=== PATIENT | male | born 1930 | race Caucasian/White ===

== ENCOUNTER 2016-11-17 10:03 | Inpatient (IN) ==
[2016-11-17] MEDS ORDERED: 0.9 % Sodium Chloride 1,000 ML IVC ONE (10:44)
[2016-11-17] MEDS ORDERED: *HR* Morphine 2 MG/ML SYRINGE IVP ONE (10:44)
[2016-11-17] MEDS ORDERED: Ondansetron 4 MG/2 ML VIAL IVP ONE (10:44)
[2016-11-17 11:13] LABS: Basophils % 0.1 %; Eosinophils % 0.2 %; Hematocrit 29.8 % (37.5-50.1); Hemoglobin 9.7 g/dL (12.9-16.9); Immature Granulocytes % 0.4 % (0-4); Lymphocytes # 0.2 K/mcL (0.6-4.6); Lymphocytes % 1.3 %; Mean Corpuscular HGB Conc 32.6 g/dL (31.6-35.5); Mean Corpuscular Hemoglobin 27.5 pg (28.0-33.3); Mean Corpuscular Volume 84.4 fL (83.0-100.0); Mean Platelet Volume 9.5 fL (9.4-12.4); Monocytes # 0.7 K/mcL (0.0-1.3); Monocytes % 5.4 %; Neutrophils # 11.2 K/mcL (1.6-8.9); Platelet Count 231 K/mcL (140-400); Red Blood Count 3.53 M/mcL (4.19-5.50); Red Cell Distribution Width 18.8 % (11.5-14.5); Segmented Neutrophils % 92.6 %
[2016-11-17 11:19] LABS: INR 1.3
[2016-11-17 11:22] LABS: Activated Partial Thrombo Time 30.5 Seconds (26.0-36.0)
--- NOTE | 2016-11-17 11:23 | Emergency Department Note ---
Disposition Clinical Impression: Anemia, Frail elderly, Inguinal hernia, Free intraperitoneal air, Abdominal pain, Pleural effusion, Abnormal EKG, Elevated C-reactive protein (CRP), Colonic mass, Lower extremity edema, Cholelithiasis, Hyperbilirubinemia Disposition: Admitted As Inpatient Referrals: Antonella Cardoza CNP [Primary Care Provider] - Forms: Work/School Release, ED Satisfaction Letter General Adult HPI - General Chief complaint: ED Abdominal Pain Stated complaint: abd pain Time Seen by Provider: 11/17/16 10:16 Source: patient Limitations: no limitations - History of Present Illness HPI Narrative: 86-year-old male presents emergency Department with abdominal pain which began yesterday. 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 He is scheduled for colonoscopy December 01. The patient has a known history of inguinal hernia in the left he states. He reports there is chronic swelling in the left scrotal area. He does not describe pain in the inguinal region sharon testicular pain. The patient has had no vomiting or diarrhea. He denies chest pain or shortness of breath. He describes lower extremity swelling. There is no history of coughing of blood or previous history of DVT or PE. The patient is not anticoagulated. There is no history of trauma or back pain. No confusion or difficulty moving the arms or legs independently. The patient reports a nonbloody non-diarrheal stool yesterday. There is no history of flank pain or difficulty voiding. Pain Scale: 6 - Related Data Home Medications Medication Instructions Recorded Confirmed Cyanocobalamin (Vitamin B-12) 1,000 mcg PO DAILY 01/20/16 04/21/16 [Vitamin B12] Cyclosporine [Restasis] 1 drop OP BID 01/20/16 04/21/16 Levothyroxine [Synthroid] 50 mcg PO QAM 01/20/16 04/21/16 Multivitamin [Multi-Day Vitamins] 1 tab PO DAILY 01/20/16 04/21/16 Nabumetone 750 mg PO BID 01/20/16 04/21/16 Omeprazole [PriLOSEC] 20 mg PO DAILY 01/20/16 04/21/16 Polyvinyl Alcohol [Artificial 1 drop OP BID PRN 01/20/16 04/21/16 Tears] Fluticasone Propionate Nasal 50 mcg NS DAILY 04/21/16 04/21/16 [Flonase] Ipratropium [place] 1 spray NS BID 04/21/16 04/21/16 Previous Rx's Medication Instructions Recorded Aspirin 81 mg PO DAILY 30 Days 04/23/16 Atorvastatin [Lipitor] 40 mg PO HS 30 Days 04/23/16 Clopidogrel [Plavix] 75 mg PO DAILY 30 Days 04/23/16 Lisinopril [Zestril] 2.5 mg PO DAILY 30 Days 04/23/16 Metoprolol [Lopressor] 12.5 mg PO Q12HR 30 Days 04/23/16 Allergies Allergy/AdvReac Type Severity Reaction Status Date / Time prednisone Allergy Rash Verified 11/17/16 10:13 Sulfa (Sulfonamide Allergy Rash Verified 11/17/16 10:13 Antibiotics) celecoxib [From Celebrex] AdvReac See Verified 11/17/16 10:13 Comments All systems ED: reviewed and negative except as stated. Past Medical History - Past Medical History Medical history: Reports: arthritis, GERD, hyperlipidemia, hypertension, thyroid disease, valvular heart disease Psychiatric history: Reports: no psych history - Social History Smoking Status: Never smoker Smokeless Tobacco Status: No Alcohol use: Reports: none Drug use: Reports: none Physical Exam - General Limitations: no limitations General appearance: alert, in no apparent distress - Head Head exam: atraumatic, normocephalic, normal inspection - Eye Eye exam: Present: normal appearance, PERRL, EOMI. Absent: scleral icterus, conjunctival injection, miosis, mydriasis - ENT ENT exam: normal exam, normal oropharynx, mucous membranes moist, TM's normal bilaterally, normal external ear exam - Neck Neck exam: Present: normal inspection, full ROM, trachea midline. Absent: tenderness - Chest Chest inspection: Present: symmetric chest wall rise. Absent: tenderness - Respiratory Respiratory exam: Present: normal lung sounds bilaterally. Absent: respiratory distress, wheezes, stridor, accessory muscle use, prolonged expiratory phase - Cardiovascular Cardiovascular exam: Present: regular rate, normal rhythm, systolic murmur - Abdominal Exam Abdominal exam: Present: soft, tenderness, distention. Absent: guarding, rebound, rigidity, pulsatile mass Abdominal tenderness: Present: diffuse, moderate - Male exam: Present: inguinal hernia - Extremities Exam Extremities exam: Present: full ROM, normal capillary refill, pedal edema, other (Lower extremity edema, marketed versus the left, all 4 extremities are supple without evidence of acute trauma and are warm and well perfused without cyanosis or evidence of acute neurovascular or neuromuscular compromise.). Absent: normal inspection, tenderness, joint swelling, calf tenderness - Expanded Lower Extremity Exam Neurovascular/Tendon exam: Present: normal capillary refill. Absent: motor deficit, sensory deficit, tendon deficit, extremity cold to touch, pallor - Back Exam Back exam: Present: normal inspection, full ROM. Absent: tenderness, CVA tenderness (R), CVA tenderness (L) - Neurological Exam Neurological exam: Present: alert, oriented X3, CN II-XII intact - Psychiatric Psychiatric exam: Present: normal affect, normal mood - Skin Skin exam: Present: warm, dry, intact, normal color. Absent: rash, cyanosis, diaphoresis, erythema, pallor, mottled Course - Reevaluation(s) Reevaluation #1: DVT study negative per radiology orderly. CTA chest shows no pulmonary embolus. The radiologist called directly about the patient's abdominal scan which reveals what appears to be free air, he suspects that the patient's colonic mass is perforated. No sharon extravasation of contrast. Reevaluation #2: I consulted with Dr. Remy the surgeon pathology transcriptionist regarding the patient's free air in the abdomen, he reports he will have his nurse practitioner come to the emergency department to evaluate the patient. 2:39 pm. Vital Signs Temperature 97.8 F 11/17/16 10:07 Pulse Rate 75 11/17/16 10:07 Respiratory Rate 16 11/17/16 10:07 Blood Pressure 117/67 11/17/16 10:07 O2 Sat by Pulse Oximetry 99 11/17/16 10:07 Temperature 97.8 F 11/17/16 10:07 Pulse Rate 80 11/17/16 12:21 Respiratory Rate 17 11/17/16 12:21 Blood Pressure 133/70 11/17/16 12:21 O2 Sat by Pulse Oximetry 96 11/17/16 12:21 Oxygen Delivery Oxygen Delivery Room Air Medical Decision Making - MDM Narrative Medical decision making narrative: Dr. Remy was consulted, he sent his staff to the ED to evaluate the patient , they are taking the patient to the operating room. Invanz was given IV. The patient is currently stable pending admission to the surgical service for operative management. - Lab Data Lab results reviewed: Yes I reviewed the patient's lab results. Result diagrams: 11/17/16 11:03 11/17/16 11:03 Lab Results 11/17/16 11/17/16 11/17/16 Range/Units 11:03 11:03 11:03 WBC 12.1 H D (4.3-11.1) K/mcL RBC 3.53 L (4.19-5.50) M/mcL Hgb 9.7 L (12.9-16.9) g/dL Hct 29.8 L (37.5-50.1) % MCV 84.4 (83.0-100.0) fL MCH 27.5 L (28.0-33.3) pg MCHC 32.6 (31.6-35.5) g/dL RDW 18.8 H (11.5-14.5) % Plt Count 231 (140-400) K/mcL MPV 9.5 (9.4-12.4) fL Immature Gran % 0.4 (0-4) % Seg Neutrophils % 92.6 % Lymphocytes % 1.3 % Monocytes % 5.4 % Eosinophils % 0.2 % Basophils % 0.1 % Neutrophils # 11.2 H (1.6-8.9) K/mcL Lymphocytes # 0.2 L (0.6-4.6) K/mcL Monocytes # 0.7 (0.0-1.3) K/mcL Eosinophils # 0.0 (0.0-0.6) K/mcL Basophils # 0.0 (0.0-0.2) K/mcL PT 14.0 H (9.4-12.1) Seconds INR 1.3 APTT 30.5 (26.0-36.0) Seconds Sodium 132 L (136-145) mEq/L Potassium 4.1 (3.5-4.5) mEq/L Chloride 103 (98-109) mEq/L Carbon Dioxide 22 (19-29) mEq/L BUN 35 H (8-26) mg/dL Creatinine 0.97 (0.72-1.25) mg/dL Est GFR ( Amer) > 60 (> 60) Est GFR (Non-Af Amer) > 60 (> 60) BUN/Creatinine Ratio 36 H (6-26) Glucose 90 (70-99) mg/dL Calculated Osmolality 282 (280-300) Lactic Acid (0.5-2.2) mmol/L Calcium 9.0 (8.6-10.8) mg/dL Total Bilirubin 1.3 H (0.2-1.2) mg/dL Direct Bilirubin 0.7 H (0.0-0.5) mg/dL Indirect Bilirubin 0.6 (0.0-1.2) mg/dL AST 22 (5-34) Units/L ALT 11 (0-55) Units/L Alkaline Phosphatase 103 (38-126) Units/L Troponin I (0-0.03) ng/mL C-Reactive Protein 249 H (Less than 5) mg/L B-Natriuretic Peptide (0-100) pg/mL Serum Total Protein 5.2 L (6.0-8.3) g/dL Albumin 2.2 L (3.5-5.0) g/dL Globulin 3.0 (2.4-3.5) g/dL Albumin/Globulin Ratio 0.7 L (1.1-2.2) Lipase < 10 (8-78) Units/L 11/17/16 11/17/16 11/17/16 Range/Units 11:03 11:03 11:03 WBC (4.3-11.1) K/mcL RBC (4.19-5.50) M/mcL Hgb (12.9-16.9) g/dL Hct (37.5-50.1) % MCV (83.0-100.0) fL MCH (28.0-33.3) pg MCHC (31.6-35.5) g/dL RDW (11.5-14.5) % Plt Count (140-400) K/mcL MPV (9.4-12.4) fL Immature Gran % (0-4) % Seg Neutrophils % % Lymphocytes % % Monocytes % % Eosinophils % % Basophils % % Neutrophils # (1.6-8.9) K/mcL Lymphocytes # (0.6-4.6) K/mcL Monocytes # (0.0-1.3) K/mcL Eosinophils # (0.0-0.6) K/mcL Basophils # (0.0-0.2) K/mcL PT (9.4-12.1) Seconds INR APTT (26.0-36.0) Seconds Sodium (136-145) mEq/L Potassium (3.5-4.5) mEq/L Chloride (98-109) mEq/L Carbon Dioxide (19-29) mEq/L BUN (8-26) mg/dL Creatinine (0.72-1.25) mg/dL Est GFR ( Amer) (> 60) Est GFR (Non-Af Amer) (> 60) BUN/Creatinine Ratio (6-26) Glucose (70-99) mg/dL Calculated Osmolality (280-300) Lactic Acid 1.9 (0.5-2.2) mmol/L Calcium (8.6-10.8) mg/dL Total Bilirubin (0.2-1.2) mg/dL Direct Bilirubin (0.0-0.5) mg/dL Indirect Bilirubin (0.0-1.2) mg/dL AST (5-34) Units/L ALT (0-55) Units/L Alkaline Phosphatase (38-126) Units/L Troponin I 0.00 (0-0.03) ng/mL C-Reactive Protein (Less than 5) mg/L B-Natriuretic Peptide 186 H (0-100) pg/mL Serum Total Protein (6.0-8.3) g/dL Albumin (3.5-5.0) g/dL Globulin (2.4-3.5) g/dL Albumin/Globulin Ratio (1.1-2.2) Lipase (8-78) Units/L - Radiology Data Radiology results reviewed: Yes I reviewed the patient's radiology results.
[2016-11-17 11:28] LABS: Alanine Aminotransferase 11 Units/L (0-55); Albumin 2.2 g/dL (3.5-5.0); Albumin/Globulin Ratio 0.7 (1.1-2.2); Alkaline Phosphatase 103 Units/L (38-126); Aspartate Amino Transferase 22 Units/L (5-34); BUN/Creatinine Ratio 36 (6-26); Bilirubin,Direct 0.7 mg/dL (0.0-0.5); Bilirubin,Indirect 0.6 mg/dL (0.0-1.2); Bilirubin,Total 1.3 mg/dL (0.2-1.2); Blood Urea Nitrogen 35 mg/dL (8-26); Carbon Dioxide 22 mEq/L (19-29); Chloride 103 mEq/L (98-109); Glucose 90 mg/dL (70-99); Osmolality,Calculated 282 (280-300); Potassium 4.1 mEq/L (3.5-4.5); Sodium 132 mEq/L (136-145); Total Protein 5.2 g/dL (6.0-8.3); eGFR For African Americans > 60 (> 60); eGFR For Non-African Americans > 60 (> 60)
[2016-11-17 11:29] LABS: Lipase < 10 Units/L (8-78)
--- NOTE | 2016-11-17 11:39 | Emergency Department Note ---
START Narrative - START START: Patient presents with his for evaluation of abdominal pain. It is localized superior to the umbilicus extending to the epigastrium. Nothing makes it better. It is worse with palpation. He describes a recent bout of constipation, which was alleviated after using an enema at home. He had a normal bowel movement yesterday. He denies melena or hematochezia. He has had no nausea, vomiting, fever or chills. He has noticed an increase in his right inguinal hernia since yesterday. He denies dysuria, hematuria, flank pain. He also denies chest pain, shortness of breath or trouble breathing. On exam, he has mild abdominal distention, moderate tenderness in epigastrium and superior to the umbilicus. A large right inguinal hernia extending into the scrotum, which is mildly tender. He also has what sounds like atrial fibrillation and mild rales in the bases bilaterally. It does not appear that he is anticoagulated. Screening labs and an EKG have been ordered. Previous imaging studies done two weeks ago will be reviewed and new imaging studies will be ordered. Case has been discussed with Dr. Baker. He will be taking over care of this patient.
[2016-11-17 12:03] LABS: C-Reactive Protein 249 mg/L (Less than 5)
[2016-11-17] MEDS ORDERED: *HR* Propofol 200 MG/20 ML VIAL IVP ONE (16:05)
[2016-11-17] MEDS ORDERED: Lidocaine -MPF 4% 5 ML AMPUL ONE (16:10)
--- NOTE | 2016-11-17 16:11 | General Surg History&Physical ---
<Omaira Mccarthy - Last Filed: 11/17/16 16:02> Date of Encounter: 11/17/16 Time of Encounter: 15:45 Assessment and Plan (1) Free intraperitoneal air Current Visit: Yes Status: Acute The assessment and plan as outlined above was discussed with the patient and/or family members who expressed understanding and agreement. All questions were answered. Admit to 2N Nothing by mouth IV fluids IV antibiotics Supportive care and pain control Plan for urgent surgical intervention: Discussed the risks, benefits, alternatives, expected outcomes with the patient and his and he is in agreement to proceed to the operating room with Dr. Remy for an exploratory laparotomy with sigmoid colon resection, diverting colostomy, primary repair of left inguinal hernia. (2) Colonic mass Current Visit: Yes Status: Acute The assessment and plan as outlined above was discussed with the patient and/or family members who expressed understanding and agreement. All questions were answered. Admit to 2N Nothing by mouth IV fluids IV antibiotics Check CEA level Supportive care and pain control Plan for urgent surgical intervention: Discussed the risks, benefits, alternatives, expected outcomes with the patient and his and he is in agreement to proceed to the operating room with Dr. Remy for an exploratory laparotomy with sigmoid colon resection, diverting colostomy, primary repair of left inguinal hernia. (3) Left inguinal hernia Current Visit: Yes Status: Acute The assessment and plan as outlined above was discussed with the patient and/or family members who expressed understanding and agreement. All questions were answered. Plan for primary repair of left inguinal hernia History of Present Illness Chief complaint: Abdominal pain HPI: Mr. Craig is a 86 year old male who presented to the emergency department today with complaints of abdominal discomfort. He states that he has not been feeling well for approximately 1 month. He has had decreased appetite. He also had blood noted in his stool and did undergo a CAT scan 3 weeks ago. He was found to have a colonic mass as well as adenopathy at that time. He was seen and evaluated by Dr. Charlton and was scheduled to undergo a colonoscopy on . He states that 4 days ago he was struggling with constipation and he took an enema at that time. He states that he was able to have a normal bowel movement after the enema. He states that he had 10 bowel movements on Monday. He states that he has struggled with lifelong constipation however he is able to have a bowel movement 1-2 times a day with his current bowel regimen. He reports that he has been anemic and was started on iron supplementation. He states that since that time his stool has been black. He currently denies seen any blood in the stool. He has had a 35 pound weight loss over the last 2 years. He reports a significant decrease in appetite over the last 1 month. He admits to increasing fatigue and weakness. He is currently having abdominal pain and he states that this started approximate 4 days ago after taking an enema. He states that he pain initially started on his right side and has now migrated to his left side. He describes it as a constant soreness to the left side of his abdomen. He admits to chills but denies any fevers. He denies any nausea or vomiting. He admits to shortness of breath but denies any chest pains. He is urinating without difficulty however he states that his left inguinal hernia makes it difficult to urinate because his penis is retracted. He has had a CAT scan completed which shows concerns for perforated viscus and pneumoperitoneum. It does further demonstrate the sigmoid colonic mass with adenopathy. He also has a large left inguinal hernia with sigmoid colon into his left scrotum. The patient states that his father at the age of 50 from colon cancer. The patient has never had a colonoscopy evaluation. Past Med Surg Social Fam HX - Past Medical History Source: patient, old records reviewed Medical history: arthritis (rheumatoid), GERD, hyperlipidemia, hypertension, thyroid disease, valvular heart disease, other (anemia) Psychiatric history: no psych history - Past Surgical History Surgical History: other (Bilateral cataract removal, tonsils and adenoids removed) - Social History Smoking Status: Never smoker Smokeless Tobacco Status: No Alcohol use: none Drug use: none Current living situation: Home - Independent Activity Level: Independent ambulation - Family History Father Living Status: Age at : 50 Hx Family Cancer: Yes (colon cancer) Mother Living Status: Age at : 90 Cause of : CAD Hx Family Cardiac Disorders: Yes Hx Family Endocrine Disorder: Yes (Diabetes Mellitus) Brother Living Status: Still Living Hx Family Cardiac Disorders: Yes Hx Family Endocrine Disorder: Yes (diabetes mellitus) Medications and Allergies Cyanocobalamin (Vitamin B-12) [Vitamin B12] 1,000 mcg PO DAILY 01/20/16 [History ] Cyclosporine [Restasis] 1 drop OP BID 01/20/16 [History] Levothyroxine [Synthroid] 50 mcg PO QAM 01/20/16 [History] Multivitamin [Multi-Day Vitamins] 1 tab PO DAILY 01/20/16 [History] Nabumetone 750 mg PO BID 01/20/16 [History] Omeprazole [PriLOSEC] 20 mg PO DAILY 01/20/16 [History] Polyvinyl Alcohol [Artificial Tears] 1 drop OP BID PRN 01/20/16 [History] Fluticasone Propionate Nasal [Flonase] 50 mcg NS DAILY 04/21/16 [History] Ipratropium [place] 1 spray NS BID 04/21/16 [History] Aspirin 81 mg PO DAILY 30 Days 04/23/16 [Rx] Ascorbate Calcium [Vitamin C] 500 mg PO DAILY 11/17/16 [History] Diltiazem [Cardizem] 30 mg PO TID 11/17/16 [History] Ferrous Sulfate [Iron] 325 mg PO DAILY 11/17/16 [History] Sennosides [Senna] 17.2 mg PO HS PRN 11/17/16 [History] Allergies celecoxib [From Celebrex] Adverse Reaction (Verified 11/17/16 15:29) See Comments patient unsure of reaction prednisone Adverse Reaction (Verified 11/17/16 15:29) Rash patient wasnt sure of reaction to this Sulfa (Sulfonamide Antibiotics) Adverse Reaction (Verified 11/17/16 15:29) Rash patient wasnt sure of reaction Review of Systems All systems PM: reviewed and no additional remarkable complaints except as stated (in the HPI) All systems PM: A 10-system review of systems was performed and is negative for pertinent findings except as documented above in the HPI. General Surgery Exam Initial Vital Signs Temp Pulse Resp BP Pulse Ox 97.8 F 75 16 117/67 99 11/17/16 10:07 11/17/16 10:07 11/17/16 10:07 11/17/16 10:07 11/17/16 10:07 - General physical appearance well developed, moderate pain, chronically ill - Eyes normal ocular movement - ENT normal mucosa, atraumatic, normocephalic - Neck trachea midline - Respiratory normal respiratory effort, clear to auscultation - Cardiovascular Cardiovascular exam: Present: RRR, murmurs - Abdomen Abdomen general surgery: Present: bowel sounds present, soft, distended, tender Abdominal Tenderness: Present: LUQ, LLQ - Integumentary Integumentary general surgery: Present: warm and dry - Neurologic Present: CN 2-12 grossly intact - Musculoskeletal Present: other (generalized weakness) - Psychiatric Psychiatric general surgery: Present: appropriate, oriented to person, oriented to place, oriented to time, speech is normal, memory intact Results - Labs 11/17/16 11:03 11/17/16 11:03 Abnormal lab results WBC 12.1 K/mcL (4.3-11.1) H D 11/17/16 11:03 RBC 3.53 M/mcL (4.19-5.50) L 11/17/16 11:03 Hgb 9.7 g/dL (12.9-16.9) L 11/17/16 11:03 Hct 29.8 % (37.5-50.1) L 11/17/16 11:03 MCH 27.5 pg (28.0-33.3) L 11/17/16 11:03 RDW 18.8 % (11.5-14.5) H 11/17/16 11:03 Neutrophils # 11.2 K/mcL (1.6-8.9) H 11/17/16 11:03 Lymphocytes # 0.2 K/mcL (0.6-4.6) L 11/17/16 11:03 PT 14.0 Seconds (9.4-12.1) H 11/17/16 11:03 Sodium 132 mEq/L (136-145) L 11/17/16 11:03 BUN 35 mg/dL (8-26) H 11/17/16 11:03 BUN/Creatinine Ratio 36 (6-26) H 11/17/16 11:03 Total Bilirubin 1.3 mg/dL (0.2-1.2) H 11/17/16 11:03 Direct Bilirubin 0.7 mg/dL (0.0-0.5) H 11/17/16 11:03 C-Reactive Protein 249 mg/L (Less than 5) H 11/17/16 11:03 B-Natriuretic Peptide 186 pg/mL (0-100) H 11/17/16 11:03 Serum Total Protein 5.2 g/dL (6.0-8.3) L 11/17/16 11:03 Albumin 2.2 g/dL (3.5-5.0) L 11/17/16 11:03 Albumin/Globulin Ratio 0.7 (1.1-2.2) L 11/17/16 11:03 All other labs normal. - Imaging Additional studies: Chest CTA 11/17/16 11:36 IMPRESSION: 1. No pulmonary embolism. 2. Trace left pleural effusion of uncertain significance. 3. Mild dependent atelectasis in the lower chest. D/ / Santos Trotter MD / Santos Trotter MD Interpreting Provider: Santos Trotter MD Abdomen/Pelvis CT 11/17/16 13:00 IMPRESSION: 1. Pneumoperitoneum compatible with perforated viscus. Perforated colon mass or diverticulum is favored. There is a small amount of free intraperitoneal fluid 2. Large colon mass with probable transmural extension and pelvic and abdominal adenopathy re- demonstrated and not significantly changed. 3. Cholelithiasis 4. Nonobstructing left nephrolithiasis 5. Stable nonspecific liver lesions and periportal edema 6. Left inguinal hernia containing sigmoid proximal to the mass D/ / Monty Mishra MD / Monty Mishra MD Interpreting Provider: Monty Mishra MD - Attending Attestation I examined this patient and my medical decision-making was reviewed with the CREDIT REPORT CHECKER/PA/Advanced Practice Nurse/Resident Physician. I agree with the documented findings, disposition and treatment plan as described except to the extent set forth below. <Gopal Remy M - Last Filed: 11/17/16 17:52> Date of Encounter: 11/17/16 History of Present Illness HPI: Mr. Craig is a 86 year old male Review of Systems All systems PM: A 10-system review of systems was performed and is negative for pertinent findings except as documented above in the HPI. General Surgery Exam Initial Vital Signs Temp Pulse Resp BP Pulse Ox 97.8 F 75 16 117/67 99 11/17/16 10:07 11/17/16 10:07 11/17/16 10:07 11/17/16 10:07 11/17/16 10:07 Results - Labs 11/17/16 11:03 11/17/16 11:03 Abnormal lab results WBC 12.1 K/mcL (4.3-11.1) H D 11/17/16 11:03 RBC 3.53 M/mcL (4.19-5.50) L 11/17/16 11:03 Hgb 9.7 g/dL (12.9-16.9) L 11/17/16 11:03 Hct 29.8 % (37.5-50.1) L 11/17/16 11:03 MCH 27.5 pg (28.0-33.3) L 11/17/16 11:03 RDW 18.8 % (11.5-14.5) H 11/17/16 11:03 Neutrophils # 11.2 K/mcL (1.6-8.9) H 11/17/16 11:03 Lymphocytes # 0.2 K/mcL (0.6-4.6) L 11/17/16 11:03 PT 14.0 Seconds (9.4-12.1) H 11/17/16 11:03 Sodium 132 mEq/L (136-145) L 11/17/16 11:03 BUN 35 mg/dL (8-26) H 11/17/16 11:03 BUN/Creatinine Ratio 36 (6-26) H 11/17/16 11:03 Total Bilirubin 1.3 mg/dL (0.2-1.2) H 11/17/16 11:03 Direct Bilirubin 0.7 mg/dL (0.0-0.5) H 11/17/16 11:03 C-Reactive Protein 249 mg/L (Less than 5) H 11/17/16 11:03 B-Natriuretic Peptide 186 pg/mL (0-100) H 11/17/16 11:03 Serum Total Protein 5.2 g/dL (6.0-8.3) L 11/17/16 11:03 Albumin 2.2 g/dL (3.5-5.0) L 11/17/16 11:03 Albumin/Globulin Ratio 0.7 (1.1-2.2) L 11/17/16 11:03 Urine Clarity Cloudy (Clear) A 11/17/16 16:26 Ur Specific Sultan > 1.030 (1.010-1.025) H 11/17/16 16:26 Urine Ketones 15 mg/dL (Negative) H 11/17/16 16:26 Urine Bilirubin Small (Negative) H 11/17/16 16:26 Urine Microscopic RBC 3-5 per hpf (0-3) H 11/17/16 16:26 Urine Microscopic WBC 5-15 per hpf (0-3) H 11/17/16 16:26 Ur Squamous Epith Cells Many per lpf (None-Few) H 11/17/16 16:26 Ur Culture Indicated? YES (NO) A 11/17/16 16:26 All other labs normal. - Attending Attestation I reviewed the evaluation and assessment and agree with the above. The patient had the onset of increased lower abdominal pain starting Monday. No nausea or vomiting. No current diarrhea or constipation. He has had black colored stool secondary to supplemental iron. He has never had a colonoscopy and admits to a family history of colon cancer. Noted pain to palpation in the lower abdomen. Noted large inguinal/scrotal hernia. He had symptoms of constipation which prompted his PMD to order a CT of the abdomen and pelvis on , demonstrating a large sigmoid mass. He new lower abdominal pain promted his current visit to the ER today and a repeat CT scan. I personally reviewed the CT scan images and results with the patient which is consistent with a large colonic mass (enlarged lymph nodes are identified as well) and free air. This is most likely a perforated sigmoid colon mass and will require resection with colostomy. I will also repair the inguinal hernia without mesh. Discussed with the patient and they agree with the above plan.
[2016-11-17] MEDS ORDERED: *HR* Rocuronium Bromide 50 MG/5 ML VIAL ONE (16:12)
[2016-11-17] MEDS ORDERED: Naloxone 0.4 MG/ML INJ IVP PRN ×2 (16:25→22:53)
[2016-11-17] MEDS ORDERED: Ondansetron 4 MG/2 ML VIAL IVP PRN ×2 (16:25→22:53)
[2016-11-17] MEDS ORDERED: *HR* HYDROmorphone (PF) 1 MG/ML SYRINGE IVP PRN (16:28)
[2016-11-17] MEDS ORDERED: 0.9 % Sodium Chloride 1,000 ML IVC SCH (16:30)
[2016-11-17 16:40] LABS: Bilirubin,Urine Small (Negative); Blood,Urine Negative (Negative); Clarity,Urine Cloudy (Clear); Color,Urine Dark Yellow (Yellow); Glucose,Urine (UA) Normal (Normal); Ketones,Urine 15 mg/dL (Negative); Leukocyte Esterase,Urine Negative (Negative); Nitrite,Urine Negative (Negative); Protein,Urine Trace mg/dL (Neg-Trace); Specific Gravity,Urine > 1.030 (1.010-1.025); Urobilinogen,Urine Normal (Normal)
[2016-11-17 16:42] LABS: Bacteria,Urine None Seen per hpf (None-Few); Hyaline Casts,Urine Few per lpf (None-Few); Squamous Epithelial Cell,Urine Many per lpf (None-Few)
--- NOTE | 2016-11-17 16:44 | Anesthesia Evaluation PreOp ---
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 HX Other Medical History: Thyroid, GERD, Other (rheumatoid arthritis) Anesthesia History: No Prior Anesthetic Complications, Past Anesthesia ( tonsillectomy at age 8) Alcohol Use: none Drug use: none Medications and Allergies Cyanocobalamin (Vitamin B-12) [Vitamin B12] 1,000 mcg PO DAILY 01/20/16 [History ] Cyclosporine [Restasis] 1 drop OP BID 01/20/16 [History] Levothyroxine [Synthroid] 50 mcg PO QAM 01/20/16 [History] Multivitamin [Multi-Day Vitamins] 1 tab PO DAILY 01/20/16 [History] Nabumetone 750 mg PO BID 01/20/16 [History] Omeprazole [PriLOSEC] 20 mg PO DAILY 01/20/16 [History] Polyvinyl Alcohol [Artificial Tears] 1 drop OP BID PRN 01/20/16 [History] Fluticasone Propionate Nasal [Flonase] 50 mcg NS DAILY 04/21/16 [History] Ipratropium [place] 1 spray NS BID 04/21/16 [History] Aspirin 81 mg PO DAILY 30 Days 04/23/16 [Rx] Ascorbate Calcium [Vitamin C] 500 mg PO DAILY 11/17/16 [History] Diltiazem [Cardizem] 30 mg PO TID 11/17/16 [History] Ferrous Sulfate [Iron] 325 mg PO DAILY 11/17/16 [History] Sennosides [Senna] 17.2 mg PO HS PRN 11/17/16 [History] Allergies celecoxib [From Celebrex] Adverse Reaction (Verified 11/17/16 15:29) See Comments patient unsure of reaction prednisone Adverse Reaction (Verified 11/17/16 15:29) Rash patient wasnt sure of reaction to this Sulfa (Sulfonamide Antibiotics) Adverse Reaction (Verified 11/17/16 15:29) Rash patient wasnt sure of reaction - Meds/Allergy Pre-op Review Medications Reviewed: Yes Allergies Reviewed: Yes Beta Blockers on Current Med List: No Anesthesia Results - Labs 11/17/16 11:03 11/17/16 11:03 - Imaging EKG: report reviewed, image reviewed (SR with occ PVC's) Additional studies: TTE: LVEF 60-65% mod LV diastolic dysfunction normal RV structure and function mod dilated LA mildly dilated RA mild AR mild MR no pulm htn Anesthesia Exam Last Vital Signs Temp 97.8 F 11/17/16 10:07 Pulse 76 11/17/16 15:43 Resp 18 11/17/16 15:43 BP 120/64 11/17/16 15:43 Pulse Ox 97 11/17/16 15:43 Weight: 77 kg - HEENT Pupil (Motor): Pupils equal, EOMI Mallampati: I Teeth: Edentulous Oral Opening: Greater than 3 - 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
[2016-11-17] MEDS ORDERED: Piperacillin/Tazobactam 3.375 GM in D5% in Water (Mini-Bag+) 100 ML IVPB SCH (17:00)
[2016-11-17] MEDS ORDERED: Ertapenem 1,000 MG in 0.9 % Sodium Chloride Mini Bag 100 ML IVPB ONE (17:00)
[2016-11-17] MEDS ORDERED: CefOXitin 1,000 MG VIAL ONE (17:36)
[2016-11-17] MEDS ORDERED: *HR* FentaNYL (PF) 100 MCG/2 ML VIAL ONE (18:02)
[2016-11-17] MEDS ORDERED: Ondansetron 4 MG/2 ML VIAL ONE (18:29)
[2016-11-17] MEDS ORDERED: Dexamethasone 4 MG/ML VIAL ONE (18:29)
[2016-11-17] MEDS ORDERED: *HR* HYDROmorphone 2 MG/ML SYRINGE ONE (18:39)
[2016-11-17] MEDS ORDERED: *HR* Magnesium Sulfate 1 GM/2 ML VIAL ONE ×2 (19:29→20:54)
[2016-11-17 20:28] LABS: Eosinophils % 0.1 %; Immature Granulocytes % 0.6 % (0-4); Lymphocytes # 0.4 K/mcL (0.6-4.6); Lymphocytes % 4.1 %; Mean Corpuscular HGB Conc 31.8 g/dL (31.6-35.5); Mean Corpuscular Hemoglobin 27.6 pg (28.0-33.3); Mean Corpuscular Volume 86.6 fL (83.0-100.0); Mean Platelet Volume 9.3 fL (9.4-12.4); Monocytes # 0.4 K/mcL (0.0-1.3); Monocytes % 4.9 %; Neutrophils # 7.8 K/mcL (1.6-8.9); Platelet Count 169 K/mcL (140-400); Red Blood Count 2.54 M/mcL (4.19-5.50); Red Cell Distribution Width 18.9 % (11.5-14.5); Segmented Neutrophils % 90.3 %
--- NOTE | 2016-11-17 21:30 | Operative Note ---
Date of procedure: 11/17/16 Pre-op diagnosis: Free air; sigmoid colon mass; left inguinal hernia Post-op diagnosis: other (Perforated sigmoid colon mass; left inguinal hernia) Procedure: 1. Exploratory celiotomy. 2. Sigmoid colectomy with colostomy. 3. Primary repair of left inguinal hernia. 4. Repair of left external/internal iliac vein injury. Implants: 19FR Franco x 1 Anesthesia: GETA Surgeon: Gopal Remy Sample Weaver: Magali Morgan Estimated blood loss (cc): 1,100 Specimen: sigmoid colon Disposition: PACU Procedure in Detail: Date of surgery: 11/17/16 After properly identifying the patient, the patient was brought to the operating room and placed in the supine position. After proper IV sedation was achieved followed by general endotracheal intubation the patient's abdomen was prepped and draped in normal sterile fashion. A timeout was performed noting the patient's name and type of procedure to be performed. A 10 blade scalpel was used to make an incision approximately 5-6 cm above the umbilicus extending down to the pubic symphysis. Bovie cauterization was used to dissect through the subcutaneous tissue and rectus fascia until the abdomen was entered. Visualization of the intra-abdominal component stated demonstrated exudate fluid within the pelvis which was immediately cultured and suctioned. A Bookwalter was brought onto the operative field to retract the fascia laterally. The examination of the intra-abdominal contents demonstrated that the sigmoid mass was at the level of the pelvic brim and approximately 8-10 cm in size. There were dense adhesions of the mass to the sidewall which were dissected free with Bovie cauterization and blunt dissection. Once this was performed this allowed for visualization of the segment of the sigmoid colon that was within the left inguinal hernia sac. At first gentle retraction and then more forceful retraction was required to reduce the hernia contents from within the hernia site. Of note; there was exudate present within the hernia sac and scrotum which was immediately suctioned. The hernia sac was then dissected free and the lateral sidewall attachments to the descending colon and sigmoid colon were dissected free with Bovie cauterization. The mass demonstrated enlarged bulky lymph nodes extending to the mesentery. Brief examination of the small bowel did show evidence of one small nodule consistent/ concerning for carcinomatosis. The small bowel was then run and evidence of multiple large size small bowel diverticula were identified with no further evidence of nodules along the serosal surface of the small bowel. First, the descending colon was examined and a portion of the mesentery was dissected free from the surface of the colon to allow for transection of the descending colon with a TRE stapler. This allowed for medial retraction of the sigmoid colon and further dissection of the mesentery inclusive of these "bulky " lymph nodes with the sigmoid. During the retraction the left ureter was visualized and noted to be densely adherent to this region. Careful dissection with a tonsil dissector and Metzenbaum scissors allow for sparing of the left ureter. The sacral prominence was examined and palpated and the peritoneal surface was scored to the left and right side of the sigmoid colon. Again, there were bulky lymph nodes noted more towards the left side of the mesentery/ central compartment.the pelvic vessels were enlarged and were hemostatic controlled with the handheld LigaSure. The mayelin-hemorrhoidal vessels were identified and transected with the handheld LigaSure and this pedicle did contain very enlarged lymph nodes as well which were dissected and carried with the sigmoid segment. The bulky mass was retracted superiorly allowing for dissection of the bulky mesentery so adjacent to the rectum to be transected with a handheld LigaSure. The amount of lymph node involvement was too extensive to completely clear the area during this dissection and transection for perforated colon mass. A contour stapler was brought onto the operative field which was used to transect across the rectum and the intervening segment of the sigmoid colon which was approximately 2 feet in length; this was removed from the operative field. During the retraction of the sigmoid mass there was evidence of a pelvic bleed and visualization of an injury to the confluence of the external and internal left iliac vein. This was repaired with a running 4- 0 Prolene suture. Surgicel was placed along the incision line to ensure hemostasis and the pelvis was copiously irrigated with normal saline solution containing Mefoxin. Sponges were placed in the pelvis to also help maintain hemostasis. My colleague Dr. Reaves (vascular coverage) was contacted and presented himself to the operating room to ensure proper repair of the iliac vein injury. This was verified and no further intervention was necessary regarding the iliac vein repair. The inguinal hernia defect was identified and the pubic tubercle could be palpated easily. The space was very enlarged and due to the exudate that was present within the abdomen and the need for a colonic resection the decision was made to primarily repair this by reapproximating the edge of what was felt to be the inguinal ligament to the near periosteum of the pubic tubercle or Onel's ligament. This was closed in a running fashion with 2-0 Prolene sutures. The omentum was then placed in the pelvis to cover this repair. The abdomen was once again copiously irrigated with normal saline solution and the decision was made to create a left sided ostomy by grasping the epidermis with an Allis clamp and transection of the epidermis with a 10 blade scalpel. Dissection through the subcutaneous tissue and fascia was performed with Bovie cauterization. The rectus abdominous muscle was split with a Nubia clamp and the posterior sheath was incised Bovie cauterization. The descending colonic stump was extruded through this opening without difficulty. Seprafilm was placed within the abdomen and the midline incision was closed with a running 0 PDS suture. Subcutaneous tissue was reapproximated with 2-0 Vicryl sutures.and the incision was briefly covered while the descending colonic stump was transected with Bovie cauterization and the ostomy was treated with interrupted 3-0 Vicryl sutures. The midline incision was packed with 1/4 inch plain Nu Gauze. [place], sponge, and instrument counts were correct 2 and the incision was covered with 4 x 4's and the ostomy appliance was placed over the ostomy. Due to the inability to pass a Bolden catheter urology was called for placement of a Bolden catheter prior to extubation. Following this the patient was transported to the recovery room in stable condition.
[2016-11-17] MEDS ORDERED: Neostigmine Methylsulfate 3 MG/3 ML SYRINGE ONE (21:35)
--- NOTE | 2016-11-17 21:40 | Urology - Consult Note ---
Date of Encounter: 11/17/16 Time of Encounter: 21:38 - Assessment and Plan (1) Urinary retention Current Visit: Yes Status: Acute Assessment and plan: Patient was prepped and draped in normal sterile fashion. I then attempted to place 18-[place] coude catheter which did not successfully into the bladder. I then was able to with some difficulty negotiate a Glidewire into the patient's bladder. I then placed an 18-[place] tip catheter with 10 mL of sterile water placed in the balloon. Approximately 1 L of urine was returned. The patient's catheter should remain in place for at least 2-3 days after surgery. He can then undergo voiding trial as normal. Urology CN:HPI Consult date: 11/17/16 Reason for consult Urology: Difficult Bolden Requesting physician: Gopal Remy History of present illness: Ciro is an 86-year-old male who was undergoing operative intervention for obstructing sigmoid mass. Multiple attempts of urinary catheter placement were attempted which were unsuccessful. Patient is known to urology for been evaluated approximately one year ago for some mild urinary hesitancy. Patient failed to follow-up for his cystoscopy. Past Med Surg Social Fam HX - Past Medical History Medical history: arthritis (rheumatoid), GERD, hyperlipidemia, hypertension, thyroid disease, valvular heart disease, other (anemia) Psychiatric history: no psych history - Past Surgical History Surgical History: other (Bilateral cataract removal, tonsils and adenoids removed) - Social History Smoking Status: Never smoker Smokeless Tobacco Status: No Alcohol use: none Drug use: none - Family History Father Living Status: Age at : 50 Hx Family Cancer: Yes (colon cancer) Mother Living Status: Age at : 90 Cause of : CAD Hx Family Cardiac Disorders: Yes Hx Family Endocrine Disorder: Yes (Diabetes Mellitus) Brother Living Status: Still Living Hx Family Cardiac Disorders: Yes Hx Family Endocrine Disorder: Yes (diabetes mellitus) Medications and Allergies Cyanocobalamin (Vitamin B-12) [Vitamin B12] 1,000 mcg PO DAILY 01/20/16 [History ] Cyclosporine [Restasis] 1 drop OP BID 01/20/16 [History] Levothyroxine [Synthroid] 50 mcg PO QAM 01/20/16 [History] Multivitamin [Multi-Day Vitamins] 1 tab PO DAILY 01/20/16 [History] Nabumetone 750 mg PO BID 01/20/16 [History] Omeprazole [PriLOSEC] 20 mg PO DAILY 01/20/16 [History] Polyvinyl Alcohol [Artificial Tears] 1 drop OP BID PRN 01/20/16 [History] Fluticasone Propionate Nasal [Flonase] 50 mcg NS DAILY 04/21/16 [History] Ipratropium [place] 1 spray NS BID 04/21/16 [History] Aspirin 81 mg PO DAILY 30 Days 04/23/16 [Rx] Ascorbate Calcium [Vitamin C] 500 mg PO DAILY 11/17/16 [History] Diltiazem [Cardizem] 30 mg PO TID 11/17/16 [History] Ferrous Sulfate [Iron] 325 mg PO DAILY 11/17/16 [History] Sennosides [Senna] 17.2 mg PO HS PRN 11/17/16 [History] Allergies celecoxib [From Celebrex] Adverse Reaction (Verified 11/17/16 15:29) See Comments patient unsure of reaction prednisone Adverse Reaction (Verified 11/17/16 15:29) Rash patient wasnt sure of reaction to this Sulfa (Sulfonamide Antibiotics) Adverse Reaction (Verified 11/17/16 15:29) Rash patient wasnt sure of reaction Review of Systems ROS unobtainable: due to endotracheal tube Exam Initial Vital Signs Temp Pulse Resp BP Pulse Ox 97.8 F 75 16 117/67 99 11/17/16 10:07 11/17/16 10:07 11/17/16 10:07 11/17/16 10:07 11/17/16 10:07 - General physical appearance Present: well developed - Cardiovascular Cardiovascular exam IM: RRR - Genitourinary other (Uncircumcised phallus) Urology Results - Labs 11/17/16 20:23 11/17/16 11:03 Abnormal lab results RBC 2.54 M/mcL (4.19-5.50) L 11/17/16 20:23 Hgb 7.0 g/dL (12.9-16.9) L D 11/17/16 20:23 Hct 22.0 % (37.5-50.1) L 11/17/16 20:23 MCH 27.6 pg (28.0-33.3) L 11/17/16 20:23 RDW 18.9 % (11.5-14.5) H 11/17/16 20:23 MPV 9.3 fL (9.4-12.4) L 11/17/16 20:23 Lymphocytes # 0.4 K/mcL (0.6-4.6) L 11/17/16 20:23 PT 14.0 Seconds (9.4-12.1) H 11/17/16 11:03 Sodium 132 mEq/L (136-145) L 11/17/16 11:03 BUN 35 mg/dL (8-26) H 11/17/16 11:03 BUN/Creatinine Ratio 36 (6-26) H 11/17/16 11:03 Total Bilirubin 1.3 mg/dL (0.2-1.2) H 11/17/16 11:03 Direct Bilirubin 0.7 mg/dL (0.0-0.5) H 11/17/16 11:03 C-Reactive Protein 249 mg/L (Less than 5) H 11/17/16 11:03 B-Natriuretic Peptide 186 pg/mL (0-100) H 11/17/16 11:03 Serum Total Protein 5.2 g/dL (6.0-8.3) L 11/17/16 11:03 Albumin 2.2 g/dL (3.5-5.0) L 11/17/16 11:03 Albumin/Globulin Ratio 0.7 (1.1-2.2) L 11/17/16 11:03 Carcinoembryonic Ag 5.8 ng/mL (0-5.0) H 11/17/16 11:03 Urine Clarity Cloudy (Clear) A 11/17/16 16:26 Ur Specific [place] > 1.030 (1.010-1.025) H 11/17/16 16:26 Urine Ketones 15 mg/dL (Negative) H 11/17/16 16:26 Urine Bilirubin Small (Negative) H 11/17/16 16:26 Urine Microscopic RBC 3-5 per hpf (0-3) H 11/17/16 16:26 Urine Microscopic WBC 5-15 per hpf (0-3) H 11/17/16 16:26 Ur Squamous Epith Cells Many per lpf (None-Few) H 11/17/16 16:26 Ur Culture Indicated? YES (NO) A 11/17/16 16:26 All other labs normal. Consult Discharge Plan - Plan Referrals: Antonella Cardoza CNP [Primary Care Provider] -
[2016-11-17] MEDS ORDERED: Acetaminophen IV 1,000 MG/100 ML INFUS..BTL IVPB ONE (22:18)
--- NOTE | 2016-11-17 22:23 | Anesthesia Evaluation Post Op ---
Date of Encounter: 11/17/16 Time of Encounter: 22:20 - Vital Signs Vital Signs: Vital Signs/O2 Sat/Glucose, Most Current Temp Pulse Resp BP Pulse Ox 11/17/16 22:08 91 16 101/58 100 11/17/16 21:58 85 16 85/46 100 11/17/16 21:48 100 F H 90 14 86/48 96 - Lungs Lungs: Clear Ascult./Percussion - Airway Airway: Non-obstructed - Cardiovascular Regular Rate - Mental Status Mental Status: Asleep with brisk response to light stimulation - Pain Pain Scale: 1 Pain Scale used: Strickland-Dia (Faces) - Nausea Vomiting Nausea Vomiting: Not Present - Hydration Hydration: NPO, Bolden catheter - Discharge PostOp Status: Transfer Patient to floor Anes Supervising Prov Stmt: Pt VSS and pt has met criteria for discharge to floor. - MD Alexsander
[2016-11-18] MEDS: Piperacillin/Tazobactam 3.375 GM in D5% in Water (Mini-Bag+) 100 ML IVPB SCH ×3 (00:52→17:48)
[2016-11-18 00:53] LABS: Basophils % 0.1 %; Hematocrit 29.2 % (37.5-50.1); Immature Granulocytes % 1.1 % (0-4); Lymphocytes # 0.2 K/mcL (0.6-4.6); Lymphocytes % 1.4 %; Mean Corpuscular HGB Conc 31.2 g/dL (31.6-35.5); Mean Corpuscular Hemoglobin 27.3 pg (28.0-33.3); Mean Corpuscular Volume 87.7 fL (83.0-100.0); Mean Platelet Volume 9.4 fL (9.4-12.4); Monocytes # 0.7 K/mcL (0.0-1.3); Monocytes % 4.2 %; Neutrophils # 14.8 K/mcL (1.6-8.9); Platelet Count 166 K/mcL (140-400); Red Blood Count 3.33 M/mcL (4.19-5.50); Segmented Neutrophils % 93.2 %
[2016-11-18 00:58] LABS: Hemoglobin 9.1 g/dL (12.9-16.9)
[2016-11-18 01:19] LABS: Platelet Estimate Normal (Normal)
[2016-11-18 01:20] LABS: Anisocytosis 1+ (Not Present)
[2016-11-18] MEDS: *HR* HYDROmorphone (PF) 1 MG/ML SYRINGE IVP PRN ×3 (02:11→22:56)
[2016-11-18] MEDS: 0.9 % Sodium Chloride 1,000 ML IVC SCH ×3 (04:03→17:49)
[2016-11-18] MEDS: Pantoprazole 40 MG VIAL IVP SCH (06:30)
--- NOTE | 2016-11-18 07:39 | General Surgery Progress Note ---
Date of Encounter: 11/21/16 Time of Encounter: 07:37 - Assessment and Plan (1) Anemia Current Visit: Yes Status: Acute Patient's preoperative hemoglobin mistreated anemia at a level of 9.7. Intraoperative blood loss was approximately 1100 mL. Patient did have a transfusion of 2 packed red blood cells with a postoperative hemoglobin level of 9.1. Continue to follow closely. Qualifiers: Anemia type: other cause Other causes of anemia: acute posthemorrhagic Qualified Code(s): D62 - Acute posthemorrhagic anemia (2) Free intraperitoneal air Current Visit: Yes Status: Acute Patient has suspected free peritoneal air from a perforated colonic mass. Patient is status post sigmoid resection with colostomy. Continue to monitor drainage output. Continue IV antibiotics at this time. (3) Colonic mass Current Visit: Yes Status: Acute Patient is status post colonic resection with colostomy. Intra-abdominal fluid appeared to be exudate in nature. Cultures have been obtained. There was still presence of bulky enlarged lymph nodes within the pelvic along the internal iliac chain and extending along the mesentery up towards the aorta. Is also evidence of studding along the serosal surface. No evidence of palpable mass along the dome of the liver. Await final path results and lymph node analysis. Await for bowel function return and will keep NG tube at this time. Of note due to difficulty and inability to pass the Bolden catheter neurology was consulted and placed a Bolden. We will keep Bolden for at least a minimum of 48 hours. We will follow I's and O's closely. Subjective Patient reports: other (The patient is resting comfortably. Denies any abdominal pain. No nausea.) Objective Vital Signs - Last 8 Hours Temp Pulse Resp BP Pulse Ox 11/18/16 07:29 97.6 F 93 16 98/47 100 11/18/16 05:07 99.4 F 81 12 81/46 97 11/18/16 03:00 98.0 F 101 14 88/53 100 11/18/16 02:00 98.0 F 104 12 105/63 100 11/18/16 01:00 98.2 F 110 16 89/58 100 11/18/16 00:30 97.8 F 107 16 98/58 100 11/18/16 00:00 97.4 F L 95 16 91/52 100 11/17/16 23:45 97.5 F L 102 14 95/51 97 11/17/16 23:40 102 Intake and Output 11/17/16 11/17/16 11/18/16 15:59 23:59 07:59 Intake Total 200 / 200 Output Total 1265 / 1265 140 / 140 Balance -1265 / -1265 60 / 60 Intake: IV Fluids 200 / 200 Ofirmev 1,000 mg/100 ml 1 100 / 100 ,000 mg In 100 ml @ 400 mls/hr IVPB ONCE ONE Rx#: [id number] Zosyn 3.375 GM In 100 / 100 Dextrose 5% (Minibag+) 100 ML 100 ML @ 25 mls/hr IVPB Q8H SELENA Rx#: [id number] Output: Gastric Tube Lavage Amount Right Nare Estimated Blood Loss 1100 / 1100 Urine Amount (Catheter) 50 / 50 Catheter 20 / 20 Wound Drainage 100 / 100 120 / 120 Abdomen 40 / 40 120 / 120 Other: Weight 78.8 kg 79.4 kg Blood Glucose* 101 Patient Weight 11/18/16 23:59 Weight 79.4 kg - General physical appearance no distress - Respiratory normal expansion, normal respiratory effort - Abdomen Abdomen: Present: soft, non tender (Absent bowel sounds. Dressing in place. Pelvic REG with serosangious fluid.) - Labs 11/21/16 04:54 11/21/16 04:54 - VTE Documentation of Mechanical Device: Intermittent pneumatic compression device Consult Discharge Plan - Plan Referrals: Gopal Remy MD [Partnered Physician] - 12/22/16 2:05 pm Cardoza,Antonella Rainey CNP [Primary Care Provider] - 12/02/16 9:00 am (SENT REQUEST ON @ 1016)
[2016-11-18 08:50] LABS: Calcium 7.7 mg/dL (8.6-10.8)
[2016-11-18 08:52] LABS: Potassium 5.1 mEq/L (3.5-4.5)
[2016-11-18] MEDS ORDERED: Pantoprazole 40 MG VIAL IVP SCH (09:00)
--- NOTE | 2016-11-18 12:58 | Electrocardiograph Report ---
[address] [address] Test Date: 2016-11-17 Pat Name: Ciro Craig Department: 103 Room: 02 Gender: M [employer]: : 1930 Requested By: Taisha Miner Order Number: [id number] Reading MD: Mitch Tello MD Measurements Intervals [place] Rate: 80 P: 48 RI: 150 QRS: 7 QRSD: 95 T: 50 QT: 354 QTc: 390 Interpretive Statements SINUS RHYTHM WITH OCCASIONAL VENTRICULAR PREMATURE COMPLEXES WITH OCCASIONAL SUPRAVENTRICULAR PREMATURE COMPLEXES BASELINE ARTIFACT Electronically Signed On 11-18-2016 12:56:45 EDT by Mitch Tello MD
[2016-11-18] MEDS ORDERED: Ertapenem 1,000 MG in 0.9 % Sodium Chloride Mini Bag 100 ML IVPB ONE (14:19)
[2016-11-18] MEDS ORDERED: 0.9 % Sodium Chloride 500 ML IVC ONE (15:55)
[2016-11-18] MEDS ORDERED: Chloraseptic Spray 177 ML BOTTLE MM PRN (17:03)
--- NOTE | 2016-11-18 17:08 | Venous Imaging Report ---
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 Recommendations: Test completed on 11/17/2016 at 1:15:00 pm. Findings Venous Duplex Results: Right: Venous imaging of the lower extremity reveals full patency and normal vessel compressibility of the right distal iliac, right common femoral, right superficial femoral, right popliteal, right posterior tibial, right peroneal, right great saphenous and right lesser saphenous. Doppler signals in the evaluated veins were normal. Left: Venous imaging of the lower extremity reveals full patency and normal vessel compressibility of the left common femoral. Doppler signals in the evaluated veins were normal. Prior Study: No prior study available for comparison. Lower Extremity Venous Duplex Side Vein Compress Spontaneous Flow Augment Diameter (cm) Depth (cm) Right Distal Iliac Normal Yes Phasic Yes Right Common Femoral Normal Yes Phasic Yes Right Superficial Femoral Normal Yes Phasic Yes Right Popliteal Normal Yes Phasic Yes Right Posterior Tibial Normal Yes Phasic Yes Right Peroneal Normal Yes Phasic Yes Right Great Saphenous Normal Yes Phasic Yes Right Lesser Saphenous Normal Yes Phasic Yes Left Common Femoral Normal Yes Phasic Yes Updated by Tu Reaves MD on 11/18/2016 5:01:41 PM electronically signed on 11/18/2016 5:01:53 PM with status of Final
[2016-11-18] MEDS: *HR* Heparin 5,000 UNIT/ML VIAL SQ SCH (22:56)
[2016-11-19] MEDS: 0.9 % Sodium Chloride 1,000 ML IVC SCH ×3 (02:41→18:37)
[2016-11-19] MEDS: Piperacillin/Tazobactam 3.375 GM in D5% in Water (Mini-Bag+) 100 ML IVPB SCH ×3 (02:42→20:51)
[2016-11-19 05:30] LABS: Calcium 7.6 mg/dL (8.6-10.8)
[2016-11-19] MEDS: Pantoprazole 40 MG VIAL IVP SCH (05:33)
[2016-11-19 05:34] LABS: Potassium 5.6 mEq/L (3.5-4.5)
[2016-11-19 05:37] LABS: Basophils % 0.1 %; Hematocrit 23.7 % (37.5-50.1); Lymphocytes # 0.5 K/mcL (0.6-4.6); Mean Corpuscular HGB Conc 31.6 g/dL (31.6-35.5); Mean Corpuscular Hemoglobin 27.6 pg (28.0-33.3); Mean Corpuscular Volume 87.1 fL (83.0-100.0); Mean Platelet Volume 10.1 fL (9.4-12.4); Monocytes % 5.8 %; Neutrophils # 15.8 K/mcL (1.6-8.9); Platelet Count 149 K/mcL (140-400); Red Blood Count 2.72 M/mcL (4.19-5.50); Red Cell Distribution Width 18.1 % (11.5-14.5); Segmented Neutrophils % 90.1 %
[2016-11-19 05:57] LABS: Hemoglobin 7.5 g/dL (12.9-16.9)
[2016-11-19] MEDS: *HR* Heparin 5,000 UNIT/ML VIAL SQ SCH ×2 (08:51→18:55)
--- NOTE | 2016-11-19 11:45 | General Surgery Progress Note ---
Date of Encounter: 11/19/16 Time of Encounter: 11:30 - Assessment and Plan (1) Acute renal failure Current Visit: Yes Status: Acute Over the past 48 hours the patient's BUN and has risen to 56 and creatinine has risen from normal to 2.73. The patient's urinary output is fallen off to 0. I discussed the case with nephrology who will see the patient in consultation and further management of apparent acute renal failure. Qualifiers: Acute renal failure type: unspecified Qualified Code(s): N17.9 - Acute kidney failure, unspecified (2) Colonic mass Current Visit: Yes Status: Acute Ostomy is pink. There are no bowel sounds yet. Continue supportive care. (3) Anemia Current Visit: Yes Status: Acute Acute blood loss anemia hematocrit is 23.5% today. He may require blood transfusion. Qualifiers: Other causes of anemia: acute posthemorrhagic Qualified Code(s): D62 - Acute posthemorrhagic anemia Subjective Narrative: The patient is postoperative day 2 from exploratory laparotomy, reduction of incarcerated inguinal hernia, resection of perforated colon cancer, resection of bulky adenopathy, and repair of iliac vein injury. The patient had high- volume blood loss requiring transfusion. Over the last 48 hours his creatinine has elevated from normal levels up to 2.73. His BUA and has elevated to 56. His urinary output has dropped off to 0. I will consult nephrology for further management of for appears to be acute renal failure. His ostomy is pink. He has no bowel sounds. His nasogastric tube is functioning normally. Hematocrit is 23.5% today. Popliteal count is elevated at 17,000 and rising. Objective Vital Signs - Last 8 Hours Temp Pulse Resp BP Pulse Ox 11/19/16 11:27 98.5 F 75 17 105/50 99 11/19/16 10:10 18 99 11/19/16 09:03 80 18 95 11/19/16 06:54 98.5 F 20 107/47 96 11/19/16 05:00 98.4 F 86 14 118/52 100 Intake and Output 11/18/16 11/19/16 11/19/16 23:59 07:59 15:59 Intake Total 1600 / 1600 1100 / 1100 1000 / 1000 Output Total 635 / 635 225 / 225 200 / 200 Balance 965 / 965 875 / 875 800 / 800 Intake: IV Fluids 1600 / 1600 1100 / 1100 1000 / 1000 0.9 % Sodium Chloride 1, 1000 / 1000 1000 / 1000 1000 / 1000 000 ML @ 125 mls/hr IVC . Q8H [facility] Rx#:[id number] 0.9 % Sodium Chloride 500 500 / 500 ML @ 1875 mls/hr IVC . Q16M [facility] Rx#:[id number] Zosyn 3.375 GM In 100 / 100 100 / 100 Dextrose 5% (Minibag+) 100 ML 100 ML @ 25 mls/hr IVPB Q8H [facility] Rx#: [id number] Oral 0 / 0 Output: Urine 0 / 0 25 / 25 2-way Urethral 0 / 0 25 / 25 Stool 0 / 0 Catheter 10 / 10 0 / 0 Gastric Drainage 330 / 330 100 / 100 150 / 150 Wound Drainage 295 / 295 100 / 100 50 / 50 Abdomen 295 / 295 100 / 100 50 / 50 Other: Meal NPO dinner Percent of Meal Consumed 0% Blood Glucose* 106 115 - General physical appearance well developed, well nourished, chronically ill - Respiratory normal expansion, normal respiratory effort, clear to percussion, clear to auscultation - Cardiovascular Cardiovascular exam: Present: RRR, no murmurs/rubs/gallops - Abdomen Abdomen: Present: non tender (No bowel sounds, ostomy is pink) - Incision Incision: Present: clean and dry - Neurologic normal coordination, normal sensation - Psychiatric oriented to time, oriented to person, oriented to place, speech is normal, memory intact - Labs 11/19/16 04:57 11/19/16 04:57 Diabetes panel 11/19/16 Range/Units 04:57 Sodium 135 L (136-145) mEq/L Potassium 5.6 H (3.5-4.5) mEq/L Chloride 109 (98-109) mEq/L Carbon Dioxide 17 L (19-29) mEq/L BUN 56 H D (8-26) mg/dL Creatinine 2.73 H D (0.72-1.25) mg/dL Glucose 107 H (70-99) mg/dL Calcium 7.6 L (8.6-10.8) mg/dL Calcium panel 11/19/16 Range/Units 04:57 Calcium 7.6 L (8.6-10.8) mg/dL Pituitary panel 11/19/16 Range/Units 04:57 Sodium 135 L (136-145) mEq/L Potassium 5.6 H (3.5-4.5) mEq/L Chloride 109 (98-109) mEq/L Carbon Dioxide 17 L (19-29) mEq/L BUN 56 H D (8-26) mg/dL Creatinine 2.73 H D (0.72-1.25) mg/dL Glucose 107 H (70-99) mg/dL Calcium 7.6 L (8.6-10.8) mg/dL Adrenal panel 11/19/16 Range/Units 04:57 Sodium 135 L (136-145) mEq/L Potassium 5.6 H (3.5-4.5) mEq/L Chloride 109 (98-109) mEq/L Carbon Dioxide 17 L (19-29) mEq/L BUN 56 H D (8-26) mg/dL Creatinine 2.73 H D (0.72-1.25) mg/dL Glucose 107 H (70-99) mg/dL Calcium 7.6 L (8.6-10.8) mg/dL - VTE Documentation of Mechanical Device: Intermittent pneumatic compression device Consult Discharge Plan - Plan Referrals: Gopal Remy MD [Partnered Physician] - 12/22/16 2:05 pm Sony,Antonella Rainey CNP [Primary Care Provider] - 12/02/16 9:00 am (SENT REQUEST ON @ 1016)
--- NOTE | 2016-11-19 12:06 | Event Note ---
Date of Encounter: 11/19/16 Time of Encounter: 12:04 Nephrology Chart Review I was consulted for ALFIE, oligoanuria. Upon reviewing the chart from home, I see that the pt has undergone a colectomy with colostomy and developed a large intraoperative bleed. On the same day, he also underwent both a CTA and CT abd with contrast. So two CTs with contrast. Meanwhile, he has been relatively borderline low BPs and the pt developed a post-renal obstruction. Urology was consulted d/t a very difficult to place jeff. Initial Impressions: Oligoanuria ALFIE with multifactorial etiology as described above. Hyperkalemia: d/t recent GI surgery will hold off on using Kayexalate, but give Calcium, insulin, dextrose and continue volume expansion Post-renal: keep jeff in place for sure, and he needs a retroperitoneal U/S as I suspect there may be hydronephrosis. Will arrange for follow up labs, and if the pt's renal function were to deteriorate further with dialysis indications, then I'll return to the hospital to discuss dialytic options with the pt and family and place a temporary HD catheter. Thank you for consulting the [facility].
[2016-11-19] MEDS ORDERED: Calcium Chloride 1,000 MG in 0.9 % Sodium Chloride 100 ML IVPB ONE (12:20)
[2016-11-19] MEDS ORDERED: Insulin Regular, Human 100 UNIT/ML IV ONE (12:21)
[2016-11-19] MEDS ORDERED: *HR* Dextrose 50 % in Water (Vial) 50 ML VIAL IVP ONE (12:21)
[2016-11-19] MEDS ORDERED: Insulin Human Regular 4 UNIT in 0.9 % Sodium Chloride 10 ML IV ONE (12:30)
[2016-11-19] MEDS ORDERED: *HR* Dextrose 50 % in Water (Syg) 50 ML SYRINGE ONE (12:44)
[2016-11-19 13:05] LABS: Magnesium 2.2 mg/dL (1.6-2.6); Phosphorous 7.2 mg/dL (2.3-4.7); Uric Acid 6.8 mg/dL (3.5-7.2)
[2016-11-19 16:32] LABS: Calcium 7.8 mg/dL (8.6-10.8); Potassium 4.8 mEq/L (3.5-4.5)
[2016-11-19] MEDS: Sodium Bicarbonate 75 MEQ in 0.45 % Sodium Chloride 1,000 ML IVC SCH (23:35)
[2016-11-20 03:16] LABS: Basophils % 0.1 %; Eosinophils % 0.1 %; Hematocrit 20.4 % (37.5-50.1); Hemoglobin 6.6 g/dL (12.9-16.9); Immature Granulocytes % 1.2 % (0-4); Lymphocytes # 0.3 K/mcL (0.6-4.6); Lymphocytes % 1.9 %; Mean Corpuscular HGB Conc 32.4 g/dL (31.6-35.5); Mean Corpuscular Hemoglobin 27.4 pg (28.0-33.3); Mean Corpuscular Volume 84.6 fL (83.0-100.0); Mean Platelet Volume 9.4 fL (9.4-12.4); Monocytes # 0.8 K/mcL (0.0-1.3); Monocytes % 4.6 %; Neutrophils # 15.2 K/mcL (1.6-8.9); Platelet Count 131 K/mcL (140-400); Red Blood Count 2.41 M/mcL (4.19-5.50); Red Cell Distribution Width 17.9 % (11.5-14.5); Segmented Neutrophils % 92.1 %
[2016-11-20 03:21] LABS: Ionized Calcium 1.15 mmol/L (1.15-1.35)
[2016-11-20 03:31] LABS: Calcium 7.4 mg/dL (8.6-10.8); Phosphorous 5.8 mg/dL (2.3-4.7); Potassium 4.6 mEq/L (3.5-4.5)
[2016-11-20 04:04] LABS: Bilirubin,Urine Negative (Negative); Blood,Urine Small (Negative); Clarity,Urine Turbid (Clear); Color,Urine Yellow (Yellow); Glucose,Urine (UA) Normal (Normal); Ketones,Urine Negative (Negative); Leukocyte Esterase,Urine Negative (Negative); Nitrite,Urine Negative (Negative); Protein,Urine 30 mg/dL (Neg-Trace); Specific Gravity,Urine 1.027 (1.010-1.025); Urobilinogen,Urine Normal (Normal)
[2016-11-20 04:07] LABS: Hyaline Casts,Urine None Seen per lpf (None-Few); Squamous Epithelial Cell,Urine Many per lpf (None-Few)
[2016-11-20 04:25] LABS: Bacteria,Urine Few per hpf (None-Few)
[2016-11-20 04:26] LABS: Amorphous Sediment,Urine Few (Few)
[2016-11-20] MEDS: *HR* Heparin 5,000 UNIT/ML VIAL SQ SCH ×2 (06:17→21:01)
[2016-11-20] MEDS: Pantoprazole 40 MG VIAL IVP SCH (06:17)
--- NOTE | 2016-11-20 08:49 | Nephrology Consult Note ---
Date of Encounter: 11/20/16 Time of Encounter: 08:30 Assessment and Plan (1) ALFIE (acute kidney injury) Current Visit: Yes Status: Acute Anuria is improving to Oliguria. ALFIE slightly more stable today with IVF. No urgent indications for starting Renal Replacement Therapy ([employer]). Continue the below supportive measures: Suspect ALFIE etiology multifactorial: prerenal/hemodynamics (severe anemia), contrast exposure (he received both a CTA and CT abd with contrast on 11/17), relative hypotension and potentially post-renal (Urology was consulted d/t a very difficult to place jeff). The renal U/S did not reveal hydronephrosis, fortunately. Hyperkalemia is improved as well. S/p Calcium, Insulin/Dextrose but did not give Kayexalate d/t recent major bowel surgery. Non-anion gap metabolic acidosis: yesterday evening I noticed this was developing on the afternoon chemistry and so I've changed him to 0.45% saline with 75mEq bicarb to offset this acidosis (see Event Note). The hyperchloremia has stopped worsen as well. Anemia: multifactorial/post-op. I recommend PRBC transfusion if okay with Surgery. Leukocytosis: continue broad-spectrum Abx. Agree with Zosyn which will be ideal for gram negative organisms as the Micro revealed. Since the UTI was sensitive to Cipro, I've also added this as well by IV since he remains intubated. Given that from a renal persective other antibiotics are not ideal (i.e., he should avoid Bactrim), Cipro is now not necessarily the first line Abx but d/t his renal condition it's the next most desirable option. Continue the telemetry and monitor. Hyperphosphatemia: also improving which helps support that his ALFIE and SCr are likely to continue to improve. Volume status/BPs: Since he's getting 2 units of PRBCs (which I agree), and the IVF for the ALFIE, I cautiously ordered a CXR to ensure that he was not developing or at risk for developing pulmonary edema. Continue to follow a renal protective strategy by avoiding nephrotoxin exposures such as NSAIDs, Bactrim, Contrast. Thank you for consulting the [facility] group. Will follow with you. (2) Hyperkalemia Current Visit: Yes Status: Acute (3) Oliguria Current Visit: Yes Status: Acute (4) Anemia Current Visit: Yes Status: Acute Qualifiers: Qualified Code(s): D62 - Acute posthemorrhagic anemia (5) Hyperphosphatemia Current Visit: Yes Status: Acute (6) Metabolic acidosis Current Visit: Yes Status: Acute History of Present Illness - Reason for Consult Consult date: 11/19/16 Acute Kidney Injury, metabolic acidosis Requesting physician: Tu Reaves - Chief Complaint ALFIE, Hyperkalemia, Acidosis, Anemia - History of Present Illness Ciro Craig is a very pleasant 86 y/o WM gentleman who presented last week for colon surgery. His was present and provided most of the history. She said that he has never needed to see another procedure manager in the past. He does take NSAIDs somewhat routinely and alternating with APAP at home. He developed a relatively large blood loss intraoperatively and on the same day he underwent two CTs with IV contrast. His BPs have been adequate but borderline low. He has an NGT and has not yet eaten. The 2N RN Aaron was present during the exam and reported that there is improving UOP. Yesterday after being consulted I discussed with Aaron and thoroughly reviewed the chart; and, made IVF changes. He has a hx of RLE/foot edema, that predates this hospitalization per the pt's . He was unable to tell me much, so some the ROS and HPI is limited. Past Med Surg Social Fam HX - Past Medical History Medical history: arthritis, GERD, hyperlipidemia, hypertension, thyroid disease , valvular heart disease, other Psychiatric history: no psych history - Past Surgical History Surgical History: other - Social History Smoking Status: Never smoker Smokeless Tobacco Status: No Alcohol use: none Drug use: none - Family History Father Living Status: Age at : 50 Hx Family Cancer: Yes (colon cancer) Mother Living Status: Age at : 90 Cause of : CAD Hx Family Cardiac Disorders: Yes Hx Family Endocrine Disorder: Yes (Diabetes Mellitus) Brother Living Status: Still Living Hx Family Cardiac Disorders: Yes Hx Family Endocrine Disorder: Yes (diabetes mellitus) Medications and Allergies Cyanocobalamin (Vitamin B-12) [Vitamin B12] 1,000 mcg PO DAILY 01/20/16 [History ] Cyclosporine [Restasis] 1 drop OP BID 01/20/16 [History] Levothyroxine [Synthroid] 50 mcg PO QAM 01/20/16 [History] Multivitamin [Multi-Day Vitamins] 1 tab PO DAILY 01/20/16 [History] Nabumetone 750 mg PO BID 01/20/16 [History] Omeprazole [PriLOSEC] 20 mg PO DAILY 01/20/16 [History] Polyvinyl Alcohol [Artificial Tears] 1 drop OP BID PRN 01/20/16 [History] Fluticasone Propionate Nasal [Flonase] 50 mcg NS DAILY 04/21/16 [History] Ipratropium [place] 1 spray NS BID 04/21/16 [History] Aspirin 81 mg PO DAILY 30 Days 04/23/16 [Rx] Ascorbate Calcium [Vitamin C] 500 mg PO DAILY 11/17/16 [History] Diltiazem [Cardizem] 30 mg PO TID 11/17/16 [History] Ferrous Sulfate [Iron] 325 mg PO DAILY 11/17/16 [History] Sennosides [Senna] 17.2 mg PO HS PRN 11/17/16 [History] Allergies celecoxib [From Celebrex] Adverse Reaction (Verified 11/17/16 15:29) See Comments patient unsure of reaction prednisone Adverse Reaction (Verified 11/17/16 15:29) Rash patient wasnt sure of reaction to this Sulfa (Sulfonamide Antibiotics) Adverse Reaction (Verified 11/17/16 15:29) Rash patient wasnt sure of reaction Review of Systems All Systems: reviewed and no additional remarkable complaints except as stated ( though somewhat limited d/t the pt's mental status) Exam - Vital Signs Vital signs: Initial Vital Signs Temp Pulse Resp BP Pulse Ox 97.8 F 75 16 117/67 99 11/17/16 10:07 11/17/16 10:07 11/17/16 10:07 11/17/16 10:07 11/17/16 10:07 Vital Signs - Last 8 Hours Temp Pulse Resp BP Pulse Ox 11/20/16 07:17 98.4 F 76 18 103/81 100 11/20/16 06:00 68 100/56 11/20/16 03:44 61 108/48 11/20/16 02:00 71 104/56 Intake and Output 11/19/16 11/20/16 11/20/16 23:59 07:59 15:59 Intake Total 1999 / 1999 100 / 100 Output Total 400 / 400 700 / 700 Balance 1600 / 1600 -600 / -600 Intake: IV Fluids 1999 100 / 100 0.9 % Sodium Chloride 1, 1999 / 1999 000 ML @ 125 mls/hr IVC . Q8H [facility] Rx#:[id number] Zosyn 3.375 GM In 100 / 100 Dextrose 5% (Minibag+) 100 ML 100 ML @ 25 mls/hr IVPB Q12H [facility] Rx#: [id number] Oral 0 / 0 Output: Catheter 150 / 150 500 / 500 Gastric Drainage 200 / 200 Wound Drainage 50 / 50 200 / 200 Abdomen 50 / 50 200 / 200 Other: Stool Color Brown Green Weight 80 kg Blood Glucose* 100 96 Patient Weight 11/20/16 23:59 Weight 80 kg - General Appearance General appearance: appears started age, chronically ill, fatigue, frail EENT: ATNC, mucous membranes dry Additional Comments: NGT in place Neck: supple Respiratory: clear Cardiology: edema (RLE edema of about 2+ but the LLE was only trace. There was trace left hand edema as well. ), regular rate, regular rhythm, normal S1, normal S2 Gastrointestinal: normoactive bowel sounds, no tenderness Integumentary: warm and dry Neurologic: no asterixis, disoriented Musculoskeletal: no cyanosis, no clubbing Psychiatric: cooperative Results - Lab Results 11/20/16 02:45 11/20/16 02:45 Most recent lab results Calcium 7.4 mg/dL (8.6-10.8) L 11/20/16 02:45 Phosphorus 5.8 mg/dL (2.3-4.7) H 11/20/16 02:45 Magnesium 2.2 mg/dL (1.6-2.6) 11/19/16 12:44 I reviewed the above auto-generated data [place] and also reviewed progress notes , labs, meds, vitals, imaging. Consult Discharge Plan - Plan Referrals: Gopal Remy MD [Partnered Physician] - 12/22/16 2:05 pm Cardoza,Antonella Rainey CNP [Primary Care Provider] - 12/02/16 9:00 am (SENT REQUEST ON @ 1016)
[2016-11-20] MEDS: Piperacillin/Tazobactam 3.375 GM in D5% in Water (Mini-Bag+) 100 ML IVPB SCH ×2 (09:58→21:02)
--- NOTE | 2016-11-20 10:42 | General Surgery Progress Note ---
Date of Encounter: 11/20/16 Time of Encounter: 10:20 - Assessment and Plan (1) Acute renal failure Current Visit: Yes Status: Acute Over the past 48 hours the patient's BUN and has risen to 56 and creatinine has risen from normal to 2.73. The patient's urinary output is fallen off to 0. I discussed the case with nephrology who will see the patient in consultation and further management of apparent acute renal failure. 11/20/2016. The patient has made sequential improvement in his urinary output and his creatinine seems to have plateaued at 2.93. Qualifiers: Acute renal failure type: unspecified Qualified Code(s): N17.9 - Acute kidney failure, unspecified (2) Colonic mass Current Visit: Yes Status: Acute Ostomy is pink. There are no bowel sounds yet. Continue supportive care. 11/20/2016. The patient is made sequential improvement in his renal failure. There is no flatus or bowel movement in the colostomy pouch at this point. We will continue supportive care and nasogastric tube drainage. (3) Anemia Current Visit: Yes Status: Acute Acute blood loss anemia hematocrit is 23.5% today. He may require blood transfusion. Qualifiers: Other causes of anemia: acute posthemorrhagic Qualified Code(s): D62 - Acute posthemorrhagic anemia Subjective Narrative: The patient has made sequential improvement since yesterday. He is awake and alert. His hematocrit is 20% and I have ordered 2 units packed red blood cell transfusion. His creatinine has leveled off at 2.93 and BUNs at 67. He is now making a good deal of urine and he should continue to improve his renal function. White blood cell count is down at 16,600. His ostomy is pink. The patient is not complaining of pain Objective Vital Signs - Last 8 Hours Temp Pulse Resp BP Pulse Ox 11/20/16 07:17 98.4 F 76 18 103/81 100 11/20/16 06:00 68 100/56 11/20/16 03:44 61 108/48 Intake and Output 11/19/16 11/20/16 11/20/16 23:59 07:59 15:59 Intake Total 1999 / 1999 100 / 100 Output Total 400 / 400 700 / 700 100 / 100 Balance 1600 / 1600 -600 / -600 -100 / -100 Intake: IV Fluids 1999 100 / 100 0.9 % Sodium Chloride 1999 000 ML @ 125 mls/hr IVC . Q8H [facility] Rx#:[id number] Zosyn 3.375 GM In 100 / 100 Dextrose 5% (Minibag+) 100 ML 100 ML @ 25 mls/hr IVPB Q12H [facility] Rx#: [id number] Oral 0 / 0 Output: Catheter 150 / 150 500 / 500 Gastric Drainage 200 / 200 Wound Drainage 50 / 50 200 / 200 100 / 100 Abdomen 50 / 50 200 / 200 100 / 100 Other: Stool Color Brown Green Weight 80 kg Blood Glucose* 100 96 Patient Weight 11/20/16 23:59 Weight 80 kg - General physical appearance cachectic, chronically ill - Respiratory wheezing: bilateral (Decreased breath sounds bilaterally) - Cardiovascular Cardiovascular exam: Present: RRR, no murmurs/rubs/gallops - Abdomen Abdomen: Present: bowel sounds present (Few bowel sounds), tender (Incisional pain. Ostomy is pink.) - Incision Incision: Present: clean and dry - Psychiatric other (The patient is awake and alert but does not respond to my questions I am unable to assess his orientation) - Labs 11/20/16 02:45 11/20/16 02:45 Diabetes panel 11/19/16 11/20/16 Range/Units 16:11 02:45 Sodium 136 137 (136-145) mEq/L Potassium 4.8 H 4.6 H (3.5-4.5) mEq/L Chloride 110 H 112 H (98-109) mEq/L Carbon Dioxide 16 L 16 L (19-29) mEq/L BUN 63 H 67 H (8-26) mg/dL Creatinine 3.06 H 2.93 H (0.72-1.25) mg/dL Glucose 97 88 (70-99) mg/dL Calcium 7.8 L 7.4 L (8.6-10.8) mg/dL Calcium panel 11/19/16 11/19/16 11/20/16 Range/Units 12:44 16:11 02:45 Calcium 7.8 L 7.4 L (8.6-10.8) mg/dL Phosphorus 7.2 H 5.8 H (2.3-4.7) mg/dL Pituitary panel 11/19/16 11/20/16 Range/Units 16:11 02:45 Sodium 136 137 (136-145) mEq/L Potassium 4.8 H 4.6 H (3.5-4.5) mEq/L Chloride 110 H 112 H (98-109) mEq/L Carbon Dioxide 16 L 16 L (19-29) mEq/L BUN 63 H 67 H (8-26) mg/dL Creatinine 3.06 H 2.93 H (0.72-1.25) mg/dL Glucose 97 88 (70-99) mg/dL Calcium 7.8 L 7.4 L (8.6-10.8) mg/dL Adrenal panel 11/19/16 11/20/16 Range/Units 16:11 02:45 Sodium 136 137 (136-145) mEq/L Potassium 4.8 H 4.6 H (3.5-4.5) mEq/L Chloride 110 H 112 H (98-109) mEq/L Carbon Dioxide 16 L 16 L (19-29) mEq/L BUN 63 H 67 H (8-26) mg/dL Creatinine 3.06 H 2.93 H (0.72-1.25) mg/dL Glucose 97 88 (70-99) mg/dL Calcium 7.8 L 7.4 L (8.6-10.8) mg/dL - VTE Documentation of Mechanical Device: Intermittent pneumatic compression device Consult Discharge Plan - Plan Referrals: Gopal Remy MD [Partnered Physician] - 12/22/16 2:05 pm Cardoza,Antonella Rainey CNP [Primary Care Provider] - 12/02/16 9:00 am (SENT REQUEST ON @ 1016)
[2016-11-20] MEDS: Sodium Bicarbonate 75 MEQ in 0.45 % Sodium Chloride 1,000 ML IVC SCH (12:03)
[2016-11-20] MEDS ORDERED: 0.9 % Sodium Chloride Mini Bag 100 ML ONE (14:02)
[2016-11-20] MEDS: *HR* HYDROmorphone (PF) 1 MG/ML SYRINGE IVP PRN (21:01)
[2016-11-21] MEDS: *HR* HYDROmorphone (PF) 1 MG/ML SYRINGE IVP PRN (03:01)
[2016-11-21] MEDS: Sodium Bicarbonate 75 MEQ in 0.45 % Sodium Chloride 1,000 ML IVC SCH (03:38)
[2016-11-21 05:13] LABS: Basophils % 0.1 %; Eosinophils # 0.2 K/mcL (0.0-0.6); Eosinophils % 1.8 %; Hematocrit 25.8 % (37.5-50.1); Immature Granulocytes % 1.1 % (0-4); Lymphocytes # 0.4 K/mcL (0.6-4.6); Lymphocytes % 2.6 %; Mean Corpuscular HGB Conc 34.1 g/dL (31.6-35.5); Mean Corpuscular Hemoglobin 28.9 pg (28.0-33.3); Mean Corpuscular Volume 84.6 fL (83.0-100.0); Mean Platelet Volume 10.2 fL (9.4-12.4); Monocytes # 0.5 K/mcL (0.0-1.3); Monocytes % 3.9 %; Neutrophils # 12.4 K/mcL (1.6-8.9); Platelet Count 119 K/mcL (140-400); Red Blood Count 3.05 M/mcL (4.19-5.50); Red Cell Distribution Width 17.2 % (11.5-14.5); Segmented Neutrophils % 90.5 %
[2016-11-21 05:14] LABS: Hemoglobin 8.8 g/dL (12.9-16.9)
[2016-11-21 05:15] LABS: Calcium 7.4 mg/dL (8.6-10.8); Phosphorous 3.6 mg/dL (2.3-4.7); Potassium 3.9 mEq/L (3.5-4.5)
[2016-11-21] MEDS: *HR* Heparin 5,000 UNIT/ML VIAL SQ SCH ×2 (06:32→18:01)
[2016-11-21] MEDS: Pantoprazole 40 MG VIAL IVP SCH (06:32)
[2016-11-21] MEDS: Piperacillin/Tazobactam 3.375 GM in D5% in Water (Mini-Bag+) 100 ML IVPB SCH ×2 (08:27→21:17)
--- NOTE | 2016-11-21 09:42 | Nephrology Progress Note ---
Date of Encounter: 11/21/16 Time of Encounter: 09:26 - Assessment and Plan (1) ALFIE (acute kidney injury) Current Visit: Yes Status: Acute Improving: SCr 2.93>>1.85 2nd to acute intraoperative blood loss, along with contrast exposure, hypotension, and inconjunciton with UTI: urine culture growing e.coli and acinetobacter (wbc trending down) BP stable 110/52, K+ WNL s/p transfusion 4 units. CXR negative for pulmonary edema. Plan: continue IVF 1/2 normal saline. 100cc/hr continue ciprofloxacin (wound and urine culture sensitivities assessed) day 2, continue zosyn day 4 avoid nephrotoxins: NSADIS, contrast, bactrim (2) Anemia Current Visit: Yes Status: Acute acute intraoperative blood loss anemia hgb stable 8.8 BP stable continue to monitor Qualifiers: Anemia type: other cause Other causes of anemia: other cause, not classified Qualified Code(s): D64.89 - Other specified anemias (3) Hyperkalemia Current Visit: Yes Status: Resolved resolved. K+ 3.9 today (4) Metabolic acidosis Current Visit: Yes Status: Acute Non-anion gap hypercholremic metabolic acidosis Anion Gap: 7 2nd to NS administration improving bicarb improved to 21 Plan: continue 1/2 normal saline (5) Oliguria Current Visit: Yes Status: Resolved Resolved I/O: producing clear light yellow urine continue IVF continue jeff catheter strict I/O (6) Hyperphosphatemia Current Visit: Yes Status: Acute resolved. now 3.6 reflects improving renal function GFR 35 (7) Leukocytosis Current Visit: Yes Status: Acute multifactorial downward trend. afebrile, HR<100 s/p exploratory laparotomy, UTI, wound cultures abdominal source shows e.coli and klebsiella pneumonia infection Continue cipro and zosyn as noted above. Qualifiers: Leukocytosis type: other Qualified Code(s): D72.828 - Other elevated white blood cell count Subjective Principal diagnosis: ALFIE Interval history: No acute events overnight. Denies N/V. Abdominal pain controlled. Objective - Vital Signs Vital signs: Vital Signs Temp Pulse Resp BP Pulse Ox 11/21/16 07:04 97.8 F 64 16 110/62 98 11/21/16 04:00 98.3 F 64 18 107/55 98 11/20/16 19:55 98.3 F 72 20 108/56 100 11/20/16 17:35 97.7 F 75 16 108/48 98 11/20/16 17:20 97.9 F 77 16 109/59 99 11/20/16 16:36 98.8 F 68 16 99/47 96 11/20/16 16:31 98.2 F 71 16 104/50 98 11/20/16 16:05 67 11/20/16 14:35 98.3 F 79 16 99/47 99 11/20/16 14:20 98.3 F 74 16 96/49 97 11/20/16 12:33 80 11/20/16 11:03 97.7 F 77 100 103/46 Intake and Output 11/20/16 11/21/16 11/21/16 23:59 07:59 15:59 Intake Total 675 / 675 900 / 900 Output Total 750 / 750 780 / 780 Balance -75 / -75 120 / 120 Intake: IV Fluids 900 / 900 Sodium Bicarbonate 75 MEQ 800 / 800 In 0.45% Sodium Chloride 1000 Ml 1000 Ml 1,000 ML @ 100 mls/hr IVC . [id number] [facility] Rx#: [id number] Zosyn 3.375 GM In 100 / 100 Dextrose 5% (Minibag+) 100 ML 100 ML @ 25 mls/hr IVPB Q12H [facility] Rx#: [id number] Blood Product 675 / 675 Rbcs Leuko Poor As-1 325 / 325 Unit [id number] Rbcs Leuko Poor As-1 350 / 350 Unit [id number] Output: Catheter 600 / 600 390 / 390 Gastric Drainage 300 / 300 Wound Drainage 150 / 150 90 / 90 Abdomen 150 / 150 90 / 90 Other: Weight 81.1 kg Blood Glucose* 80 86 Patient Weight 11/21/16 23:59 Weight 81.1 kg - General Appearance General appearance: Present: fatigue, frail Neck: Present: supple Respiratory: Present: clear Cardiology: Present: edema (RLE 1+, LLE mild pitting edema, b/l upper extremity edematous as well. ), regular rate, regular rhythm, normal S1, normal S2 Gastrointestinal: Present: hypoactive bowel sounds, tenderness (at incision. ostomy pink ) Integumentary: Present: warm and dry Psychiatric: Present: mood/affect appropriate, cooperative - Lab 11/21/16 04:54 11/21/16 04:54 Most recent lab results Calcium 7.4 mg/dL (8.6-10.8) L 11/21/16 04:54 Phosphorus 3.6 mg/dL (2.3-4.7) 11/21/16 04:54 Magnesium 2.2 mg/dL (1.6-2.6) 11/19/16 12:44 - VTE Documentation of Mechanical Device: Intermittent pneumatic compression device Consult Discharge Plan - Plan Referrals: Gopal Remy MD [Partnered Physician] - 12/22/16 2:05 pm Cardoza,Antonella Rainey CNP [Primary Care Provider] - 12/02/16 9:00 am (SENT REQUEST ON @ 0089)
[2016-11-21] MEDS ORDERED: Sodium Bicarbonate 75 MEQ in 0.45 % Sodium Chloride 1,000 ML IVC SCH (11:16)
[2016-11-21] MEDS ORDERED: D10% in Water 500 ML IVC PRN (12:04)
[2016-11-21] MEDS ORDERED: Lidocaine -MPF 1% 5 ML AMPUL INFILT ONE ×2 (12:19→18:30)
[2016-11-21] MEDS ORDERED: Clinimix E 5%-15% SOLUTION 2,000 ML with MVI, adult with vitamin K 10 ML IVC SCH (17:00)
--- NOTE | 2016-11-21 17:07 | General Surgery Progress Note ---
<Mitali Mart - Last Filed: 11/21/16 17:22> Date of Encounter: 11/21/16 Time of Encounter: 12:30 - Assessment and Plan (1) Perforated sigmoid colon Current Visit: Yes Status: Acute POD #4 Exploratory celiotomy; Sigmoid colectomy with colostomy; Primary repair of left inguinal hernia; Repair of left external/internal iliac vein injury Continue NG tube to LIWS Continue NPO and IVF Await return of bowel function Colostomy stoma pink and without output REG aburto with serosanguinous drainage Supportive care and pain control PICC line placed; Will start TPN today Total IV fluids 100 ML/hr PT/OT eval and treat Sit up at EOB as tolerated (2) Left inguinal hernia Current Visit: Yes Status: Acute POD #4 Exploratory celiotomy; Sigmoid colectomy with colostomy; Primary repair of left inguinal hernia; Repair of left external/internal iliac vein injury Continue NG tube to LIWS Continue NPO and IVF Await return of bowel function Colostomy stoma pink and without output REG aburto with serosanguinous drainage Supportive care and pain control PICC line placed; Will start TPN today Total IV fluids 100 ML/hr (3) Leukocytosis Current Visit: Yes Status: Acute POD #4 Exploratory celiotomy; Sigmoid colectomy with colostomy; Primary repair of left inguinal hernia; Repair of left external/internal iliac vein injury IV antibiotics noted Qualifiers: Leukocytosis type: other Qualified Code(s): D72.828 - Other elevated white blood cell count (4) DVT prophylaxis Current Visit: No Status: Acute 5000 mg SQ heparin BID SCDs when in bed BL venous doppler to r/o DVT PT/OT eval and treat Subjective Patient reports: still having pain (having lower extremity discomfort), voiding w/o difficulty (Bolden catheter noted), no flatus, no bowel movement, afebrile Objective Vital Signs - Last 8 Hours Temp Pulse Resp BP Pulse Ox 11/21/16 15:54 98.2 F 63 18 114/57 99 11/21/16 12:37 98.9 F 127/55 11/21/16 11:38 69 17 99 Intake and Output 11/21/16 11/21/16 11/21/16 07:59 15:59 23:59 Intake Total 900 / 900 0 / 0 Output Total 780 / 780 50 / 50 Balance 120 / 120 -50 / -50 Intake: IV Fluids 900 / 900 Sodium Bicarbonate 75 MEQ 800 / 800 In 0.45% Sodium Chloride 1000 Ml 1000 Ml 1,000 ML @ 100 mls/hr IVC . [id number] [facility] Rx#: [id number] Zosyn 3.375 GM In 100 / 100 Dextrose 5% (Minibag+) 100 ML 100 ML @ 25 mls/hr IVPB Q12H [facility] Rx#: [id number] Oral 0 / 0 Output: Catheter 390 / 390 Gastric Drainage 300 / 300 Wound Drainage 90 / 90 50 / 50 Abdomen 90 / 90 50 / 50 Other: Weight 81.1 kg Blood Glucose* 86 89 Patient Weight 11/21/16 23:59 Weight 81.1 kg - General physical appearance no distress, cachectic, chronically ill - Eyes normal ocular movement - ENT dry mucosa - Neck Neck exam: trachea midline - Respiratory other (Diminished bibasilar) - Cardiovascular Cardiovascular exam: Present: RRR - Abdomen Abdomen: Present: soft, tender. Absent: rebound, rigid - Incision Incision: Present: clean and dry, intact, approximated - Integumentary no rash - Neurologic CN 2-12 grossly intact - Psychiatric oriented to time, oriented to person, oriented to place, speech is normal - Labs 11/21/16 04:54 11/21/16 04:54 Diabetes panel 11/21/16 11/21/16 Range/Units 04:54 12:42 Sodium 140 (136-145) mEq/L Potassium 3.9 (3.5-4.5) mEq/L Chloride 112 H (98-109) mEq/L Carbon Dioxide 21 (19-29) mEq/L BUN 59 H (8-26) mg/dL Creatinine 1.85 H (0.72-1.25) mg/dL Glucose 82 (70-99) mg/dL Calcium 7.4 L (8.6-10.8) mg/dL Triglycerides 128 (< 150) mg/dL Calcium panel 11/21/16 Range/Units 04:54 Calcium 7.4 L (8.6-10.8) mg/dL Phosphorus 3.6 (2.3-4.7) mg/dL Pituitary panel 11/21/16 Range/Units 04:54 Sodium 140 (136-145) mEq/L Potassium 3.9 (3.5-4.5) mEq/L Chloride 112 H (98-109) mEq/L Carbon Dioxide 21 (19-29) mEq/L BUN 59 H (8-26) mg/dL Creatinine 1.85 H (0.72-1.25) mg/dL Glucose 82 (70-99) mg/dL Calcium 7.4 L (8.6-10.8) mg/dL Adrenal panel 11/21/16 Range/Units 04:54 Sodium 140 (136-145) mEq/L Potassium 3.9 (3.5-4.5) mEq/L Chloride 112 H (98-109) mEq/L Carbon Dioxide 21 (19-29) mEq/L BUN 59 H (8-26) mg/dL Creatinine 1.85 H (0.72-1.25) mg/dL Glucose 82 (70-99) mg/dL Calcium 7.4 L (8.6-10.8) mg/dL - VTE Documentation of Mechanical Device: Intermittent pneumatic compression device Consult Discharge Plan - Plan Referrals: Gopal Remy MD [Partnered Physician] - 12/22/16 2:05 pm Cardoza,Antonella Rainey CNP [Primary Care Provider] - 12/02/16 9:00 am (SENT REQUEST ON @ 1016) <Gopal Remy - Last Filed: 11/21/16 18:43> Date of Encounter: 11/21/16 - Assessment and Plan (1) Anemia Current Visit: Yes Status: Acute Qualifiers: Anemia type: other cause Other causes of anemia: acute posthemorrhagic Qualified Code(s): D62 - Acute posthemorrhagic anemia (2) Free intraperitoneal air Current Visit: Yes Status: Acute (3) Colonic mass Current Visit: Yes Status: Acute Objective Vital Signs - Last 8 Hours Temp Pulse Resp BP Pulse Ox 11/21/16 15:54 98.2 F 63 18 114/57 99 11/21/16 12:37 98.9 F 127/55 11/21/16 11:38 69 17 99 Intake and Output 11/21/16 11/21/16 11/21/16 07:59 15:59 23:59 Intake Total 900 / 900 0 / 0 500 / 500 Output Total 780 / 780 50 / 50 800 / 800 Balance 120 / 120 -50 / -50 -300 / -300 Intake: IV Fluids 900 / 900 500 / 500 Sodium Bicarbonate 75 MEQ 800 / 800 500 / 500 In 0.45% Sodium Chloride 1000 Ml 1000 Ml 1,000 ML @ 100 mls/hr IVC . [id number] [facility] Rx#: [id number] Zosyn 3.375 GM In 100 / 100 Dextrose 5% (Minibag+) 100 ML 100 ML @ 25 mls/hr IVPB Q12H [facility] Rx#: [id number] Oral 0 / 0 Output: Catheter 390 / 390 750 / 750 Gastric Drainage 300 / 300 Wound Drainage 90 / 90 50 / 50 50 / 50 Abdomen 90 / 90 50 / 50 50 / 50 Other: Weight 81.1 kg Blood Glucose* 86 89 95 Patient Weight 11/21/16 23:59 Weight 81.1 kg - Labs 11/21/16 04:54 11/21/16 04:54 Diabetes panel 11/21/16 11/21/16 Range/Units 04:54 12:42 Sodium 140 (136-145) mEq/L Potassium 3.9 (3.5-4.5) mEq/L Chloride 112 H (98-109) mEq/L Carbon Dioxide 21 (19-29) mEq/L BUN 59 H (8-26) mg/dL Creatinine 1.85 H (0.72-1.25) mg/dL Glucose 82 (70-99) mg/dL Calcium 7.4 L (8.6-10.8) mg/dL Triglycerides 128 (< 150) mg/dL Calcium panel 11/21/16 Range/Units 04:54 Calcium 7.4 L (8.6-10.8) mg/dL Phosphorus 3.6 (2.3-4.7) mg/dL Pituitary panel 11/21/16 Range/Units 04:54 Sodium 140 (136-145) mEq/L Potassium 3.9 (3.5-4.5) mEq/L Chloride 112 H (98-109) mEq/L Carbon Dioxide 21 (19-29) mEq/L BUN 59 H (8-26) mg/dL Creatinine 1.85 H (0.72-1.25) mg/dL Glucose 82 (70-99) mg/dL Calcium 7.4 L (8.6-10.8) mg/dL Adrenal panel 11/21/16 Range/Units 04:54 Sodium 140 (136-145) mEq/L Potassium 3.9 (3.5-4.5) mEq/L Chloride 112 H (98-109) mEq/L Carbon Dioxide 21 (19-29) mEq/L BUN 59 H (8-26) mg/dL Creatinine 1.85 H (0.72-1.25) mg/dL Glucose 82 (70-99) mg/dL Calcium 7.4 L (8.6-10.8) mg/dL - Attending Attestation I examined this patient and my medical decision-making was reviewed with the RAISE DRILLER/PA/Advanced Practice Nurse/Resident Physician. I agree with the documented findings, disposition and treatment plan as described except to the extent set forth below. I reviewed the above assessment and evaluation and agree with the above plan.
[2016-11-21] MEDS ORDERED: *HR* Heparin 5,000 UNIT/ML VIAL ONE (17:18)
--- NOTE | 2016-11-21 18:12 | Venous Imaging Report ---
LE Venous Duplex Patient Name:Ciro Craig Order Number:[id number] Procedure Date:11/21/2016 Date:1930ge:86 yrs Gender:Male Location:[facility] Room #: 2NO2 Executive Staff Assistant:Keshia Langley Referring MD:Mitali Mart chief fundraising officer:Antonella Cardoza, [employer]ITION SERVICES ASSOCIATE Reading MD:Joao Jara MD Primary Indications:R/O DVT Secondary Indications: Impressions: Normal bilateral lower extremity deep and superficial venous exam. Recommendations: After imaging the patient returned to their room. Findings Venous Duplex Results: Right: Venous imaging of the lower extremity reveals full patency and normal vessel compressibility of the right distal iliac, right common femoral, right superficial femoral, right popliteal, right posterior tibial, right peroneal, right great saphenous and right lesser saphenous. Doppler signals in the evaluated veins were normal. Left: Venous imaging of the lower extremity reveals full patency and normal vessel compressibility of the left distal iliac, left common femoral, left superficial femoral, left popliteal, left posterior tibial, left peroneal, left great saphenous and left lesser saphenous. Doppler signals in the evaluated veins were normal. Lower Extremity Venous Duplex Side Vein Compress Spontaneous Flow Augment Diameter (cm) Depth (cm) Right Distal Iliac Normal Yes Phasic Yes Right Common Femoral Normal Yes Phasic Yes Right Superficial Femoral Normal Yes Phasic Yes Right Popliteal Normal Yes Phasic Yes Right Posterior Tibial Normal Yes Phasic Yes Right Peroneal Normal Yes Phasic Yes Right Great Saphenous Normal Yes Phasic Yes Right Lesser Saphenous Normal Yes Phasic Yes Left Distal Iliac Normal Yes Phasic Yes Left Common Femoral Normal Yes Phasic Yes Left Superficial Femoral Normal Yes Phasic Yes Left Popliteal Normal Yes Phasic Yes Left Posterior Tibial Normal Yes Phasic Yes Left Peroneal Normal Yes Phasic Yes Left Great Saphenous Normal Yes Phasic Yes Left Lesser Saphenous Normal Yes Phasic Yes Updated by Joao Jara MD on 11/21/2016 6:06:01 PM electronically signed on 11/21/2016 6:06:19 PM with status of Final
[2016-11-21] MEDS ORDERED: *HR* LORazepam 2 MG/ML VIAL IVP ONE (20:35)
[2016-11-22] MEDS ORDERED: 0.9 % Sodium Chloride 1,000 ML ONE (02:16)
[2016-11-22 02:49] LABS: Hemoglobin 8.9 g/dL (12.9-16.9); Mean Corpuscular Hemoglobin 27.6 pg (28.0-33.3); Mean Corpuscular Volume 83.6 fL (83.0-100.0); Mean Platelet Volume 9.8 fL (9.4-12.4); Platelet Count 120 K/mcL (140-400); Red Blood Count 3.23 M/mcL (4.19-5.50); Red Cell Distribution Width 16.9 % (11.5-14.5)
[2016-11-22 03:02] LABS: BUN/Creatinine Ratio 43 (6-26); Calcium 7.4 mg/dL (8.6-10.8); Carbon Dioxide 22 mEq/L (19-29); Chloride 110 mEq/L (98-109); Glucose 104 mg/dL (70-99); Magnesium 1.9 mg/dL (1.6-2.6); Osmolality,Calculated 300 (280-300); Potassium 3.1 mEq/L (3.5-4.5); Sodium 139 mEq/L (136-145); eGFR For African Americans > 60 (> 60); eGFR For Non-African Americans > 60 (> 60)
[2016-11-22 03:08] LABS: Blood Urea Nitrogen 45 mg/dL (8-26)
[2016-11-22] MEDS: 0.9 % Sodium Chloride 1,000 ML IVC SCH (03:34)
[2016-11-22] MEDS: *HR* Heparin 5,000 UNIT/ML VIAL SQ SCH ×2 (05:38→17:20)
[2016-11-22] MEDS: Pantoprazole 40 MG VIAL IVP SCH (05:39)
[2016-11-22] MEDS ORDERED: *HR* LORazepam 2 MG/ML VIAL IVP PRN (07:17)
[2016-11-22] MEDS: Piperacillin/Tazobactam 3.375 GM in D5% in Water (Mini-Bag+) 100 ML IVPB SCH ×2 (08:14→21:32)
--- NOTE | 2016-11-22 08:44 | General Surgery Progress Note ---
Date of Encounter: 11/24/16 Time of Encounter: 08:38 - Assessment and Plan (1) Anemia Current Visit: Yes Status: Acute Noted stable Hgb at 8.9. No evidence of active blood loss. Continue to monitor. Qualifiers: Anemia type: other cause Other causes of anemia: acute posthemorrhagic Qualified Code(s): D62 - Acute posthemorrhagic anemia (2) Free intraperitoneal air Current Visit: Yes Status: Acute s/p Sigmoid colon resection/colostomy. On IV abx. Continue dressing changes. (3) Colonic mass Current Visit: Yes Status: Acute Patient is status post colonic resection with colostomy. NGT in place with approximately 500ml yesterday. Continue to monitor. NGT to LIWS. On IVF (TPN was to start yesterday however patient pulled PICC last night. PICC to be replaced tomorrow). Subjective Patient reports: other (Patient noted to be confused. Pulled PICC line last evening. NGT in place.) Objective Vital Signs - Last 8 Hours Temp Pulse Resp BP Pulse Ox 11/22/16 07:47 98.9 F 69 18 122/71 100 11/22/16 04:12 98.4 F 76 19 110/56 100 Intake and Output 11/21/16 11/22/16 11/22/16 23:59 07:59 15:59 Intake Total 500 / 500 100 / 100 635 / 635 Output Total 1230 / 1230 775 / 775 Balance -730 / -730 -675 / -675 635 / 635 Intake: IV Fluids 500 / 500 100 / 100 635 / 635 Clinimix E 5%-15% 510 / 510 SOLUTION 2,000 ML @ 40 mls/hr IVC .Q24H [facility] with M.v.i. Adult 10 ml Rx#: [id number] Sodium Bicarbonate 75 MEQ 500 / 500 75 / 75 In 0.45% Sodium Chloride 1000 Ml 1000 Ml 1,000 ML @ 100 mls/hr IVC . [id number] [facility] Rx#: [id number] Intralipid 20% 250 ML @ 50 / 50 21 mls/hr IVPB DAILY@1700 [facility] Rx#:[id number] Zosyn 3.375 GM In 100 / 100 Dextrose 5% (Minibag+) 100 ML 100 ML @ 25 mls/hr IVPB Q12H [facility] Rx#: [id number] Oral 0 / 0 Output: Gastric Tube Lavage 500 / 500 Amount Right Nare 500 / 500 Catheter 1050 / 1050 200 / 200 Wound Drainage 180 / 180 75 / 75 Abdomen 180 / 180 75 / 75 Other: Stool Size Small Stool Color Green # Bowel Movements 1 Weight 81.6 kg Blood Glucose* 126 97 Patient Weight 11/22/16 23:59 Weight 81.6 kg - General physical appearance no distress, cachectic - Respiratory normal expansion, normal respiratory effort - Abdomen Abdomen: Present: soft, non tender (No bowel sounds present. Midline incision CDI. No erythema or drainage noted. No ostomy output. ) - Labs 11/24/16 04:55 11/24/16 04:55 Diabetes panel 11/21/16 11/22/16 Range/Units 12:42 02:40 Sodium 139 (136-145) mEq/L Potassium 3.1 L (3.5-4.5) mEq/L Chloride 110 H (98-109) mEq/L Carbon Dioxide 22 (19-29) mEq/L BUN 45 H D (8-26) mg/dL Creatinine 1.04 (0.72-1.25) mg/dL Glucose 104 H (70-99) mg/dL Calcium 7.4 L (8.6-10.8) mg/dL Triglycerides 128 (< 150) mg/dL Calcium panel 11/22/16 Range/Units 02:40 Calcium 7.4 L (8.6-10.8) mg/dL Phosphorus 2.0 L (2.3-4.7) mg/dL Pituitary panel 11/22/16 Range/Units 02:40 Sodium 139 (136-145) mEq/L Potassium 3.1 L (3.5-4.5) mEq/L Chloride 110 H (98-109) mEq/L Carbon Dioxide 22 (19-29) mEq/L BUN 45 H D (8-26) mg/dL Creatinine 1.04 (0.72-1.25) mg/dL Glucose 104 H (70-99) mg/dL Calcium 7.4 L (8.6-10.8) mg/dL Adrenal panel 11/22/16 Range/Units 02:40 Sodium 139 (136-145) mEq/L Potassium 3.1 L (3.5-4.5) mEq/L Chloride 110 H (98-109) mEq/L Carbon Dioxide 22 (19-29) mEq/L BUN 45 H D (8-26) mg/dL Creatinine 1.04 (0.72-1.25) mg/dL Glucose 104 H (70-99) mg/dL Calcium 7.4 L (8.6-10.8) mg/dL - VTE Documentation of Mechanical Device: Intermittent pneumatic compression device Consult Discharge Plan - Plan Referrals: Gopal Remy MD [Partnered Physician] - 12/22/16 2:05 pm Cardoza,Antonella Rainey CNP [Primary Care Provider] - 12/02/16 9:00 am (SENT REQUEST ON @ 1016)
--- NOTE | 2016-11-22 10:34 | Nephrology Progress Note ---
Date of Encounter: 11/22/16 Time of Encounter: 10:31 - Assessment and Plan (1) ALFIE (acute kidney injury) Current Visit: Yes Status: Acute Improving: SCr 2.93>>1.85>>1.04 2nd to acute intraoperative blood loss, along with contrast exposure, hypotension, and inconjunciton with UTI: urine culture growing e.coli and acinetobacter (wbc trending down) BP stable 120/70 K+ WNL s/p transfusion 4 units. CXR negative for pulmonary edema. Plan: Kidney function improving back to baseline: no longer needs maintenance fluid however since patient is NPO continue surgery fluids and TPN. continue ciprofloxacin (wound and urine culture sensitivities assessed) day 3, continue zosyn day 5 avoid nephrotoxins: NSADIS, contrast, bactrim Thank you for consulting [facility]. Will sign off. (2) Hypokalemia Current Visit: Yes Status: Acute Developed hypokalemia since yesterday K 3.1 likely 2nd to 1/2 normal saline with bicarb replacement given by surgery patient also has potassium in TPN (3) Anemia Current Visit: Yes Status: Acute acute intraoperative blood loss anemia hgb stable BP stable continue to monitor Qualifiers: Anemia type: other cause Other causes of anemia: other cause, not classified Qualified Code(s): D64.89 - Other specified anemias (4) Hyperkalemia Current Visit: Yes Status: Resolved resolved. K+ 3.9 today (5) Metabolic acidosis Current Visit: Yes Status: Acute Non-anion gap hypercholremic metabolic acidosis Anion Gap: 7 2nd to NS administration improving bicarb improved to 21 Plan: since resolved. d/c 1/2 normal saline w/ bicarb. (6) Oliguria Current Visit: Yes Status: Resolved Resolved I/O: 1499/2059 producing clear light yellow urine d/c IVF continue jeff catheter strict I/O (7) Hyperphosphatemia Current Visit: Yes Status: Resolved resolved. now 3.6 reflects improving renal function (8) Leukocytosis Current Visit: Yes Status: Acute multifactorial downward trend. afebrile, HR<100 s/p exploratory laparotomy, UTI, wound cultures abdominal source shows e.coli and klebsiella pneumonia infection Continue cipro and zosyn as noted above. Qualifiers: Leukocytosis type: other Qualified Code(s): D72.828 - Other elevated white blood cell count Subjective Principal diagnosis: ALFIE Interval history: Patient given ativan overnight for agitation however agitaiton worsened after administration. Pulled out midline. Currently in post op delirium. awake but not alert to self or surroundings. Objective - Vital Signs Vital signs: Vital Signs Temp Pulse Resp BP Pulse Ox 11/22/16 08:30 69 11/22/16 07:47 98.9 F 69 18 122/71 100 11/22/16 04:12 98.4 F 76 19 110/56 100 11/21/16 23:31 99.0 F 83 18 124/55 100 11/21/16 19:28 65 11/21/16 19:15 98.8 F 67 17 111/56 100 11/21/16 15:54 98.2 F 63 18 114/57 99 11/21/16 12:37 98.9 F 127/55 11/21/16 11:38 69 17 99 Intake and Output 11/21/16 11/22/16 11/22/16 23:59 07:59 15:59 Intake Total 500 / 500 100 / 100 735 / 735 Output Total 1230 / 1230 775 / 775 Balance -730 / -730 -675 / -675 735 / 735 Intake: IV Fluids 500 / 500 100 / 100 735 / 735 Clinimix E 5%-15% 510 / 510 SOLUTION 2,000 ML @ 40 mls/hr IVC .Q24H [facility] with M.v.i. Adult 10 ml Rx#: [id number] Sodium Bicarbonate 75 MEQ 500 / 500 75 / 75 In 0.45% Sodium Chloride 1000 Ml 1000 Ml 1,000 ML @ 100 mls/hr IVC . [id number] [facility] Rx#: [id number] Intralipid 20% 250 ML @ 50 / 50 21 mls/hr IVPB DAILY@1700 [facility] Rx#:[id number] Zosyn 3.375 GM In 100 / 100 Dextrose 5% (Minibag+) 100 ML 100 ML @ 25 mls/hr IVPB Q12H [facility] Rx#: [id number] Potassium Chloride 10 mEq 100 / 100 /100mL 10 meq In 100 ml @ 100 mls/hr IVPB Q1H [facility] Rx#:[id number] Oral 0 / 0 Output: Gastric Tube Lavage 500 / 500 Amount Right Nare 500 / 500 Catheter 1050 / 1050 200 / 200 Wound Drainage 180 / 180 75 / 75 Abdomen 180 / 180 75 / 75 Other: Stool Size Small Stool Color Green # Bowel Movements 1 Weight 81.6 kg Blood Glucose* 126 97 Patient Weight 11/22/16 23:59 Weight 81.6 kg - General Appearance General appearance: Present: cachectic, anxious Exam: confusion, acute delirium. EENT: Present: mucous membranes dry Neck: Present: no JVD Respiratory: Present: clear Cardiology: Present: edema (right lower extremity, no edema in upper extremities , minimal in left lower extremity), regular rate, normal S1, normal S2 Gastrointestinal: Present: normoactive bowel sounds, no tenderness Integumentary: Present: warm and dry Additional Comments: left heel ulcer, bandanged Neurologic: Present: confused, disoriented - Lab 11/22/16 02:40 11/22/16 02:40 Most recent lab results Calcium 7.4 mg/dL (8.6-10.8) L 11/22/16 02:40 Phosphorus 2.0 mg/dL (2.3-4.7) L 11/22/16 02:40 Magnesium 1.9 mg/dL (1.6-2.6) 11/22/16 02:40 - VTE Documentation of Mechanical Device: Intermittent pneumatic compression device Consult Discharge Plan - Plan Referrals: Gopal Remy MD [Partnered Physician] - 12/22/16 2:05 pm Cardoza,Antonella Rainey CNP [Primary Care Provider] - 12/02/16 9:00 am (SENT REQUEST ON @ 1016)
[2016-11-22] MEDS: Haloperidol Lactate 5 MG/ML VIAL IVP PRN ×2 (15:11→21:33)
[2016-11-22] MEDS ORDERED: Clinimix E 5%-15% SOLUTION 2,000 ML with MVI, adult with vitamin K 10 ML IVC SCH (17:00)
[2016-11-23] MEDS: 0.9 % Sodium Chloride 1,000 ML IVC SCH ×2 (04:05→10:47)
[2016-11-23] MEDS: Haloperidol Lactate 5 MG/ML VIAL IVP PRN (04:06)
[2016-11-23] MEDS: Pantoprazole 40 MG VIAL IVP SCH (06:28)
[2016-11-23] MEDS: *HR* Heparin 5,000 UNIT/ML VIAL SQ SCH ×2 (06:28→17:59)
[2016-11-23 07:32] LABS: BUN/Creatinine Ratio 46 (6-26); Blood Urea Nitrogen 31 mg/dL (8-26); Calcium 7.2 mg/dL (8.6-10.8); Carbon Dioxide 25 mEq/L (19-29); Chloride 114 mEq/L (98-109); Glucose 128 mg/dL (70-99); Magnesium 1.7 mg/dL (1.6-2.6); Osmolality,Calculated 300 (280-300); Phosphorous 1.2 mg/dL (2.3-4.7); Potassium 3.1 mEq/L (3.5-4.5); Sodium 141 mEq/L (136-145); eGFR For African Americans > 60 (> 60); eGFR For Non-African Americans > 60 (> 60)
[2016-11-23 08:06] LABS: Hemoglobin 7.6 g/dL (12.9-16.9); Mean Corpuscular Hemoglobin 28.3 pg (28.0-33.3); Mean Corpuscular Volume 85.5 fL (83.0-100.0); Mean Platelet Volume 10.5 fL (9.4-12.4); Platelet Count 118 K/mcL (140-400); Red Blood Count 2.69 M/mcL (4.19-5.50); Red Cell Distribution Width 17.2 % (11.5-14.5)
[2016-11-23] MEDS: Piperacillin/Tazobactam 3.375 GM in D5% in Water (Mini-Bag+) 100 ML IVPB SCH ×2 (09:23→21:54)
--- NOTE | 2016-11-23 10:27 | General Surgery Progress Note ---
<Mitali Mart - Last Filed: 11/23/16 11:12> Date of Encounter: 11/23/16 Time of Encounter: 09:45 - Assessment and Plan (1) Perforated sigmoid colon Current Visit: Yes Status: Acute POD #6 Exploratory celiotomy; Sigmoid colectomy with colostomy; Primary repair of left inguinal hernia; Repair of left external/internal iliac vein injury Continue NG tube to LIWS Continue NPO, TPN, and IVF (0.9% noted per nephrology) PICC line replaced 11/22/2016 d/t acute episode of confusion in which the patient pulled out the PICC line. Total IV fluids 100 ML/hrAwait return of bowel function Colostomy stoma pink and without output Midline surgical incision noted open, without drainage, and dry packing noted REG aburto with serosanguinous drainage Supportive care and pain control PT/OT eval and treat Sit up at EOB as tolerated (2) Left inguinal hernia Current Visit: Yes Status: Acute POD #6 Exploratory celiotomy; Sigmoid colectomy with colostomy; Primary repair of left inguinal hernia; Repair of left external/internal iliac vein injury Continue NG tube to LIWS Continue NPO, TPN, and IVF (0.9% noted per nephrology) PICC line replaced 11/22/2016 d/t acute episode of confusion in which the patient pulled out the PICC line. Total IV fluids 100 ML/hrAwait return of bowel function Colostomy stoma pink and without output Midline surgical incision noted open, without drainage, and dry packing noted REG aburto with serosanguinous drainage Supportive care and pain control PT/OT eval and treat Sit up at EOB as tolerated (3) Leukocytosis Current Visit: Yes Status: Acute POD #6 Exploratory celiotomy; Sigmoid colectomy with colostomy; Primary repair of left inguinal hernia; Repair of left external/internal iliac vein injury IV antibiotics noted; WBC stable, continue to monitor Qualifiers: Leukocytosis type: other Qualified Code(s): D72.828 - Other elevated white blood cell count (4) DVT prophylaxis Current Visit: No Status: Acute 5000 mg SQ heparin BID SCDs when in bed BL venous doppler negative for DVT 11/21/2016 PT/OT eval and treat (5) Electrolyte abnormality Current Visit: Yes Status: Acute Electrolyte protocol; continue TPN replace electrolytes. Repeat a.m. labs (6) ASHD (arteriosclerotic heart disease) Current Visit: Yes Status: Acute Patient with known cardiovascular history of NSTEMI and aortic valve regurgitation without evidence of aortic stenosis. Left lower extremity with temperature difference and decreased pedal pulses. Will obtain NEVILLE. There are no previous studies for comparison. (7) Anemia Current Visit: Yes Status: Acute Noted Hgb 7.6. VSS, no indication for transfusion at this time. will continue to monitor. Qualifiers: Anemia type: other cause Other causes of anemia: other cause, not classified Qualified Code(s): D64.89 - Other specified anemias (8) Delirium Current Visit: Yes Status: Acute D/c lorazepam; Haldol added for agitation/confusion Therapeutic Sitter at bedside Reorient and provide reassurance PRN Subjective Patient reports: still having pain, voiding w/o difficulty (Per ejff catheter) , no flatus, no bowel movement, afebrile Narrative: Requests that NG tube be removed. at bedside states he has attempted to get out of bed unassisted. Objective Vital Signs - Last 8 Hours Temp Pulse Resp BP Pulse Ox 11/23/16 07:33 98.1 F 79 18 114/83 100 11/23/16 05:43 96.7 F L 85 20 116/66 100 Intake and Output 11/22/16 11/23/16 11/23/16 23:59 07:59 15:59 Intake Total 1360 / 1360 350 / 350 Output Total 550 / 550 650 / 650 Balance 810 / 810 -300 / -300 Intake: IV Fluids 1360 / 1360 350 / 350 0.9 % Sodium Chloride 1, 1000 / 1000 000 ML @ 75 mls/hr IVC . [id number] [facility] Rx#: [id number] Clinimix E 5%-15% 160 / 160 SOLUTION 2,000 ML @ 40 mls/hr IVC .Q24H [facility] with M.v.i. Adult 10 ml Rx#: [id number] Intralipid 20% 250 ML @ 200 / 200 250 / 250 21 mls/hr IVPB DAILY@1700 [facility] Rx#:[id number] Zosyn 3.375 GM In 100 / 100 Dextrose 5% (Minibag+) 100 ML 100 ML @ 25 mls/hr IVPB Q12H [facility] Rx#: [id number] Output: Catheter 500 / 500 600 / 600 Wound Drainage 50 / 50 50 / 50 Abdomen 50 / 50 50 / 50 Other: Weight 86.7 kg Blood Glucose* 135 144 Patient Weight 11/23/16 23:59 Weight 86.7 kg - General physical appearance no distress (Sitting upright in bed. RA, VSS, at bedside, denies discomfort , Reinforced that pt should only get up to edge of bed with assistance, pending PT/OT eval and treat.), moderate pain, cachectic - Eyes normal ocular movement - ENT dry mucosa, atraumatic - Neck Neck exam: trachea midline - Respiratory other (Decreased bibasilar. No crackles noted) - Cardiovascular Cardiovascular exam: Present: regular rhythm (occaisional extrasystole noted), murmurs (systolic murmur noted) Addtional Comments: Third spacing to BL upper and lower extremities noted LLE cool and unable to palpate pedal pulses RLE warm, 2 + pedal pulses - Abdomen Abdomen: Present: soft, tender. Absent: bowel sounds present, distended Abdominal Tenderness: diffusely Hernia: none - Incision Incision: Present: open (Noted open, packing in place, no drainage, noted granulation tissue in wound bed). Absent: erythema - Integumentary no rash, other (Anasarca noted. Errythema to LUE noted. Midline surgical incision as above) - Neurologic CN 2-12 grossly intact - Psychiatric oriented to time (Noted episode of confusion yesterday. Currently alert and oriented. at bedside), oriented to person, oriented to place - Additional Exam Noted BL venous doppler negative for DVT CEA value 5.8 (11/17/2016) - Labs 11/23/16 06:20 11/23/16 06:20 Diabetes panel 11/23/16 Range/Units 06:20 Sodium 141 (136-145) mEq/L Potassium 3.1 L (3.5-4.5) mEq/L Chloride 114 H (98-109) mEq/L Carbon Dioxide 25 (19-29) mEq/L BUN 31 H D (8-26) mg/dL Creatinine 0.67 L (0.72-1.25) mg/dL Glucose 128 H (70-99) mg/dL Calcium 7.2 L (8.6-10.8) mg/dL Calcium panel 11/23/16 Range/Units 06:20 Calcium 7.2 L (8.6-10.8) mg/dL Phosphorus 1.2 L (2.3-4.7) mg/dL Pituitary panel 11/23/16 Range/Units 06:20 Sodium 141 (136-145) mEq/L Potassium 3.1 L (3.5-4.5) mEq/L Chloride 114 H (98-109) mEq/L Carbon Dioxide 25 (19-29) mEq/L BUN 31 H D (8-26) mg/dL Creatinine 0.67 L (0.72-1.25) mg/dL Glucose 128 H (70-99) mg/dL Calcium 7.2 L (8.6-10.8) mg/dL Adrenal panel 11/23/16 Range/Units 06:20 Sodium 141 (136-145) mEq/L Potassium 3.1 L (3.5-4.5) mEq/L Chloride 114 H (98-109) mEq/L Carbon Dioxide 25 (19-29) mEq/L BUN 31 H D (8-26) mg/dL Creatinine 0.67 L (0.72-1.25) mg/dL Glucose 128 H (70-99) mg/dL Calcium 7.2 L (8.6-10.8) mg/dL Hypokalemia and hypophosphatemia noted. No EKG changes associated noted. - VTE Documentation of Mechanical Device: Intermittent pneumatic compression device Consult Discharge Plan - Plan Referrals: Gopal Remy MD [Partnered Physician] - 12/22/16 2:05 pm Cardoza,Antonella Rainey CNP [Primary Care Provider] - 12/02/16 9:00 am (SENT REQUEST ON @ 1016) <Gopal Remy - Last Filed: 11/24/16 09:33> Date of Encounter: 11/24/16 - Assessment and Plan (1) Anemia Current Visit: Yes Status: Acute Qualifiers: Anemia type: other cause Other causes of anemia: acute posthemorrhagic Qualified Code(s): D62 - Acute posthemorrhagic anemia (2) Colonic mass Current Visit: Yes Status: Acute (3) Leukocytosis Current Visit: Yes Status: Acute Qualifiers: Leukocytosis type: other Qualified Code(s): D72.828 - Other elevated white blood cell count (4) DVT prophylaxis Current Visit: No Status: Acute (5) PAD (peripheral artery disease) Current Visit: Yes Status: Acute (6) Delirium Current Visit: Yes Status: Acute (7) Hypokalemia Current Visit: Yes Status: Acute Objective Vital Signs - Last 8 Hours Temp Pulse Resp BP Pulse Ox 11/24/16 06:53 97.5 F L 82 18 120/65 98 11/24/16 04:40 86 11/24/16 03:51 98.5 F 86 17 121/63 100 Intake and Output 11/23/16 11/24/16 11/24/16 23:59 07:59 15:59 Intake Total 1468 / 1468 0 / 0 100 / 100 Output Total 600 / 600 175 / 175 Balance 868 / 868 -175 / -175 100 / 100 Intake: IV Fluids 1468 / 1468 100 / 100 0.9 % Sodium Chloride 1, 1000 / 1000 000 ML @ 75 mls/hr IVC . [id number] [facility] Rx#: [id number] Magnesium Sulfate 2 GM In 208 / 208 Dextrose 5% 100 ML @ 50 mls/hr IVPB Q6H PRN Rx#: [id number] Zosyn 3.375 GM In 100 / 100 Dextrose 5% (Minibag+) 100 ML 100 ML @ 25 mls/hr IVPB Q12H [facility] Rx#: [id number] Potassium Phosphate 44 260 / 260 MEQ In 0.9 % Sodium Chloride 250 ML @ 40 mls/ hr IVPB Q10H PRN Rx#: [id number] Oral 0 / 0 0 / 0 Output: Gastric Tube Lavage 50 / 50 150 / 150 Amount Right Nare 50 / 50 150 / 150 Catheter 450 / 450 0 / 0 Wound Drainage 100 / 100 25 / 25 Abdomen 100 / 100 25 / 25 Other: Stool Size Small Stool Consistency soft Stool Color Brown # Bowel Movements 1 Weight 82.7 kg Blood Glucose* 138 138 Patient Weight 11/24/16 23:59 Weight 82.7 kg - Labs 11/24/16 04:55 11/24/16 04:55 Diabetes panel 11/23/16 11/24/16 Range/Units 11:26 04:55 Sodium 141 143 (136-145) mEq/L Potassium 3.0 L 2.8 L (3.5-4.5) mEq/L Chloride 113 H 117 H (98-109) mEq/L Carbon Dioxide 26 20 (19-29) mEq/L BUN 29 H 22 (8-26) mg/dL Creatinine 0.64 L 0.54 L (0.72-1.25) mg/dL Glucose 123 H 119 H (70-99) mg/dL Calcium 7.1 L 6.2 L (8.6-10.8) mg/dL Calcium panel 11/23/16 11/24/16 11/24/16 Range/Units 11:26 04:55 04:55 Calcium 7.1 L 6.2 L (8.6-10.8) mg/dL Phosphorus 1.4 L 1.7 L (2.3-4.7) mg/dL Pituitary panel 11/23/16 11/24/16 Range/Units 11:26 04:55 Sodium 141 143 (136-145) mEq/L Potassium 3.0 L 2.8 L (3.5-4.5) mEq/L Chloride 113 H 117 H (98-109) mEq/L Carbon Dioxide 26 20 (19-29) mEq/L BUN 29 H 22 (8-26) mg/dL Creatinine 0.64 L 0.54 L (0.72-1.25) mg/dL Glucose 123 H 119 H (70-99) mg/dL Calcium 7.1 L 6.2 L (8.6-10.8) mg/dL Adrenal panel 11/23/16 11/24/16 Range/Units 11:26 04:55 Sodium 141 143 (136-145) mEq/L Potassium 3.0 L 2.8 L (3.5-4.5) mEq/L Chloride 113 H 117 H (98-109) mEq/L Carbon Dioxide 26 20 (19-29) mEq/L BUN 29 H 22 (8-26) mg/dL Creatinine 0.64 L 0.54 L (0.72-1.25) mg/dL Glucose 123 H 119 H (70-99) mg/dL Calcium 7.1 L 6.2 L (8.6-10.8) mg/dL - Attending Attestation I examined this patient and my medical decision-making was reviewed with the INTERNET ARCHITECT/PA/Advanced Practice Nurse/Resident Physician. I agree with the documented findings, disposition and treatment plan as described except to the extent set forth below. I reviewed the above assessment and evaluation with the nurse practitioner. NG tube in place. No evidence of significant ostomy output. Await return of bowel function. Hypokalemia noted with potassium replacement pending. Continue with TPN and IV fluid hydration. Continue with Jeff catheter for accurate I's and O's. Continue with midline dressing change daily.
[2016-11-23 11:36] LABS: Basophils % 0.1 %; Eosinophils # 0.2 K/mcL (0.0-0.6); Eosinophils % 1.1 %; Hematocrit 23.4 % (37.5-50.1); Hemoglobin 7.7 g/dL (12.9-16.9); Immature Granulocytes % 0.8 % (0-4); Lymphocytes # 0.2 K/mcL (0.6-4.6); Lymphocytes % 1.5 %; Mean Corpuscular HGB Conc 32.9 g/dL (31.6-35.5); Mean Corpuscular Hemoglobin 28.2 pg (28.0-33.3); Mean Corpuscular Volume 85.7 fL (83.0-100.0); Monocytes # 0.6 K/mcL (0.0-1.3); Monocytes % 4.3 %; Neutrophils # 12.1 K/mcL (1.6-8.9); Platelet Count 120 K/mcL (140-400); Red Blood Count 2.73 M/mcL (4.19-5.50); Red Cell Distribution Width 17.1 % (11.5-14.5); Segmented Neutrophils % 92.2 %
[2016-11-23 11:50] LABS: BUN/Creatinine Ratio 45 (6-26); Blood Urea Nitrogen 29 mg/dL (8-26); Calcium 7.1 mg/dL (8.6-10.8); Carbon Dioxide 26 mEq/L (19-29); Chloride 113 mEq/L (98-109); Glucose 123 mg/dL (70-99); Magnesium 1.6 mg/dL (1.6-2.6); Osmolality,Calculated 299 (280-300); Phosphorous 1.4 mg/dL (2.3-4.7); Sodium 141 mEq/L (136-145); eGFR For African Americans > 60 (> 60); eGFR For Non-African Americans > 60 (> 60)
[2016-11-23] MEDS: Magnesium Sulfate 2 GM in D5% in Water 100 ML IVPB PRN ×2 (13:11→21:53)
[2016-11-23] MEDS: Potassium Phosphate 44 MEQ in 0.9 % Sodium Chloride 250 ML IVPB PRN (15:28)
[2016-11-23] MEDS ORDERED: Clinimix E 5%-15% SOLUTION 2,000 ML with MVI, adult with vitamin K 10 ML IVC SCH (17:00)
[2016-11-24] MEDS: Pantoprazole 40 MG VIAL IVP SCH (04:50)
[2016-11-24] MEDS: *HR* HYDROmorphone (PF) 1 MG/ML SYRINGE IVP PRN ×3 (04:51→21:24)
[2016-11-24] MEDS: *HR* Heparin 5,000 UNIT/ML VIAL SQ SCH ×2 (04:51→17:39)
[2016-11-24 05:51] LABS: Hematocrit 22.1 % (37.5-50.1); Hemoglobin 7.1 g/dL (12.9-16.9); Mean Corpuscular HGB Conc 32.1 g/dL (31.6-35.5); Mean Corpuscular Hemoglobin 27.7 pg (28.0-33.3); Mean Corpuscular Volume 86.3 fL (83.0-100.0); Mean Platelet Volume 10.5 fL (9.4-12.4); Platelet Count 125 K/mcL (140-400); Red Blood Count 2.56 M/mcL (4.19-5.50); Red Cell Distribution Width 17.3 % (11.5-14.5)
[2016-11-24 06:01] LABS: BUN/Creatinine Ratio 41 (6-26); Blood Urea Nitrogen 22 mg/dL (8-26); Calcium 6.2 mg/dL (8.6-10.8); Carbon Dioxide 20 mEq/L (19-29); Chloride 117 mEq/L (98-109); Glucose 119 mg/dL (70-99); Osmolality,Calculated 300 (280-300); Potassium 2.8 mEq/L (3.5-4.5); Sodium 143 mEq/L (136-145); eGFR For African Americans > 60 (> 60); eGFR For Non-African Americans > 60 (> 60)
[2016-11-24 06:04] LABS: Magnesium 1.7 mg/dL (1.6-2.6); Phosphorous 1.7 mg/dL (2.3-4.7)
[2016-11-24] MEDS: Piperacillin/Tazobactam 3.375 GM in D5% in Water (Mini-Bag+) 100 ML IVPB SCH ×2 (09:01→21:25)
[2016-11-24] MEDS: 0.9 % Sodium Chloride 1,000 ML IVC SCH ×2 (09:04→10:31)
[2016-11-24] MEDS: Potassium Chloride 40 MEQ/200 ML BAG IVPB PRN ×2 (09:06→15:23)
--- NOTE | 2016-11-24 09:23 | General Surgery Progress Note ---
Date of Encounter: 11/24/16 Time of Encounter: 09:19 - Assessment and Plan (1) Anemia Current Visit: Yes Status: Acute Noted Hgb at 7.1. I think this is due to the overall shifting of fluid resulting from the patient being 1.3L positive on 11/22/16. I do not think he is actively bleeding. Will draw iron profile to see if he would benefit from iron infusion. Continue to follow CBC. Qualifiers: Anemia type: other cause Other causes of anemia: acute posthemorrhagic Qualified Code(s): D62 - Acute posthemorrhagic anemia (2) Colonic mass Current Visit: Yes Status: Acute Patient is status post colonic resection with colostomy POD#7. NGT output recorded at 150ml yesterday. Mild air noted an ostomy appliance. Will order to place NG tube to gravity/Bolden bag drainage. 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 REG drains with stressing was fluid. Continue dressing change. Patient on goal TPN. Await return of bowel function. Intake with PTOT. (3) Leukocytosis Current Visit: Yes Status: Acute Noted slow increase in the patient's white blood count. Will order a portable chest x-ray and obtain blood cultures for fungal analysis. Will also start Diflucan 200 mg today and change to 100 mg daily starting tomorrow. Continue to follow WBC. Qualifiers: Leukocytosis type: other Qualified Code(s): D72.828 - Other elevated white blood cell count (4) DVT prophylaxis Current Visit: No Status: Acute On heparin subcutaneous twice a day. Continue with BP CDs. No evidence of DVT by ultrasound on 11/21/2016. (5) PAD (peripheral artery disease) Current Visit: Yes Status: Acute Noted left lower extremity being cool to touch with nonpalpable distal pulses but dopplerable signals. NEVILLE studies are ordered for today. (6) Delirium Current Visit: Yes Status: Acute Haldol IV noted as needed. (7) Hypokalemia Current Visit: Yes Status: Acute Potassium noted to be 2.8 today. Patient on a protocol with potassium replacement. We will continue to follow. Subjective Patient reports: other (patient resting comfortable. Episodes of mild confusion noted. No nauea or vomiting. NGT in place.) Objective Vital Signs - Last 8 Hours Temp Pulse Resp BP Pulse Ox 11/24/16 06:53 97.5 F L 82 18 120/65 98 11/24/16 04:40 86 11/24/16 03:51 98.5 F 86 17 121/63 100 Intake and Output 11/23/16 11/24/16 11/24/16 23:59 07:59 15:59 Intake Total 468 / 468 0 / 0 100 / 100 Output Total 600 / 600 175 / 175 Balance -132 / -132 -175 / -175 100 / 100 Intake: IV Fluids 468 / 468 100 / 100 Magnesium Sulfate 2 GM In 208 / 208 Dextrose 5% 100 ML @ 50 mls/hr IVPB Q6H PRN Rx#: [id number] Zosyn 3.375 GM In 100 / 100 Dextrose 5% (Minibag+) 100 ML 100 ML @ 25 mls/hr IVPB Q12H [facility] Rx#: [id number] Potassium Phosphate 44 260 / 260 MEQ In 0.9 % Sodium Chloride 250 ML @ 40 mls/ hr IVPB Q10H PRN Rx#: [id number] Oral 0 / 0 0 / 0 Output: Gastric Tube Lavage 50 / 50 150 / 150 Amount Right Nare 50 / 50 150 / 150 Catheter 450 / 450 0 / 0 Wound Drainage 100 / 100 25 / 25 Abdomen 100 / 100 25 / 25 Other: Stool Size Small Stool Consistency soft Stool Color Brown # Bowel Movements 1 Weight 82.7 kg Blood Glucose* 138 138 Patient Weight 11/24/16 23:59 Weight 82.7 kg - General physical appearance no distress, cachectic - Respiratory normal expansion, normal respiratory effort - Abdomen Abdomen: Present: bowel sounds present, soft, non tender (Midline incision CDI. Packing in place. No erythema. Mild air in ostomy appliance.) - Musculoskeletal other (Noted pitting edema in RLQ. Right extremity warmer than left.) - Labs 11/24/16 04:55 11/24/16 04:55 Diabetes panel 11/23/16 11/24/16 Range/Units 11:26 04:55 Sodium 141 143 (136-145) mEq/L Potassium 3.0 L 2.8 L (3.5-4.5) mEq/L Chloride 113 H 117 H (98-109) mEq/L Carbon Dioxide 26 20 (19-29) mEq/L BUN 29 H 22 (8-26) mg/dL Creatinine 0.64 L 0.54 L (0.72-1.25) mg/dL Glucose 123 H 119 H (70-99) mg/dL Calcium 7.1 L 6.2 L (8.6-10.8) mg/dL Calcium panel 11/23/16 11/24/16 11/24/16 Range/Units 11:26 04:55 04:55 Calcium 7.1 L 6.2 L (8.6-10.8) mg/dL Phosphorus 1.4 L 1.7 L (2.3-4.7) mg/dL Pituitary panel 11/23/16 11/24/16 Range/Units 11:26 04:55 Sodium 141 143 (136-145) mEq/L Potassium 3.0 L 2.8 L (3.5-4.5) mEq/L Chloride 113 H 117 H (98-109) mEq/L Carbon Dioxide 26 20 (19-29) mEq/L BUN 29 H 22 (8-26) mg/dL Creatinine 0.64 L 0.54 L (0.72-1.25) mg/dL Glucose 123 H 119 H (70-99) mg/dL Calcium 7.1 L 6.2 L (8.6-10.8) mg/dL Adrenal panel 11/23/16 11/24/16 Range/Units 11:26 04:55 Sodium 141 143 (136-145) mEq/L Potassium 3.0 L 2.8 L (3.5-4.5) mEq/L Chloride 113 H 117 H (98-109) mEq/L Carbon Dioxide 26 20 (19-29) mEq/L BUN 29 H 22 (8-26) mg/dL Creatinine 0.64 L 0.54 L (0.72-1.25) mg/dL Glucose 123 H 119 H (70-99) mg/dL Calcium 7.1 L 6.2 L (8.6-10.8) mg/dL - VTE Documentation of Mechanical Device: Intermittent pneumatic compression device Consult Discharge Plan - Plan Referrals: Gopal Remy MD [Partnered Physician] - 12/22/16 2:05 pm Cardoza,Antonella Rainey CNP [Primary Care Provider] - 12/02/16 9:00 am (SENT REQUEST ON @ 8354)
[2016-11-24] MEDS ORDERED: Fluconazole 200 MG/100 ML 200 MG/100 ML BAG IVPB SCH (09:30)
[2016-11-24] MEDS: Potassium Phosphate 44 MEQ in 0.9 % Sodium Chloride 250 ML IVPB PRN ×2 (10:13→22:29)
[2016-11-24 10:48] LABS: % Iron Saturation 8 % (20-55); Iron 11 mcg/dL (65-175); Transferrin 101 mg/dL (174-364)
[2016-11-24] MEDS: Magnesium Sulfate 2 GM in D5% in Water 100 ML IVPB PRN (11:19)
[2016-11-24 15:17] LABS: Magnesium 2.1 mg/dL (1.6-2.6); Potassium 3.7 mEq/L (3.5-4.5)
[2016-11-24] MEDS ORDERED: Clinimix E 5%-15% SOLUTION 2,000 ML with MVI, adult with vitamin K 10 ML IVC SCH (17:00)
[2016-11-24 21:46] LABS: Potassium 4.2 mEq/L (3.5-4.5)
[2016-11-25] MEDS: *HR* HYDROmorphone (PF) 1 MG/ML SYRINGE IVP PRN ×5 (03:23→21:26)
[2016-11-25 05:40] LABS: Magnesium 1.6 mg/dL (1.6-2.6)
[2016-11-25 05:41] LABS: BUN/Creatinine Ratio 40 (6-26); Blood Urea Nitrogen 25 mg/dL (8-26); Chloride 113 mEq/L (98-109); Glucose 120 mg/dL (70-99); Osmolality,Calculated 294 (280-300); Potassium 4.5 mEq/L (3.5-4.5); Sodium 139 mEq/L (136-145); eGFR For African Americans > 60 (> 60); eGFR For Non-African Americans > 60 (> 60)
[2016-11-25 06:00] LABS: Calcium 7.2 mg/dL (8.6-10.8)
[2016-11-25] MEDS: Pantoprazole 40 MG VIAL IVP SCH (06:14)
[2016-11-25] MEDS: *HR* Heparin 5,000 UNIT/ML VIAL SQ SCH ×2 (06:15→17:44)
[2016-11-25 06:19] LABS: Carbon Dioxide 23 mEq/L (19-29)
[2016-11-25] MEDS: Magnesium Sulfate 2 GM in D5% in Water 100 ML IVPB PRN (06:20)
--- NOTE | 2016-11-25 07:31 | Arterial Study Report ---
LE Arterial Physiologic Study Patient Name:Ciro Craig Order Number:[id number] Procedure Date:11/24/2016 Date:1930ge:86 yrs Gender:Male Lt BP:101 / mmHg Location:[facility] Room #: 2N02 Underground Conduit Installer:Gato Pena Referring MD:Mitali Mart CNP technician terminal and repeater:Antonella Cardoza CNP Reading MD:Joao Jara MD Primary Indications:Decreased pluses left lower extremity Impressions: The right NEVILLE and waveforms are normal. Right NEVILLE 1.57. The left NEVILLE and waveforms are consistent with severe disease. Left NEVILLE 0.32. Recommendations: Further evaluation recommended. Findings LE Arterial Physiologic Exam: PVR: Right: The PVR waveforms are normal in the right ankle. Left: The PVR waveforms are severely diminished in the left ankle. Prior Study: No prior study available for comparison. Segmental Pressures Side Location Pressure Index Result Right Dorsalis Pedis 105 1.04 Normal Right Posterior Tibial 159 1.57 Normal Left Dorsalis Pedis 32 0.32 Severely Diminished Left Posterior Tibial 26 0.26 Severely Diminished Ankle Brachial Index Right Systolic Diastolic NEVILLE Brachial 1.57 Dorsalis Pedis 105 1.04 Posterior Tibial 159 1.57 Left Systolic Diastolic NEVILLE Brachial 101 0.32 Dorsalis Pedis 32 0.32 Posterior Tibial 0.26 Updated by Joao Jara MD on 11/25/2016 7:23:30 AM with Status of Final electronically signed on 11/25/2016 7:23:53 AM with status of Final
[2016-11-25] MEDS: Piperacillin/Tazobactam 3.375 GM in D5% in Water (Mini-Bag+) 100 ML IVPB SCH ×2 (08:23→20:31)
[2016-11-25] MEDS: 0.9 % Sodium Chloride 1,000 ML IVC SCH ×3 (08:30→22:00)
[2016-11-25] MEDS: Fluconazole 100 MG/50 ML 100 MG/50 ML BAG IVPB SCH (10:05)
[2016-11-25 10:43] LABS: BUN/Creatinine Ratio 41 (6-26); Blood Urea Nitrogen 24 mg/dL (8-26); Carbon Dioxide 23 mEq/L (19-29); Chloride 113 mEq/L (98-109); Glucose 144 mg/dL (70-99); Magnesium 2.1 mg/dL (1.6-2.6); Osmolality,Calculated 295 (280-300); Potassium 4.4 mEq/L (3.5-4.5); Sodium 139 mEq/L (136-145); eGFR For African Americans > 60 (> 60); eGFR For Non-African Americans > 60 (> 60)
--- NOTE | 2016-11-25 14:03 | General Surgery Progress Note ---
<Mitali Mart - Last Filed: 11/25/16 16:40> Date of Encounter: 11/25/16 Time of Encounter: 13:15 - Assessment and Plan (1) Perforated sigmoid colon Current Visit: Yes Status: Acute POD #8 Exploratory celiotomy; Sigmoid colectomy with colostomy; Primary repair of left inguinal hernia; Repair of left external/internal iliac vein injury Continue NG tube to LIWS Continue NPO except ice chips, TPN, and IVF (0.9% noted per nephrology) PICC line replaced 11/22/2016 d/t acute episode of confusion in which the patient pulled out the PICC line. Total IV fluids 100 ML/hr Await return of bowel function, faint bowel sounds noted Colostomy stoma pink and without output Midline surgical incision noted open, without drainage, and dry packing noted REG aburto with serosanguinous drainage Supportive care and pain control PT/OT, mobilize as tolerated (2) Left inguinal hernia Current Visit: Yes Status: Acute POD #8 Exploratory celiotomy; Sigmoid colectomy with colostomy; Primary repair of left inguinal hernia; Repair of left external/internal iliac vein injury Supportive care and pain control PT/OT, mobilize as tolerated (3) Leukocytosis Current Visit: Yes Status: Acute POD #8 Exploratory celiotomy; Sigmoid colectomy with colostomy; Primary repair of left inguinal hernia; Repair of left external/internal iliac vein injury IV antibiotics noted; Diflucan added 11/24/2016 ID consulted for ABX recommendations given ancinobacter in urine Continue to monitor Qualifiers: Leukocytosis type: other Qualified Code(s): D72.828 - Other elevated white blood cell count (4) DVT prophylaxis Current Visit: No Status: Acute 5000 mg SQ heparin BID SCDs when in bed BL venous doppler negative for DVT 11/21/2016 (5) Electrolyte abnormality Current Visit: Yes Status: Acute Electrolyte protocol; continue TPN replace electrolytes. Repeat a.m. labs (6) ASHD (arteriosclerotic heart disease) Current Visit: Yes Status: Acute Patient with known cardiovascular history of NSTEMI and aortic valve regurgitation without evidence of aortic stenosis. Left lower extremity with temperature difference and decreased pedal pulses. ABIs abnormal as previously noted. Consulted vascular/Dr. Jara. Will continue to monitor. (7) Anemia Current Visit: Yes Status: Acute Noted Hgb 7.1 and Hct 22.1 VSS, but given ASHD history and PAD, will transfuse 2 units PRBCs. Repeat am labs. will continue to monitor. Qualifiers: Anemia type: other cause Other causes of anemia: other cause, not classified Qualified Code(s): D64.89 - Other specified anemias (8) Delirium Current Visit: Yes Status: Acute D/c lorazepam; Haldol added for agitation/confusion Therapeutic Sitter at bedside Reorient and provide reassurance PRN Subjective Patient reports: no new complaints Narrative: Dtr at bedside. Pt denies discomfort, nausea, or vomiting. Denies discomfort. Objective Vital Signs - Last 8 Hours Temp Pulse Resp BP Pulse Ox 11/25/16 11:00 98.7 F 89 14 106/48 98 11/25/16 07:57 98.2 F 83 18 106/48 98 Intake and Output 11/24/16 11/25/16 11/25/16 23:59 07:59 15:59 Intake Total 460 / 460 350 / 350 Output Total 542 / 542 Balance -82 / -82 340 / 340 Intake: IV Fluids 460 / 460 350 / 350 Cipro Premix 400 MG/200 200 / 200 ML 400 mg In 200 ml @ 200 mls/hr IVPB Q12H [facility] Rx# :[id number] Intralipid 20% 250 ML @ 250 / 250 21 mls/hr IVPB DAILY@1700 [facility] Rx#:[id number] Zosyn 3.375 GM In 100 / 100 Dextrose 5% (Minibag+) 100 ML 100 ML @ 25 mls/hr IVPB Q12H [facility] Rx#: [id number] Potassium Phosphate 44 260 / 260 MEQ In 0.9 % Sodium Chloride 250 ML @ 40 mls/ hr IVPB Q10H PRN Rx#: [id number] Oral 0 / 0 0 / 0 Output: Catheter 525 / 525 Wound Drainage Abdomen Other: Weight 94.4 kg 85.09 kg Blood Glucose* 108 116 148 Patient Weight 11/25/16 23:59 Weight 85.09 kg - General physical appearance no distress, cachectic - Eyes normal ocular movement - ENT dry mucosa - Neck Neck exam: trachea midline - Respiratory other (Decreased bibasilar) - Cardiovascular Cardiovascular exam: Present: RRR, murmurs - Abdomen Abdomen: Present: bowel sounds present (faint), soft, non tender - Incision Incision: Present: open - Neurologic CN 2-12 grossly intact - Musculoskeletal normal posture - Psychiatric oriented to time, oriented to person, oriented to place - Additional Exam NEVILLE study for decreased pedal pulses. The right NEVILLE and relief forms are normal. The right NEVLILE measures 1.57. The left NEVILLE and waveforms are consistent with severe disease with the left NEVILLE 0.32. - Labs 11/24/16 04:55 11/25/16 10:12 Diabetes panel 11/24/16 11/24/16 11/25/16 Range/Units 15:01 21:15 05:15 Sodium 139 (136-145) mEq/L Potassium 3.7 4.2 4.5 (3.5-4.5) mEq/L Chloride 113 H (98-109) mEq/L Carbon Dioxide 23 (19-29) mEq/L BUN 25 (8-26) mg/dL Creatinine 0.62 L (0.72-1.25) mg/dL Glucose 120 H (70-99) mg/dL Calcium 7.2 L D (8.6-10.8) mg/dL 11/25/16 Range/Units 10:12 Sodium 139 (136-145) mEq/L Potassium 4.4 (3.5-4.5) mEq/L Chloride 113 H (98-109) mEq/L Carbon Dioxide 23 (19-29) mEq/L BUN 24 (8-26) mg/dL Creatinine 0.59 L (0.72-1.25) mg/dL Glucose 144 H (70-99) mg/dL Calcium 7.0 L (8.6-10.8) mg/dL Calcium panel 11/24/16 11/25/16 11/25/16 Range/Units 21:15 05:15 05:15 Calcium 7.2 L D (8.6-10.8) mg/dL Phosphorus 2.0 L 3.0 (2.3-4.7) mg/dL 11/25/16 Range/Units 10:12 Calcium 7.0 L (8.6-10.8) mg/dL Phosphorus (2.3-4.7) mg/dL Pituitary panel 11/24/16 11/24/16 11/25/16 Range/Units 15:01 21:15 05:15 Sodium 139 (136-145) mEq/L Potassium 3.7 4.2 4.5 (3.5-4.5) mEq/L Chloride 113 H (98-109) mEq/L Carbon Dioxide 23 (19-29) mEq/L BUN 25 (8-26) mg/dL Creatinine 0.62 L (0.72-1.25) mg/dL Glucose 120 H (70-99) mg/dL Calcium 7.2 L D (8.6-10.8) mg/dL 11/25/16 Range/Units 10:12 Sodium 139 (136-145) mEq/L Potassium 4.4 (3.5-4.5) mEq/L Chloride 113 H (98-109) mEq/L Carbon Dioxide 23 (19-29) mEq/L BUN 24 (8-26) mg/dL Creatinine 0.59 L (0.72-1.25) mg/dL Glucose 144 H (70-99) mg/dL Calcium 7.0 L (8.6-10.8) mg/dL Adrenal panel 11/24/16 11/24/16 11/25/16 Range/Units 15:01 21:15 05:15 Sodium 139 (136-145) mEq/L Potassium 3.7 4.2 4.5 (3.5-4.5) mEq/L Chloride 113 H (98-109) mEq/L Carbon Dioxide 23 (19-29) mEq/L BUN 25 (8-26) mg/dL Creatinine 0.62 L (0.72-1.25) mg/dL Glucose 120 H (70-99) mg/dL Calcium 7.2 L D (8.6-10.8) mg/dL 11/25/16 Range/Units 10:12 Sodium 139 (136-145) mEq/L Potassium 4.4 (3.5-4.5) mEq/L Chloride 113 H (98-109) mEq/L Carbon Dioxide 23 (19-29) mEq/L BUN 24 (8-26) mg/dL Creatinine 0.59 L (0.72-1.25) mg/dL Glucose 144 H (70-99) mg/dL Calcium 7.0 L (8.6-10.8) mg/dL - VTE Documentation of Mechanical Device: Intermittent pneumatic compression device Consult Discharge Plan - Plan Referrals: Gopal Remy MD [Partnered Physician] - 12/22/16 2:05 pm Cardoza,Antonella Rainey CNP [Primary Care Provider] - 12/02/16 9:00 am (SENT REQUEST ON @ 1016) <Kaia Quiles - Last Filed: 11/26/16 13:38> Date of Encounter: 11/25/16 - Assessment and Plan (1) Abdominal pain Current Visit: Yes Status: Acute post surgical pain, prn pain control via IV medication Qualifiers: Abdominal location: generalized Qualified Code(s): R10.84 - Generalized abdominal pain (2) Adenocarcinoma of sigmoid colon Current Visit: Yes Status: Acute patient s/p colectomy and colostomy no appreciable flatus or stool no bowel sounds, some distention continue npo ok ice chips ngt decompressed to jeff serial abdominal exams continue Abx (3) Ileus Current Visit: Yes Status: Acute (4) Left inguinal hernia Current Visit: Yes Status: Acute (5) Leukocytosis Current Visit: Yes Status: Acute Qualifiers: Leukocytosis type: other Qualified Code(s): D72.828 - Other elevated white blood cell count (6) Lower extremity edema Current Visit: Yes Status: Acute (7) PVD (peripheral vascular disease) Current Visit: Yes Status: Chronic NEVILLE left leg 0.3, vascular consulted appreciate input, will start aspirin when patient is tolerating po Subjective Narrative: still nauseated, some abdominal pain, unsure if passing flatus or stool via colostomy daughter in law states swelling of scrotum is better Objective Vital Signs - Last 8 Hours Temp Pulse Resp BP Pulse Ox 11/26/16 12:00 98.0 F 72 14 120/68 100 11/26/16 08:11 98.0 F 74 16 120/68 100 11/26/16 07:49 78 Intake and Output 11/25/16 11/26/16 11/26/16 23:59 07:59 15:59 Intake Total 500 / 500 690 / 690 614 / 614 Output Total 1220 / 1220 500 / 500 Balance 500 / 500 -530 / -530 114 / 114 Intake: IV Fluids 200 / 200 350 / 350 614 / 614 Cipro Premix 400 MG/200 200 / 200 200 / 200 ML 400 mg In 200 ml @ 200 mls/hr IVPB Q12H [facility] Rx# :[id number] Intralipid 20% 250 ML @ 250 / 250 21 mls/hr IVPB DAILY@1700 [facility] Rx#:[id number] Diflucan 100 MG/50 ML 100 50 / 50 mg In 50 ml @ 50 mls/hr IVPB DAILY [facility] Rx#: [id number] Magnesium Sulfate 2 GM In 104 / 104 Dextrose 5% 100 ML @ 50 mls/hr IVPB Q6H [facility] Rx#: [id number] Zosyn 3.375 GM In 100 / 100 Dextrose 5% (Minibag+) 100 ML 100 ML @ 25 mls/hr IVPB Q12H [facility] Rx#: [id number] Potassium Phosphate 44 260 / 260 MEQ In 0.9 % Sodium Chloride 250 ML @ 40 mls/ hr IVPB Q10H [facility] Rx#: [id number] Blood Product 300 / 300 340 / 340 Rbcs Leuko Poor As-1 320 / 320 Unit [id number] Rbcs Leuko Poor As-1 300 / 300 20 / 20 Unit [id number] Output: Catheter 1100 / 1100 500 / 500 Wound Drainage 120 / 120 Abdomen 120 / 120 Other: Weight 86.4 kg Blood Glucose* 115 118 110 Patient Weight 11/26/16 23:59 Weight 86.4 kg - General physical appearance no distress, cachectic, chronically ill - Eyes PERRL, normal ocular movement - ENT dry mucosa, normocephalic - Neck Neck exam: trachea midline - Respiratory normal expansion, clear to auscultation - Cardiovascular Cardiovascular exam: Present: RRR - Abdomen Abdomen: Present: bowel sounds present, soft, tender (mildly diffusely, no rebound or guarding, is distended) - Incision Incision: Present: clean and dry, serous, open - Integumentary no rash, no growths - Neurologic CN 2-12 grossly intact - Musculoskeletal normal posture - Psychiatric oriented to time, oriented to person - Labs 11/26/16 05:25 11/26/16 05:25 Diabetes panel 11/26/16 Range/Units 05:25 Sodium 136 (136-145) mEq/L Potassium 4.2 (3.5-4.5) mEq/L Chloride 110 H (98-109) mEq/L Carbon Dioxide 23 (19-29) mEq/L BUN 31 H (8-26) mg/dL Creatinine 0.63 L (0.72-1.25) mg/dL Glucose 114 H (70-99) mg/dL Calcium 7.1 L (8.6-10.8) mg/dL Triglycerides 75 (< 150) mg/dL Calcium panel 11/26/16 Range/Units 05:25 Calcium 7.1 L (8.6-10.8) mg/dL Phosphorus 2.1 L (2.3-4.7) mg/dL Pituitary panel 11/26/16 Range/Units 05:25 Sodium 136 (136-145) mEq/L Potassium 4.2 (3.5-4.5) mEq/L Chloride 110 H (98-109) mEq/L Carbon Dioxide 23 (19-29) mEq/L BUN 31 H (8-26) mg/dL Creatinine 0.63 L (0.72-1.25) mg/dL Glucose 114 H (70-99) mg/dL Calcium 7.1 L (8.6-10.8) mg/dL Adrenal panel 11/26/16 Range/Units 05:25 Sodium 136 (136-145) mEq/L Potassium 4.2 (3.5-4.5) mEq/L Chloride 110 H (98-109) mEq/L Carbon Dioxide 23 (19-29) mEq/L BUN 31 H (8-26) mg/dL Creatinine 0.63 L (0.72-1.25) mg/dL Glucose 114 H (70-99) mg/dL Calcium 7.1 L (8.6-10.8) mg/dL - Attending Attestation I examined this patient and my medical decision-making was reviewed with the RAP ARTIST/PA/Advanced Practice Nurse/Resident Physician. I agree with the documented findings, disposition and treatment plan as described except to the extent set forth below.
--- NOTE | 2016-11-25 15:57 | Vascular/Endovasc Consult Note ---
Date of Encounter: 11/25/16 Time of Encounter: 15:40 Assessment and Plan (1) PAD (peripheral artery disease) Current Visit: Yes Status: Chronic The patient has chronic left lower extremity peripheral vascular disease. He has limited mobility with a walker and denies claudication. He denies rest pain , ulceration or gangrene. His feet are warm. His left NEVILEL is consistent with severe disease. He has no signs or symptoms of acute left lower extremity ischemia. His left lower extremity has intact sensory and motor function. He has no rest pain, ulcerations or gangrene. No urgent indication for intervention. Will consider further imaging and possible intervention after patient recovers from his acute illness. Begin ASA daily when okay from a general surgery perspective. Will follow he patient. (2) Adenocarcinoma of sigmoid colon Current Visit: Yes Status: Acute (3) Anemia Current Visit: Yes Status: Acute Qualifiers: Anemia type: other cause Other causes of anemia: other cause, not classified Qualified Code(s): D64.89 - Other specified anemias (4) HTN (hypertension) Current Visit: No Status: Chronic Qualifiers: Hypertension type: essential hypertension Qualified Code(s): I10 - Essential (primary) hypertension - History of Present Illness Consult date: 11/25/16 Requesting physician: Gopal Remy Consult reason: Peripheral vascular disease Chief complaint: Peripheral vascular disease History of present illness: Mr. Craig is a 86 year old male admitted with an acute abdomen. He required exploratory laparotomy and remains on NPO. He is currently on TPN. He was noted to have a temperature discrepancy between the right and left foot today. Vascular labs were ordered and were noted to be abnormal. Vascular surgery was then consulted for further evaluation. The patient does not ambulate much. He denies claudication. He also denies rest pain, ulceration or gangrene. He reports intact motor and sensory function in his feet. He denies chest pain or shortness of breath. Past Med Surg Social Fam HX - Past Medical History Medical history: arthritis, GERD, hyperlipidemia, hypertension, thyroid disease , valvular heart disease, other Psychiatric history: no psych history - Past Surgical History Surgical History: other - Social History Smoking Status: Never smoker Smokeless Tobacco Status: No Alcohol use: none Drug use: none - Family History Father Living Status: Age at : 50 Hx Family Cancer: Yes (colon cancer) Mother Living Status: Age at : 90 Cause of : CAD Hx Family Cardiac Disorders: Yes Hx Family Endocrine Disorder: Yes (Diabetes Mellitus) Brother Living Status: Still Living Hx Family Cardiac Disorders: Yes Hx Family Endocrine Disorder: Yes (diabetes mellitus) Medications and Allergies Cyanocobalamin (Vitamin B-12) [Vitamin B12] 1,000 mcg PO DAILY 01/20/16 [History ] Cyclosporine [Restasis] 1 drop OP BID 01/20/16 [History] Levothyroxine [Synthroid] 50 mcg PO QAM 01/20/16 [History] Multivitamin [Multi-Day Vitamins] 1 tab PO DAILY 01/20/16 [History] Nabumetone 750 mg PO BID 01/20/16 [History] Omeprazole [PriLOSEC] 20 mg PO DAILY 01/20/16 [History] Polyvinyl Alcohol [Artificial Tears] 1 drop OP BID PRN 01/20/16 [History] Fluticasone Propionate Nasal [Flonase] 50 mcg NS DAILY 04/21/16 [History] Ipratropium Sullivan 1 spray NS BID 04/21/16 [History] Aspirin 81 mg PO DAILY 30 Days 04/23/16 [Rx] Ascorbate Calcium [Vitamin C] 500 mg PO DAILY 11/17/16 [History] Diltiazem [Cardizem] 30 mg PO TID 11/17/16 [History] Ferrous Sulfate [Iron] 325 mg PO DAILY 11/17/16 [History] Sennosides [Senna] 17.2 mg PO HS PRN 11/17/16 [History] Allergies celecoxib [From Celebrex] Adverse Reaction (Verified 11/17/16 15:29) See Comments patient unsure of reaction prednisone Adverse Reaction (Verified 11/17/16 15:29) Rash patient wasnt sure of reaction to this Sulfa (Sulfonamide Antibiotics) Adverse Reaction (Verified 11/17/16 15:29) Rash patient wasnt sure of reaction All Systems Review: A 10-system review of systems was performed and is negative for pertinent findings except as documented above in the HPI. - Cardiovascular Cardiovascular: no chest pain at rest, no chest pain with exertion, no dyspnea at rest, no dyspnea on exertion - Vascular Vascular: no claudication, no lower extremity ulcers Exam General: Present: Conversant HEENT: Present: Atraumatic, Pupils equal Neck: Absent: JVD, Lymphadenopathy, Left Carotid bruit, Right Carotid bruit Cardiac: Present: Reg Rate and Rhythm Lungs: Present: Normal Breath Sounds, No Wheeze, Rales, Rhonchi Neuro: Present: Alert and responsive, Motor nerves grossly intact, Sensory nerves grossly intact Abdomen: Present: Soft Vascular: Present: Normal capillary refill, Pulse, diminished (left pedal pulses not palpabe, doppler signals present at dorsalis pedis and posterior tibial arteries), Pulse, normal (Right lower extremity), Color/Temperature ( feet warm, right warmer than left). Absent: Cyanosis, Edema Skin: Present: No rashes noted on visualized skin Consult Discharge Plan - Plan Referrals: Gopal Remy MD [Partnered Physician] - 12/22/16 2:05 pm Cardoza,Antonella Rainey CNP [Primary Care Provider] - 12/02/16 9:00 am (SENT REQUEST ON @ 1016)
[2016-11-25] MEDS ORDERED: Clinimix E 5%-15% SOLUTION 2,000 ML with MVI, adult with vitamin K 10 ML IVC SCH (17:00)
--- NOTE | 2016-11-25 17:54 | Infectious Disease Consult ---
Date of Encounter: 11/25/16 Time of Encounter: 17:52 Assessment and Plan (1) Adenocarcinoma of sigmoid colon Status: Acute Assessment and plan: Initially noted on CT scan of the abdomen at the outside facility Was planned to have a colonoscopy by Dr. Mccarthy on 12/01/16 Was admitted with perforated bowel Status post colectomy with colostomy placement on 11/17/16 Pathology report confirms adenocarcinoma (2) Perforated bowel Status: Acute Assessment and plan: Status post surgical intervention on 11/17/16 REG drain still present: Today nurse tell me that there is fecal material and it Patient has been on Zosyn and ciprofloxacin and yesterday on 11/24/16 Diflucan was added loaded with 400 mg 1 followed by 200 mg daily Agree with the Zosyn and Diflucan, I believe the ciprofloxacin is redundant so I would like to stop it. We'll discuss with the surgery team to see if there are concern for an abscess formation. Might want to consider repeating CT abdomen but we will discuss with surgery first. Discussed with family at length, prognosis is guarded at best. We'll dose adjust medications based on the creatinine clearance of the patient. We'll ask pharmacy to help. (3) Urinary tract infection Status: Acute Assessment and plan: Patient currently asymptomatic and the urine in the Bolden catheter does not appear cloudy or turbid. Probably a contaminant or a colonizer but patient is already on appropriate antibiotics. The Acinetobacter baumanni is not and resistant so patient does not to be in isolation: The bacteria is susceptible to fluoroquinolones and patient has been on Cipro all this time. I believe it's probably a colonizer and we don't need to pursue any further. As for the Escherichia coli, patient is already on Zosyn and Cipro and the Escherichia coli is pansensitive.. Qualifiers: Urinary tract infection type: site unspecified Hematuria presence: without hematuria Qualified Code(s): N39.0 - Urinary tract infection, site not specified (4) Severe sepsis with acute organ dysfunction Status: Acute Assessment and plan: Patient had 3 SIRS criteria plus and organ damage admission. Secondary to perforated viscus which was secondary to adenocarcinoma of the sigmoid colon (5) Failure to thrive Status: Acute Assessment and plan: Patient is on TPN. Qualifiers: Failure to thrive age range: in adult Qualified Code(s): R62.7 - Adult failure to thrive (6) Ileus Status: Acute Assessment and plan: NG tube in place Per surgery recommendation. (7) ALFIE (acute kidney injury) Status: Acute Assessment and plan: Being followed by nephrology. Creatinine down to 1.85 from 3.05. Continue to monitor and will need to dose adjust antibiotics based on the creatinine clearance (around 34 today). Agree with current fluconazole dose. (8) Perforated sigmoid colon Status: Acute (9) PAD (peripheral artery disease) Status: Chronic (10) Decubitus ulcer of back, unstageable Status: Acute Assessment and plan: Ask wound care to evaluate once patient is stable Nursing to turn the patient every 2 hours She was ulcer presented with the patient from home aspirin or and daughter- in-law who are at bedside Infectious Disease HPI - Data of Consult Patient: new to practice Consult date: 11/25/16 Requesting Physician: Gopal Remy MD Primary Care Provider: Antonella Cardoza CNP - Consult Narrative Reason for consult: perforated bowel, severe sepsis and UTI History of present illness: Mr. Craig is a 86 year old male Patient is an 86-year-old gentleman who was admitted to [facility] on 11/17/2016 for abdominal pain, we are consulted on 11/25/2016 for wound infection, UTI, and perforated bowels. Patient is an 86-year-old gentleman who apparently had about 30-40 pound weight loss in the last 3 months and also noted blood in the stool and decreased appetite had a CAT scan 3 weeks prior to admission and was found to have a colonic mass as well as adenopathy as per surgery note. The CT was not done here so there is no record of it at [facility]. Patient was seen by Dr. Mccarthy and evaluated and he was scheduled for colonoscopy on December 01, 2016 but patients clinical picture continued to deteriorate and about 4 days prior to admission he was having significant constipation and unable to move his bowels. Patient was also having abdominal pain. Patient came in to the emergency department for evaluation. Since admission, patient initially was febrile with MAXIMUM TEMPERATURE of 100, with slight tachycardia heart rate in the 90s to 100s, presenting WBC of 8.6 which jumped to 15.9 thousand on 11/18/16 with 93% neutrophils. Patient also went into acute kidney injury with creatinine jumping from 0.97-3.06 within [address] chest was done on 11/17/16 which revealed no acute process. CT abdomen and pelvis was also done which revealed a pneumoperitoneum compatible with perforated viscus. Perforated colon mass or diverticulum is favored. Large colon mass with probable transmural extension and pelvic and abdominal adenopathy. Patient was also found to have cholelithiasis and nonobstructing left nephrolithiasis. Patient also had liver lesions that were stable and nonspecific. On 11/17/16 patient was taken to surgery where he underwent exploratory celiotomy, sigmoid colectomy with colostomy, prior repair of the left inguinal hernia and repair of the left external and internal iliac vein injury. Pathology or poor confirmed colonic adenocarcinoma. Postop patient had ileus and an NG tube was placed it. Patient also went into acute kidney injury and was being followed by nephrology. Patients wound has not been healing properly and REG drain continued serosanguineous drainage. Neck On further questioning family tells me also that the patient had a decubitus ulcer on his lower back from home and also had the lesion on the inner thighs/ scrotum from all the swelling but it seems to have improved. Patients daughter- in-law is a nurse at the cancer center up [facility]. Patient was started on Cipro, Zosyn and fluconazole was started on 11/24/16. Cultures from the wound have grown pansensitive Escherichia coli and Klebsiella pneumoniae, urine culture also grew Escherichia coli and pansensitive Acinetobacter baumanni. We were asked to evaluate the patient and make recommendations for antibiotics. CC: Gopal Remy MD Past Med Surg Social Fam HX - Past Medical History Medical history: arthritis, GERD, hyperlipidemia, hypertension, thyroid disease , valvular heart disease, other Psychiatric history: no psych history - Past Surgical History Surgical History: other - Social History Smoking Status: Never smoker Smokeless Tobacco Status: No Alcohol use: none Drug use: none - Family History Father Living Status: Age at : 50 Hx Family Cancer: Yes (colon cancer) Mother Living Status: Age at : 90 Cause of : CAD Hx Family Cardiac Disorders: Yes Hx Family Endocrine Disorder: Yes (Diabetes Mellitus) Brother Living Status: Still Living Hx Family Cardiac Disorders: Yes Hx Family Endocrine Disorder: Yes (diabetes mellitus) Infectious Disease-CN:Meds Cyanocobalamin (Vitamin B-12) [Vitamin B12] 1,000 mcg PO DAILY 01/20/16 [History ] Cyclosporine [Restasis] 1 drop OP BID 01/20/16 [History] Levothyroxine [Synthroid] 50 mcg PO QAM 01/20/16 [History] Multivitamin [Multi-Day Vitamins] 1 tab PO DAILY 01/20/16 [History] Nabumetone 750 mg PO BID 01/20/16 [History] Omeprazole [PriLOSEC] 20 mg PO DAILY 01/20/16 [History] Polyvinyl Alcohol [Artificial Tears] 1 drop OP BID PRN 01/20/16 [History] Fluticasone Propionate Nasal [Flonase] 50 mcg NS DAILY 04/21/16 [History] Ipratropium Cincinnatus 1 spray NS BID 04/21/16 [History] Aspirin 81 mg PO DAILY 30 Days 04/23/16 [Rx] Ascorbate Calcium [Vitamin C] 500 mg PO DAILY 11/17/16 [History] Diltiazem [Cardizem] 30 mg PO TID 11/17/16 [History] Ferrous Sulfate [Iron] 325 mg PO DAILY 11/17/16 [History] Sennosides [Senna] 17.2 mg PO HS PRN 11/17/16 [History] Allergies celecoxib [From Celebrex] Adverse Reaction (Verified 11/17/16 15:29) See Comments patient unsure of reaction prednisone Adverse Reaction (Verified 11/17/16 15:29) Rash patient wasnt sure of reaction to this Sulfa (Sulfonamide Antibiotics) Adverse Reaction (Verified 11/17/16 15:29) Rash patient wasnt sure of reaction Review of systems: 10 point review of systems done, limited review of systems because the patient and believe understands all the questions. He also is complaining of lower extremity pain that is chronic. Exam - Constitutional Vitals: Temp Pulse Resp BP Pulse Ox 98.7 F 89 14 106/48 98 11/25/16 11:00 11/25/16 11:00 11/25/16 11:00 11/25/16 11:00 11/25/16 11:00 General appearance: disheveled Exam: Deconditioned with failure to thrive - Head Head exam: Present: atraumatic, normocephalic - Eye Eye exam: Present: EOMI, PERRL, sclera anicteric - ENT Additional comments: NG tube intact Mucous membranes dry - Neck Neck exam: Present: full ROM Additional comments: Trachea midline, no stridor. - Respiratory Additional comments: Coarse breath sounds bilaterally, worse on the right. Poor inspiratory effort, chest expanding symmetrically. - Cardiovascular Cardiovascular exam: Present: RRR, +S1, +S2 - GI/Abdominal GI/Abdominal exam: Present: soft, tenderness Additional comments: Drain noted, no peritoneal sign - Extremities Exam Additional comments: Decubitus ulcer on the lower back, not staged Lower extremity with adequate perfusion - Neurological Exam Neurological exam: Present: alert Additional comments: Oriented to person. Follows simple command. - Skin Skin exam: Present: pallor. Absent: rash Infectious Disease CN: Results - Labs CBC & Chem 7: 11/24/16 04:55 11/25/16 10:12 Serology: Serology 11/20/16 Range/Units 03:52 Urine Color Yellow (Yellow) Urine Clarity Turbid A (Clear) Urine pH 5.0 (5.0-8.0) pH Units Ur Specific Blairs 1.027 H (1.010-1.025) Urine Protein 30 H (Neg-Trace) mg/dL Urine Glucose (UA) Normal (Normal) mg/dL Urine Ketones Negative (Negative) mg/dL Urine Blood Small H (Negative) Urine Nitrite Negative (Negative) Urine Bilirubin Negative (Negative) Urine Urobilinogen Normal (Normal) mg/dL Ur Leukocyte Esterase Negative (Negative) Urine Microscopic RBC 5-15 H (0-3) per hpf Urine Microscopic WBC 5-15 H (0-3) per hpf Ur Squamous Epith Cells Many H (None-Few) per lpf Amorphous Sediment Few (Few) Urine Bacteria Few (None-Few) per hpf Hyaline Casts None Seen (None-Few) per lpf Urine Yeast Test Not Performed - VTE Documentation of Mechanical Device: Intermittent pneumatic compression device Consult Discharge Plan - Plan Referrals: Gopal Remy MD [Partnered Physician] - 12/22/16 2:05 pm Sony,Antonella Rainey CNP [Primary Care Provider] - 12/02/16 9:00 am (SENT REQUEST ON @ 1016)
[2016-11-25] MEDS ORDERED: 0.9 % Sodium Chloride 250 ML ONE (20:27)
[2016-11-26] MEDS ORDERED: 0.9 % Sodium Chloride 250 ML ONE (00:54)
[2016-11-26] MEDS: *HR* HYDROmorphone (PF) 1 MG/ML SYRINGE IVP PRN ×6 (02:04→22:54)
[2016-11-26 05:49] LABS: BUN/Creatinine Ratio 49 (6-26); Blood Urea Nitrogen 31 mg/dL (8-26); Calcium 7.1 mg/dL (8.6-10.8); Carbon Dioxide 23 mEq/L (19-29); Chloride 110 mEq/L (98-109); Glucose 114 mg/dL (70-99); Magnesium 1.7 mg/dL (1.6-2.6); Osmolality,Calculated 289 (280-300); Phosphorous 2.1 mg/dL (2.3-4.7); Potassium 4.2 mEq/L (3.5-4.5); Sodium 136 mEq/L (136-145); Triglycerides 75 mg/dL (< 150); eGFR For African Americans > 60 (> 60); eGFR For Non-African Americans > 60 (> 60)
[2016-11-26] MEDS: *HR* Heparin 5,000 UNIT/ML VIAL SQ SCH ×2 (05:57→16:05)
[2016-11-26] MEDS: Pantoprazole 40 MG VIAL IVP SCH (05:57)
[2016-11-26] MEDS: Magnesium Sulfate 2 GM in D5% in Water 100 ML IVPB PRN (06:45)
[2016-11-26] MEDS: Potassium Phosphate 44 MEQ in 0.9 % Sodium Chloride 250 ML IVPB PRN (06:46)
--- NOTE | 2016-11-26 08:06 | General Surgery Progress Note ---
<Bong Hirsch - Last Filed: 11/26/16 12:41> Date of Encounter: 11/26/16 Time of Encounter: 08:04 - Assessment and Plan (1) Perforated sigmoid colon Current Visit: Yes Status: Acute POD # 9 Exploratory celiotomy with sigmoid colectomy and colostomy. Primary repair of left inguinal hernia and repair of left external/internal iliac vein. TPN IVF NPO, ice chips and popsicle ok NGT output minimal overnight Continue Diflucan and Zosyn, pharmacy following BS present without production in colostomy VSS at this time Midline incision noted to be open, packed without significant drainage. REG drain intact with serosanguinous fluid and colostomy stoma in LLQ intact with no output Supportive care OOB as tolerated (2) Left inguinal hernia Current Visit: Yes Status: Acute POD # 9 Exploratory celiotomy with sigmoid colectomy and colostomy. Primary repair of left inguinal hernia and repair of left external/internal iliac vein. Pain is well controlled at this time. Continue OT and PT Colostomy care. No output. c/d/i without erythema or drainage. (3) Leukocytosis Current Visit: Yes Status: Acute WBC 14.0 on 11/24/16. Rechecking today. Currently on Diflucan and Zosyn per pharmacy recommendation. Qualifiers: Leukocytosis type: other Qualified Code(s): D72.828 - Other elevated white blood cell count (4) PAD (peripheral artery disease) Current Visit: Yes Status: Chronic Vascular surgery following. No intervention recommended at this time. Started on ASA. (5) ALFIE (acute kidney injury) Current Visit: Yes Status: Acute Mild bump in BUN this morning to 31 with Cr of 0.63. Possible side effects from abx or pre-renal azotemia. Will continue IVF and monitor. (6) Edema of upper extremity Current Visit: Yes Status: Acute RUE Venous Ultrasound ordered. Subjective Narrative: Patient is resting comfortably this morning. No concerns overnight per nursing. He reports no new complaints and says his pain is now 3/10. No BM or flatus noted with good urine output. Objective Vital Signs - Last 8 Hours Temp Pulse Resp BP Pulse Ox 11/26/16 07:49 78 11/26/16 05:10 98.6 F 74 20 111/67 98 11/26/16 04:19 99.6 F 87 20 126/76 100 11/26/16 02:14 98.6 F 84 20 107/57 98 11/26/16 01:59 98.4 F 20 115/64 11/26/16 00:46 98.8 F 84 19 104/49 99 Intake and Output 11/25/16 11/26/16 11/26/16 23:59 07:59 15:59 Intake Total 500 / 500 440 / 440 Output Total 1220 / 1220 Balance 500 / 500 -780 / -780 Intake: IV Fluids 200 / 200 100 / 100 Cipro Premix 400 MG/200 200 / 200 ML 400 mg In 200 ml @ 200 mls/hr IVPB Q12H [facility] Rx# :[id number] Zosyn 3.375 GM In 100 / 100 Dextrose 5% (Minibag+) 100 ML 100 ML @ 25 mls/hr IVPB Q12H [facility] Rx#: [id number] Blood Product 300 / 300 340 / 340 Rbcs Leuko Poor As-1 320 / 320 Unit [id number] Rbcs Leuko Poor As-1 300 / 300 20 / 20 Unit [id number] Output: Catheter 1100 / 1100 Wound Drainage 120 / 120 Abdomen 120 / 120 Other: Weight 86.4 kg Blood Glucose* 115 118 Patient Weight 11/26/16 23:59 Weight 86.4 kg - General physical appearance well developed, well nourished, no distress - Eyes normal ocular movement - Neck Neck exam: trachea midline - Respiratory normal respiratory effort, clear to auscultation - Cardiovascular Cardiovascular exam: Present: irregular rhythm - Abdomen Abdomen: Present: bowel sounds present, soft, tender (incisional pain), wound ( midline incision noted to be open, packed without significant drainage. REG drain intact with serosanguinous fluid and colostomy stoma in LLQ intact with no output). Absent: distended - Incision Incision: Present: clean and dry, intact (see above) - Neurologic confused (mild, out of context and talking about children ) - Psychiatric oriented to time, oriented to person, oriented to place - Additional Exam Extremity: RUE>LUE edema - Labs 11/26/16 05:25 11/26/16 05:25 Diabetes panel 11/25/16 11/26/16 Range/Units 10:12 05:25 Sodium 139 136 (136-145) mEq/L Potassium 4.4 4.2 (3.5-4.5) mEq/L Chloride 113 H 110 H (98-109) mEq/L Carbon Dioxide 23 23 (19-29) mEq/L BUN 24 31 H (8-26) mg/dL Creatinine 0.59 L 0.63 L (0.72-1.25) mg/dL Glucose 144 H 114 H (70-99) mg/dL Calcium 7.0 L 7.1 L (8.6-10.8) mg/dL Triglycerides 75 (< 150) mg/dL Calcium panel 11/25/16 11/26/16 Range/Units 10:12 05:25 Calcium 7.0 L 7.1 L (8.6-10.8) mg/dL Phosphorus 2.1 L (2.3-4.7) mg/dL Pituitary panel 11/25/16 11/26/16 Range/Units 10:12 05:25 Sodium 139 136 (136-145) mEq/L Potassium 4.4 4.2 (3.5-4.5) mEq/L Chloride 113 H 110 H (98-109) mEq/L Carbon Dioxide 23 23 (19-29) mEq/L BUN 24 31 H (8-26) mg/dL Creatinine 0.59 L 0.63 L (0.72-1.25) mg/dL Glucose 144 H 114 H (70-99) mg/dL Calcium 7.0 L 7.1 L (8.6-10.8) mg/dL Adrenal panel 11/25/16 11/26/16 Range/Units 10:12 05:25 Sodium 139 136 (136-145) mEq/L Potassium 4.4 4.2 (3.5-4.5) mEq/L Chloride 113 H 110 H (98-109) mEq/L Carbon Dioxide 23 23 (19-29) mEq/L BUN 24 31 H (8-26) mg/dL Creatinine 0.59 L 0.63 L (0.72-1.25) mg/dL Glucose 144 H 114 H (70-99) mg/dL Calcium 7.0 L 7.1 L (8.6-10.8) mg/dL - VTE Documentation of Mechanical Device: Intermittent pneumatic compression device Consult Discharge Plan - Plan Referrals: Gopal Remy MD [Partnered Physician] - 12/22/16 2:05 pm Cardoza,Antonella Rainey CNP [Primary Care Provider] - 12/02/16 9:00 am (SENT REQUEST ON @ 1016) <Kaia Quiles - Last Filed: 11/26/16 13:42> Date of Encounter: 11/26/16 - Assessment and Plan (1) Abdominal pain Current Visit: Yes Status: Acute prn pain control Qualifiers: Abdominal location: generalized Qualified Code(s): R10.84 - Generalized abdominal pain (2) Adenocarcinoma of sigmoid colon Current Visit: Yes Status: Acute (3) Ileus Current Visit: Yes Status: Acute awaiting return of bowel function, ileus is not an unexpected outcome given patients perforated sigmoid due to colon cancer, intra-abdominal infection, colectomy and colostomy (4) Left inguinal hernia Current Visit: Yes Status: Acute (5) Leukocytosis Current Visit: Yes Status: Acute Qualifiers: Leukocytosis type: other Qualified Code(s): D72.828 - Other elevated white blood cell count (6) Lower extremity edema Current Visit: Yes Status: Acute josephine hose to RLE only (7) PVD (peripheral vascular disease) Current Visit: Yes Status: Chronic will start aspirin when tolerating po (8) Edema of upper extremity Current Visit: Yes Status: Acute (9) Urinary tract infection Current Visit: Yes Status: Acute continue zosyn and cipro Qualifiers: Urinary tract infection type: site unspecified Hematuria presence: without hematuria Qualified Code(s): N39.0 - Urinary tract infection, site not specified Subjective Patient reports: still having pain, no flatus, no bowel movement Objective Vital Signs - Last 8 Hours Temp Pulse Resp BP Pulse Ox 11/26/16 12:00 98.0 F 72 14 120/68 100 11/26/16 08:11 98.0 F 74 16 120/68 100 11/26/16 07:49 78 Intake and Output 11/25/16 11/26/16 11/26/16 23:59 07:59 15:59 Intake Total 500 / 500 690 / 690 614 / 614 Output Total 1220 / 1220 500 / 500 Balance 500 / 500 -530 / -530 114 / 114 Intake: IV Fluids 200 / 200 350 / 350 614 / 614 Cipro Premix 400 MG/200 200 / 200 200 / 200 ML 400 mg In 200 ml @ 200 mls/hr IVPB Q12H [facility] Rx# :[id number] Intralipid 20% 250 ML @ 250 / 250 21 mls/hr IVPB DAILY@1700 [facility] Rx#:[id number] Diflucan 100 MG/50 ML 100 50 / 50 mg In 50 ml @ 50 mls/hr IVPB DAILY [facility] Rx#: [id number] Magnesium Sulfate 2 GM In 104 / 104 Dextrose 5% 100 ML @ 50 mls/hr IVPB Q6H PRN Rx#: [id number] Zosyn 3.375 GM In 100 / 100 Dextrose 5% (Minibag+) 100 ML 100 ML @ 25 mls/hr IVPB Q12H [facility] Rx#: [id number] Potassium Phosphate 44 260 / 260 MEQ In 0.9 % Sodium Chloride 250 ML @ 40 mls/ hr IVPB Q10H PRN Rx#: [id number] Blood Product 300 / 300 340 / 340 Rbcs Leuko Poor As-1 320 / 320 Unit [id number] Rbcs Leuko Poor As-1 300 / 300 20 / 20 Unit [id number] Output: Catheter 1100 / 1100 500 / 500 Wound Drainage 120 / 120 Abdomen 120 / 120 Other: Weight 86.4 kg Blood Glucose* 115 118 110 Patient Weight 11/26/16 23:59 Weight 86.4 kg - General physical appearance no distress, cachectic, chronically ill - Eyes PERRL, normal ocular movement - ENT dry mucosa, normocephalic - Neck Neck exam: trachea midline - Respiratory normal expansion, clear to auscultation - Cardiovascular Cardiovascular exam: Present: RRR - Abdomen Abdomen: Present: soft, tender, wound - Incision Incision: Present: clean and dry, serous, open (packed) - Integumentary no rash, no growths - Neurologic CN 2-12 grossly intact - Musculoskeletal normal posture - Psychiatric oriented to time, oriented to person, oriented to place - Labs 11/26/16 05:25 11/26/16 05:25 Vital Signs Temp Pulse Resp BP Pulse Ox 11/26/16 12:00 98.0 F 72 14 120/68 100 11/26/16 08:11 98.0 F 74 16 120/68 100 11/26/16 07:49 78 11/26/16 05:10 98.6 F 74 20 111/67 98 11/26/16 04:19 99.6 F 87 20 126/76 100 11/26/16 02:14 98.6 F 84 20 107/57 98 11/26/16 01:59 98.4 F 20 115/64 11/26/16 00:46 98.8 F 84 19 104/49 99 11/25/16 21:13 98.4 F 72 123/61 11/25/16 20:58 99.3 F 84 16 128/71 11/25/16 19:46 80 11/25/16 19:13 100.8 F H 84 18 111/57 99 11/25/16 15:15 98.3 F 82 16 117/57 99 Intake and Output 11/25/16 11/26/16 11/26/16 23:59 07:59 15:59 Intake Total 500 / 500 690 / 690 614 / 614 Output Total 1220 / 1220 500 / 500 Balance 500 / 500 -530 / -530 114 / 114 Intake: IV Fluids 200 / 200 350 / 350 614 / 614 Cipro Premix 400 MG/200 200 / 200 200 / 200 ML 400 mg In 200 ml @ 200 mls/hr IVPB Q12H [facility] Rx# :[id number] Intralipid 20% 250 ML @ 250 / 250 21 mls/hr IVPB DAILY@1700 [facility] Rx#:[id number] Diflucan 100 MG/50 ML 100 50 / 50 mg In 50 ml @ 50 mls/hr IVPB DAILY [facility] Rx#: [id number] Magnesium Sulfate 2 GM In 104 / 104 Dextrose 5% 100 ML @ 50 mls/hr IVPB Q6H PRN Rx#: [id number] Zosyn 3.375 GM In 100 / 100 Dextrose 5% (Minibag+) 100 ML 100 ML @ 25 mls/hr IVPB Q12H [facility] Rx#: [id number] Potassium Phosphate 44 260 / 260 MEQ In 0.9 % Sodium Chloride 250 ML @ 40 mls/ hr IVPB Q10H PRN Rx#: [id number] Blood Product 300 / 300 340 / 340 Rbcs Leuko Poor As-1 320 / 320 Unit [id number] Rbcs Leuko Poor As-1 300 / 300 20 / 20 Unit [id number] Output: Catheter 1100 / 1100 500 / 500 Wound Drainage 120 / 120 Abdomen 120 / 120 Other: Weight 86.4 kg Blood Glucose* 115 118 110 Patient Weight 11/26/16 23:59 Weight 86.4 kg Short CBC 11/26/16 Range/Units 05:25 WBC 15.9 H (4.3-11.1) K/mcL Hgb 9.0 L D (12.9-16.9) g/dL Hct 28.6 L (37.5-50.1) % Plt Count 181 (140-400) K/mcL Neutrophils # 14.0 H (1.6-8.9) K/mcL BMP 11/26/16 Range/Units 05:25 Sodium 136 (136-145) mEq/L Potassium 4.2 (3.5-4.5) mEq/L Chloride 110 H (98-109) mEq/L Carbon Dioxide 23 (19-29) mEq/L BUN 31 H (8-26) mg/dL Creatinine 0.63 L (0.72-1.25) mg/dL Glucose 114 H (70-99) mg/dL Calcium 7.1 L (8.6-10.8) mg/dL - Attending Attestation I examined this patient and my medical decision-making was reviewed with the RF ENGINEER/PA/Advanced Practice Nurse/Resident Physician. I agree with the documented findings, disposition and treatment plan as described except to the extent set forth below.
[2016-11-26] MEDS: Fluconazole 100 MG/50 ML 100 MG/50 ML BAG IVPB SCH (09:03)
[2016-11-26 10:03] LABS: Basophils % 0.1 %; Eosinophils # 0.4 K/mcL (0.0-0.6); Eosinophils % 2.6 %; Hematocrit 28.6 % (37.5-50.1); Immature Granulocytes % 1.3 % (0-4); Immature Platelets 4.7 % (1.1-6.1); Lymphocytes # 0.4 K/mcL (0.6-4.6); Lymphocytes % 2.5 %; Mean Corpuscular HGB Conc 31.5 g/dL (31.6-35.5); Mean Corpuscular Hemoglobin 27.8 pg (28.0-33.3); Mean Corpuscular Volume 88.3 fL (83.0-100.0); Mean Platelet Volume 11.1 fL (9.4-12.4); Monocytes # 0.9 K/mcL (0.0-1.3); Monocytes % 5.5 %; Platelet Count 181 K/mcL (140-400); Red Blood Count 3.24 M/mcL (4.19-5.50); Red Cell Distribution Width 17.7 % (11.5-14.5)
[2016-11-26] MEDS: 0.9 % Sodium Chloride 1,000 ML IVC SCH (13:28)
[2016-11-26] MEDS: Piperacillin/Tazobactam 3.375 GM in D5% in Water (Mini-Bag+) 100 ML IVPB SCH ×2 (13:32→20:43)
--- NOTE | 2016-11-26 16:12 | Vascular/[facility] Progress Note ---
Date of Encounter: 11/26/16 Time of Encounter: 12:30 - Assessment and plan (1) PAD (peripheral artery disease) Current Visit: Yes Status: Chronic The patient has chronic left lower extremity peripheral vascular disease. He has limited mobility with a walker and denies claudication. He denies rest pain , ulceration or gangrene. His feet are warm. His left NEVILLE is consistent with severe disease. He has been started on Aspirin. He has no signs of limb threatening ischemia. (2) Anemia Current Visit: Yes Status: Acute Qualifiers: Anemia type: other cause Other causes of anemia: other cause, not classified Qualified Code(s): D64.89 - Other specified anemias (3) HTN (hypertension) Current Visit: No Status: Chronic Qualifiers: Hypertension type: essential hypertension Qualified Code(s): I10 - Essential (primary) hypertension (4) ASHD (arteriosclerotic heart disease) Current Visit: Yes Status: Acute - Subjective Interval history: The patient appears comfortable. He denies any foot pain. He denies chest pain or shortness of breath. Vital Signs, Last 4 Hours Temp Pulse Resp BP Pulse Ox 11/26/16 15:01 82 11/26/16 15:00 97.9 F 82 14 123/62 98 - Physical Examination General: Present: Conversant, No Apparent Distress HEENT: Present: Pupils equal Neck: Absent: JVD Cardiac: Present: Reg Rate and Rhythm, Normal S1 and S2 Lungs: Present: Normal Breath Sounds, No Wheeze, Rales, Rhonchi Neuro: Present: Alert and responsive, No focal deficits noted, Motor nerves grossly intact, Sensory nerves grossly intact Vascular: Present: Normal capillary refill, Color/Temperature (feet warm), Other (bilateral pedal signals are present). Absent: Cyanosis Abdomen: Present: Soft, Other (incisional tenderness, wound packed) Skin: Present: No rashes noted on visualized skin - VTE Documentation of Mechanical Device: Intermittent pneumatic compression device Results 11/26/16 05:25 11/26/16 05:25 Lab Results, Last 24 hours 11/26/16 11/26/16 05:25 05:25 WBC 15.9 H Hgb 9.0 L D Hct 28.6 L Plt Count 181 Sodium 136 Potassium 4.2 Chloride 110 H Carbon Dioxide 23 BUN 31 H Creatinine 0.63 L Glucose 114 H Calcium 7.1 L Magnesium 1.7 Consult Discharge Plan - Plan Referrals: Gopal Remy MD [Partnered Physician] - 12/22/16 2:05 pm Cardoza,Antonella aRiney CNP [Primary Care Provider] - 12/02/16 9:00 am (SENT REQUEST ON @ [id number])
[2016-11-26] MEDS ORDERED: Clinimix E 5%-15% SOLUTION 2,000 ML with MVI, adult with vitamin K 10 ML IVC SCH (17:00)
[2016-11-26] MEDS ORDERED: Clinimix E 5%-20% SOLUTION 2,000 ML with MVI, adult with vitamin K 10 ML IVC SCH (17:00)
[2016-11-27] MEDS: 0.9 % Sodium Chloride 1,000 ML IVC SCH ×3 (03:32→23:30)
[2016-11-27] MEDS: *HR* HYDROmorphone (PF) 1 MG/ML SYRINGE IVP PRN ×4 (03:32→19:56)
[2016-11-27 04:11] LABS: BUN/Creatinine Ratio 47 (6-26); Blood Urea Nitrogen 28 mg/dL (8-26); Calcium 6.6 mg/dL (8.6-10.8); Carbon Dioxide 22 mEq/L (19-29); Chloride 113 mEq/L (98-109); Glucose 98 mg/dL (70-99); Magnesium 1.5 mg/dL (1.6-2.6); Osmolality,Calculated 289 (280-300); Sodium 137 mEq/L (136-145); eGFR For African Americans > 60 (> 60); eGFR For Non-African Americans > 60 (> 60)
[2016-11-27 04:19] LABS: Phosphorous 2.2 mg/dL (2.3-4.7)
[2016-11-27] MEDS: Pantoprazole 40 MG VIAL IVP SCH (06:27)
[2016-11-27] MEDS: Magnesium Sulfate 2 GM in D5% in Water 100 ML IVPB PRN (06:27)
[2016-11-27] MEDS: Potassium Phosphate 44 MEQ in 0.9 % Sodium Chloride 250 ML IVPB PRN (06:27)
[2016-11-27] MEDS: *HR* Heparin 5,000 UNIT/ML VIAL SQ SCH ×2 (06:28→17:29)
--- NOTE | 2016-11-27 07:26 | General Surgery Progress Note ---
<Bong Hirsch - Last Filed: 11/27/16 07:24> Date of Encounter: 11/27/16 Time of Encounter: 07:24 - Assessment and Plan (1) Perforated sigmoid colon Current Visit: Yes Status: Acute POD # 10 Exploratory celiotomy with sigmoid colectomy and colostomy. Primary repair of left inguinal hernia and repair of left external/internal iliac vein. VSS Supportive care management TPN IVF NPO, ice chips and popsicle ok NGT 300 overnight Continue Diflucan and Zosyn, pharmacy following BS still present without production in colostomy. Continue colostomy care. c/d/ i without erythema or drainage. Midline incision noted to be open, packed without significant drainage. REG drain intact with brown colored fluid and colostomy stoma in LLQ intact with no output (2) Left inguinal hernia Current Visit: Yes Status: Acute POD # 9 Exploratory celiotomy with sigmoid colectomy and colostomy. Primary repair of left inguinal hernia and repair of left external/internal iliac vein. Pain is well controlled at this time. Continue OT and PT. PT unable to work with patient d/t deconditioning. (3) Leukocytosis Current Visit: Yes Status: Acute WBC 15.9 yesterday. Rechecking today. Currently on Diflucan and Zosyn per pharmacy recommendation. Qualifiers: Leukocytosis type: other Qualified Code(s): D72.828 - Other elevated white blood cell count (4) Edema of upper extremity Current Visit: Yes Status: Acute RUE Venous Ultrasound ordered for this morning. (5) PAD (peripheral artery disease) Current Visit: Yes Status: Chronic Vascular surgery following. No intervention recommended at this time. Started on ASA. Josephine Hose for RLE (6) ALFIE (acute kidney injury) Current Visit: Yes Status: Acute BUN 28 and Cr 06 this morning. Appears to be normalizing. Will continue IVF and monitor. Subjective Narrative: Patient is lying comfortably in bed this morning with at bedside. Nursing reports no concerns overnight. NGT 300 output and REG drain 20cc. No stool or air in colostomy bag. US on RUE will be done this morning. Objective Vital Signs - Last 8 Hours Temp Pulse Resp BP Pulse Ox 11/27/16 06:54 98.6 F 89 20 121/74 98 11/27/16 03:32 99.1 F 83 20 111/94 96 11/26/16 23:47 98.8 F 79 16 118/77 97 Intake and Output 11/26/16 11/26/16 11/27/16 15:59 23:59 07:59 Intake Total 1614 / 1614 2110 / 2110 300 / 300 Output Total 500 / 500 570 / 570 200 / 200 Balance 1114 / 1114 1540 / 1540 100 / 100 Intake: IV Fluids 1614 / 1614 2110 / 2110 300 / 300 0.9 % Sodium Chloride 1, 1000 / 1000 000 ML @ 75 mls/hr IVC . [id number] [facility] Rx#: [id number] Clinimix E 5%-15% 2009 SOLUTION 2,000 ML @ 83.3 mls/hr IVC .Q24H [facility] with M.v.i. Adult 10 ml Rx#: [id number] Cipro Premix 400 MG/200 200 / 200 200 / 200 ML 400 mg In 200 ml @ 200 mls/hr IVPB Q12H [facility] Rx# :[id number] Diflucan 100 MG/50 ML 100 50 / 50 mg In 50 ml @ 50 mls/hr IVPB DAILY [facility] Rx#: [id number] Magnesium Sulfate 2 GM In 104 / 104 Dextrose 5% 100 ML @ 50 mls/hr IVPB Q6H PRN Rx#: [id number] Zosyn 3.375 GM In 100 / 100 100 / 100 Dextrose 5% (Minibag+) 100 ML 100 ML @ 25 mls/hr IVPB Q12H [facility] Rx#: [id number] Potassium Phosphate 44 260 / 260 MEQ In 0.9 % Sodium Chloride 250 ML @ 40 mls/ hr IVPB Q10H PRN Rx#: [id number] Output: Catheter 500 / 500 550 / 550 200 / 200 Wound Drainage 20 / 20 Abdomen 20 / 20 Other: Weight 86.1 kg Blood Glucose* 110 132 124 Patient Weight 11/27/16 23:59 Weight 86.1 kg - General physical appearance well nourished, no distress - Eyes normal ocular movement - Neck Neck exam: trachea midline - Respiratory normal respiratory effort, clear to auscultation - Cardiovascular Cardiovascular exam: Present: RRR - Abdomen Abdomen: Present: bowel sounds present, soft, tender (incisional pain), wound ( midline incision noted to be open, packed without significant drainage. REG drain intact with brown colored output. Colostomy intact in LLQ with no air or stool present. ) - Neurologic confused - Psychiatric oriented to time, oriented to person, oriented to place - Labs 11/26/16 05:25 11/27/16 03:40 Short CBC 11/26/16 Range/Units 05:25 WBC 15.9 H (4.3-11.1) K/mcL Hgb 9.0 L D (12.9-16.9) g/dL Hct 28.6 L (37.5-50.1) % Plt Count 181 (140-400) K/mcL Neutrophils # 14.0 H (1.6-8.9) K/mcL BMP 11/27/16 Range/Units 03:40 Sodium 137 (136-145) mEq/L Potassium 4.0 (3.5-4.5) mEq/L Chloride 113 H (98-109) mEq/L Carbon Dioxide 22 (19-29) mEq/L BUN 28 H (8-26) mg/dL Creatinine 0.60 L (0.72-1.25) mg/dL Glucose 98 (70-99) mg/dL Calcium 6.6 L (8.6-10.8) mg/dL Vital Signs Temp Pulse Resp BP Pulse Ox 11/27/16 06:54 98.6 F 89 20 121/74 98 11/27/16 03:32 99.1 F 83 20 111/94 96 11/26/16 23:47 98.8 F 79 16 118/77 97 11/26/16 19:19 97.9 F 87 16 111/58 99 11/26/16 15:01 82 11/26/16 15:00 97.9 F 82 14 123/62 98 11/26/16 12:00 98.0 F 72 14 120/68 100 11/26/16 08:11 98.0 F 74 16 120/68 100 11/26/16 07:49 78 Intake and Output 11/26/16 11/26/16 11/27/16 15:59 23:59 07:59 Intake Total 1614 / 1614 2109 / 2109 300 / 300 Output Total 500 / 500 570 / 570 200 / 200 Balance 1114 / 1114 1540 / 1540 100 / 100 Intake: IV Fluids 1614 / 1614 2109 / 2109 300 / 300 0.9 % Sodium Chloride 1, 1000 / 1000 000 ML @ 75 mls/hr IVC . [id number] [facility] Rx#: [id number] Clinimix E 5%-15% 2009 SOLUTION 2,000 ML @ 83.3 mls/hr IVC .Q24H [facility] with M.v.i. Adult 10 ml Rx#: [id number] Cipro Premix 400 MG/200 200 / 200 200 / 200 ML 400 mg In 200 ml @ 200 mls/hr IVPB Q12H [facility] Rx# :[id number] Diflucan 100 MG/50 ML 100 50 / 50 mg In 50 ml @ 50 mls/hr IVPB DAILY [facility] Rx#: [id number] Magnesium Sulfate 2 GM In 104 / 104 Dextrose 5% 100 ML @ 50 mls/hr IVPB Q6H PRN Rx#: [id number] Zosyn 3.375 GM In 100 / 100 100 / 100 Dextrose 5% (Minibag+) 100 ML 100 ML @ 25 mls/hr IVPB Q12H [facility] Rx#: [id number] Potassium Phosphate 44 260 / 260 MEQ In 0.9 % Sodium Chloride 250 ML @ 40 mls/ hr IVPB Q10H PRN Rx#: [id number] Output: Catheter 500 / 500 550 / 550 200 / 200 Wound Drainage 20 / 20 Abdomen 20 / 20 Other: Weight 86.1 kg Blood Glucose* 110 132 124 Patient Weight 11/27/16 23:59 Weight 86.1 kg - VTE Documentation of Mechanical Device: Graduated compression elastic hosiery Consult Discharge Plan - Plan Referrals: Gopal Remy MD [Partnered Physician] - 12/22/16 2:05 pm Cardoza,Antonella Rainey CNP [Primary Care Provider] - 12/02/16 9:00 am (SENT REQUEST ON @ 1016) <Kaia uQiles - Last Filed: 11/27/16 12:19> Date of Encounter: 11/27/16 Time of Encounter: 12:08 - Assessment and Plan (1) Abdominal pain Current Visit: Yes Status: Acute prn pain medication, pain medication dose increased yesterday due to patients complaints of extremity pain more than abdominal Qualifiers: Abdominal location: generalized Qualified Code(s): R10.84 - Generalized abdominal pain (2) Adenocarcinoma of sigmoid colon Current Visit: Yes Status: Acute (3) Ileus Current Visit: Yes Status: Acute (4) Left inguinal hernia Current Visit: Yes Status: Acute (5) Leukocytosis Current Visit: Yes Status: Acute wbc count 13.2 today, trending down overall, continue abx currently REG drain with purulence Qualifiers: Leukocytosis type: other Qualified Code(s): D72.828 - Other elevated white blood cell count (6) Lower extremity edema Current Visit: Yes Status: Acute josephine hose to LLE only (7) PVD (peripheral vascular disease) Current Visit: Yes Status: Chronic will start aspirin when able to take po (8) Edema of upper extremity Current Visit: Yes Status: Acute (9) Urinary tract infection Current Visit: Yes Status: Acute continue abx, ID following continue jeff catheter at this time for accurate I/O's Qualifiers: Urinary tract infection type: site unspecified Hematuria presence: without hematuria Qualified Code(s): N39.0 - Urinary tract infection, site not specified (10) DVT of lower extremity (deep venous thrombosis) Current Visit: Yes Status: Acute patient with extensive LLE dvt, no dvt RLE per US tech discussed with vascular will start heparin gtt for treatment, if patient has any bleeding complications would require IVC filter Qualifiers: Affected thrombotic vein of extremity: femoral (11) DVT of upper extremity (deep vein thrombosis) Current Visit: Yes Status: Acute awaiting official US result but tech states deep DVT of RUE and has yet to US left discussed with vascular, will start heparin gtt for therapy Qualifiers: Affected thrombotic vein of extremity: axillary Chronicity: acute Laterality: right Qualified Code(s): I82.A11 - Acute embolism and thrombosis of right axillary vein (12) Physical deconditioning Current Visit: Yes Status: Chronic turn and reposition q 2 hr PT and OT ordered but patient participation is limited (13) Severe protein-calorie malnutrition Current Visit: Yes Status: Chronic continue tpn patient without return of bowel function, unable to take po currently (14) Hypothyroid Current Visit: No Status: Chronic start IV synthroid Qualifiers: Hypothyroidism type: unspecified Qualified Code(s): E03.9 - Hypothyroidism , unspecified Subjective Narrative: per nursing patient is complaining of pain in LUE and RLE. US is at bedside currently USing all 4 extremities. Thus far she stated he has DVT in LLE to iliac and DVT in RUE, LUE yet to be US'd. Per nursing patient has a small stage 2 pressure ulcer on his coccyx they are treating with allevyn. Patient denies nausea. No flatus or bm yet Nurse states lots of serous drainage from midline wound Objective Vital Signs - Last 8 Hours Temp Pulse Resp BP Pulse Ox 11/27/16 06:54 98.6 F 89 20 121/74 98 Intake and Output 11/26/16 11/27/16 11/27/16 23:59 07:59 15:59 Intake Total 2109 / 2109 300 / 300 0 / 0 Output Total 570 / 570 200 / 200 Balance 1540 / 1540 100 / 100 0 / 0 Intake: IV Fluids 2109 300 / 300 Clinimix E 5%-15% 2009 SOLUTION 2,000 ML @ 83.3 mls/hr IVC .Q24H [facility] with M.v.i. Adult 10 ml Rx#: [id number] Cipro Premix 400 MG/200 200 / 200 ML 400 mg In 200 ml @ 200 mls/hr IVPB Q12H [facility] Rx# :[id number] Zosyn 3.375 GM In 100 / 100 100 / 100 Dextrose 5% (Minibag+) 100 ML 100 ML @ 25 mls/hr IVPB Q12H [facility] Rx#: [id number] Oral 0 / 0 Output: Catheter 550 / 550 200 / 200 Wound Drainage 20 / 20 Abdomen 20 / 20 Other: Meal Breakfast Percent of Meal Consumed 0% Weight 86.1 kg Blood Glucose* 132 124 Patient Weight 11/27/16 23:59 Weight 86.1 kg - General physical appearance no pain, cachectic, chronically ill - Eyes normal ocular movement - ENT dry mucosa, normocephalic - Neck Neck exam: trachea midline - Respiratory normal expansion, clear to auscultation - Cardiovascular Cardiovascular exam: Present: RRR - Abdomen Abdomen: Present: bowel sounds present, soft, tender - Incision Incision: Present: serous, open - Genitourinary other (jeff present, edema of scrotum and penis) - Integumentary no rash - Neurologic CN 2-12 grossly intact - Psychiatric oriented to time, oriented to person, oriented to place - Labs 11/27/16 07:10 11/27/16 03:40 Short CBC 11/27/16 Range/Units 07:10 WBC 13.2 H (4.3-11.1) K/mcL Hgb 8.7 L (12.9-16.9) g/dL Hct 27.7 L (37.5-50.1) % Plt Count 206 (140-400) K/mcL BMP 11/27/16 Range/Units 03:40 Sodium 137 (136-145) mEq/L Potassium 4.0 (3.5-4.5) mEq/L Chloride 113 H (98-109) mEq/L Carbon Dioxide 22 (19-29) mEq/L BUN 28 H (8-26) mg/dL Creatinine 0.60 L (0.72-1.25) mg/dL Glucose 98 (70-99) mg/dL Calcium 6.6 L (8.6-10.8) mg/dL Vital Signs Temp Pulse Resp BP Pulse Ox 11/27/16 06:54 98.6 F 89 20 121/74 98 11/27/16 03:32 99.1 F 83 20 111/94 96 11/26/16 23:47 98.8 F 79 16 118/77 97 11/26/16 19:19 97.9 F 87 16 111/58 99 11/26/16 15:01 82 11/26/16 15:00 97.9 F 82 14 123/62 98 Intake and Output 11/26/16 11/27/16 11/27/16 23:59 07:59 15:59 Intake Total 2109 / 2109 300 / 300 0 / 0 Output Total 570 / 570 200 / 200 Balance 1540 / 1540 100 / 100 0 / 0 Intake: IV Fluids 2109 300 / 300 Clinimix E 5%-15% 2009 SOLUTION 2,000 ML @ 83.3 mls/hr IVC .Q24H [facility] with M.v.i. Adult 10 ml Rx#: [id number] Cipro Premix 400 MG/200 200 / 200 ML 400 mg In 200 ml @ 200 mls/hr IVPB Q12H [facility] Rx# :[id number] Zosyn 3.375 GM In 100 / 100 100 / 100 Dextrose 5% (Minibag+) 100 ML 100 ML @ 25 mls/hr IVPB Q12H [facility] Rx#: [id number] Oral 0 / 0 Output: Catheter 550 / 550 200 / 200 Wound Drainage 20 / 20 Abdomen / Other: Meal Breakfast Percent of Meal Consumed 0% Weight 86.1 kg Blood Glucose* 132 124 Patient Weight 11/27/16 23:59 Weight 86.1 kg
[2016-11-27 08:02] LABS: Hematocrit 27.7 % (37.5-50.1); Hemoglobin 8.7 g/dL (12.9-16.9); Mean Corpuscular HGB Conc 31.4 g/dL (31.6-35.5); Mean Corpuscular Hemoglobin 27.7 pg (28.0-33.3); Mean Corpuscular Volume 88.2 fL (83.0-100.0); Mean Platelet Volume 10.3 fL (9.4-12.4); Platelet Count 206 K/mcL (140-400); Red Blood Count 3.14 M/mcL (4.19-5.50); Red Cell Distribution Width 17.7 % (11.5-14.5)
[2016-11-27] MEDS: Fluconazole 100 MG/50 ML 100 MG/50 ML BAG IVPB SCH (08:28)
[2016-11-27] MEDS: Piperacillin/Tazobactam 3.375 GM in D5% in Water (Mini-Bag+) 100 ML IVPB SCH ×2 (08:28→19:55)
[2016-11-27] MEDS ORDERED: *HR* Heparin 5,000 UNIT/ML VIAL IVP ONE (12:01)
[2016-11-27] MEDS ORDERED: *HR* Heparin 5,000 UNIT/ML VIAL IVP PRN ×2 (12:01)
[2016-11-27] MEDS: Heparin 25,000 UNIT/500 ML D5W 25,000 UNIT/500 ML MLS IVC SCH (12:55)
--- NOTE | 2016-11-27 15:21 | Venous Imaging Report ---
UE Venous Duplex Patient Name:Ciro Craig Order Number:[id number] Procedure Date:11/27/2016 Date:1930ge:86 yrs Gender:Male Location:[facility] Room #: 2N2 Soliciting Freight Agent:Heidi Hatch Referring MD:Kaia Quiles MD vat cleaner:Antonella Cardoza, [employer] Reading MD:Joao Jara MD Primary Indications:New onset complaint of bilateral arm pain Secondary Indications: Impressions: Acute partially occlusive deep venous thrombosis is present in the right subclavian vein. Acute superficial venous thrombosis is present in the right basilic vein. Normal left upper extremity deep venous exam. 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 Recommendations: Test completed on 11/27/2016 at 12:36:00 pm. Critical findings reported to Dr. Quiles in person at 12:36:00 pm on 11/27/2016 by Heidi Hatch. Findings Venous Duplex Results: Right: There is a partially occlusive thrombus seen in the right subclavian. There is an occlusive thrombus seen in the right basilic. The right brachial vein was not well visualized. Left: There is an occlusive thrombus seen in the left cephalic forearm. Prior Study: No prior study available for comparison. Upper Extremity Venous Duplex Side Vein Compress Spontaneous Flow Augment Right Jugular Normal Yes Phasic Yes Right Subclavian Partial Yes Phasic Yes Right Axillary Normal Yes Phasic Yes Right Brachial Normal Yes Phasic Yes Right Cephalic Normal Yes Phasic Yes Right Cephalic Upper Arm Normal Yes Phasic Yes Right Cephalic Forearm Normal Yes Phasic Yes Right Basilic None no Absent no Right Radial Normal Yes Phasic Yes Right Ulnar Normal Yes Phasic Yes Left Jugular Normal Yes Phasic Yes Left Subclavian Normal Yes Phasic Yes Left Axillary Normal Yes Phasic Yes Left Brachial Normal Yes Phasic Yes Left Cephalic Forearm None no Absent no Left Basilic Normal Yes Phasic Yes Left Radial Normal Yes Phasic Yes Left Ulnar Normal Yes Phasic Yes Updated by Joao aJra MD on 11/27/2016 3:14:45 PM electronically signed on 11/27/2016 3:15:14 PM with status of Final
--- NOTE | 2016-11-27 15:25 | Vascular/[facility] Progress Note ---
Date of Encounter: 11/27/16 Time of Encounter: 14:25 - Assessment and plan (1) PAD (peripheral artery disease) Current Visit: Yes Status: Chronic The patient has chronic left lower extremity peripheral vascular disease without signs of acute ischemia or limb threatening ischemia. Continue with daily ASA. (2) Anemia Current Visit: Yes Status: Acute Qualifiers: Anemia type: other cause Other causes of anemia: other cause, not classified Qualified Code(s): D64.89 - Other specified anemias (3) HTN (hypertension) Current Visit: No Status: Chronic Qualifiers: Hypertension type: essential hypertension Qualified Code(s): I10 - Essential (primary) hypertension (4) ASHD (arteriosclerotic heart disease) Current Visit: Yes Status: Chronic (5) DVT of lower extremity (deep venous thrombosis) Current Visit: Yes Status: Acute The patient has a left iliac through popliteal DVT. He has been started on heparin. If heparin becomes contraindicted, he will require an IVC filter. (6) DVT of upper extremity (deep vein thrombosis) Current Visit: Yes Status: Acute The patient has a partially occlusive thrombus surrounding his PICC line. He has been started on Heparin. - Subjective Interval history: The patient is alert and comfortable. He denies extremity pain. He denies chest pain or shortness of breath. Vital Signs, Last 4 Hours Temp Pulse Resp BP Pulse Ox 11/27/16 14:58 98.3 F 81 20 120/68 99 - Physical Examination General: Present: Conversant Neck: Absent: JVD Cardiac: Present: Reg Rate and Rhythm Lungs: Present: Normal Breath Sounds Neuro: Present: Alert and responsive, No focal deficits noted Vascular: Present: Normal capillary refill, Edema (1+ bilateral lower extemity edema). Absent: Cyanosis Abdomen: Present: Soft - VTE Documentation of Mechanical Device: Graduated compression elastic hosiery Results 11/27/16 07:10 11/27/16 03:40 Lab Results, Last 24 hours 11/27/16 11/27/16 11/27/16 03:40 07:10 13:10 WBC 13.2 H Hgb 8.7 L Hct 27.7 L Plt Count 206 APTT 33.5 Sodium 137 Potassium 4.0 Chloride 113 H Carbon Dioxide 22 BUN 28 H Creatinine 0.60 L Glucose 98 Calcium 6.6 L Magnesium 1.5 L 11/27/16 13:10 WBC Hgb Hct Plt Count APTT Sodium Potassium Chloride Carbon Dioxide BUN Creatinine Glucose Calcium Magnesium 1.9 Consult Discharge Plan - Plan Referrals: Gopal Remy MD [Partnered Physician] - 12/22/16 2:05 pm Cardoza,Antonella Rainey CNP [Primary Care Provider] - 12/02/16 9:00 am (SENT REQUEST ON @ 1016)
[2016-11-27] MEDS ORDERED: Clinimix E 5%-20% SOLUTION 2,000 ML with MVI, adult with vitamin K 10 ML IVC SCH (17:00)
[2016-11-27] MEDS ORDERED: Clinimix E 5%-15% SOLUTION 2,000 ML with MVI, adult with vitamin K 10 ML IVC SCH (17:00)
[2016-11-27 18:47] LABS: Activated Partial Thrombo Time 128.5 Seconds (26.0-36.0)
[2016-11-27 18:55] LABS: Heparin anti-factor XA UFH 0.33 IU/mL (0.30-0.70)
[2016-11-28] MEDS: *HR* HYDROmorphone (PF) 1 MG/ML SYRINGE IVP PRN ×4 (02:23→21:09)
[2016-11-28 02:42] LABS: Basophils % 0.2 %; Eosinophils # 0.2 K/mcL (0.0-0.6); Eosinophils % 1.6 %; Hematocrit 25.6 % (37.5-50.1); Hemoglobin 8.1 g/dL (12.9-16.9); Immature Granulocytes % 1.1 % (0-4); Immature Platelets 2.6 % (1.1-6.1); Lymphocytes # 0.3 K/mcL (0.6-4.6); Mean Corpuscular HGB Conc 31.6 g/dL (31.6-35.5); Mean Corpuscular Hemoglobin 27.7 pg (28.0-33.3); Mean Corpuscular Volume 87.7 fL (83.0-100.0); Mean Platelet Volume 10.1 fL (9.4-12.4); Monocytes # 0.9 K/mcL (0.0-1.3); Monocytes % 6.4 %; Neutrophils # 11.7 K/mcL (1.6-8.9); Platelet Count 234 K/mcL (140-400); Red Blood Count 2.92 M/mcL (4.19-5.50); Red Cell Distribution Width 17.5 % (11.5-14.5); Segmented Neutrophils % 88.7 %
[2016-11-28 02:55] LABS: BUN/Creatinine Ratio 43 (6-26); Blood Urea Nitrogen 29 mg/dL (8-26); Calcium 6.7 mg/dL (8.6-10.8); Carbon Dioxide 20 mEq/L (19-29); Chloride 107 mEq/L (98-109); Glucose 224 mg/dL (70-99); Magnesium 1.7 mg/dL (1.6-2.6); Osmolality,Calculated 289 (280-300); Phosphorous 2.8 mg/dL (2.3-4.7); Potassium 4.2 mEq/L (3.5-4.5); Sodium 133 mEq/L (136-145); eGFR For African Americans > 60 (> 60); eGFR For Non-African Americans > 60 (> 60)
[2016-11-28] MEDS: Pantoprazole 40 MG VIAL IVP SCH (06:19)
[2016-11-28] MEDS: Magnesium Sulfate 2 GM in D5% in Water 100 ML IVPB PRN (06:20)
[2016-11-28] MEDS: Potassium Phosphate 44 MEQ in 0.9 % Sodium Chloride 250 ML IVPB PRN (06:26)
[2016-11-28] MEDS: 0.9 % Sodium Chloride 1,000 ML IVC SCH (07:11)
--- NOTE | 2016-11-28 07:21 | General Surgery Progress Note ---
<Bong Hirsch - Last Filed: 11/28/16 09:15> Date of Encounter: 11/28/16 Time of Encounter: 07:19 - Assessment and Plan (1) Perforated sigmoid colon Current Visit: Yes Status: Acute POD # 11 Exploratory celiotomy with sigmoid colectomy and colostomy. Primary repair of left inguinal hernia and repair of left external/internal iliac vein. VSS Supportive care management TPN IVF NPO, ice chips and popsicle ok NGT 50 overnight REG 20 overnight Continue Diflucan and Zosyn, pharmacy following BS still present without production in colostomy. Continue colostomy care. Wound vac care M, W, F. Do not change today. Start on Monday. (2) Left inguinal hernia Current Visit: Yes Status: Acute POD # 9 Exploratory celiotomy with sigmoid colectomy and colostomy. Primary repair of left inguinal hernia and repair of left external/internal iliac vein. Pain is well controlled at this time. Continue OT and PT. PT unable to work with patient d/t deconditioning. (3) DVT (deep venous thrombosis) Current Visit: Yes Status: Acute RUE Venous Ultrasound on 11/27/16 demonstrates occlusive thrombus in right subclavian and basilic vein. LLE Venous US on 11/27/16 showed occuslive thrmobus in left distal iliac, common femoral and popliteal veins. Vascular consulted and started on Heparin drip yesterday. Qualifiers: Affected thrombotic vein of extremity: unspecified vein of extremity Qualified Code(s): I82.621 - Acute embolism and thrombosis of deep veins of right upper extremity (4) Leukocytosis Current Visit: Yes Status: Acute WBC down to 13.2 today and will follow. VSS. Currently on Diflucan and Zosyn per pharmacy recommendation. Qualifiers: Leukocytosis type: other Qualified Code(s): D72.828 - Other elevated white blood cell count (5) PAD (peripheral artery disease) Current Visit: Yes Status: Chronic Vascular surgery following. No intervention recommended at this time. Started on ASA. Josephine Hose for RLE (6) ALFIE (acute kidney injury) Current Visit: Yes Status: Acute BUN 29 and Cr 0.68 this morning. Appears to be stable. Will continue IVF and monitor. Subjective Patient reports: other Narrative: Patient is lying in bed this morning with at bedside. She is concerned about his excessive talking. Good urine output but still no stool production or flatus in colostomy. REG 20 overnight and NGT with minimal output. Pain appears to be well controlled. Objective Vital Signs - Last 8 Hours Temp Pulse Resp BP Pulse Ox 11/28/16 07:11 98.7 F 88 16 113/71 100 11/28/16 05:19 99.5 F 83 16 111/58 98 11/27/16 23:27 99.8 F H 97 15 134/65 99 Intake and Output 11/27/16 11/27/16 11/28/16 15:59 23:59 07:59 Intake Total 560 / 560 1204 / 1204 0 / 0 Output Total 660 / 660 260 / 260 Balance 560 / 560 544 / 544 -260 / -260 Intake: IV Fluids 560 / 560 1204 / 1204 0 / 0 0.9 % Sodium Chloride 1, 1000 / 1000 000 ML @ 75 mls/hr IVC . [id number] [facility] Rx#: [id number] Heparin 25,000 UNIT/500 100 / 100 0 / 0 ML D5W 25,000 unit In 500 ml @ 14 UNIT/KG/HR 24. 108 mls/hr IVC .[id number] [facility] Rx#:[id number] Cipro Premix 400 MG/200 200 / 200 ML 400 mg In 200 ml @ 200 mls/hr IVPB Q12H [facility] Rx# :[id number] Magnesium Sulfate 2 GM In 104 / 104 Dextrose 5% 100 ML @ 50 mls/hr IVPB Q6H PRN Rx#: [id number] Zosyn 3.375 GM In 100 / 100 Dextrose 5% (Minibag+) 100 ML 100 ML @ 25 mls/hr IVPB Q12H [facility] Rx#: [id number] Potassium Phosphate 44 260 / 260 MEQ In 0.9 % Sodium Chloride 250 ML @ 40 mls/ hr IVPB Q10H PRN Rx#: [id number] Oral 0 / 0 0 / 0 Output: Catheter 650 / 650 250 / 250 Wound Drainage Abdomen Other: Meal Breakfast Dinner Percent of Meal Consumed 0% 0% Weight 86.5 kg Blood Glucose* 130 120 Patient Weight 11/28/16 23:59 Weight 86.5 kg - General physical appearance well developed, no distress - Eyes normal ocular movement - Neck Neck exam: trachea midline - Respiratory normal respiratory effort, clear to auscultation - Cardiovascular Cardiovascular exam: Present: RRR - Abdomen Abdomen: Present: bowel sounds present, soft, non tender, wound (Colostomy in LLQ intact with no stool or gas. REG drain intact with serosangious fluid. Wound vac with good seal on midline incision. 25cc overnight.) - Neurologic confused - Psychiatric other (excessively talking) - Labs 11/28/16 02:30 11/28/16 02:30 Short CBC 11/28/16 11/27/16 Range/Units 02:30 07:10 WBC 13.2 H 13.2 H (4.3-11.1) K/mcL Hgb 8.1 L 8.7 L (12.9-16.9) g/dL Hct 25.6 L 27.7 L (37.5-50.1) % Plt Count 234 206 (140-400) K/mcL Neutrophils # 11.7 H (1.6-8.9) K/mcL BMP 11/28/16 Range/Units 02:30 Sodium 133 L (136-145) mEq/L Potassium 4.2 (3.5-4.5) mEq/L Chloride 107 (98-109) mEq/L Carbon Dioxide 20 (19-29) mEq/L BUN 29 H (8-26) mg/dL Creatinine 0.68 L (0.72-1.25) mg/dL Glucose 224 H (70-99) mg/dL Calcium 6.7 L (8.6-10.8) mg/dL Vital Signs Temp Pulse Resp BP Pulse Ox 11/28/16 07:11 98.7 F 88 16 113/71 100 11/28/16 05:19 99.5 F 83 16 111/58 98 11/27/16 23:27 99.8 F H 97 15 134/65 99 11/27/16 20:00 99.1 F 86 14 107/75 98 11/27/16 14:58 98.3 F 81 20 120/68 99 Intake and Output 11/27/16 11/27/16 11/28/16 15:59 23:59 07:59 Intake Total 560 / 560 1204 / 1204 0 / 0 Output Total 660 / 660 260 / 260 Balance 560 / 560 544 / 544 -260 / -260 Intake: IV Fluids 560 / 560 1204 / 1204 0 / 0 0.9 % Sodium Chloride 1, 1000 / 1000 000 ML @ 75 mls/hr IVC . [id number] [facility] Rx#: [id number] Heparin 25,000 UNIT/500 100 / 100 0 / 0 ML D5W 25,000 unit In 500 ml @ 14 UNIT/KG/HR 24. 108 mls/hr IVC .[id number] [facility] Rx#:[id number] Cipro Premix 400 MG/200 200 / 200 ML 400 mg In 200 ml @ 200 mls/hr IVPB Q12H [facility] Rx# :[id number] Magnesium Sulfate 2 GM In 104 / 104 Dextrose 5% 100 ML @ 50 mls/hr IVPB Q6H PRN Rx#: [id number] Zosyn 3.375 GM In 100 / 100 Dextrose 5% (Minibag+) 100 ML 100 ML @ 25 mls/hr IVPB Q12H [facility] Rx#: [id number] Potassium Phosphate 44 260 / 260 MEQ In 0.9 % Sodium Chloride 250 ML @ 40 mls/ hr IVPB Q10H PRN Rx#: [id number] Oral 0 / 0 0 / 0 Output: Catheter 650 / 650 250 / 250 Wound Drainage Abdomen Other: Meal Breakfast Dinner Percent of Meal Consumed 0% 0% Weight 86.5 kg Blood Glucose* 130 120 Patient Weight 11/28/16 23:59 Weight 86.5 kg - VTE Documentation of Mechanical Device: Graduated compression elastic hosiery Consult Discharge Plan - Plan Referrals: Gopal Remy MD [Partnered Physician] - 12/22/16 2:05 pm Sony,Antonella Rainey CNP [Primary Care Provider] - 12/02/16 9:00 am (SENT REQUEST ON @ 1016) <Kaia Quiles - Last Filed: 11/28/16 17:50> Date of Encounter: 11/28/16 - Assessment and Plan (1) Abdominal pain Current Visit: Yes Status: Acute Qualifiers: Abdominal location: generalized Qualified Code(s): R10.84 - Generalized abdominal pain (2) Adenocarcinoma of sigmoid colon Current Visit: Yes Status: Acute (3) Ileus Current Visit: Yes Status: Acute patient with continued post op ileus, await return of bowel function, is slow to open up and isnt unexpected given patients surgery, condition, abdominal infection (4) Left inguinal hernia Current Visit: Yes Status: Acute (5) Leukocytosis Current Visit: Yes Status: Acute Qualifiers: Leukocytosis type: other Qualified Code(s): D72.828 - Other elevated white blood cell count (6) Lower extremity edema Current Visit: Yes Status: Acute dvt LLE on heparin gtt RLE no dvt, josephine hose on in am off at HS (7) PVD (peripheral vascular disease) Current Visit: Yes Status: Chronic (8) Edema of upper extremity Current Visit: Yes Status: Acute RUE dvt - on heparin gtt (9) Urinary tract infection Current Visit: Yes Status: Acute continue abx Qualifiers: Urinary tract infection type: site unspecified Hematuria presence: without hematuria Qualified Code(s): N39.0 - Urinary tract infection, site not specified (10) DVT of lower extremity (deep venous thrombosis) Current Visit: Yes Status: Acute heparin gtt, monitor Hb Qualifiers: Affected thrombotic vein of extremity: iliac Chronicity: acute Laterality : left Qualified Code(s): I82.422 - Acute embolism and thrombosis of left iliac vein (11) DVT of upper extremity (deep vein thrombosis) Current Visit: Yes Status: Acute on heparin gtt monitor Hb Qualifiers: Affected thrombotic vein of extremity: axillary Chronicity: acute Laterality: right Qualified Code(s): I82.A11 - Acute embolism and thrombosis of right axillary vein (12) Physical deconditioning Current Visit: Yes Status: Chronic (13) Severe protein-calorie malnutrition Current Visit: Yes Status: Chronic continue tpn, unable to take po currently (14) Hypothyroid Current Visit: No Status: Chronic continue IV synthroid Qualifiers: Hypothyroidism type: unspecified Qualified Code(s): E03.9 - Hypothyroidism , unspecified (15) S/P colectomy Current Visit: Yes Status: Acute await return of bowel function wound vac in place - change M, W, F Subjective Patient reports: no new complaints, still having pain, no flatus, no bowel movement, nausea, afebrile Objective Vital Signs - Last 8 Hours Temp Pulse Resp BP Pulse Ox 11/28/16 17:09 98.6 F 84 18 109/53 96 11/28/16 11:33 97.7 F 82 20 102/88 100 Intake and Output 11/28/16 11/28/16 11/28/16 07:59 15:59 23:59 Intake Total 200 / 200 400 / 400 Output Total 260 / 260 1550 / 1550 Balance -60 / -60 -1150 / -1150 Intake: IV Fluids 200 / 200 400 / 400 Heparin 25,000 UNIT/500 0 / 0 400 / 400 ML D5W 25,000 unit In 500 ml @ 14 UNIT/KG/HR 24. 108 mls/hr IVC .[id number] [facility] Rx#:[id number] Cipro Premix 400 MG/200 200 / 200 ML 400 mg In 200 ml @ 200 mls/hr IVPB Q12H [facility] Rx# :[id number] Output: Gastric Tube Lavage 800 / 800 Amount Right Nare 800 / 800 Catheter 250 / 250 750 / 750 Wound Drainage 0 / 0 Abdomen 0 / 0 Other: Weight 86.5 kg 86.5 kg Blood Glucose* 120 141 113 Patient Weight 11/28/16 23:59 Weight 86.5 kg - General physical appearance cachectic, chronically ill - Eyes normal ocular movement - ENT dry mucosa, atraumatic - Neck Neck exam: trachea midline - Respiratory clear to auscultation - Cardiovascular Cardiovascular exam: Present: RRR - Abdomen Abdomen: Present: bowel sounds present, soft, tender (appropriate post op tenderness) - Incision Incision: Present: open (wound vac in place) - Genitourinary other (scrotal edema, jeff in place) - Integumentary no growths - Psychiatric oriented to person - Labs 11/28/16 02:30 11/28/16 02:30 Short CBC 11/28/16 Range/Units 02:30 WBC 13.2 H (4.3-11.1) K/mcL Hgb 8.1 L (12.9-16.9) g/dL Hct 25.6 L (37.5-50.1) % Plt Count 234 (140-400) K/mcL Neutrophils # 11.7 H (1.6-8.9) K/mcL BMP 11/28/16 Range/Units 02:30 Sodium 133 L (136-145) mEq/L Potassium 4.2 (3.5-4.5) mEq/L Chloride 107 (98-109) mEq/L Carbon Dioxide 20 (19-29) mEq/L BUN 29 H (8-26) mg/dL Creatinine 0.68 L (0.72-1.25) mg/dL Glucose 224 H (70-99) mg/dL Calcium 6.7 L (8.6-10.8) mg/dL Vital Signs Temp Pulse Resp BP Pulse Ox 11/28/16 17:09 98.6 F 84 18 109/53 96 11/28/16 11:33 97.7 F 82 20 102/88 100 11/28/16 07:11 98.7 F 88 16 113/71 100 11/28/16 05:19 99.5 F 83 16 111/58 98 11/27/16 23:27 99.8 F H 97 15 134/65 99 11/27/16 20:00 99.1 F 86 14 107/75 98 Intake and Output 11/28/16 11/28/16 11/28/16 07:59 15:59 23:59 Intake Total 200 / 200 400 / 400 Output Total 260 / 260 1550 / 1550 Balance -60 / -60 -1150 / -1150 Intake: IV Fluids 200 / 200 400 / 400 Heparin 25,000 UNIT/500 0 / 0 400 / 400 ML D5W 25,000 unit In 500 ml @ 14 UNIT/KG/HR 24. 108 mls/hr IVC .[id number] [facility] Rx#:[id number] Cipro Premix 400 MG/200 200 / 200 ML 400 mg In 200 ml @ 200 mls/hr IVPB Q12H [facility] Rx# :[id number] Output: Gastric Tube Lavage 800 / 800 Amount Right Nare 800 / 800 Catheter 250 / 250 750 / 750 Wound Drainage 0 / 0 Abdomen 0 / 0 Other: Weight 86.5 kg 86.5 kg Blood Glucose* 120 141 113 Patient Weight 11/28/16 23:59 Weight 86.5 kg - Attending Attestation I examined this patient and my medical decision-making was reviewed with the [employer]/PA/Advanced Practice Nurse/Resident Physician. I agree with the documented findings, disposition and treatment plan as described except to the extent set forth below.
[2016-11-28] MEDS: Piperacillin/Tazobactam 3.375 GM in D5% in Water (Mini-Bag+) 100 ML IVPB SCH ×2 (09:12→22:00)
[2016-11-28] MEDS: Fluconazole 100 MG/50 ML 100 MG/50 ML BAG IVPB SCH (09:13)
[2016-11-28] MEDS: Levothyroxine Sodium 100 MCG VIAL IVP SCH (09:13)
[2016-11-28] MEDS: Heparin 25,000 UNIT/500 ML D5W 25,000 UNIT/500 ML MLS IVC SCH (11:16)
[2016-11-28] MEDS ORDERED: Furosemide 20 MG/2 ML VIAL IVP ONE (13:47)
--- NOTE | 2016-11-28 14:14 | Event Note ---
Date of Encounter: 11/28/16 Time of Encounter: 13:45 Pt reported nausea. NG tube placed to suction and immediate return of 700 ml gastric contents. Pt states nausea resolved after this intervention. Informed bedside RN of NG LIWS. Will continue to monitor and consider NG to gravity pending clinical course. Small amount of purulent drainage noted to REG drain. Will continue to monitor.
[2016-11-28] MEDS: Miconazole w/zinc oxide&karaya 92 APPL/92 GM TUBE TP SCH (15:30)
[2016-11-28] MEDS ORDERED: Clinimix E 5%-15% SOLUTION 2,000 ML with MVI, adult with vitamin K 10 ML IVC SCH (17:00)
--- NOTE | 2016-11-28 17:04 | Internal Med Progress Note ---
Date of Encounter: 11/29/16 Time of Encounter: 11:30 - Assessment and plan (1) Perforated bowel Current Visit: Yes Status: Acute Assessment and plan: Patient is POD # 11 for Ex lap, sigmoid colectomy and colostomy. Patient developed severe sepsis with organ damage. Renal function has since returned to normal. Patient now with purulent drainage to REG. 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 Concern for intraabdominal abscess. We will roccmend a CT of the abdomen and pelvis with contrast. Continue Zosyn and diflucan. Can DC Cipro. (2) Adenocarcinoma of sigmoid colon Current Visit: Yes Status: Acute Assessment and plan: management per Oncology and primary team. HE ana maria has a poor progosis given that he has metastatic disease/nakul involement, advanced age, medical comorbidities, and malnutrition. (3) Delirium Current Visit: Yes Status: Acute Assessment and plan: patient having confusion this AM. Possibly from infectious etiology ( Intraabdominal abscess.) . However would recommend evaluating for other causes as well. (4) Urinary tract infection Current Visit: Yes Status: Acute Assessment and plan: likely contaminated specimen. ALso current antibiotics adequate for bacteria that grew from urine culture. Qualifiers: Urinary tract infection type: site unspecified Hematuria presence: without hematuria Qualified Code(s): N39.0 - Urinary tract infection, site not specified (5) Severe sepsis with acute organ dysfunction Current Visit: Yes Status: Acute Assessment and plan: Patient still meets SIRS criteria with Tachycardia and leukocytosis. Afebrile overnight with 24 Tmax of 99.8. WBC count stable. ALFIE has resolved. However there is concern for possible intraabdominal abscess given the purulent drainage from the REG drain. Continue Zosyn and diflucan. Ok to DC cipro. Recommend CT of the abdomen and pelvis to evaluate for intraabdominal abscess. If present will need drainage for cource control. (6) Failure to thrive Current Visit: Yes Status: Acute Assessment and plan: patient has physical signs of malnutrition. currently on TPN. Qualifiers: Failure to thrive age range: in adult Qualified Code(s): R62.7 - Adult failure to thrive (7) Ileus Current Visit: Yes Status: Acute Assessment and plan: No bowel movements. No fecal content in ostomy bag this AM. Managemetn per primary team / surgery. (8) PVD (peripheral vascular disease) Current Visit: Yes Status: Chronic Assessment and plan: severe No signs of acute occlusion at this time. Management per vascular Surgery. (9) DVT of upper extremity (deep vein thrombosis) Current Visit: Yes Status: Acute Assessment and plan: on heparin gtt. per primary team. Qualifiers: Affected thrombotic vein of extremity: axillary Chronicity: acute Laterality: right Qualified Code(s): I82.A11 - Acute embolism and thrombosis of right axillary vein (10) Leukocytosis Current Visit: Yes Status: Acute Assessment and plan: stable - Subjective Interval history: No major events overnight. Patient had very little sleep overnight. Has been confused. This morning he is a poor historian. He does deny any difficulty breathing denies any abdominal pain and has no further complaints at this time. - Constitutional Vitals: Gen.: This is a frail, cachectic appearing 86-year-old male who is currently alert but disorientated. Lying in bed appears to be comfortable and in no acute distress at this time. HEENT: The head is normocephalic and atraumatic. There is a normal external appearance of ears nose and eyes. He does have a NG tube in place with the bilious drainage in the container. Dry mucous membranes. Neck is supple without mass or thyromegaly. There is no cervical submandibular or supraclavicular lymphadenopathy palpable. Heart: The heart has regular rate and rhythm without murmurs rubs or gallops. Lungs: Normal effort of breathing. Clear to auscultation bilaterally. Abdomen: The abdomen is obese, nondistended. There is a colostomy bag in place there is no stool contents in the bag. The stoma is pink. There is a REG drain that appears to have sharon pus draining into it. There is also a wound VAC with the black sponge in place just below the REG drain. Bowel sounds are sluggish. Abdomen is soft and tender near surgical site. Musculoskeletal: He has diffuse muscle atrophy but no gross deformities noted. Has some mild bitemporal wasting as well. Extremities: There is no clubbing or cyanosis. He does have some edema of extremities most notably in the left upper extremity. I does have 1+ pedal pitting edema up to the level of the knee bilaterally. Integument: No rashes or lesions of the exposed skin. Temp Pulse Resp BP Pulse Ox 97.7 F 82 20 102/88 100 07/10/17 11:33 11/28/16 11:33 11/28/16 11:33 11/28/16 11:33 11/28/16 11:33 Internal Medicine: Result - Labs CBC & Chem 7: 11/29/16 09:30 11/29/16 05:30 Labs: Short CBC 11/28/16 Range/Units 02:30 WBC 13.2 H (4.3-11.1) K/mcL Hgb 8.1 L (12.9-16.9) g/dL Hct 25.6 L (37.5-50.1) % Plt Count 234 (140-400) K/mcL Neutrophils # 11.7 H (1.6-8.9) K/mcL BMP 11/28/16 02:30 Sodium 133 L Potassium 4.2 Chloride 107 Carbon Dioxide 20 BUN 29 H Creatinine 0.68 L Glucose 224 H Calcium 6.7 L - ABG Interpretation ABG results: PT/INR, D-dimer PT 14.0 Seconds (9.4-12.1) H 11/17/16 11:03 - VTE Documentation of Mechanical Device: Graduated compression elastic hosiery Consult Discharge Plan - Plan Referrals: Gopal Remy MD [Partnered Physician] - 12/22/16 2:05 pm Cardoza,Antonella Rainey CNP [Primary Care Provider] - 12/02/16 9:00 am (SENT REQUEST ON @ 2337)
[2016-11-29] MEDS: *HR* HYDROmorphone (PF) 1 MG/ML SYRINGE IVP PRN ×5 (01:33→21:05)
[2016-11-29] MEDS: Miconazole w/zinc oxide&karaya 92 APPL/92 GM TUBE TP SCH ×4 (05:12→21:02)
[2016-11-29 05:57] LABS: BUN/Creatinine Ratio 47 (6-26); Blood Urea Nitrogen 30 mg/dL (8-26); Calcium 6.8 mg/dL (8.6-10.8); Carbon Dioxide 23 mEq/L (19-29); Chloride 107 mEq/L (98-109); Glucose 94 mg/dL (70-99); Magnesium 1.6 mg/dL (1.6-2.6); Osmolality,Calculated 280 (280-300); Phosphorous 2.7 mg/dL (2.3-4.7); Potassium 4.2 mEq/L (3.5-4.5); Sodium 132 mEq/L (136-145); eGFR For African Americans > 60 (> 60); eGFR For Non-African Americans > 60 (> 60)
[2016-11-29] MEDS: Pantoprazole 40 MG VIAL IVP SCH (06:29)
[2016-11-29] MEDS: Magnesium Sulfate 2 GM in D5% in Water 100 ML IVPB PRN (08:03)
[2016-11-29] MEDS: Potassium Phosphate 44 MEQ in 0.9 % Sodium Chloride 250 ML IVPB PRN (08:04)
[2016-11-29] MEDS: Piperacillin/Tazobactam 3.375 GM in D5% in Water (Mini-Bag+) 100 ML IVPB SCH ×2 (09:02→17:49)
[2016-11-29] MEDS: Fluconazole 100 MG/50 ML 100 MG/50 ML BAG IVPB SCH (09:03)
[2016-11-29] MEDS: Levothyroxine Sodium 100 MCG VIAL IVP SCH (09:08)
[2016-11-29 09:44] LABS: Basophils % 0.3 %; Eosinophils # 0.3 K/mcL (0.0-0.6); Eosinophils % 2.3 %; Hematocrit 23.6 % (37.5-50.1); Hemoglobin 7.5 g/dL (12.9-16.9); Immature Platelets 2.6 % (1.1-6.1); Lymphocytes # 0.3 K/mcL (0.6-4.6); Lymphocytes % 2.3 %; Mean Corpuscular HGB Conc 31.8 g/dL (31.6-35.5); Mean Corpuscular Hemoglobin 27.6 pg (28.0-33.3); Mean Platelet Volume 9.9 fL (9.4-12.4); Monocytes # 0.6 K/mcL (0.0-1.3); Monocytes % 4.9 %; Neutrophils # 10.7 K/mcL (1.6-8.9); Platelet Count 175 K/mcL (140-400); Red Blood Count 2.72 M/mcL (4.19-5.50); Red Cell Distribution Width 17.1 % (11.5-14.5); Segmented Neutrophils % 89.2 %
[2016-11-29 09:45] LABS: Mean Corpuscular Volume 86.8 fL (83.0-100.0)
[2016-11-29] MEDS ORDERED: Calcium Gluconate 2,000 MG in D5% in Water 100 ML IVPB ONE (10:05)
--- NOTE | 2016-11-29 10:26 | Infectious Disease Progress No ---
Date of Encounter: 11/28/16 Time of Encounter: 11:30 - Assessment and Plan (1) Perforated bowel Current Visit: Yes Status: Acute Patient is POD # 11 for Ex lap, sigmoid colectomy and colostomy. Patient developed severe sepsis with organ damage. Renal function has since returned to normal. Patient now with purulent drainage to REG. medical staffing coordinator reports foul odor as well. Concern for intraabdominal abscess. We will roccmend a CT of the abdomen and pelvis with contrast. Continue Zosyn and diflucan. Can DC Cipro. (2) Adenocarcinoma of sigmoid colon Current Visit: Yes Status: Acute management per Oncology and primary team. HE likely has a poor prognosis given that he has metastatic disease/nakul involement, advanced age, medical comorbidities, and malnutrition. (3) Delirium Current Visit: Yes Status: Acute patient having confusion this AM. Possibly from infectious etiology ( Intraabdominal abscess.) . However would recommend evaluating for other causes as well. (4) Urinary tract infection Current Visit: Yes Status: Acute likely contaminated specimen. ALso current antibiotics adequate for bacteria that grew from urine culture. Qualifiers: Urinary tract infection type: site unspecified Hematuria presence: without hematuria Qualified Code(s): N39.0 - Urinary tract infection, site not specified (5) Severe sepsis with acute organ dysfunction Current Visit: Yes Status: Acute Patient still meets SIRS criteria with Tachycardia and leukocytosis. Afebrile overnight with 24 Tmax of 99.8. WBC count stable. ALFIE has resolved. However there is concern for possible intraabdominal abscess given the purulent drainage from the REG drain. Continue Zosyn and diflucan. Ok to DC cipro. Recommend CT of the abdomen and pelvis to evaluate for intraabdominal abscess. If present will need drainage for source control. (6) Failure to thrive Current Visit: Yes Status: Acute patient has physical signs of malnutrition. currently on TPN. Qualifiers: Failure to thrive age range: in adult Qualified Code(s): R62.7 - Adult failure to thrive (7) Ileus Current Visit: Yes Status: Acute No bowel movements. No fecal content in ostomy bag this AM. Management per primary team / surgery. (8) PVD (peripheral vascular disease) Current Visit: Yes Status: Chronic severe No signs of acute occlusion at this time. Management per vascular Surgery (9) DVT of upper extremity (deep vein thrombosis) Current Visit: Yes Status: Acute on heparin gtt. per primary team. Qualifiers: Affected thrombotic vein of extremity: axillary Chronicity: acute Laterality: right Qualified Code(s): I82.A11 - Acute embolism and thrombosis of right axillary vein (10) Leukocytosis Current Visit: Yes Status: Acute stable Qualifiers: Leukocytosis type: unspecified Qualified Code(s): D72.829 - Elevated white blood cell count, unspecified - Subjective Interval history: This is an infectious disease progress note from 11/28/16. It was entered under an internal medicine template. This note is the progress note from 11/28/16 entered under correct template. No major events overnight. Patient had very little sleep overnight. Has been confused. This morning he is a poor historian. He does deny any difficulty breathing denies any abdominal pain and has no further complaints at this time. Infect Dis PN-Objective Data - Labs CBC & Chem 7: 11/30/16 Unknown 11/30/16 Unknown Labs: Laboratory Results - last 24 hr 11/28/16 11/28/16 11/28/16 10:40 11:34 12:20 WBC RBC Hgb Hct MCV MCH MCHC RDW Plt Count MPV Immature Gran % Seg Neutrophils % Lymphocytes % Monocytes % Eosinophils % Basophils % Neutrophils # Lymphocytes # Monocytes # Eosinophils # Basophils # Immature Plt Fraction APTT 58.3 H Sodium Potassium Chloride Carbon Dioxide BUN Creatinine Est GFR ( Amer) Est GFR (Non-Af Amer) BUN/Creatinine Ratio Glucose POC Glucose 141 H Calculated Osmolality Calcium Ionized Calcium Phosphorus Magnesium 2.0 11/28/16 11/28/16 11/29/16 17:12 17:30 00:47 WBC RBC Hgb Hct MCV MCH MCHC RDW Plt Count MPV Immature Gran % Seg Neutrophils % Lymphocytes % Monocytes % Eosinophils % Basophils % Neutrophils # Lymphocytes # Monocytes # Eosinophils # Basophils # Immature Plt Fraction APTT 59.8 H Sodium Potassium Chloride Carbon Dioxide BUN Creatinine Est GFR ( Amer) Est GFR (Non-Af Amer) BUN/Creatinine Ratio Glucose POC Glucose 113 H 106 H Calculated Osmolality Calcium Ionized Calcium Phosphorus Magnesium 11/29/16 11/29/16 11/29/16 05:30 05:30 09:30 WBC 11.9 H RBC 2.72 L Hgb 7.5 L Hct 23.6 L MCV 86.8 MCH 27.6 L MCHC 31.8 RDW 17.1 H Plt Count 175 MPV 9.9 Immature Gran % 1.0 Seg Neutrophils % 89.2 Lymphocytes % 2.3 Monocytes % 4.9 Eosinophils % 2.3 Basophils % 0.3 Neutrophils # 10.7 H Lymphocytes # 0.3 L Monocytes # 0.6 Eosinophils # 0.3 Basophils # 0.0 Immature Plt Fraction 2.6 APTT 55.4 H Sodium 132 L Potassium 4.2 Chloride 107 Carbon Dioxide 23 BUN 30 H Creatinine 0.64 L Est GFR ( Amer) > 60 Est GFR (Non-Af Amer) > 60 BUN/Creatinine Ratio 47 H Glucose 94 POC Glucose Calculated Osmolality 280 Calcium 6.8 L Ionized Calcium Phosphorus 2.7 Magnesium 1.6 11/29/16 09:54 WBC RBC Hgb Hct MCV MCH MCHC RDW Plt Count MPV Immature Gran % Seg Neutrophils % Lymphocytes % Monocytes % Eosinophils % Basophils % Neutrophils # Lymphocytes # Monocytes # Eosinophils # Basophils # Immature Plt Fraction APTT Sodium Potassium Chloride Carbon Dioxide BUN Creatinine Est GFR ( Amer) Est GFR (Non-Af Amer) BUN/Creatinine Ratio Glucose POC Glucose Calculated Osmolality Calcium Ionized Calcium 0.99 L Phosphorus Magnesium Cultures: Serology 11/20/16 Range/Units 03:52 Urine Color Yellow (Yellow) Urine Clarity Turbid A (Clear) Urine pH 5.0 (5.0-8.0) pH Units Ur Specific [place] 1.027 H (1.010-1.025) Urine Protein 30 H (Neg-Trace) mg/dL Urine Glucose (UA) Normal (Normal) mg/dL Urine Ketones Negative (Negative) mg/dL Urine Blood Small H (Negative) Urine Nitrite Negative (Negative) Urine Bilirubin Negative (Negative) Urine Urobilinogen Normal (Normal) mg/dL Ur Leukocyte Esterase Negative (Negative) Urine Microscopic RBC 5-15 H (0-3) per hpf Urine Microscopic WBC 5-15 H (0-3) per hpf Ur Squamous Epith Cells Many H (None-Few) per lpf Amorphous Sediment Few (Few) Urine Bacteria Few (None-Few) per hpf Hyaline Casts None Seen (None-Few) per lpf Urine Yeast Test Not Performed - Impressions Impressions Abdomen/Pelvis CT 11/28/16 17:10 IMPRESSION: 1. Postsurgical changes from recent sigmoid mass resection with end colostomy in place. 2. The study is limited without the use of IV contrast. There are two formed fluid collections identified within the lower abdomen/pelvis, one measuring 3.5 x 3.5 cm within the lower abdominal mesentery (image 96), and a second more posterior collection measuring 3.2 x 2.1 cm with a few foci of gas, immediately anterior to the S1 vertebral body (image 99). These are nonspecific, but could represent abscess in the appropriate clinical setting, especially the collection with a foci of gas. There is a right anterior abdominal approach surgical drain in place, with tip terminating near but not definitely within the more posterior collection. 3. There is a 2.2 cm lymph node in the right lower quadrant mesentery, suspicious for a metastatic lesion. Additional small subcentimeter lymph nodes are scattered throughout the mesentery and retroperitoneum, which are nonspecific. 4. Stable small hypodense liver lesions measuring up to 1.5 cm. Additional stable 4.2 cm hypodense lesion in area of the abbey hepatis, possibly within the left hepatic lobe. 5. Hydropic gallbladder with gallstones. 6. Diffuse anasarca. 7. Large left inguinal hernia containing free fluid. 8. Small right inguinal hernia, now containing a loop of small bowel without evidence of small bowel obstruction. 9. Fusiform ectasia of the distal abdominal aorta to 2.9 cm. Additional ectasia of bilateral common iliac arteries to 2.2 cm on the right. See below for follow-up. RECOMMENDATIONS: Managing Abdominal Aortic Aneurysms 2.6-2.9 cm: 5 year follow up. 3.0-3.4 cm: 3 year follow up 3.5-3.9 cm: 1 year follow up. 4.0-4.4 cm: 1 year follow up. Recommend vascular consultation. 4.5-5.4 cm: 6 month follow up. Recommend vascular consultation. Greater than or equal to 5.5 cm: Referral to vascular surgeon. Reference: Ke et al. The care of patients with an abdominal aortic aneurysm: The Society of Vascular Surgery practice guidelines. Journal of Vascular Surgery. Vol 50, Number 85. Jamal et al. Managing Incidental Findings on Abdominal and Pelvic CT and MRI, Part 2: White Paper of the ACR Incidental Findings Committee II on Vascular Findings. J Am Sharon Radiol 2013;10:789-794 D/ / 11/28/2016 22:56:24 Kayden Taylor MD / [email or web address] Interpreting Provider: Kayden Taylor MD KUB X-Ray 11/28/16 17:51 IMPRESSION: Nasogastric tube in appropriate position. D/ / 11/28/2016 19:07:23 Jelani Smith MD / bcarter Interpreting Provider: Jelani Smith MD Exam - Constitutional Vitals: Temp Pulse Resp BP Pulse Ox 98.1 F 79 19 100/52 96 11/29/16 07:41 11/29/16 07:41 11/29/16 07:41 11/29/16 07:41 11/29/16 07:41 Exam: Gen.: This is a frail, cachectic appearing 86-year-old male who is currently alert but disorientated. Lying in bed appears to be comfortable and in no acute distress at this time. HEENT: The head is normocephalic and atraumatic. There is a normal external appearance of ears nose and eyes. He does have a NG tube in place with the bilious drainage in the container. Dry mucous membranes. Neck is supple without mass or thyromegaly. There is no cervical submandibular or supraclavicular lymphadenopathy palpable. Heart: The heart has regular rate and rhythm without murmurs rubs or gallops. Lungs: Normal effort of breathing. Clear to auscultation bilaterally. Abdomen: The abdomen is obese, nondistended. There is a colostomy bag in place there is no stool contents in the bag. The stoma is pink. There is a REG drain that appears to have sharon pus draining into it. There is also a wound VAC with the black sponge in place just below the REG drain. Bowel sounds are sluggish. Abdomen is soft and tender near surgical site. Musculoskeletal: He has diffuse muscle atrophy but no gross deformities noted. Has some mild bitemporal wasting as well. Extremities: There is no clubbing or cyanosis. He does have some edema of extremities most notably in the left upper extremity. I does have 1+ pedal pitting edema up to the level of the knee bilaterally. Integument: No rashes or lesions of the exposed skin. - VTE Documentation of Mechanical Device: Graduated compression elastic hosiery Consult Discharge Plan - Plan Referrals: Gopal Remy MD [Partnered Physician] - 12/22/16 2:05 pm Cardoza,Antonella Rainey CNP [Primary Care Provider] - 12/02/16 9:00 am (SENT REQUEST ON @ [id number]) - Attending Attestation I examined this patient and my medical decision-making was reviewed with the [employer]/PA/Advanced Practice Nurse/Resident Physician. I agree with the documented findings, disposition and treatment plan as described except to the extent set forth below.
[2016-11-29] MEDS: Heparin 25,000 UNIT/500 ML D5W 25,000 UNIT/500 ML MLS IVC SCH ×2 (10:29→15:07)
--- NOTE | 2016-11-29 10:43 | General Surgery Progress Note ---
<Mitali Mart - Last Filed: 11/29/16 16:57> Date of Encounter: 11/29/16 Time of Encounter: 11:15 - Assessment and Plan (1) Perforated sigmoid colon Current Visit: Yes Status: Acute POD #12 Exploratory celiotomy; Sigmoid colectomy with colostomy; Primary repair of left inguinal hernia; Repair of left external/internal iliac vein injury Continue NG tube to LIWS Continue NPO except ice chips and TPN/lipids Total IV fluids 100 ML/hr Await return of bowel function, faint bowel sounds noted, bowel sweat noted per ostomy Colostomy stoma pink and without output Midline surgical incision noted with wound vac REG aburto small amount of purulent drainage noted Supportive care and pain control PT/OT, mobilize as tolerated (2) Left inguinal hernia Current Visit: Yes Status: Acute POD #12 Exploratory celiotomy; Sigmoid colectomy with colostomy; Primary repair of left inguinal hernia; Repair of left external/internal iliac vein injury Significant increase in scrotal edema noted since yesterday's exam. Continue barrier cream and scrotal sleeping/elevation CT 11/28/2016 demonstrates large left inguinal hernia containing free fluid and small right and went on hernia now containing a loop of small bowel without evidence of small bowel obstruction. Will review with Dr. Quiles (3) Leukocytosis Current Visit: Yes Status: Acute POD #12 Exploratory celiotomy; Sigmoid colectomy with colostomy; Primary repair of left inguinal hernia; Repair of left external/internal iliac vein injury Man[employer] per ID -Noted two formed fluid collections identified within the lower abdomen/pelvis 1 measuring 3.5 x 3.5 cm within the lower abdominal mesentery (image 96) and a 2nd more posterior collection measuring 3.2 x 2.1 cm with a few foci of gas, immediately anterior to the S1 vertebral body (image 99). These are noted by radiology to be nonspecific that could represent abscess in the appropriate clinical setting, especially in the collection of foci gas. There is a right anterior abdominal approach surgical drain in place with the tip terminating near but not definitely within the more posterior collection. -Current abx per MAR Zosyn 3.375 g b.i.d. Fluconazole 100 mg daily Ciprofloxacin 400 mg b.i.d. -Will review with Dr. Quiles and Continue to monitor Qualifiers: Leukocytosis type: other Qualified Code(s): D72.828 - Other elevated white blood cell count (4) DVT prophylaxis Current Visit: No Status: Acute Yadi Doppler 11/27/2016 demonstrates occlusive thrombus in the right subclavian and basilic vein. Left lower extremity on 11/27/2016 showed occlusive thrombus in the left distal iliac, common for moral, and popliteal veins. Vascular was previously consult Pauline and noted to have started the patient on heparin drip and he is currently therapeutic. Venous dopplers 11/28/2016 DVT RUE, LUE, and LLE noted No PAULINE hose LLE (5) Electrolyte abnormality Current Visit: Yes Status: Acute Electrolyte protocol is in place. Noted mild and asymptomatic Hyponatremia at 132 Consideration for hypertonic replacement given pending urine osmoality results Hypocalcemia with ionized calcium at 0.9. Short run of non-sustained VT prior to calcium administration Continue electrolyte protocol Will check urine osmoality to r/o hypovolemia in the setting of third spacing continue TPN replace electrolytes Repeat a.m. labs (6) ASHD (arteriosclerotic heart disease) Current Visit: Yes Status: Chronic Incomplete pln Chronic PAD, non-emergent management per vascular/Dr. Jara. Will continue to monitor. (7) Anemia Current Visit: Yes Status: Acute Noted Hgb 7.5 and Hct 23.6 vital signs are stable repeat a.m. labs will continue to monitor Qualifiers: Anemia type: other cause Other causes of anemia: other cause, not classified Qualified Code(s): D64.89 - Other specified anemias Subjective Patient reports: still having pain, voiding w/o difficulty, no flatus, no bowel movement Narrative: Mr. Craig states he feels somewhat weaker today and has increased abdominal pain. He describes this pain as sharp and aggravated by touching his abdomen. He reports that his left leg feels heavy and is difficult to move as well as causing increased discomfort. He reports increased discomfort in his scrotal area as well. He denies nausea or vomiting. He denies chest pain or shortness of breath. Per the bedside RN he is noted to have had a brief run of non- sustained VT this a.m. prior to receiving electrolyte replacement. He was asymptomatic during this episode. His is at bedside and states she feels he appears worse, but has no questions because she "is not sure what to ask." Objective Vital Signs - Last 8 Hours Temp Pulse Resp BP Pulse Ox 11/29/16 07:41 98.1 F 79 19 100/52 96 11/29/16 04:20 79 11/29/16 04:12 98.8 F 82 18 100/52 99 Intake and Output 11/28/16 11/29/16 11/29/16 23:59 07:59 15:59 Intake Total 300 / 300 368 / 368 Output Total 1250 / 1250 725 / 725 Balance -950 / -950 -357 / -357 Intake: IV Fluids 300 / 300 368 / 368 Heparin 25,000 UNIT/500 268 / 268 ML D5W 25,000 unit In 500 ml @ 14 UNIT/KG/HR 24. 108 mls/hr IVC .[id number] [facility] Rx#:[id number] Cipro Premix 400 MG/200 200 / 200 ML 400 mg In 200 ml @ 200 mls/hr IVPB Q12H [facility] Rx# :[id number] Zosyn 3.375 GM In 100 / 100 100 / 100 Dextrose 5% (Minibag+) 100 ML 100 ML @ 25 mls/hr IVPB Q12H [facility] Rx#: [id number] Oral 0 / 0 0 / 0 Output: Gastric Tube Lavage 200 / 200 Amount Right Nare 200 / 200 Catheter 1050 / 1050 700 / 700 Wound Drainage 25 / 25 Abdomen 25 / 25 Other: Blood Glucose* 113 106 - General physical appearance moderate pain, cachectic, chronically ill, other (Widespread edema noted) - Eyes normal ocular movement - ENT dentures (Edentulous), dry mucosa, CN 2-12 grossly intact - Neck Neck exam: no masses, no bruits, trachea midline, no venous distension - Respiratory other (Decreased by basilar interior. Clear to auscultation) - Cardiovascular Cardiovascular exam: Present: RRR, murmurs (3/6 systolic murmur at the base) - Abdomen Abdomen: Present: bowel sounds present (Faint), soft, tender, guarding Hernia: none - Incision Incision: Present: draining (Wound back noted) - Genitourinary other (Significant increase in scrotal edema noted. Approximately 3 times size from exam yesterday.) - Integumentary no rash - Neurologic CN 2-12 grossly intact - Psychiatric oriented to time, oriented to person, oriented to place, memory intact - Labs 11/29/16 09:30 11/29/16 05:30 Diabetes panel 11/29/16 Range/Units 05:30 Sodium 132 L (136-145) mEq/L Potassium 4.2 (3.5-4.5) mEq/L Chloride 107 (98-109) mEq/L Carbon Dioxide 23 (19-29) mEq/L BUN 30 H (8-26) mg/dL Creatinine 0.64 L (0.72-1.25) mg/dL Glucose 94 (70-99) mg/dL Calcium 6.8 L (8.6-10.8) mg/dL Calcium panel 11/29/16 Range/Units 05:30 Calcium 6.8 L (8.6-10.8) mg/dL Phosphorus 2.7 (2.3-4.7) mg/dL Pituitary panel 11/29/16 Range/Units 05:30 Sodium 132 L (136-145) mEq/L Potassium 4.2 (3.5-4.5) mEq/L Chloride 107 (98-109) mEq/L Carbon Dioxide 23 (19-29) mEq/L BUN 30 H (8-26) mg/dL Creatinine 0.64 L (0.72-1.25) mg/dL Glucose 94 (70-99) mg/dL Calcium 6.8 L (8.6-10.8) mg/dL Adrenal panel 11/29/16 Range/Units 05:30 Sodium 132 L (136-145) mEq/L Potassium 4.2 (3.5-4.5) mEq/L Chloride 107 (98-109) mEq/L Carbon Dioxide 23 (19-29) mEq/L BUN 30 H (8-26) mg/dL Creatinine 0.64 L (0.72-1.25) mg/dL Glucose 94 (70-99) mg/dL Calcium 6.8 L (8.6-10.8) mg/dL - Imaging Additional Studies: Abdomen/Pelvis CT 11/28/16 17:10 IMPRESSION: 1. Postsurgical changes from recent sigmoid mass resection with end colostomy in place. 2. The study is limited without the use of IV contrast. There are two formed fluid collections identified within the lower abdomen/pelvis, one measuring 3.5 x 3.5 cm within the lower abdominal mesentery (image 96), and a second more posterior collection measuring 3.2 x 2.1 cm with a few foci of gas, immediately anterior to the S1 vertebral body (image 99). These are nonspecific, but could represent abscess in the appropriate clinical setting, especially the collection with a foci of gas. There is a right anterior abdominal approach surgical drain in place, with tip terminating near but not definitely within the more posterior collection. 3. There is a 2.2 cm lymph node in the right lower quadrant mesentery, suspicious for a metastatic lesion. Additional small subcentimeter lymph nodes are scattered throughout the mesentery and retroperitoneum, which are nonspecific. 4. Stable small hypodense liver lesions measuring up to 1.5 cm. Additional stable 4.2 cm hypodense lesion in area of the abbey hepatis, possibly within the left hepatic lobe. 5. Hydropic gallbladder with gallstones. 6. Diffuse anasarca. 7. Large left inguinal hernia containing free fluid. 8. Small right inguinal hernia, now containing a loop of small bowel without evidence of small bowel obstruction. 9. Fusiform ectasia of the distal abdominal aorta to 2.9 cm. Additional ectasia of bilateral common iliac arteries to 2.2 cm on the right. See below for follow-up. RECOMMENDATIONS: Managing Abdominal Aortic Aneurysms 2.6-2.9 cm: 5 year follow up. 3.0-3.4 cm: 3 year follow up 3.5-3.9 cm: 1 year follow up. 4.0-4.4 cm: 1 year follow up. Recommend vascular consultation. 4.5-5.4 cm: 6 month follow up. Recommend vascular consultation. Greater than or equal to 5.5 cm: Referral to vascular surgeon. Reference: Ke et al. The care of patients with an abdominal aortic aneurysm: The Society of Vascular Surgery practice guidelines. Journal of Vascular Surgery. Vol 50, Number 85. Jamal et al. Managing Incidental Findings on Abdominal and Pelvic CT and MRI, Part 2: White Paper of the ACR Incidental Findings Committee II on Vascular Findings. J Am Sharon Radiol 2013;10:789-794 D/ / 11/28/2016 22:56:24 Kayden Taylor MD / landry Interpreting Provider: Kayden Taylor MD KUB X-Ray 11/28/16 17:51 IMPRESSION: Nasogastric tube in appropriate position. D/ / 11/28/2016 19:07:23 Jelani Smith MD / [email or web address] Interpreting Provider: Jelani Smith MD Chest CTA 11/17/16 11:36 IMPRESSION: 1. No pulmonary embolism. 2. Trace left pleural effusion of uncertain significance. 3. Mild dependent atelectasis in the lower chest. D/ / Santos Trotter MD / Santos Trotter MD Interpreting Provider: Santos Trotter MD Retroperitoneum Ultrasound 11/19/16 12:11 IMPRESSION: Left nephrolithiasis. No hydronephrosis. Increased echogenicity of the renal parenchyma bilaterally, nonspecific finding suggesting medical renal disease. D/ / Karina Weller Cha, MD / Karina Weller Cha, MD Interpreting Provider: Karina Weller Cha, MD Chest X-Ray 11/24/16 09:18 IMPRESSION: 1. Small layering pleural effusions bilaterally and bibasilar atelectasis. D/ / Luis Summers MD / Luis Summers MD Interpreting Provider: Luis Summers MD - VTE Documentation of Mechanical Device: Graduated compression elastic hosiery Consult Discharge Plan - Plan Referrals: Gopal Remy MD [Partnered Physician] - 12/22/16 2:05 pm Sony,Antonella Rainey CNP [Primary Care Provider] - 12/02/16 9:00 am (SENT REQUEST ON @ 1016) <Kaia Quiles - Last Filed: 11/29/16 23:26> Date of Encounter: 11/29/16 - Assessment and Plan (1) Abdominal pain Current Visit: Yes Status: Acute prn pain medication Qualifiers: Abdominal location: generalized Qualified Code(s): R10.84 - Generalized abdominal pain (2) Adenocarcinoma of sigmoid colon Current Visit: Yes Status: Acute discussed pathology results with and son CT scan shows possible metastatic dz in liver/abbey hepatis will consult oncology and palliative care for realistic goals of care (3) Ileus Current Visit: Yes Status: Acute patient without return of bowel function yet, not unexpected given clinical course (4) Left inguinal hernia Current Visit: Yes Status: Acute CT shows a left inguinal hernia repair with free fluid across repair into scrotal defect, no hernia recurrence CT shows right inguinal hernia which was likely present previously and just not demonstrated on previous imaging (5) Leukocytosis Current Visit: Yes Status: Acute CT shows two relatively small intra-abdominal abscesses that are 3.5 cm or less in size, not in areas that would be easy for IR to biopsy and likely to resolve on own with abx therapy, discussed with and son continue Abx per ID Qualifiers: Leukocytosis type: other Qualified Code(s): D72.828 - Other elevated white blood cell count (6) Lower extremity edema Current Visit: Yes Status: Acute (7) PVD (peripheral vascular disease) Current Visit: Yes Status: Chronic on heparin gtt for dvt's (8) Edema of upper extremity Current Visit: Yes Status: Acute (9) Urinary tract infection Current Visit: Yes Status: Acute Abx per ID continue jeff for accurate I/O's Qualifiers: Urinary tract infection type: site unspecified Hematuria presence: without hematuria Qualified Code(s): N39.0 - Urinary tract infection, site not specified (10) DVT of lower extremity (deep venous thrombosis) Current Visit: Yes Status: Acute continue heparin gtt Qualifiers: Affected thrombotic vein of extremity: iliac Chronicity: acute Laterality : left Qualified Code(s): I82.422 - Acute embolism and thrombosis of left iliac vein (11) DVT of upper extremity (deep vein thrombosis) Current Visit: Yes Status: Acute continue heparin gtt Qualifiers: Affected thrombotic vein of extremity: axillary Chronicity: acute Laterality: right Qualified Code(s): I82.A11 - Acute embolism and thrombosis of right axillary vein (12) Physical deconditioning Current Visit: Yes Status: Chronic (13) Severe protein-calorie malnutrition Current Visit: Yes Status: Chronic continue TPN as patient is unable to take in any po intake currently (14) Hypothyroid Current Visit: No Status: Chronic continue IV synthroid Qualifiers: Hypothyroidism type: unspecified Qualified Code(s): E03.9 - Hypothyroidism , unspecified (15) S/P colectomy Current Visit: Yes Status: Acute Subjective Narrative: patient still very conversive complains of pain in leg and arm, denies abdominal pain denies nausea Objective Vital Signs - Last 8 Hours Temp Pulse Resp BP Pulse Ox 11/29/16 20:00 83 11/29/16 19:12 98.2 F 88 16 130/66 96 11/29/16 15:48 100.1 F H 79 19 100/52 97 11/29/16 15:30 79 Intake and Output 11/29/16 11/29/16 11/29/16 07:59 15:59 23:59 Intake Total 618 / 618 482 / 482 Output Total 725 / 725 0 / 0 0 / 0 Balance -107 / -107 482 / 482 0 / 0 Intake: IV Fluids 618 / 618 482 / 482 Heparin 25,000 UNIT/500 268 / 268 232 / 232 ML D5W 25,000 unit In 500 ml @ 14 UNIT/KG/HR 24. 108 mls/hr IVC .[id number] [facility] Rx#:[id number] Cipro Premix 400 MG/200 200 / 200 ML 400 mg In 200 ml @ 200 mls/hr IVPB Q12H [facility] Rx# :[id number] Intralipid 20% 250 ML @ 250 / 250 21 mls/hr IVPB DAILY@1700 [facility] Rx#:[id number] Diflucan 100 MG/50 ML 100 50 / 50 mg In 50 ml @ 50 mls/hr IVPB DAILY [facility] Rx#: [id number] Zosyn 3.375 GM In 100 / 100 Dextrose 5% (Minibag+) 100 ML 100 ML @ 25 mls/hr IVPB Q12H [facility] Rx#: [id number] Oral 0 / 0 Output: Gastric Tube Lavage 0 / 0 Amount Right Nare 0 / 0 Catheter 700 / 700 Wound Drainage 25 / 25 0 / 0 Abdomen 25 / 25 0 / 0 Other: Blood Glucose* 106 111 - General physical appearance cachectic, chronically ill - Eyes normal ocular movement - ENT dry mucosa, normocephalic - Neck Neck exam: trachea midline - Respiratory normal expansion, normal respiratory effort - Cardiovascular Cardiovascular exam: Present: RRR, murmurs - Abdomen Abdomen: Present: bowel sounds present, soft, tender (minimal and appropriate post op tenderness). Absent: guarding, rebound - Incision Incision: Present: open (with wound vac in place) - Genitourinary other (continued scrotal edema, is elevated on towels) - Integumentary no growths - Neurologic CN 2-12 grossly intact - Psychiatric oriented to time - Labs 11/29/16 09:30 11/29/16 05:30 Diabetes panel 11/29/16 Range/Units 05:30 Sodium 132 L (136-145) mEq/L Potassium 4.2 (3.5-4.5) mEq/L Chloride 107 (98-109) mEq/L Carbon Dioxide 23 (19-29) mEq/L BUN 30 H (8-26) mg/dL Creatinine 0.64 L (0.72-1.25) mg/dL Glucose 94 (70-99) mg/dL Calcium 6.8 L (8.6-10.8) mg/dL Calcium panel 11/29/16 Range/Units 05:30 Calcium 6.8 L (8.6-10.8) mg/dL Phosphorus 2.7 (2.3-4.7) mg/dL Pituitary panel 11/29/16 Range/Units 05:30 Sodium 132 L (136-145) mEq/L Potassium 4.2 (3.5-4.5) mEq/L Chloride 107 (98-109) mEq/L Carbon Dioxide 23 (19-29) mEq/L BUN 30 H (8-26) mg/dL Creatinine 0.64 L (0.72-1.25) mg/dL Glucose 94 (70-99) mg/dL Calcium 6.8 L (8.6-10.8) mg/dL Adrenal panel 11/29/16 Range/Units 05:30 Sodium 132 L (136-145) mEq/L Potassium 4.2 (3.5-4.5) mEq/L Chloride 107 (98-109) mEq/L Carbon Dioxide 23 (19-29) mEq/L BUN 30 H (8-26) mg/dL Creatinine 0.64 L (0.72-1.25) mg/dL Glucose 94 (70-99) mg/dL Calcium 6.8 L (8.6-10.8) mg/dL - Attending Attestation I examined this patient and my medical decision-making was reviewed with the CHANNEL MANAGER/PA/Advanced Practice Nurse/Resident Physician. I agree with the documented findings, disposition and treatment plan as described except to the extent set forth below.
--- NOTE | 2016-11-29 11:15 | Infectious Disease Progress No ---
Date of Encounter: 11/29/16 Time of Encounter: 10:10 - Assessment and Plan (1) Perforated bowel Current Visit: Yes Status: Acute Patient is s/p Ex lap, sigmoid colectomy and colostomy 11/17/16. Patient developed severe sepsis with organ damage. Renal function has since returned to normal. TMax over last 24 hours has been 99.8. Leukocytosis trending down. CT of the abdomen with IV contrast reveals new fluid 3.1 X 2.1collection in the pelvis anterior to the S1 vertebral body and a second 3.5 X 3.5 fluid collection in the mid abdominal mesentery. These fluid collection may possibly be abscesses. However complicated as he is in the post operative period , lack of PO contrast. Additionally REG in place is draining purulent material and may be adequate for drainage. If clinically worsening may consider further interventions. I will review surgeries notes from today and plan to discuss with them tomorrow as well. Recommendations: continuing Zosyn and diflucan. discontinuing Cipro. CRCL 93 so no need to adjust the dosage at this time. Thank you for involving the infectious disease team in this patient's care. (2) Adenocarcinoma of sigmoid colon Current Visit: Yes Status: Acute Tumor had invaded through the muscularis propria and into the pericolic area. Additionally there was nakul involvement. management per Oncology and primary team. HE likely has a poor prognosis given that he has metastatic disease/nakul involement, advanced age, medical comorbidities, and malnutrition. (3) Delirium Current Visit: Yes Status: Acute Patient is still having confusion. However appears to be somewhat less today. continue treating underlying medical causes of his delerium. (4) Urinary tract infection Current Visit: Yes Status: Acute likely contaminated specimen. ALso current antibiotics adequate for bacteria that grew from urine culture. Qualifiers: Urinary tract infection type: site unspecified Hematuria presence: without hematuria Qualified Code(s): N39.0 - Urinary tract infection, site not specified (5) Severe sepsis with acute organ dysfunction Current Visit: Yes Status: Acute Patient No longer meets SIRS criteria. Leukocytosis trending down. Afebrile overnight WBC count trending down. ALFIE has resolved. (6) Failure to thrive Current Visit: Yes Status: Acute patient has physical signs of malnutrition. currently on TPN. Qualifiers: Failure to thrive age range: in adult Qualified Code(s): R62.7 - Adult failure to thrive (7) Ileus Current Visit: Yes Status: Acute No bowel movements. No fecal content in ostomy bag this AM. However he did have some sluggish bowel sounds this AM during my exam. Patient had hypocalcemia and this was replaced this AM. Management per primary team / surgery. (8) PVD (peripheral vascular disease) Current Visit: Yes Status: Chronic severe No signs of acute occlusion at this time. Management per vascular Surgery (9) DVT of upper extremity (deep vein thrombosis) Current Visit: Yes Status: Acute on heparin gtt. Currently therapeutic. per primary team. Qualifiers: Affected thrombotic vein of extremity: axillary Chronicity: acute Laterality: right Qualified Code(s): I82.A11 - Acute embolism and thrombosis of right axillary vein (10) Leukocytosis Current Visit: Yes Status: Acute trending down. Qualifiers: Leukocytosis type: unspecified Qualified Code(s): D72.829 - Elevated white blood cell count, unspecified - Subjective Interval history: No major events overnight. Patient still quite confused at this time. Denies pain or discomfort. Denies dyspnea. He has no complaints at this time. dose state that patient appears to be complaining of more lower abdominal pain overnight and this AM. No bowel movements reported by chief of staff doctor or patients . Infect Dis PN-Objective Data - Labs CBC & Chem 7: 11/30/16 Unknown 11/30/16 Unknown Labs: Laboratory Results - last 24 hr 11/28/16 11/28/16 11/28/16 11:34 12:20 17:12 WBC RBC Hgb Hct MCV MCH MCHC RDW Plt Count MPV Immature Gran % Seg Neutrophils % Lymphocytes % Monocytes % Eosinophils % Basophils % Neutrophils # Lymphocytes # Monocytes # Eosinophils # Basophils # Immature Plt Fraction APTT Sodium Potassium Chloride Carbon Dioxide BUN Creatinine Est GFR ( Amer) Est GFR (Non-Af Amer) BUN/Creatinine Ratio Glucose POC Glucose 141 H 113 H Calculated Osmolality Calcium Ionized Calcium Phosphorus Magnesium 2.0 11/28/16 11/29/16 11/29/16 17:30 00:47 05:30 WBC RBC Hgb Hct MCV MCH MCHC RDW Plt Count MPV Immature Gran % Seg Neutrophils % Lymphocytes % Monocytes % Eosinophils % Basophils % Neutrophils # Lymphocytes # Monocytes # Eosinophils # Basophils # Immature Plt Fraction APTT 59.8 H Sodium 132 L Potassium 4.2 Chloride 107 Carbon Dioxide 23 BUN 30 H Creatinine 0.64 L Est GFR ( Amer) > 60 Est GFR (Non-Af Amer) > 60 BUN/Creatinine Ratio 47 H Glucose 94 POC Glucose 106 H Calculated Osmolality 280 Calcium 6.8 L Ionized Calcium Phosphorus 2.7 Magnesium 1.6 11/29/16 11/29/16 11/29/16 05:30 09:30 09:54 WBC 11.9 H RBC 2.72 L Hgb 7.5 L Hct 23.6 L MCV 86.8 MCH 27.6 L MCHC 31.8 RDW 17.1 H Plt Count 175 MPV 9.9 Immature Gran % 1.0 Seg Neutrophils % 89.2 Lymphocytes % 2.3 Monocytes % 4.9 Eosinophils % 2.3 Basophils % 0.3 Neutrophils # 10.7 H Lymphocytes # 0.3 L Monocytes # 0.6 Eosinophils # 0.3 Basophils # 0.0 Immature Plt Fraction 2.6 APTT 55.4 H Sodium Potassium Chloride Carbon Dioxide BUN Creatinine Est GFR ( Amer) Est GFR (Non-Af Amer) BUN/Creatinine Ratio Glucose POC Glucose Calculated Osmolality Calcium Ionized Calcium 0.99 L Phosphorus Magnesium Cultures: Serology 11/20/16 Range/Units 03:52 Urine Color Yellow (Yellow) Urine Clarity Turbid A (Clear) Urine pH 5.0 (5.0-8.0) pH Units Ur Specific [place] 1.027 H (1.010-1.025) Urine Protein 30 H (Neg-Trace) mg/dL Urine Glucose (UA) Normal (Normal) mg/dL Urine Ketones Negative (Negative) mg/dL Urine Blood Small H (Negative) Urine Nitrite Negative (Negative) Urine Bilirubin Negative (Negative) Urine Urobilinogen Normal (Normal) mg/dL Ur Leukocyte Esterase Negative (Negative) Urine Microscopic RBC 5-15 H (0-3) per hpf Urine Microscopic WBC 5-15 H (0-3) per hpf Ur Squamous Epith Cells Many H (None-Few) per lpf Amorphous Sediment Few (Few) Urine Bacteria Few (None-Few) per hpf Hyaline Casts None Seen (None-Few) per lpf Urine Yeast Test Not Performed - Impressions Impressions Abdomen/Pelvis CT 11/28/16 17:10 IMPRESSION: 1. Postsurgical changes from recent sigmoid mass resection with end colostomy in place. 2. The study is limited without the use of IV contrast. There are two formed fluid collections identified within the lower abdomen/pelvis, one measuring 3.5 x 3.5 cm within the lower abdominal mesentery (image 96), and a second more posterior collection measuring 3.2 x 2.1 cm with a few foci of gas, immediately anterior to the S1 vertebral body (image 99). These are nonspecific, but could represent abscess in the appropriate clinical setting, especially the collection with a foci of gas. There is a right anterior abdominal approach surgical drain in place, with tip terminating near but not definitely within the more posterior collection. 3. There is a 2.2 cm lymph node in the right lower quadrant mesentery, suspicious for a metastatic lesion. Additional small subcentimeter lymph nodes are scattered throughout the mesentery and retroperitoneum, which are nonspecific. 4. Stable small hypodense liver lesions measuring up to 1.5 cm. Additional stable 4.2 cm hypodense lesion in area of the abbey hepatis, possibly within the left hepatic lobe. 5. Hydropic gallbladder with gallstones. 6. Diffuse anasarca. 7. Large left inguinal hernia containing free fluid. 8. Small right inguinal hernia, now containing a loop of small bowel without evidence of small bowel obstruction. 9. Fusiform ectasia of the distal abdominal aorta to 2.9 cm. Additional ectasia of bilateral common iliac arteries to 2.2 cm on the right. See below for follow-up. RECOMMENDATIONS: Managing Abdominal Aortic Aneurysms 2.6-2.9 cm: 5 year follow up. 3.0-3.4 cm: 3 year follow up 3.5-3.9 cm: 1 year follow up. 4.0-4.4 cm: 1 year follow up. Recommend vascular consultation. 4.5-5.4 cm: 6 month follow up. Recommend vascular consultation. Greater than or equal to 5.5 cm: Referral to vascular surgeon. Reference: Ke et al. The care of patients with an abdominal aortic aneurysm: The Society of Vascular Surgery practice guidelines. Journal of Vascular Surgery. Vol 50, Number 85. Jamal et al. Managing Incidental Findings on Abdominal and Pelvic CT and MRI, Part 2: White Paper of the ACR Incidental Findings Committee II on Vascular Findings. J Am Sharon Radiol 2013;10:789-794 D/ / 11/28/2016 22:56:24 Kayden Taylor MD / lgray Interpreting Provider: Kayden Taylor MD KUB X-Ray 11/28/16 17:51 IMPRESSION: Nasogastric tube in appropriate position. D/ / 11/28/2016 19:07:23 Jelani Smith MD / bcarter Interpreting Provider: Jelani Smith MD Exam - Constitutional Vitals: Temp Pulse Resp BP Pulse Ox 98.1 F 79 19 100/52 96 11/29/16 07:41 11/29/16 07:41 11/29/16 07:41 11/29/16 07:41 11/29/16 07:41 Exam: General: This is a frail appearing and cachetic 85 y.o. male who is currently alert but not orientated. He is lying in bed appears comfortable and no acute distress at this time. HEENT: NC/At anicteric sclera, Dry mucous membranes, neck is supple without mass or thyromegally. Trachea midline. Heart: RRR without murmur rubs or gallops. Lungs: Normal effort. CTAB. Abdomen: obese, non distended. Ostomy in place pink stoma, no stool in collection bag, he also has a REG with SS fluid today. HE has a wound vac with black sponge in place. Mild tenderness near operative site. BS are present today but are sluggish. MSK: Gross atrophy present. No gross deformity. Extremity: 1+ pitting edema to the level of the knee. Integument: No lesions or rashes on exposed skin - VTE Documentation of Mechanical Device: Graduated compression elastic hosiery Consult Discharge Plan - Plan Referrals: Gopal Remy MD [Partnered Physician] - 12/22/16 2:05 pm Cardoza,Antonella Rainey CNP [Primary Care Provider] - 12/02/16 9:00 am (SENT REQUEST ON @ 1016) - Attending Attestation I examined this patient and my medical decision-making was reviewed with the CONTROL OFFICER MANAGER/PA/Advanced Practice Nurse/Resident Physician. I agree with the documented findings, disposition and treatment plan as described except to the extent set forth below.
[2016-11-29] MEDS ORDERED: Clinimix E 5%-15% SOLUTION 2,000 ML with MVI, adult with vitamin K 10 ML IVC SCH (17:00)
[2016-11-30] MEDS: Piperacillin/Tazobactam 3.375 GM in D5% in Water (Mini-Bag+) 100 ML IVPB SCH ×3 (01:17→16:38)
[2016-11-30] MEDS: *HR* HYDROmorphone (PF) 1 MG/ML SYRINGE IVP PRN ×7 (01:18→23:04)
[2016-11-30 04:15] LABS: Basophils % 0.3 %; Eosinophils # 0.4 K/mcL (0.0-0.6); Eosinophils % 3.1 %; Hematocrit 24.5 % (37.5-50.1); Immature Granulocytes % 1.3 % (0-4); Lymphocytes # 0.4 K/mcL (0.6-4.6); Lymphocytes % 3.4 %; Mean Corpuscular HGB Conc 32.7 g/dL (31.6-35.5); Mean Corpuscular Hemoglobin 28.1 pg (28.0-33.3); Mean Platelet Volume 10.2 fL (9.4-12.4); Monocytes # 0.6 K/mcL (0.0-1.3); Monocytes % 5.5 %; Platelet Count 174 K/mcL (140-400); Red Blood Count 2.85 M/mcL (4.19-5.50); Red Cell Distribution Width 17.2 % (11.5-14.5); Segmented Neutrophils % 86.4 %
[2016-11-30 04:28] LABS: Magnesium 1.4 mg/dL (1.6-2.6); Phosphorous 3.2 mg/dL (2.3-4.7)
[2016-11-30 04:29] LABS: BUN/Creatinine Ratio 43 (6-26); Blood Urea Nitrogen 29 mg/dL (8-26); Calcium 7.2 mg/dL (8.6-10.8); Carbon Dioxide 23 mEq/L (19-29); Chloride 105 mEq/L (98-109); Glucose 115 mg/dL (70-99); Osmolality,Calculated 281 (280-300); Potassium 4.5 mEq/L (3.5-4.5); Sodium 132 mEq/L (136-145); eGFR For African Americans > 60 (> 60); eGFR For Non-African Americans > 60 (> 60)
[2016-11-30] MEDS: Pantoprazole 40 MG VIAL IVP SCH (05:27)
[2016-11-30] MEDS ORDERED: Calcium Gluconate 2,000 MG in D5% in Water 100 ML IVPB ONE ×2 (05:47→13:03)
[2016-11-30] MEDS: Magnesium Sulfate 2 GM in D5% in Water 100 ML IVPB PRN ×3 (06:14→20:38)
[2016-11-30] MEDS: Levothyroxine Sodium 100 MCG VIAL IVP SCH (08:55)
[2016-11-30] MEDS: Fluconazole 100 MG/50 ML 100 MG/50 ML BAG IVPB SCH (08:55)
[2016-11-30] MEDS: Heparin 25,000 UNIT/500 ML D5W 25,000 UNIT/500 ML MLS IVC SCH (09:08)
[2016-11-30] MEDS: Miconazole w/zinc oxide&karaya 92 APPL/92 GM TUBE TP SCH ×3 (09:49→19:36)
--- NOTE | 2016-11-30 10:19 | Palliative - Consult Note ---
Date of Encounter: 11/30/16 Time of Encounter: 10:15 - Assessment and Plan (1) Counseling regarding advanced care planning and goals of care Current Visit: Yes Status: Acute Assessment and plan: Patient has difficulty staying awake for goals of care discussion this am. Discussed extensively with , Janiya. They have on son who is currently working at [employer]. Patient has his advanced directives in place. tearful when discussing his hospitalization, complications, and cancer diagnosis. She is awaiting to speak with oncologist re: diagnosis, prognosis, and treatment options. She stated that if "treatment would not buy him quality time, and make him ill, she doesn't think he will want to do that". She describes pt as a very active man, did not retire until age 81, and kept busy with many hobbies. Discussed code status - she continues to desire aggressive level of care in hopes of his recovery from surgery, but does not desire CPR/defib/ACLS for cardiac arrest. Code status transitioned to DNRCC-Arrest. I discussed that we will follow up after oncology consultation and recommendations, and if we need to schedule meeting involving other family members to support /pt through decision making process, we would help facilitate that discussion. very pleasant and understanding. We will be following clinical course closely. Thank you for the consult. (2) Generalized pain Current Visit: Yes Status: Acute Assessment and plan: Patient appears to be over acute postop pain, and states his pain is "all over" and has had pain in his legs. He states his pain medication is effective, but puts him to sleep, and struggled staying awake. Discussed with pt/. Will decrease Hydromorphone to 1mg and leave every 2 hours PRN.. 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 Palliative-CN HPI - Data of Consult Consult date: 11/30/16 Requesting Physician: Gopal Remy MD Primary Care Provider: Antonella Cardoza CNP - Consult Narrative History of present illness: Mr. Craig is a 86 year old male who presented to the hospital with increasing abd pain. Patient had history of 35 lb weight loss and increasing abd pain, and was on schedule for colonoscopy. He developed acute abd pain and shortly after presented to the hospital. He was found to have perforation and was taken to surgery by Dr. Remy for exploratory celiotomy, sigmoid colectomy with colostomy, primary repair of left inguinal hernia, and repain of left iliac vein injury. His post-op course has been complicated with DVT rt leg/arm , no output from colostomy. He required re-insertion of NG, and is being supported nutritionally with TPN. He remains on IV antibiotics. is at bedside providing most of information. Patient awakens easily, and is alert to name and place, but drifts off to sleep during conversation. He appears very weak and needs help moving his extremities. states he has not been able to process "everything going on", and has been confused at times. He appears comfortable during my visit, states pain medication effective but he is having trouble staying awake and having vivid dreams. Surgical team has been by recently to see pt. Vitals stable. Generalized edema to all extemities and scotum. CC: Gopal Remy MD Past Med Surg Social Fam HX - Past Medical History Medical history: arthritis, GERD, hyperlipidemia, hypertension, thyroid disease , valvular heart disease, other Psychiatric history: no psych history - Past Surgical History Surgical History: other - Social History Smoking Status: Never smoker Smokeless Tobacco Status: No Alcohol use: none Drug use: none - Family History Father Living Status: Age at : 50 Hx Family Cancer: Yes (colon cancer) Mother Living Status: Age at : 90 Cause of : CAD Hx Family Cardiac Disorders: Yes Hx Family Endocrine Disorder: Yes (Diabetes Mellitus) Brother Living Status: Still Living Hx Family Cardiac Disorders: Yes Hx Family Endocrine Disorder: Yes (diabetes mellitus) Medications and Allergies Cyanocobalamin (Vitamin B-12) [Vitamin B12] 1,000 mcg PO DAILY 01/20/16 [History ] Cyclosporine [Restasis] 1 drop OP BID 01/20/16 [History] Levothyroxine [Synthroid] 50 mcg PO QAM 01/20/16 [History] Multivitamin [Multi-Day Vitamins] 1 tab PO DAILY 01/20/16 [History] Nabumetone 750 mg PO BID 01/20/16 [History] Omeprazole [PriLOSEC] 20 mg PO DAILY 01/20/16 [History] Polyvinyl Alcohol [Artificial Tears] 1 drop OP BID PRN 01/20/16 [History] Fluticasone Propionate Nasal [Flonase] 50 mcg NS DAILY 04/21/16 [History] Ipratropium [place] 1 spray NS BID 04/21/16 [History] Aspirin 81 mg PO DAILY 30 Days 04/23/16 [Rx] Ascorbate Calcium [Vitamin C] 500 mg PO DAILY 11/17/16 [History] Diltiazem [Cardizem] 30 mg PO TID 11/17/16 [History] Ferrous Sulfate [Iron] 325 mg PO DAILY 11/17/16 [History] Sennosides [Senna] 17.2 mg PO HS PRN 11/17/16 [History] Allergies celecoxib [From Celebrex] Adverse Reaction (Verified 11/17/16 15:29) See Comments patient unsure of reaction prednisone Adverse Reaction (Verified 11/17/16 15:29) Rash patient wasnt sure of reaction to this Sulfa (Sulfonamide Antibiotics) Adverse Reaction (Verified 11/17/16 15:29) Rash patient wasnt sure of reaction ROS unobtainable: due to mental status Palliative Care-Exam - Constitutional Vitals: Temp Pulse Resp BP Pulse Ox 98.2 F 76 22 117/57 98 11/30/16 06:54 11/30/16 06:54 11/30/16 06:54 11/30/16 06:54 11/30/16 06:54 General appearance: Present: no acute distress - Head Head Exam: Present: normal inspection - Eye Eye exam: Present: normal appearance, PERRL - Respiratory Respiratory exam: Present: decreased breath sounds, CTAB - Cardiovascular Cardiovascular exam: Present: +S1, +S2 - GI/Abdominal Exam GI/Abdominal exam: Present: normal bowel sounds, soft additional comments: Stoma pink, no drainage noted in appliance. Wound vac/REG drain intact. - Catheter Type: Urethral ([place]) Additional comments: Urine dk bulmaro - Extremities Exam Additional comments: generalized edema to all extremities. Rt arm greater than left. Left leg with some purplish discoloration. All extremities warm to touch - Neurological Exam Neurological exam: Present: alert Additional comments: Oriented to name and place, but makes inappropriate statements at times. Follows simple commands. Difficulty moving extremities r/t weakness. - Skin Skin exam: Present: dry, pallor, warm Internal Medicine - CN: Reslt - Labs CBC & Chem 7: 11/30/16 Unknown 11/30/16 Unknown Labs: Short CBC 11/30/16 Range/Units Unknown WBC 11.6 H (4.3-11.1) K/mcL Hgb 8.0 L (12.9-16.9) g/dL Hct 24.5 L (37.5-50.1) % Plt Count 174 (140-400) K/mcL Neutrophils # 10.0 H (1.6-8.9) K/mcL BMP 11/30/16 Unknown Sodium 132 L Potassium 4.5 Chloride 105 Carbon Dioxide 23 BUN 29 H Creatinine 0.68 L Glucose 115 H Calcium 7.2 L - ABG Interpretation ABG results: PT/INR, D-dimer PT 14.0 Seconds (9.4-12.1) H 11/17/16 11:03 - Impressions Impressions Abdomen/Pelvis CT 11/28/16 17:10 IMPRESSION: 1. Postsurgical changes from recent sigmoid mass resection with end colostomy in place. 2. The study is limited without the use of IV contrast. There are two formed fluid collections identified within the lower abdomen/pelvis, one measuring 3.5 x 3.5 cm within the lower abdominal mesentery (image 96), and a second more posterior collection measuring 3.2 x 2.1 cm with a few foci of gas, immediately anterior to the S1 vertebral body (image 99). These are nonspecific, but could represent abscess in the appropriate clinical setting, especially the collection with a foci of gas. There is a right anterior abdominal approach surgical drain in place, with tip terminating near but not definitely within the more posterior collection. 3. There is a 2.2 cm lymph node in the right lower quadrant mesentery, suspicious for a metastatic lesion. Additional small subcentimeter lymph nodes are scattered throughout the mesentery and retroperitoneum, which are nonspecific. 4. Stable small hypodense liver lesions measuring up to 1.5 cm. Additional stable 4.2 cm hypodense lesion in area of the abbey hepatis, possibly within the left hepatic lobe. 5. Hydropic gallbladder with gallstones. 6. Diffuse anasarca. 7. Large left inguinal hernia containing free fluid. 8. Small right inguinal hernia, now containing a loop of small bowel without evidence of small bowel obstruction. 9. Fusiform ectasia of the distal abdominal aorta to 2.9 cm. Additional ectasia of bilateral common iliac arteries to 2.2 cm on the right. See below for follow-up. RECOMMENDATIONS: Managing Abdominal Aortic Aneurysms 2.6-2.9 cm: 5 year follow up. 3.0-3.4 cm: 3 year follow up 3.5-3.9 cm: 1 year follow up. 4.0-4.4 cm: 1 year follow up. Recommend vascular consultation. 4.5-5.4 cm: 6 month follow up. Recommend vascular consultation. Greater than or equal to 5.5 cm: Referral to vascular surgeon. Reference: Ke et al. The care of patients with an abdominal aortic aneurysm: The Society of Vascular Surgery practice guidelines. Journal of Vascular Surgery. Vol 50, Number 85. Jamal et al. Managing Incidental Findings on Abdominal and Pelvic CT and MRI, Part 2: White Paper of the ACR Incidental Findings Committee II on Vascular Findings. J Am Sharon Radiol 2013;10:789-794 D/ / 11/28/2016 22:56:24 Kayden Taylor MD / landry Interpreting Provider: Kayden Taylor MD Consult Discharge Plan - Plan Referrals: Gopal Remy MD [Partnered Physician] - 12/22/16 2:05 pm Cardoza,Antonella Rainey CNP [Primary Care Provider] - 12/02/16 9:00 am (SENT REQUEST ON @ 1016) Palliative Quality Palliative Quality: Screen for Code Status: Yes, Screen for Goals of Care: Yes, Screen for Pain: Yes, If Pain Regimen Started, Initiate Bowel Regimen: NA, Screen for Nausea/Vomitting: Yes
--- NOTE | 2016-11-30 10:38 | General Surgery Progress Note ---
<Mitali Mart - Last Filed: 11/30/16 16:56> Date of Encounter: 11/30/16 Time of Encounter: 09:30 - Assessment and Plan (1) Perforated sigmoid colon Current Visit: Yes Status: Acute POD #13 Exploratory celiotomy; Sigmoid colectomy with colostomy; Primary repair of left inguinal hernia; Repair of left external/internal iliac vein injury Continue NG tube to LIWS Supportive care and pain control Continue NPO except ice chips and TPN/lipids Total IV fluids 100 ML/hr Await return of bowel function, faint bowel sounds noted, bowel sweat noted per ostomy Colostomy stoma pink, edematous, and without output Inserted dulcolax suppository with ostomy appliance change Wound Care Wound vac changed today: Midline surgical incision, open and noted 50% granulation tissue and 50% fibrous tissue. Small amount of cloudy drainage noted without odor. Free from tunneling or undermining. -Continue wound vac. Next dressing change due Monday12/02/2016. REG aburto small amount of purulent drainage noted PT/OT, mobilize as tolerated Palliative care and oncology consulted for treatment recommendations; noted code status change to DNRCC-A (2) Left inguinal hernia Current Visit: Yes Status: Acute POD #13 Exploratory celiotomy; Sigmoid colectomy with colostomy; Primary repair of left inguinal hernia; Repair of left external/internal iliac vein injury No significant increase in scrotal edema noted. Continue barrier cream and scrotal sling/elevation CT 11/28/2016 demonstrates large left inguinal hernia containing free fluid and small right and went on hernia now containing a loop of small bowel without evidence of small bowel obstruction. (3) Failure to thrive Current Visit: Yes Status: Acute Palliative care and oncology consulted for treatment recommendations Noted code status changed to DNRCC-A Qualifiers: Failure to thrive age range: in adult Qualified Code(s): R62.7 - Adult failure to thrive (4) Leukocytosis Current Visit: Yes Status: Acute POD #13 Exploratory celiotomy; Sigmoid colectomy with colostomy; Primary repair of left inguinal hernia; Repair of left external/internal iliac vein injury Man[employer] per ID -Noted two formed fluid collections that do not meet drainage criteria at this time. -Current abx per ID Zosyn 3.375 g b.i.d. Fluconazole 100 mg daily Ciprofloxacin d/c'd 11/29/2016 Will Continue to monitor Qualifiers: Leukocytosis type: other Qualified Code(s): D72.828 - Other elevated white blood cell count (5) DVT prophylaxis Current Visit: No Status: Acute Yadi Doppler 11/27/2016 demonstrates occlusive thrombus in the right subclavian and basilic vein. Left lower extremity on 11/27/2016 showed occlusive thrombus in the left distal iliac, common for moral, and popliteal veins. Vascular was previously consult Pauline and noted to have started the patient on heparin drip and he is currently therapeutic. Venous dopplers 11/28/2016 DVT RUE, LUE, and LLE noted No PAULINE hose LLE (6) Electrolyte abnormality Current Visit: Yes Status: Acute Electrolyte protocol is in place. Noted mild and asymptomatic Hyponatremia ; urine osmolaity normal Will continue to monitor and review serial labs (7) ASHD (arteriosclerotic heart disease) Current Visit: Yes Status: Chronic Chronic PAD, non-emergent management per vascular/Dr. Jara. Will continue to monitor. (8) Anemia Current Visit: Yes Status: Acute Noted stable vital signs are stable repeat a.m. labs will continue to monitor Qualifiers: Anemia type: other cause Other causes of anemia: other cause, not classified Qualified Code(s): D64.89 - Other specified anemias Subjective Narrative: Mr. Craig states some discomfort "on the outside" of his abdomen that has not changed since yesterday. Mrs Craig is at bedside and denies questions at this time. He denies n/v/or output in his ostomy. He endorses feeling weak and states , "if just one thing was happening I would be fine, but all this just feels horrible." Objective Vital Signs - Last 8 Hours Temp Pulse Resp BP Pulse Ox 11/30/16 06:54 98.2 F 76 22 117/57 98 11/30/16 05:47 98.4 F 96 24 115/74 96 11/30/16 04:29 86 Intake and Output 11/29/16 11/30/16 11/30/16 23:59 07:59 15:59 Intake Total 100 / 100 400 / 400 500 / 500 Output Total 0 / 0 5 / 5 Balance 100 / 100 395 / 395 500 / 500 Intake: IV Fluids 100 / 100 400 / 400 500 / 500 Heparin 25,000 UNIT/500 500 / 500 ML D5W 25,000 unit In 500 ml @ 14 UNIT/KG/HR 24. 108 mls/hr IVC .[id number] [facility] Rx#:[id number] Intralipid 20% 250 ML @ 300 / 300 21 mls/hr IVPB DAILY@1700 [facility] Rx#:[id number] Zosyn 3.375 GM In 100 / 100 100 / 100 Dextrose 5% (Minibag+) 100 ML 100 ML @ 25 mls/hr IVPB Q8H [facility] Rx#: [id number] Output: Gastric Tube Lavage 0 / 0 0 / 0 Amount Right Nare 0 / 0 0 / 0 Wound Drainage 5 / 5 Abdomen 5 / 5 Other: Meal npo Blood Glucose* 129 - General physical appearance no distress, moderate pain, chronically ill - Eyes normal ocular movement, pale - ENT CN 2-12 grossly intact - Neck Neck exam: no masses, trachea midline, other (some venous distention) - Respiratory other (Decreased resp effort. =BL crackles anteriorly) - Cardiovascular Cardiovascular exam: Present: RRR, murmurs (3/6 systolic murmur at the base), clicks - Abdomen Abdomen: Present: bowel sounds present (faint and hypoactive), tender Abdominal Tenderness: diffusely (superficial) - Incision Incision: Present: open (wound vac noted; REG drain with purulent drainage noted ; see assessment and plan for further detail) - Genitourinary other (penis is retracted. jeff catheter noted; scrotum remains edematous and elevated) - Integumentary no rash - Neurologic other (drowsy but responsive. answers questions appropriately.) - Psychiatric oriented to time, oriented to person, oriented to place - Labs 11/30/16 Unknown 11/30/16 Unknown Diabetes panel 11/30/16 Range/Units Unknown Sodium 132 L (136-145) mEq/L Potassium 4.5 (3.5-4.5) mEq/L Chloride 105 (98-109) mEq/L Carbon Dioxide 23 (19-29) mEq/L BUN 29 H (8-26) mg/dL Creatinine 0.68 L (0.72-1.25) mg/dL Glucose 115 H (70-99) mg/dL Calcium 7.2 L (8.6-10.8) mg/dL Calcium panel 11/30/16 11/30/16 Range/Units Unknown Unknown Calcium 7.2 L (8.6-10.8) mg/dL Phosphorus 3.2 (2.3-4.7) mg/dL Pituitary panel 11/30/16 Range/Units Unknown Sodium 132 L (136-145) mEq/L Potassium 4.5 (3.5-4.5) mEq/L Chloride 105 (98-109) mEq/L Carbon Dioxide 23 (19-29) mEq/L BUN 29 H (8-26) mg/dL Creatinine 0.68 L (0.72-1.25) mg/dL Glucose 115 H (70-99) mg/dL Calcium 7.2 L (8.6-10.8) mg/dL Adrenal panel 11/30/16 Range/Units Unknown Sodium 132 L (136-145) mEq/L Potassium 4.5 (3.5-4.5) mEq/L Chloride 105 (98-109) mEq/L Carbon Dioxide 23 (19-29) mEq/L BUN 29 H (8-26) mg/dL Creatinine 0.68 L (0.72-1.25) mg/dL Glucose 115 H (70-99) mg/dL Calcium 7.2 L (8.6-10.8) mg/dL - VTE Documentation of Mechanical Device: Graduated compression elastic hosiery Consult Discharge Plan - Plan Referrals: Gopal Remy MD [Partnered Physician] - 12/22/16 2:05 pm Cardoza,Antonella Rainey CNP [Primary Care Provider] - 12/02/16 9:00 am (SENT REQUEST ON @ 1016) <Kaia Quiles - Last Filed: 11/30/16 21:54> Date of Encounter: 11/30/16 - Assessment and Plan (1) Abdominal pain Current Visit: Yes Status: Acute prn pain control Qualifiers: Abdominal location: generalized Qualified Code(s): R10.84 - Generalized abdominal pain (2) Adenocarcinoma of sigmoid colon Current Visit: Yes Status: Acute (3) Ileus Current Visit: Yes Status: Acute post op ileus yet to resolve, awaiting return of bowel function (4) Left inguinal hernia Current Visit: Yes Status: Acute there is no hernia present on the left, it is fluid that has crossed the repair and is in the defect created by the previous hernia. (5) Leukocytosis Current Visit: Yes Status: Acute Qualifiers: Leukocytosis type: other Qualified Code(s): D72.828 - Other elevated white blood cell count (6) Lower extremity edema Current Visit: Yes Status: Acute pauline hose RLE only (7) PVD (peripheral vascular disease) Current Visit: Yes Status: Chronic (8) Edema of upper extremity Current Visit: Yes Status: Acute (9) DVT of lower extremity (deep venous thrombosis) Current Visit: Yes Status: Acute continue heparin gtt, Hb stable Qualifiers: Affected thrombotic vein of extremity: iliac Chronicity: acute Laterality : left Qualified Code(s): I82.422 - Acute embolism and thrombosis of left iliac vein (10) DVT of upper extremity (deep vein thrombosis) Current Visit: Yes Status: Acute continue heparin gtt, Hb stable Qualifiers: Affected thrombotic vein of extremity: axillary Chronicity: acute Laterality: right Qualified Code(s): I82.A11 - Acute embolism and thrombosis of right axillary vein (11) Physical deconditioning Current Visit: Yes Status: Chronic to work with PT/OT as able (12) Severe protein-calorie malnutrition Current Visit: Yes Status: Chronic continue tpn, unable to take in po currenlty (13) Hypothyroid Current Visit: No Status: Chronic continue iv synthroid Qualifiers: Hypothyroidism type: unspecified Qualified Code(s): E03.9 - Hypothyroidism , unspecified (14) S/P colectomy Current Visit: Yes Status: Acute Subjective Patient reports: no flatus, no bowel movement Narrative: patient denies nausea, states he feels pretty good today. No flatus or bm from ostomy pain primarily controlled Objective Vital Signs - Last 8 Hours Temp Pulse Resp BP Pulse Ox 11/30/16 20:00 98.9 F 75 14 109/54 98 11/30/16 19:57 81 11/30/16 15:08 98.6 F 80 20 89/61 99 Intake and Output 11/30/16 11/30/16 11/30/16 07:59 15:59 23:59 Intake Total 400 / 400 804 / 804 513 / 513 Output Total 5 / 5 1800 / 1800 100 / 100 Balance 395 / 395 -996 / -996 413 / 413 Intake: IV Fluids 400 / 400 804 / 804 513 / 513 Heparin 25,000 UNIT/500 500 / 500 313 / 313 ML D5W 25,000 unit In 500 ml @ 14 UNIT/KG/HR 24. 108 mls/hr IVC .[id number] [facility] Rx#:[id number] Intralipid 20% 250 ML @ 300 / 300 200 / 200 21 mls/hr IVPB DAILY@1700 [facility] Rx#:[id number] Magnesium Sulfate 2 GM In 204 / 204 Dextrose 5% 100 ML @ 50 mls/hr IVPB Q6H [facility] Rx#: [id number] Zosyn 3.375 GM In 100 / 100 100 / 100 Dextrose 5% (Minibag+) 100 ML 100 ML @ 25 mls/hr IVPB Q8H [facility] Rx#: [id number] Output: Urine 1800 / 1800 2-way Urethral 1800 / 1800 Gastric Tube Lavage 0 / 0 0 / 0 Amount Right Nare 0 / 0 0 / 0 Wound Drainage 5 / 5 100 / 100 Abdomen 5 / 5 100 / 100 Other: Meal npo Blood Glucose* 129 112 111 - General physical appearance no distress, cachectic, chronically ill - Eyes normal ocular movement - ENT dry mucosa, atraumatic - Neck Neck exam: trachea midline - Respiratory normal expansion, other - Cardiovascular Cardiovascular exam: Present: RRR, murmurs - Abdomen Abdomen: Present: bowel sounds present, soft, tender (appropriate post op tenderess) Abdominal Tenderness: diffusely - Incision Incision: Present: open - Integumentary no rash, no growths - Neurologic CN 2-12 grossly intact - Musculoskeletal normal posture - Psychiatric oriented to time, memory intact - Labs 11/30/16 Unknown 11/30/16 Unknown Diabetes panel 11/30/16 Range/Units Unknown Sodium 132 L (136-145) mEq/L Potassium 4.5 (3.5-4.5) mEq/L Chloride 105 (98-109) mEq/L Carbon Dioxide 23 (19-29) mEq/L BUN 29 H (8-26) mg/dL Creatinine 0.68 L (0.72-1.25) mg/dL Glucose 115 H (70-99) mg/dL Calcium 7.2 L (8.6-10.8) mg/dL Calcium panel 11/30/16 11/30/16 Range/Units Unknown Unknown Calcium 7.2 L (8.6-10.8) mg/dL Phosphorus 3.2 (2.3-4.7) mg/dL Pituitary panel 11/30/16 Range/Units Unknown Sodium 132 L (136-145) mEq/L Potassium 4.5 (3.5-4.5) mEq/L Chloride 105 (98-109) mEq/L Carbon Dioxide 23 (19-29) mEq/L BUN 29 H (8-26) mg/dL Creatinine 0.68 L (0.72-1.25) mg/dL Glucose 115 H (70-99) mg/dL Calcium 7.2 L (8.6-10.8) mg/dL Adrenal panel 11/30/16 Range/Units Unknown Sodium 132 L (136-145) mEq/L Potassium 4.5 (3.5-4.5) mEq/L Chloride 105 (98-109) mEq/L Carbon Dioxide 23 (19-29) mEq/L BUN 29 H (8-26) mg/dL Creatinine 0.68 L (0.72-1.25) mg/dL Glucose 115 H (70-99) mg/dL Calcium 7.2 L (8.6-10.8) mg/dL - Attending Attestation I examined this patient and my medical decision-making was reviewed with the NURSE EXECUTIVE/PA/Advanced Practice Nurse/Resident Physician. I agree with the documented findings, disposition and treatment plan as described except to the extent set forth below.
--- NOTE | 2016-11-30 11:46 | Infectious Disease Progress No ---
Date of Encounter: 11/30/16 - Assessment and Plan (1) Perforated bowel Current Visit: Yes Status: Acute Patient is s/p Ex lap, sigmoid colectomy and colostomy 11/17/16. Patient developed severe sepsis with organ damage. Renal function has since returned to normal. TMax over last 24 hours has been 99.8. Leukocytosis trending down. CT of the abdomen with IV contrast reveals new fluid 3.1 X 2.1collection in the pelvis anterior to the S1 vertebral body and a second 3.5 X 3.5 fluid collection in the mid abdominal mesentery. These fluid collection may possibly be abscesses. However complicated as he is in the post operative period , lack of PO contrast. Additionally REG in place is draining purulent material and may be adequate for drainage. If clinically worsening may consider further interventions. I will review surgeries notes from today and plan to discuss with them tomorrow as well. Recommendations: continuing Zosyn and diflucan. discontinuing Cipro. CRCL 93 so no need to adjust the dosage at this time. Thank you for involving the infectious disease team in this patient's care. (2) Adenocarcinoma of sigmoid colon Current Visit: Yes Status: Acute Tumor had invaded through the muscularis propria and into the pericolic area. Additionally there was nakul involvement. management per Oncology and primary team. HE likely has a poor prognosis given that he has metastatic disease/nakul involement, advanced age, medical comorbidities, and malnutrition. (3) Delirium Current Visit: Yes Status: Acute Patient is still having confusion. However appears to be somewhat less today. continue treating underlying medical causes of his delerium. (4) Urinary tract infection Current Visit: Yes Status: Acute likely contaminated specimen. ALso current antibiotics adequate for bacteria that grew from urine culture. Qualifiers: Urinary tract infection type: site unspecified Hematuria presence: without hematuria Qualified Code(s): N39.0 - Urinary tract infection, site not specified (5) Severe sepsis with acute organ dysfunction Current Visit: Yes Status: Acute Patient No longer meets SIRS criteria. Leukocytosis trending down. Afebrile overnight WBC count trending down. ALFIE has resolved. (6) Failure to thrive Current Visit: Yes Status: Acute patient has physical signs of malnutrition. currently on TPN. Qualifiers: Failure to thrive age range: in adult Qualified Code(s): R62.7 - Adult failure to thrive (7) Ileus Current Visit: Yes Status: Acute No bowel movements. No fecal content in ostomy bag this AM. However he did have some sluggish bowel sounds this AM during my exam. Patient had hypocalcemia and this was replaced this AM. Management per primary team / surgery. (8) PVD (peripheral vascular disease) Current Visit: Yes Status: Chronic severe No signs of acute occlusion at this time. Management per vascular Surgery (9) DVT of upper extremity (deep vein thrombosis) Current Visit: Yes Status: Acute on heparin gtt. Currently therapeutic. per primary team. Qualifiers: Affected thrombotic vein of extremity: axillary Chronicity: acute Laterality: right Qualified Code(s): I82.A11 - Acute embolism and thrombosis of right axillary vein (10) Leukocytosis Current Visit: Yes Status: Acute trending down. Qualifiers: Leukocytosis type: unspecified Qualified Code(s): D72.829 - Elevated white blood cell count, unspecified - Subjective Interval history: No major events overnight. Patient still quite confused at this time. Denies pain or discomfort. Denies dyspnea. He has no complaints at this time. dose state that patient appears to be complaining of more lower abdominal pain overnight and this AM. No bowel movements reported by staff development coordinator or patients . Infect Dis PN-Objective Data - Labs CBC & Chem 7: 11/30/16 Unknown 11/30/16 Unknown Labs: Laboratory Results - last 24 hr 11/29/16 11/29/16 11/29/16 06:12 12:00 12:03 WBC RBC Hgb Hct MCV MCH MCHC RDW Plt Count MPV Immature Gran % Seg Neutrophils % Lymphocytes % Monocytes % Eosinophils % Basophils % Neutrophils # Lymphocytes # Monocytes # Eosinophils # Basophils # APTT Sodium Potassium Chloride Carbon Dioxide BUN Creatinine Est GFR ( Amer) Est GFR (Non-Af Amer) BUN/Creatinine Ratio Glucose POC Glucose 106 H 111 H Calculated Osmolality Calcium Ionized Calcium Phosphorus Magnesium 2.1 Urine Osmolality Specimen Rejected 11/29/16 11/29/16 11/29/16 12:03 13:18 13:30 WBC RBC Hgb Hct MCV MCH MCHC RDW Plt Count MPV Immature Gran % Seg Neutrophils % Lymphocytes % Monocytes % Eosinophils % Basophils % Neutrophils # Lymphocytes # Monocytes # Eosinophils # Basophils # APTT 93.5 H D Sodium Potassium Chloride Carbon Dioxide BUN Creatinine Est GFR ( Amer) Est GFR (Non-Af Amer) BUN/Creatinine Ratio Glucose POC Glucose Calculated Osmolality Calcium Ionized Calcium Phosphorus Magnesium Urine Osmolality 608 Specimen Rejected Miscellaneous 11/29/16 11/29/16 11/29/16 18:00 Unknown Unknown WBC RBC Hgb Hct MCV MCH MCHC RDW Plt Count MPV Immature Gran % Seg Neutrophils % Lymphocytes % Monocytes % Eosinophils % Basophils % Neutrophils # Lymphocytes # Monocytes # Eosinophils # Basophils # APTT 75.9 H Sodium Potassium Chloride Carbon Dioxide BUN Creatinine Est GFR ( Amer) Est GFR (Non-Af Amer) BUN/Creatinine Ratio Glucose POC Glucose 91 H Calculated Osmolality Calcium Ionized Calcium 1.08 L Phosphorus Magnesium Urine Osmolality Specimen Rejected 11/30/16 11/30/16 11/30/16 05:51 Unknown Unknown WBC RBC Hgb Hct MCV MCH MCHC RDW Plt Count MPV Immature Gran % Seg Neutrophils % Lymphocytes % Monocytes % Eosinophils % Basophils % Neutrophils # Lymphocytes # Monocytes # Eosinophils # Basophils # APTT 66.2 H Sodium 132 L Potassium 4.5 Chloride 105 Carbon Dioxide 23 BUN 29 H Creatinine 0.68 L Est GFR ( Amer) > 60 Est GFR (Non-Af Amer) > 60 BUN/Creatinine Ratio 43 H Glucose 115 H POC Glucose 129 H Calculated Osmolality 281 Calcium 7.2 L Ionized Calcium Phosphorus Magnesium Urine Osmolality Specimen Rejected 11/30/16 11/30/16 11/30/16 Unknown Unknown Unknown WBC 11.6 H RBC 2.85 L Hgb 8.0 L Hct 24.5 L MCV 86.0 MCH 28.1 MCHC 32.7 RDW 17.2 H Plt Count 174 MPV 10.2 Immature Gran % 1.3 Seg Neutrophils % 86.4 Lymphocytes % 3.4 Monocytes % 5.5 Eosinophils % 3.1 Basophils % 0.3 Neutrophils # 10.0 H Lymphocytes # 0.4 L Monocytes # 0.6 Eosinophils # 0.4 Basophils # 0.0 APTT Sodium Potassium Chloride Carbon Dioxide BUN Creatinine Est GFR ( Amer) Est GFR (Non-Af Amer) BUN/Creatinine Ratio Glucose POC Glucose Calculated Osmolality Calcium Ionized Calcium 1.09 L Phosphorus 3.2 Magnesium 1.4 L Urine Osmolality Specimen Rejected Cultures: Serology 11/29/16 11/20/16 Range/Units 13:30 03:52 Urine Color Yellow (Yellow) Urine Clarity Turbid A (Clear) Urine pH 5.0 (5.0-8.0) pH Units Ur Specific Morton 1.027 H (1.010-1.025) Urine Protein 30 H (Neg-Trace) mg/dL Urine Glucose (UA) Normal (Normal) mg/dL Urine Ketones Negative (Negative) mg/dL Urine Blood Small H (Negative) Urine Nitrite Negative (Negative) Urine Bilirubin Negative (Negative) Urine Urobilinogen Normal (Normal) mg/dL Ur Leukocyte Esterase Negative (Negative) Urine Microscopic RBC 5-15 H (0-3) per hpf Urine Microscopic WBC 5-15 H (0-3) per hpf Ur Squamous Epith Cells Many H (None-Few) per lpf Amorphous Sediment Few (Few) Urine Bacteria Few (None-Few) per hpf Hyaline Casts None Seen (None-Few) per lpf Urine Yeast Test Not Performed Urine Osmolality 608 (300-1090) mOsm/kg - Impressions Impressions Abdomen/Pelvis CT 11/28/16 17:10 IMPRESSION: 1. Postsurgical changes from recent sigmoid mass resection with end colostomy in place. 2. The study is limited without the use of IV contrast. There are two formed fluid collections identified within the lower abdomen/pelvis, one measuring 3.5 x 3.5 cm within the lower abdominal mesentery (image 96), and a second more posterior collection measuring 3.2 x 2.1 cm with a few foci of gas, immediately anterior to the S1 vertebral body (image 99). These are nonspecific, but could represent abscess in the appropriate clinical setting, especially the collection with a foci of gas. There is a right anterior abdominal approach surgical drain in place, with tip terminating near but not definitely within the more posterior collection. 3. There is a 2.2 cm lymph node in the right lower quadrant mesentery, suspicious for a metastatic lesion. Additional small subcentimeter lymph nodes are scattered throughout the mesentery and retroperitoneum, which are nonspecific. 4. Stable small hypodense liver lesions measuring up to 1.5 cm. Additional stable 4.2 cm hypodense lesion in area of the abbey hepatis, possibly within the left hepatic lobe. 5. Hydropic gallbladder with gallstones. 6. Diffuse anasarca. 7. Large left inguinal hernia containing free fluid. 8. Small right inguinal hernia, now containing a loop of small bowel without evidence of small bowel obstruction. 9. Fusiform ectasia of the distal abdominal aorta to 2.9 cm. Additional ectasia of bilateral common iliac arteries to 2.2 cm on the right. See below for follow-up. RECOMMENDATIONS: Managing Abdominal Aortic Aneurysms 2.6-2.9 cm: 5 year follow up. 3.0-3.4 cm: 3 year follow up 3.5-3.9 cm: 1 year follow up. 4.0-4.4 cm: 1 year follow up. Recommend vascular consultation. 4.5-5.4 cm: 6 month follow up. Recommend vascular consultation. Greater than or equal to 5.5 cm: Referral to vascular surgeon. Reference: Ke et al. The care of patients with an abdominal aortic aneurysm: The Society of Vascular Surgery practice guidelines. Journal of Vascular Surgery. Vol 50, Number 85. Jamal et al. Managing Incidental Findings on Abdominal and Pelvic CT and MRI, Part 2: White Paper of the ACR Incidental Findings Committee II on Vascular Findings. J Am Sharon Radiol 2013;10:789-794 D/ / 11/28/2016 22:56:24 Kay[facility] Interpreting Provider: Kayden Taylor MD Exam - Constitutional Vitals: Temp Pulse Resp BP Pulse Ox 99.0 F 70 20 106/56 99 11/30/16 11:31 11/30/16 11:31 11/30/16 11:31 11/30/16 11:31 11/30/16 11:31 - VTE Documentation of Mechanical Device: Graduated compression elastic hosiery Consult Discharge Plan - Plan Referrals: Gopal Remy MD [Partnered Physician] - 12/22/16 2:05 pm Antonella Cardoza CNP [Primary Care Provider] - 12/02/16 9:00 am (SENT REQUEST ON @ 1016)
[2016-11-30 12:00] LABS: Ionized Calcium 1.08 mmol/L (1.15-1.35)
[2016-11-30 13:00] LABS: Magnesium 1.6 mg/dL (1.6-2.6)
--- NOTE | 2016-11-30 13:50 | Infectious Disease Progress No ---
Date of Encounter: 12/01/16 Time of Encounter: 13:47 - Assessment and Plan (1) Perforated bowel Status: Acute Patient is s/p Ex lap, sigmoid colectomy and colostomy 11/17/16. Patient developed severe sepsis with organ damage. Renal function has since returned to normal. TMax over last 24 hours has been 100.1 Leukocytosis trending down. I discussed fluid collections and possible abscess with surgical team. They stated they were small and did not require any further surgical intervention at this time. Recommendations: continuing Zosyn and diflucan CrCL 90 no dosage adjustments needed Thank you for involving the infectious disease team in this patient's care. (2) Severe sepsis with acute organ dysfunction Status: Acute Patient has 3 SIRS criteria with Leukocytosis, tachycardia and tachypnea. Leukocytosis trending down. TMAX 100.1 WBC count trending down. ALFIE has resolved. (3) Adenocarcinoma of sigmoid colon Status: Acute Tumor had invaded through the muscularis propria and into the pericolic area. Additionally there was nakul involvement. management per Oncology and primary team. HE likely has a poor prognosis given that he has metastatic disease/nakul involement, advanced age, medical comorbidities, and malnutrition. (4) Delirium Status: Acute Patient is still having confusion. However appears to be somewhat less today. continue treating underlying medical causes of his delerium. (5) Urinary tract infection Status: Resolved likely contaminated specimen. ALso current antibiotics adequate for bacteria that grew from urine culture. Qualifiers: Urinary tract infection type: site unspecified Hematuria presence: without hematuria Qualified Code(s): N39.0 - Urinary tract infection, site not specified (6) Failure to thrive Status: Acute patient has physical signs of malnutrition. currently on TPN. Qualifiers: Failure to thrive age range: in adult Qualified Code(s): R62.7 - Adult failure to thrive (7) Ileus Status: Resolved management per surgery (8) PVD (peripheral vascular disease) Status: Chronic severe No signs of acute occlusion at this time. Management per vascular Surgery (9) DVT of upper extremity (deep vein thrombosis) Status: Acute on heparin gtt. Currently therapeutic. per primary team. Qualifiers: Affected thrombotic vein of extremity: axillary Chronicity: acute Laterality: right Qualified Code(s): I82.A11 - Acute embolism and thrombosis of right axillary vein (10) Leukocytosis Status: Acute trending down. Qualifiers: Leukocytosis type: unspecified Qualified Code(s): D72.829 - Elevated white blood cell count, unspecified - Subjective Interval history: No major events overnight. Patient is still having some confusion and is still quite conversant. Patients family met with palliative care and he is now a DNRCCA. This morning Mr. Craig dose complain of some lower abdominal pain. He was recieving pain medications during my interview. He denies cough, wheeze or shortness of breath. He has no further complaints or concerns this am. Infect Dis PN-Objective Data - Labs CBC & Chem 7: 12/03/16 03:51 12/06/16 06:45 Labs: Laboratory Results - last 24 hr 11/29/16 11/29/16 11/29/16 06:12 12:00 13:18 WBC RBC Hgb Hct MCV MCH MCHC RDW Plt Count MPV Immature Gran % Seg Neutrophils % Lymphocytes % Monocytes % Eosinophils % Basophils % Neutrophils # Lymphocytes # Monocytes # Eosinophils # Basophils # APTT 93.5 H D Sodium Potassium Chloride Carbon Dioxide BUN Creatinine Est GFR ( Amer) Est GFR (Non-Af Amer) BUN/Creatinine Ratio Glucose POC Glucose 106 H 111 H Calculated Osmolality Calcium Ionized Calcium Phosphorus Magnesium Urine Osmolality 11/29/16 11/29/16 11/29/16 13:30 18:00 Unknown WBC RBC Hgb Hct MCV MCH MCHC RDW Plt Count MPV Immature Gran % Seg Neutrophils % Lymphocytes % Monocytes % Eosinophils % Basophils % Neutrophils # Lymphocytes # Monocytes # Eosinophils # Basophils # APTT 75.9 H Sodium Potassium Chloride Carbon Dioxide BUN Creatinine Est GFR ( Amer) Est GFR (Non-Af Amer) BUN/Creatinine Ratio Glucose POC Glucose 91 H Calculated Osmolality Calcium Ionized Calcium Phosphorus Magnesium Urine Osmolality 608 11/29/16 11/30/16 11/30/16 Unknown 05:51 10:58 WBC RBC Hgb Hct MCV MCH MCHC RDW Plt Count MPV Immature Gran % Seg Neutrophils % Lymphocytes % Monocytes % Eosinophils % Basophils % Neutrophils # Lymphocytes # Monocytes # Eosinophils # Basophils # APTT Sodium Potassium Chloride Carbon Dioxide BUN Creatinine Est GFR ( Amer) Est GFR (Non-Af Amer) BUN/Creatinine Ratio Glucose POC Glucose 129 H Calculated Osmolality Calcium Ionized Calcium 1.08 L 1.08 L Phosphorus Magnesium 1.6 Urine Osmolality 11/30/16 11/30/1611/30/17 Unknown Unknown Unknown WBC 11.6 H RBC 2.85 L Hgb 8.0 L Hct 24.5 L MCV 86.0 MCH 28.1 MCHC 32.7 RDW 17.2 H Plt Count 174 MPV 10.2 Immature Gran % 1.3 Seg Neutrophils % 86.4 Lymphocytes % 3.4 Monocytes % 5.5 Eosinophils % 3.1 Basophils % 0.3 Neutrophils # 10.0 H Lymphocytes # 0.4 L Monocytes # 0.6 Eosinophils # 0.4 Basophils # 0.0 APTT 66.2 H Sodium 132 L Potassium 4.5 Chloride 105 Carbon Dioxide 23 BUN 29 H Creatinine 0.68 L Est GFR ( Amer) > 60 Est GFR (Non-Af Amer) > 60 BUN/Creatinine Ratio 43 H Glucose 115 H POC Glucose Calculated Osmolality 281 Calcium 7.2 L Ionized Calcium Phosphorus Magnesium Urine Osmolality 11/30/16 11/30/16 Unknown Unknown WBC RBC Hgb Hct MCV MCH MCHC RDW Plt Count MPV Immature Gran % Seg Neutrophils % Lymphocytes % Monocytes % Eosinophils % Basophils % Neutrophils # Lymphocytes # Monocytes # Eosinophils # Basophils # APTT Sodium Potassium Chloride Carbon Dioxide BUN Creatinine Est GFR ( Amer) Est GFR (Non-Af Amer) BUN/Creatinine Ratio Glucose POC Glucose Calculated Osmolality Calcium Ionized Calcium 1.09 L Phosphorus 3.2 Magnesium 1.4 L Urine Osmolality Cultures: Cultures 11/24/16 10:26 Blood Fungal Culture - Preliminary Peripheral Central Cath, Picc No growth. Serology 11/29/16 11/20/16 Range/Units 13:30 03:52 Urine Color Yellow (Yellow) Urine Clarity Turbid A (Clear) Urine pH 5.0 (5.0-8.0) pH Units Ur Specific [place] 1.027 H (1.010-1.025) Urine Protein 30 H (Neg-Trace) mg/dL Urine Glucose (UA) Normal (Normal) mg/dL Urine Ketones Negative (Negative) mg/dL Urine Blood Small H (Negative) Urine Nitrite Negative (Negative) Urine Bilirubin Negative (Negative) Urine Urobilinogen Normal (Normal) mg/dL Ur Leukocyte Esterase Negative (Negative) Urine Microscopic RBC 5-15 H (0-3) per hpf Urine Microscopic WBC 5-15 H (0-3) per hpf Ur Squamous Epith Cells Many H (None-Few) per lpf Amorphous Sediment Few (Few) Urine Bacteria Few (None-Few) per hpf Hyaline Casts None Seen (None-Few) per lpf Urine Yeast Test Not Performed Urine Osmolality 608 (300-1090) mOsm/kg - Impressions Impressions Abdomen/Pelvis CT 11/28/16 17:10 IMPRESSION: 1. Postsurgical changes from recent sigmoid mass resection with end colostomy in place. 2. The study is limited without the use of IV contrast. There are two formed fluid collections identified within the lower abdomen/pelvis, one measuring 3.5 x 3.5 cm within the lower abdominal mesentery (image 96), and a second more posterior collection measuring 3.2 x 2.1 cm with a few foci of gas, immediately anterior to the S1 vertebral body (image 99). These are nonspecific, but could represent abscess in the appropriate clinical setting, especially the collection with a foci of gas. There is a right anterior abdominal approach surgical drain in place, with tip terminating near but not definitely within the more posterior collection. 3. There is a 2.2 cm lymph node in the right lower quadrant mesentery, suspicious for a metastatic lesion. Additional small subcentimeter lymph nodes are scattered throughout the mesentery and retroperitoneum, which are nonspecific. 4. Stable small hypodense liver lesions measuring up to 1.5 cm. Additional stable 4.2 cm hypodense lesion in area of the abbey hepatis, possibly within the left hepatic lobe. 5. Hydropic gallbladder with gallstones. 6. Diffuse anasarca. 7. Large left inguinal hernia containing free fluid. 8. Small right inguinal hernia, now containing a loop of small bowel without evidence of small bowel obstruction. 9. Fusiform ectasia of the distal abdominal aorta to 2.9 cm. Additional ectasia of bilateral common iliac arteries to 2.2 cm on the right. See below for follow-up. RECOMMENDATIONS: Managing Abdominal Aortic Aneurysms 2.6-2.9 cm: 5 year follow up. 3.0-3.4 cm: 3 year follow up 3.5-3.9 cm: 1 year follow up. 4.0-4.4 cm: 1 year follow up. Recommend vascular consultation. 4.5-5.4 cm: 6 month follow up. Recommend vascular consultation. Greater than or equal to 5.5 cm: Referral to vascular surgeon. Reference: Ke et al. The care of patients with an abdominal aortic aneurysm: The Society of Vascular Surgery practice guidelines. Journal of Vascular Surgery. Vol 50, Number 85. Jamal et al. Managing Incidental Findings on Abdominal and Pelvic CT and MRI, Part 2: White Paper of the ACR Incidental Findings Committee II on Vascular Findings. J Am Sharon Radiol 2013;10:[id number] D/ / 11/28/2016 22:56:24 Kayden Taylor MD / landry Interpreting Provider: Kayden Taylor MD Exam - Constitutional Vitals: Temp Pulse Resp BP Pulse Ox 99.0 F 70 20 106/56 99 11/30/16 11:31 11/30/16 11:31 11/30/16 11:31 11/30/16 11:31 11/30/16 11:31 Exam: Gen.: This is a frail appearing and cachectic 86-year-old male. He is currently alert and conversant but is confused about location and situation. He does realize he is in the hospital. Lying in bed appears to be in some discomfort at this time no acute distress. HEENT: Head is normocephalic and atraumatic pupils are equally round. Appears to have some mild bitemporal wasting. Moist mucous membranes. Neck is supple without mass. Trachea midline. Heart: Regular rate and rhythm without murmurs rubs or gallops. No JVD. Abdomen: The abdomen is obese, nondistended, there is an ostomy bag without any fecal contents with does have some clear fluid in the bag now. He also has a drain with serosanguineous fluid as well as a wound VAC with white sponge in place. Musculoskeletal: Grossly normal, no gross deformities. Extremities: There is no clubbing or cyanosis. He does have a 1-2+ pitting edema at the level of the knee. Integument: No rashes or lesions noted. - VTE Documentation of Mechanical Device: Graduated compression elastic hosiery Consult Discharge Plan - Plan Referrals: Gopal Remy MD [Partnered Physician] - 12/22/16 2:05 pm Cardoza,Antonella Rainey CNP [Primary Care Provider] - (pt will go to rehab on discharge no PCP appointment needed) - Attending Attestation I examined this patient and my medical decision-making was reviewed with the Resident Physician. I agree with the documented findings, disposition and treatment plan as described except to the extent set forth below.
[2016-11-30] MEDS ORDERED: Bisacodyl 10 MG RECTAL SUPPOSITORY RC ONE (15:39)
[2016-11-30] MEDS: Clinimix E 5%-15% SOLUTION 2,000 ML with MVI, adult with vitamin K 10 ML IVC SCH (16:39)
--- NOTE | 2016-11-30 16:46 | Oncology Inp Consult Note ---
Date of Encounter: 11/30/16 Time of Encounter: 16:00 Assessment and Plan (1) Adenocarcinoma of sigmoid colon Status: Acute Assessment and plan: Moderately differentiated adenocarcinoma with 12 out of 12 lymph nodes positive , at least a stage IIIc, possible metastatic disease in the liver, presented with perforation additional nodules/lymphadenopathy in CT imaging after surgical procedure,? Reactive versus metastatic disease. Report reviewed with patient's , patient is not able to follow through communication well at this time, due to confusion on and off. While possible residual/metastatic disease can be controlled with chemotherapy- he may not be able to start any treatment soon to obtain such benefit due to poor general condition and likely will not tolerate due to declined performance status and debility/infectious process/nutritional status. Family ( and sister in law) wants to pursue palliative care measures and agree that he will be not a candidate for chemotherapy. Additionally they are enquiring about in-patient ( very exhausted and difficulty helping him)/out patient hospice care services, which will be addressed by palliative care team. I tried to discuss patient's oncologic diagnosis, treatment issues in detail with and will communicate with additional family members if they have additional concern about the same - Data of Consult Requesting Physician: Gopal Remy MD Primary Care Provider: Antnoella Cardoza CNP - Consult Narrative Reason for consult: sigmoid colon cancer History of present illness: 86-year-old male with medical history significant for gastroesophageal reflux disease, rheumatoid arthritis, hypertension, hyperlipidemia, heart disease, anemia who underwent exploratory celiotomy, sigmoid colectomy with colostomy for a perforated sigmoid colon cancer, surgical history also notable for primary repair of left inguinal hernia, repair of left external, internal iliac vein injury, acute deep venous thrombosis and superficial venous thrombosis in the right subclavian and right basilic vein, superior urinary tract infection, sepsis suspected with organ dysfunction with leukocytosis showing improvement, failure to thrive surgical pathology reported 11/23/16 [id number], perforation/ circumferential margin positive, low grade adenoca-moderately differentiated invasion into pericolic tissues, 12/[address] imaging from 11/18/2016 showed a stable small hypodense lesions in the liver measuring up to 1.5 cm 4.2 cm hypodense lesion in the area of abbey hepatis likely lymphadenopathy noted, 2.2 cm right lower quadrant eccentric metastatic deposit/lymph node, subcentimeter lymph nodes scattered throughout the mesentery and peritoneum. Fluid collections in the lower abdomen and pelvis with surgical drain placement. CT angiogram from 2016 did not show any evidence of pulmonary embolism no significant pulmonary nodules/mets. Patient's family at bedside. Patient is able to answer yes and no and understand simple questions. He is very lethargic and hence not following through conversations to be able to communicate more. Past Med Surg Social Fam HX - Past Medical History Medical history: arthritis, GERD, hyperlipidemia, hypertension, thyroid disease , valvular heart disease, other Psychiatric history: no psych history - Past Surgical History Surgical History: other - Social History Smoking Status: Never smoker Smokeless Tobacco Status: No Alcohol use: none Drug use: none - Family History Father Living Status: Age at : 50 Hx Family Cancer: Yes (colon cancer) Mother Living Status: Age at : 90 Cause of : CAD Hx Family Cardiac Disorders: Yes Hx Family Endocrine Disorder: Yes (Diabetes Mellitus) Brother Living Status: Still Living Hx Family Cardiac Disorders: Yes Hx Family Endocrine Disorder: Yes (diabetes mellitus) Medications and Allergies Cyanocobalamin (Vitamin B-12) [Vitamin B12] 1,000 mcg PO DAILY 01/20/16 [History ] Cyclosporine [Restasis] 1 drop OP BID 01/20/16 [History] Levothyroxine [Synthroid] 50 mcg PO QAM 01/20/16 [History] Multivitamin [Multi-Day Vitamins] 1 tab PO DAILY 01/20/16 [History] Nabumetone 750 mg PO BID 01/20/16 [History] Omeprazole [PriLOSEC] 20 mg PO DAILY 01/20/16 [History] Polyvinyl Alcohol [Artificial Tears] 1 drop OP BID PRN 01/20/16 [History] Fluticasone Propionate Nasal [Flonase] 50 mcg NS DAILY 04/21/16 [History] Ipratropium [place] 1 spray NS BID 04/21/16 [History] Aspirin 81 mg PO DAILY 30 Days 04/23/16 [Rx] Ascorbate Calcium [Vitamin C] 500 mg PO DAILY 11/17/16 [History] Diltiazem [Cardizem] 30 mg PO TID 11/17/16 [History] Ferrous Sulfate [Iron] 325 mg PO DAILY 11/17/16 [History] Sennosides [Senna] 17.2 mg PO HS PRN 11/17/16 [History] Allergies celecoxib [From Celebrex] Adverse Reaction (Verified 11/17/16 15:29) See Comments patient unsure of reaction prednisone Adverse Reaction (Verified 11/17/16 15:29) Rash patient wasnt sure of reaction to this Sulfa (Sulfonamide Antibiotics) Adverse Reaction (Verified 11/17/16 15:29) Rash patient wasnt sure of reaction ROS unobtainable: due to mental status Oncology - Exam - Constitutional Vitals: Temp Pulse Resp BP Pulse Ox 98.6 F 80 20 89/61 99 11/30/16 15:08 11/30/16 15:08 11/30/16 15:08 11/30/16 15:08 11/30/16 15:08 General appearance: thin Exam: cachectic ill looking - Head Head exam: Present: atraumatic - Eye Eye exam: Present: sclera anicteric - ENT ENT exam: Present: mucous membranes dry Additional comments: NGT - Respiratory Respiratory exam: Present: CTAB - Cardiovascular Cardiovascular exam: Present: +S1, +S2 - GI/Abdominal Additional comments: surgical wound-vac drain, REG drainage tube, ostomy in place - Extremities Exam Extremities exam: Present: pedal edema - Neurological Exam Additional comments: lethargy-complete exam not performed - Skin Skin exam: Present: dry Oncology - Results - Labs Labs: Short CBC 11/30/16 Range/Units Unknown WBC 11.6 H (4.3-11.1) K/mcL Hgb 8.0 L (12.9-16.9) g/dL Hct 24.5 L (37.5-50.1) % Plt Count 174 (140-400) K/mcL Neutrophils # 10.0 H (1.6-8.9) K/mcL BMP 11/30/16 Unknown Sodium 132 L Potassium 4.5 Chloride 105 Carbon Dioxide 23 BUN 29 H Creatinine 0.68 L Glucose 115 H Calcium 7.2 L Consult Discharge Plan - Plan Referrals: Gopal Remy MD [Partnered Physician] - 12/22/16 2:05 pm Cardoza,Antonella Rainey CNP [Primary Care Provider] - 12/02/16 9:00 am (SENT REQUEST ON @ [id number])
[2016-11-30 19:48] LABS: Magnesium 1.7 mg/dL (1.6-2.6)
[2016-11-30 19:49] LABS: Ionized Calcium 1.11 mmol/L (1.15-1.35)
[2016-12-01] MEDS: Piperacillin/Tazobactam 3.375 GM in D5% in Water (Mini-Bag+) 100 ML IVPB SCH ×3 (00:58→16:33)
[2016-12-01] MEDS: *HR* HYDROmorphone (PF) 1 MG/ML SYRINGE IVP PRN ×5 (00:58→19:44)
[2016-12-01] MEDS: Heparin 25,000 UNIT/500 ML D5W 25,000 UNIT/500 ML MLS IVC SCH ×2 (03:00→19:39)
[2016-12-01] MEDS: Pantoprazole 40 MG VIAL IVP SCH (06:41)
[2016-12-01 07:45] LABS: Ionized Calcium 1.14 mmol/L (1.15-1.35)
[2016-12-01 07:55] LABS: BUN/Creatinine Ratio 38 (6-26); Blood Urea Nitrogen 27 mg/dL (8-26); Calcium 7.4 mg/dL (8.6-10.8); Carbon Dioxide 23 mEq/L (19-29); Chloride 105 mEq/L (98-109); Glucose 134 mg/dL (70-99); Magnesium 1.9 mg/dL (1.6-2.6); Osmolality,Calculated 281 (280-300); Phosphorous 3.5 mg/dL (2.3-4.7); Potassium 4.6 mEq/L (3.5-4.5); Sodium 132 mEq/L (136-145); eGFR For African Americans > 60 (> 60); eGFR For Non-African Americans > 60 (> 60)
[2016-12-01] MEDS: Levothyroxine Sodium 100 MCG VIAL IVP SCH (08:41)
[2016-12-01 08:43] LABS: Basophils # 0.1 K/mcL (0.0-0.2); Basophils % 0.5 %; Eosinophils # 0.5 K/mcL (0.0-0.6); Eosinophils % 4.6 %; Hematocrit 24.9 % (37.5-50.1); Hemoglobin 8.1 g/dL (12.9-16.9); Immature Granulocytes % 1.5 % (0-4); Lymphocytes # 0.5 K/mcL (0.6-4.6); Lymphocytes % 4.4 %; Mean Corpuscular HGB Conc 32.5 g/dL (31.6-35.5); Mean Corpuscular Hemoglobin 28.3 pg (28.0-33.3); Mean Corpuscular Volume 87.1 fL (83.0-100.0); Mean Platelet Volume 10.9 fL (9.4-12.4); Monocytes # 0.6 K/mcL (0.0-1.3); Monocytes % 5.8 %; Neutrophils # 8.7 K/mcL (1.6-8.9); Platelet Count 175 K/mcL (140-400); Red Blood Count 2.86 M/mcL (4.19-5.50); Red Cell Distribution Width 17.2 % (11.5-14.5); Segmented Neutrophils % 83.2 %
--- NOTE | 2016-12-01 08:48 | Infectious Disease Progress No ---
Date of Encounter: 12/01/16 Time of Encounter: 06:35 - Assessment and Plan (1) Perforated bowel Current Visit: Yes Status: Acute Patient is s/p Ex lap, sigmoid colectomy and colostomy 11/17/16. Patient developed severe sepsis with organ damage. Renal function has since returned to normal. TMax over last 24 hours has been 98.9 Leukocytosis has resolved. I discussed fluid collections and possible abscess with surgical team on . They stated the fluid collections were small and did not require any further surgical intervention at this time. wound cultures from 11/17/16 have grown ji sensitive ecoli. Anaerobic cultures show no growth Recommendations: continuing Zosyn and diflucan, duration of treatment 4 weeks at least depending on clinical picture CrCL 81 no dosage adjustments needed Thank you for involving the infectious disease team in this patient's care. (2) Severe sepsis with acute organ dysfunction Current Visit: Yes Status: Acute Patient has 3 SIRS criteria with Leukocytosis, tachycardia and tachypnea. Leukocytosis resolved TMAX over last 24 hours was 99.8 ALFIE has resolved. (3) Adenocarcinoma of sigmoid colon Current Visit: Yes Status: Acute Tumor had invaded through the muscularis propria and into the pericolic area. Additionally there was nakul involvement 05/02. Reviewed Oncologies documentation and it dose not appear he will be a candidate for chemotherapy. management per Oncology and primary team. (4) Delirium Current Visit: Yes Status: Acute improving. Much more orientated today. (5) Urinary tract infection Current Visit: Yes Status: Resolved likely contaminated specimen. Also current antibiotics adequate for bacteria that grew from urine culture. Qualifiers: Urinary tract infection type: site unspecified Hematuria presence: without hematuria Qualified Code(s): N39.0 - Urinary tract infection, site not specified (6) Failure to thrive Current Visit: Yes Status: Acute patient has physical signs of malnutrition. currently on TPN. management per primary. Qualifiers: Failure to thrive age range: in adult Qualified Code(s): R62.7 - Adult failure to thrive (7) Ileus Current Visit: Yes Status: Acute management per surgery (8) PVD (peripheral vascular disease) Current Visit: Yes Status: Chronic severe No signs of acute occlusion at this time. Management per vascular Surgery (9) DVT of upper extremity (deep vein thrombosis) Current Visit: Yes Status: Acute on heparin gtt. Currently therapeutic. per primary team. Qualifiers: Affected thrombotic vein of extremity: axillary Chronicity: acute Laterality: right Qualified Code(s): I82.A11 - Acute embolism and thrombosis of right axillary vein (10) Leukocytosis Current Visit: Yes Status: Acute trending Qualifiers: Leukocytosis type: unspecified Qualified Code(s): D72.829 - Elevated white blood cell count, unspecified - Subjective Interval history: No major events overnight. Patient is less confused this AM. HE is conversant and answers all questions appropriately. He states that his pain is well controlled at this time and that it waxes and wanes but was not severe overnight. HE denies cough, weehze, dyspnea. He has no further complaints or concerns at this time. Infect Dis PN-Objective Data - Labs CBC & Chem 7: 12/01/16 08:10 12/01/16 04:00 Labs: Laboratory Results - last 24 hr 11/30/16 11/30/16 11/30/16 10:58 11:50 17:26 APTT Sodium Potassium Chloride Carbon Dioxide BUN Creatinine Est GFR ( Amer) Est GFR (Non-Af Amer) BUN/Creatinine Ratio Glucose POC Glucose 112 H 111 H Calculated Osmolality Calcium Ionized Calcium 1.08 L Phosphorus Magnesium 1.6 11/30/16 11/30/16 12/01/16 19:37 19:37 00:11 APTT 69.6 H Sodium Potassium Chloride Carbon Dioxide BUN Creatinine Est GFR ( Amer) Est GFR (Non-Af Amer) BUN/Creatinine Ratio Glucose POC Glucose 120 H Calculated Osmolality Calcium Ionized Calcium 1.11 L Phosphorus Magnesium 1.7 12/01/16 12/01/16 12/01/16 04:00 04:00 06:32 APTT 57.2 H Sodium 132 L Potassium 4.6 H Chloride 105 Carbon Dioxide 23 BUN 27 H Creatinine 0.71 L Est GFR ( Amer) > 60 Est GFR (Non-Af Amer) > 60 BUN/Creatinine Ratio 38 H Glucose 134 H POC Glucose 127 H Calculated Osmolality 281 Calcium 7.4 L Ionized Calcium 1.14 L Phosphorus 3.5 Magnesium 1.9 Cultures: Cultures 11/24/16 10:26 Blood Fungal Culture - Preliminary Peripheral Central Cath, Picc No growth. Serology 11/29/16 11/20/16 Range/Units 13:30 03:52 Urine Color Yellow (Yellow) Urine Clarity Turbid A (Clear) Urine pH 5.0 (5.0-8.0) pH Units Ur Specific [place] 1.027 H (1.010-1.025) Urine Protein 30 H (Neg-Trace) mg/dL Urine Glucose (UA) Normal (Normal) mg/dL Urine Ketones Negative (Negative) mg/dL Urine Blood Small H (Negative) Urine Nitrite Negative (Negative) Urine Bilirubin Negative (Negative) Urine Urobilinogen Normal (Normal) mg/dL Ur Leukocyte Esterase Negative (Negative) Urine Microscopic RBC 5-15 H (0-3) per hpf Urine Microscopic WBC 5-15 H (0-3) per hpf Ur Squamous Epith Cells Many H (None-Few) per lpf Amorphous Sediment Few (Few) Urine Bacteria Few (None-Few) per hpf Hyaline Casts None Seen (None-Few) per lpf Urine Yeast Test Not Performed Urine Osmolality 608 (300-1090) mOsm/kg - Impressions Impressions KUB X-Ray 11/28/16 17:51 IMPRESSION: Nasogastric tube in appropriate position. D/ / 11/28/2016 19:07:23 Jelani Smith MD / bcarter Interpreting Provider: Jelani Smith MD Exam - Constitutional Vitals: Temp Pulse Resp BP Pulse Ox 97.5 F L 73 14 108/63 96 12/01/16 06:27 12/01/16 06:27 12/01/16 06:27 12/01/16 06:27 12/01/16 06:27 Exam: Gen.: This is a frail-appearing 86-year-old male who is currently alert he is much more orientated today. Although he does have some difficulty with time. Lying in bed appears to be comfortable he seems to be in good spirits this morning and is in no acute distress this time. HEENT: The head is normocephalic and atraumatic. Anicteric sclera, there is NG tube in place with bilious drainage into the collecting tube. Moist mucous membranes. Neck is supple without masses or thyromegaly. There is no cervical submandibular or supraclavicular lymphadenopathy palpable this morning. Heart: Regular rate and rhythm without murmurs rubs or gallops. Lungs: He has a normal effort of breathing he is able to take deep breaths. He is able to converse easily. Normal rise express the chest wall bilaterally. Clear to auscultation bilaterally. Abdomen: The abdomen is nondistended, soft, tenderness around the surgical sites only. He does have a ostomy bag is in place no stool in the bag at this time and there is more straw-colored fluid. He also has REG drain that does have what appears to be some purulent fluid but appears to be processing technician in color this morning. He has a wound VAC in place with the black sponge. Musculoskeletal: Grossly normal for age no gross deformities noted. Extremities: There is no clubbing or cyanosis. He has a edema of the lower extremities bilaterally 2+ at the level of the thigh. Additionally he has edema of the upper extremities greater on the right than on the left. Integument: No rashes or lesions were noted. - VTE Documentation of Mechanical Device: Graduated compression elastic hosiery Consult Discharge Plan - Plan Referrals: Gopal Remy MD [Partnered Physician] - 12/22/16 2:05 pm Cardoza,Antonella Rainey CNP [Primary Care Provider] - 12/02/16 9:00 am (SENT REQUEST ON @ 1016) - Attending Attestation I examined this patient and my medical decision-making was reviewed with the SKIP LOCATOR/PA/Advanced Practice Nurse/Resident Physician. I agree with the documented findings, disposition and treatment plan as described except to the extent set forth below.
[2016-12-01] MEDS: Fluconazole 100 MG/50 ML 100 MG/50 ML BAG IVPB SCH (09:02)
[2016-12-01] MEDS: Magnesium Sulfate 2 GM in D5% in Water 100 ML IVPB PRN ×2 (09:27→19:49)
[2016-12-01] MEDS: Miconazole w/zinc oxide&karaya 92 APPL/92 GM TUBE TP SCH ×3 (09:29→19:38)
[2016-12-01 10:16] LABS: Reactive Lymphocytes Present (Not Present)
[2016-12-01 10:17] LABS: Platelet Estimate Slight Decrease (Normal)
--- NOTE | 2016-12-01 12:58 | General Surgery Progress Note ---
<Mitali Mart - Last Filed: 12/01/16 14:30> Date of Encounter: 12/01/16 Time of Encounter: 12:40 - Assessment and Plan (1) Adenocarcinoma of sigmoid colon Current Visit: Yes Status: Acute POD #14 Exploratory celiotomy; Sigmoid colectomy with colostomy; Primary repair of left inguinal hernia; Repair of left external/internal iliac vein injury Continue NG tube to LIWS Supportive care and pain control Continue NPO except ice chips and TPN/lipids Total IV fluids 100 ML/hr Await return of bowel function, bowel sounds noted Small amount of brown/green liquid and solid output noted in colostomy Wound Care Wound vac clean and dry. Next dressing change due Monday12/02/2016. REG aburto small amount of purulent drainage noted PT/OT, mobilize as tolerated Palliative care and oncology following. Per oncology note, consideration for possible hospice is being discussed. Noted code status change to DNRCC-A; (2) Left inguinal hernia Current Visit: Yes Status: Acute POD #14 Exploratory celiotomy; Sigmoid colectomy with colostomy; Primary repair of left inguinal hernia; Repair of left external/internal iliac vein injury No significant increase in scrotal edema noted. Continue barrier cream and scrotal sling/elevation There is no hernia present on the left, it is fluid that has crossed the repair and is in the defect created by the previous hernia (3) Failure to thrive Current Visit: Yes Status: Acute Continue suportive care TPN and lipids NPO except ice chips and popsicles Palliative care and oncology following. Appreciate input. Qualifiers: Failure to thrive age range: in adult Qualified Code(s): R62.7 - Adult failure to thrive (4) Leukocytosis Current Visit: Yes Status: Acute ID following. -Current abx per ID Zosyn 3.375 g b.i.d. Fluconazole 100 mg daily Will Continue to monitor Qualifiers: Leukocytosis type: other Qualified Code(s): D72.828 - Other elevated white blood cell count (5) DVT prophylaxis Current Visit: No Status: Acute Heparin gtt Mobilize with PT/OT as tolerated PAULINE hose RLE only (6) Electrolyte abnormality Current Visit: Yes Status: Acute Electrolyte protocol is in place. Will continue to monitor and review serial labs (7) Anemia Current Visit: Yes Status: Acute Noted stable vital signs are stable repeat a.m. labs will continue to monitor Qualifiers: Anemia type: other cause Other causes of anemia: other cause, not classified Qualified Code(s): D64.89 - Other specified anemias Subjective Patient reports: still having pain, pain is less, no flatus, bowel movement Narrative: Mr. Craig denies nausea at this time. He states he is feeling somewhat better today. He states his discomfort is controlled on the current regimen. Objective Vital Signs - Last 8 Hours Temp Pulse Resp BP Pulse Ox 12/01/16 11:30 97.4 F L 75 15 110/64 99 12/01/16 11:18 80 12/01/16 10:34 98.0 F 80 16 102/50 98 12/01/16 10:00 71 14 102/50 99 12/01/16 07:30 78 12/01/16 06:27 97.5 F L 73 14 108/63 96 Intake and Output 11/30/16 12/01/16 12/01/16 23:59 07:59 15:59 Intake Total 613 / 613 750 / 750 634 / 634 Output Total 100 / 100 1010 / 1010 580 / 580 Balance 513 / 513 -260 / -260 54 / 54 Intake: IV Fluids 613 / 613 750 / 750 634 / 634 Heparin 25,000 UNIT/500 313 / 313 500 / 500 ML D5W 25,000 unit In 500 ml @ 14 UNIT/KG/HR 24. 108 mls/hr IVC .[id number] [facility] Rx#:[id number] Intralipid 20% 250 ML @ 200 / 200 250 / 250 21 mls/hr IVPB DAILY@1700 [facility] Rx#:[id number] Diflucan 100 MG/50 ML 100 50 / 50 mg In 50 ml @ 50 mls/hr IVPB DAILY [facility] Rx#: [id number] Magnesium Sulfate 2 GM In 104 / 104 Dextrose 5% 100 ML @ 50 mls/hr IVPB Q6H PRN Rx#: [id number] Zosyn 3.375 GM In 100 / 100 100 / 100 Dextrose 5% (Minibag+) 100 ML 100 ML @ 25 mls/hr IVPB Q8H [facility] Rx#: [id number] Potassium Phosphate 44 260 / 260 MEQ In 0.9 % Sodium Chloride 250 ML @ 40 mls/ hr IVPB Q10H PRN Rx#: [id number] Oral 0 / 0 0 / 0 Output: Gastric Tube Lavage 0 / 0 0 / 0 150 / 150 Amount Right Nare 0 / 0 0 / 0 150 / 150 Catheter 340 / 340 430 / 430 Gastric Drainage 650 / 650 Wound Drainage 100 / 100 20 / 20 0 / 0 Abdomen 100 / 100 20 / 20 0 / 0 Other: Meal Breakfast Percent of Meal Consumed 0% Weight 92.618 kg Blood Glucose* 111 127 138 Patient Weight 12/01/16 23:59 Weight 92.618 kg - General physical appearance no distress, moderate pain (With palpation of abdomen or movement), chronically ill - ENT dry mucosa - Neck Neck exam: trachea midline - Respiratory other (Decreased but clear to auscultation) - Cardiovascular Cardiovascular exam: Present: RRR, murmurs - Abdomen Abdomen: Present: bowel sounds present, soft, tender Abdominal Tenderness: RLQ, LLQ - Incision Incision: Present: clean and dry (Wound Vac noted. REG drain site WNLs) - Genitourinary other (Penis retracted; jeff catheter noted; no significant change in scrotal edema) - Neurologic other (Alert; answers questions appropriately. Cooperative with exam) - Psychiatric oriented to time, oriented to person, oriented to place - Labs 12/01/16 08:10 12/01/16 04:00 Diabetes panel 12/01/16 Range/Units 04:00 Sodium 132 L (136-145) mEq/L Potassium 4.6 H (3.5-4.5) mEq/L Chloride 105 (98-109) mEq/L Carbon Dioxide 23 (19-29) mEq/L BUN 27 H (8-26) mg/dL Creatinine 0.71 L (0.72-1.25) mg/dL Glucose 134 H (70-99) mg/dL Calcium 7.4 L (8.6-10.8) mg/dL Calcium panel 12/01/16 Range/Units 04:00 Calcium 7.4 L (8.6-10.8) mg/dL Phosphorus 3.5 (2.3-4.7) mg/dL Pituitary panel 12/01/16 Range/Units 04:00 Sodium 132 L (136-145) mEq/L Potassium 4.6 H (3.5-4.5) mEq/L Chloride 105 (98-109) mEq/L Carbon Dioxide 23 (19-29) mEq/L BUN 27 H (8-26) mg/dL Creatinine 0.71 L (0.72-1.25) mg/dL Glucose 134 H (70-99) mg/dL Calcium 7.4 L (8.6-10.8) mg/dL Adrenal panel 12/01/16 Range/Units 04:00 Sodium 132 L (136-145) mEq/L Potassium 4.6 H (3.5-4.5) mEq/L Chloride 105 (98-109) mEq/L Carbon Dioxide 23 (19-29) mEq/L BUN 27 H (8-26) mg/dL Creatinine 0.71 L (0.72-1.25) mg/dL Glucose 134 H (70-99) mg/dL Calcium 7.4 L (8.6-10.8) mg/dL - VTE Documentation of Mechanical Device: Graduated compression elastic hosiery Consult Discharge Plan - Plan Referrals: Gopal Remy MD [Partnered Physician] - 12/22/16 2:05 pm Cardoza,Antonella Rainey CNP [Primary Care Provider] - (pt will go to rehab on discharge no PCP appointment needed) <Kaia Quiles - Last Filed: 12/02/16 09:17> Date of Encounter: 12/01/16 Time of Encounter: 17:20 - Assessment and Plan (1) Abdominal pain Current Visit: Yes Status: Acute prn pain control Qualifiers: Abdominal location: generalized Qualified Code(s): R10.84 - Generalized abdominal pain (2) Adenocarcinoma of sigmoid colon Current Visit: Yes Status: Acute small amount of stool in ostomy due to volume out of ngt wound not advance just yet or remove ngt REG drain with purulent drainage continue TPN continue ABx per ID (3) Ileus Current Visit: Yes Status: Acute (4) Left inguinal hernia Current Visit: Yes Status: Acute (5) Leukocytosis Current Visit: Yes Status: Resolved Qualifiers: Leukocytosis type: other Qualified Code(s): D72.828 - Other elevated white blood cell count (6) Lower extremity edema Current Visit: Yes Status: Acute pauline hose RLE only (7) PVD (peripheral vascular disease) Current Visit: Yes Status: Chronic will start asa therapy once taking po (8) Edema of upper extremity Current Visit: Yes Status: Acute (9) DVT of lower extremity (deep venous thrombosis) Current Visit: Yes Status: Acute on heparin gtt Qualifiers: Affected thrombotic vein of extremity: iliac Chronicity: acute Laterality : left Qualified Code(s): I82.422 - Acute embolism and thrombosis of left iliac vein (10) DVT of upper extremity (deep vein thrombosis) Current Visit: Yes Status: Acute on heparin gtt Qualifiers: Affected thrombotic vein of extremity: axillary Chronicity: acute Laterality: right Qualified Code(s): I82.A11 - Acute embolism and thrombosis of right axillary vein (11) Physical deconditioning Current Visit: Yes Status: Chronic continue PT/OT as able (12) Severe protein-calorie malnutrition Current Visit: Yes Status: Chronic continue tpn unable to take po at this time (13) Hypothyroid Current Visit: No Status: Chronic continue iv synthroid Qualifiers: Hypothyroidism type: unspecified Qualified Code(s): E03.9 - Hypothyroidism , unspecified (14) S/P colectomy Current Visit: Yes Status: Acute Subjective Patient reports: feels better, still having pain, pain is less, flatus, bowel movement Objective Vital Signs - Last 8 Hours Temp Pulse Resp BP Pulse Ox 12/02/16 07:16 98.6 F 73 18 103/65 98 12/02/16 04:10 82 12/02/16 03:14 98.3 F 83 18 129/44 95 Intake and Output 12/01/16 12/02/16 12/02/16 23:59 07:59 15:59 Intake Total 4600 / 4600 350 / 350 456 / 456 Output Total 540 / 540 300 / 300 Balance 4060 / 4060 50 / 50 456 / 456 Intake: IV Fluids 4600 / 4600 350 / 350 456 / 456 Heparin 25,000 UNIT/500 500 / 500 456 / 456 ML D5W 25,000 unit In 500 ml @ 14 UNIT/KG/HR 24. 108 mls/hr IVC .[id number] [facility] Rx#:[id number] Clinimix E 5%-15% 1999 / 1999 SOLUTION 2,000 ML @ 83.3 mls/hr IVC .Q24H [facility] with M.v.i. Adult 10 ml Rx#: [id number] Intralipid 20% 250 ML @ 250 / 250 21 mls/hr IVPB DAILY@1700 [facility] Rx#:[id number] Zosyn 3.375 GM In 100 / 100 100 / 100 Dextrose 5% (Minibag+) 100 ML 100 ML @ 25 mls/hr IVPB Q8H [facility] Rx#: [id number] Oral 0 / 0 Output: Gastric Tube Lavage 50 / 50 300 / 300 Amount Right Nare 50 / 50 300 / 300 Catheter 280 / 280 Gastric Drainage 200 / 200 Wound Drainage Left Lower Abdomen Other: Meal Breakfast Percent of Meal Consumed 0% Stool Size Small Stool Characteristics Foamy Stool Color Brown Weight 92.8 kg Blood Glucose* 109 134 Patient Weight 12/02/16 23:59 Weight 92.8 kg - General physical appearance no distress, cachectic, chronically ill - Eyes PERRL, normal ocular movement - ENT dry mucosa, atraumatic - Neck Neck exam: trachea midline - Respiratory normal expansion, other - Cardiovascular Cardiovascular exam: Present: RRR - Abdomen Abdomen: Present: bowel sounds present, soft, tender (minimal) Additional Comments: colostomy with small amount of stool - Genitourinary other - Integumentary no growths - Neurologic other - Musculoskeletal other (severe deconditioning) - Psychiatric oriented to time, oriented to person, oriented to place - Labs 12/02/16 04:25 12/02/16 04:25 Diabetes panel 12/02/16 Range/Units 04:25 Sodium 131 L (136-145) mEq/L Potassium 4.4 (3.5-4.5) mEq/L Chloride 101 (98-109) mEq/L Carbon Dioxide 25 (19-29) mEq/L BUN 24 (8-26) mg/dL Creatinine 0.73 (0.72-1.25) mg/dL Glucose 226 H (70-99) mg/dL Calcium 7.2 L (8.6-10.8) mg/dL Calcium panel 12/02/16 Range/Units 04:25 Calcium 7.2 L (8.6-10.8) mg/dL Phosphorus 4.5 (2.3-4.7) mg/dL Pituitary panel 12/02/16 Range/Units 04:25 Sodium 131 L (136-145) mEq/L Potassium 4.4 (3.5-4.5) mEq/L Chloride 101 (98-109) mEq/L Carbon Dioxide 25 (19-29) mEq/L BUN 24 (8-26) mg/dL Creatinine 0.73 (0.72-1.25) mg/dL Glucose 226 H (70-99) mg/dL Calcium 7.2 L (8.6-10.8) mg/dL Adrenal panel 12/02/16 Range/Units 04:25 Sodium 131 L (136-145) mEq/L Potassium 4.4 (3.5-4.5) mEq/L Chloride 101 (98-109) mEq/L Carbon Dioxide 25 (19-29) mEq/L BUN 24 (8-26) mg/dL Creatinine 0.73 (0.72-1.25) mg/dL Glucose 226 H (70-99) mg/dL Calcium 7.2 L (8.6-10.8) mg/dL - Attending Attestation I examined this patient and my medical decision-making was reviewed with the MANAGER ENVIRONMENTAL AFFAIRS/PA/Advanced Practice Nurse/Resident Physician. I agree with the documented findings, disposition and treatment plan as described except to the extent set forth below.
--- NOTE | 2016-12-01 14:51 | Palliative Progress Note ---
Date of Encounter: 12/01/16 Time of Encounter: 11:00 - Assessment and plan (1) Adenocarcinoma of sigmoid colon Current Visit: Yes Status: Acute (2) Severe protein-calorie malnutrition Current Visit: Yes Status: Chronic Assessment and plan: Mr. Craig continues on TPN with dietary following. Ostomy with small amount of liquid green output. (3) Counseling regarding advanced care planning and goals of care Current Visit: Yes Status: Acute Assessment and plan: Plan for family meeting at 3:45 to discuss senior living goals of care. Met with patient's spouse, Janiya, and son Marcelo regarding long-term goals of care. Reviewed prior conversations from oncology and their recommendations. Patient's is very interested in hospice care upon discharge from the hospital. Discussed hospice philosophy and benefits. financial services representative consulted to assist with discharge planning and needs. Patient's spouse continues to support current CODE STATUS of DNR arrest. The palliative care team will continue to follow and assist with planning. (4) Generalized pain Current Visit: Yes Status: Acute Assessment and plan: Mr. Craig currently denies pain, but does demonstrate wincing with movement. He has hydromorphone 1mg every 2 hours as needed. Mr. Craig has used 7 doses in the past 24 hours. - Time Spent With Patient Total time spent is greater than 50% in coordination of care (as documented) at patient's floor/unit and/or counseling patient: - Subjective Interval history: Mr. Craig is lying in bed. He is hard of hearing, but answers questions appropriately. He denies pain, but does wince occasionally with movement. NG tube intact to intermittent suction. - Constitutional Vitals: Abnormal lab results RBC 2.86 M/mcL (4.19-5.50) L 12/01/16 08:10 Hgb 8.1 g/dL (12.9-16.9) L 12/01/16 08:10 Hct 24.9 % (37.5-50.1) L 12/01/16 08:10 RDW 17.2 % (11.5-14.5) H 12/01/16 08:10 Lymphocytes # 0.5 K/mcL (0.6-4.6) L 12/01/16 08:10 Reactive Lymphocytes Present (Not Present) A 12/01/16 08:10 Platelet Estimate Slight Decrease (Normal) L 12/01/16 08:10 Anisocytosis 1+ (Not Present) A 11/18/16 00:33 PT 14.0 Seconds (9.4-12.1) H 11/17/16 11:03 APTT 57.2 Seconds (26.0-36.0) H 12/01/16 04:00 Sodium 132 mEq/L (136-145) L 12/01/16 04:00 Potassium 4.6 mEq/L (3.5-4.5) H 12/01/16 04:00 BUN 27 mg/dL (8-26) H 12/01/16 04:00 Creatinine 0.71 mg/dL (0.72-1.25) L 12/01/16 04:00 BUN/Creatinine Ratio 38 (6-26) H 12/01/16 04:00 Glucose 134 mg/dL (70-99) H 12/01/16 04:00 POC Glucose 127 (58-89) H 12/01/16 06:32 Calcium 7.4 mg/dL (8.6-10.8) L 12/01/16 04:00 Ionized Calcium 1.14 mmol/L (1.15-1.35) L 12/01/16 04:00 Iron 11 mcg/dL (65-175) L 11/24/16 10:26 % Saturation 8 % (20-55) L 11/24/16 10:26 Transferrin 101 mg/dL (174-364) L 11/24/16 10:26 Total Bilirubin 1.3 mg/dL (0.2-1.2) H 11/17/16 11:03 Direct Bilirubin 0.7 mg/dL (0.0-0.5) H 11/17/16 11:03 Creatine Kinase 404 Units/L (30-200) H 11/19/16 12:44 C-Reactive Protein 249 mg/L (Less than 5) H 11/17/16 11:03 B-Natriuretic Peptide 186 pg/mL (0-100) H 11/17/16 11:03 Serum Total Protein 5.2 g/dL (6.0-8.3) L 11/17/16 11:03 Albumin 2.2 g/dL (3.5-5.0) L 11/17/16 11:03 Albumin/Globulin Ratio 0.7 (1.1-2.2) L 11/17/16 11:03 Carcinoembryonic Ag 5.8 ng/mL (0-5.0) H 11/17/16 11:03 Urine Clarity Turbid (Clear) A 11/20/16 03:52 Ur Specific [place] 1.027 (1.010-1.025) H 11/20/16 03:52 Urine Protein 30 mg/dL (Neg-Trace) H 11/20/16 03:52 Urine Blood Small (Negative) H 11/20/16 03:52 Urine Microscopic RBC 5-15 per hpf (0-3) H 11/20/16 03:52 Urine Microscopic WBC 5-15 per hpf (0-3) H 11/20/16 03:52 Ur Squamous Epith Cells Many per lpf (None-Few) H 11/20/16 03:52 Ur Culture Indicated? YES (NO) A 11/17/16 16:26 Exam: 86 year old male appearing chronically ill. He has anasarca, but sunken facial features. - ENT ENT exam: Present: mucous membranes dry - Respiratory Respiratory exam: Present: decreased breath sounds. Absent: accessory muscle use, tachypnea - Cardiovascular Cardiovascular exam: Present: RRR. Absent: tachycardia - GI/Abdominal GI/Abdominal exam: Present: normal bowel sounds Additional comments: mid abdominal incision with wound vac intact. REG drain to the right lower quadrant. Ostomy intact with red stoma and green liquid output, passing flatus. - Additional comments: jeff catheter intact - Extremities Exam Extremities exam: Present: pedal edema Additional comments: left lower extremity/foot with edema, right lower extremity with edema-PAULINE hose intact. Bilateral upper extremities with +2-3 edema. - Neurological Exam Neurological exam: Present: alert, oriented X3, no focal deficits, strengths equal and symetr throughout (global weakness) - Psychiatric Psychiatric exam: Absent: agitated, anxious - Skin Skin exam: Present: dry, warm Palliative Quality Palliative Quality: Screen for Code Status: Yes, Screen for Goals of Care: Yes, Screen for Pain: Yes, If Pain Regimen Started, Initiate Bowel Regimen: NA, Screen for Nausea/Vomitting: Yes Code Status: 11/30/16 10:17 DNR [Resuscitation Status: Active] [RES] Routine Comment: Resuscitation Status: DNR-Comfort Care-Arrest - Labs CBC & Chem 7: 12/01/16 08:10 12/01/16 04:00 Labs: Laboratory Results - last 24 hr 11/30/16 11/30/16 11/30/16 17:26 19:37 19:37 WBC RBC Hgb Hct MCV MCH MCHC RDW Plt Count MPV Immature Gran % Seg Neutrophils % Lymphocytes % Monocytes % Eosinophils % Basophils % Neutrophils # Lymphocytes # Monocytes # Eosinophils # Basophils # Reactive Lymphocytes Platelet Estimate APTT 69.6 H Sodium Potassium Chloride Carbon Dioxide BUN Creatinine Est GFR ( Amer) Est GFR (Non-Af Amer) BUN/Creatinine Ratio Glucose POC Glucose 111 H Calculated Osmolality Calcium Ionized Calcium 1.11 L Phosphorus Magnesium 1.7 12/01/16 12/01/16 12/01/16 00:11 04:00 04:00 WBC RBC Hgb Hct MCV MCH MCHC RDW Plt Count MPV Immature Gran % Seg Neutrophils % Lymphocytes % Monocytes % Eosinophils % Basophils % Neutrophils # Lymphocytes # Monocytes # Eosinophils # Basophils # Reactive Lymphocytes Platelet Estimate APTT 57.2 H Sodium 132 L Potassium 4.6 H Chloride 105 Carbon Dioxide 23 BUN 27 H Creatinine 0.71 L Est GFR ( Amer) > 60 Est GFR (Non-Af Amer) > 60 BUN/Creatinine Ratio 38 H Glucose 134 H POC Glucose 120 H Calculated Osmolality 281 Calcium 7.4 L Ionized Calcium 1.14 L Phosphorus 3.5 Magnesium 1.9 12/01/16 12/01/16 06:32 08:10 WBC 10.4 RBC 2.86 L Hgb 8.1 L Hct 24.9 L MCV 87.1 MCH 28.3 MCHC 32.5 RDW 17.2 H Plt Count 175 MPV 10.9 Immature Gran % 1.5 Seg Neutrophils % 83.2 Lymphocytes % 4.4 Monocytes % 5.8 Eosinophils % 4.6 Basophils % 0.5 Neutrophils # 8.7 Lymphocytes # 0.5 L Monocytes # 0.6 Eosinophils # 0.5 Basophils # 0.1 Reactive Lymphocytes Present A Platelet Estimate Slight Decrease L APTT Sodium Potassium Chloride Carbon Dioxide BUN Creatinine Est GFR ( Amer) Est GFR (Non-Af Amer) BUN/Creatinine Ratio Glucose POC Glucose 127 H Calculated Osmolality Calcium Ionized Calcium Phosphorus Magnesium - Impressions Impressions KUB X-Ray 11/28/16 17:51 IMPRESSION: Nasogastric tube in appropriate position. D/ / 11/28/2016 19:07:23 Jelani Smith MD / bcarter Interpreting Provider: Jelani Smith MD - ABG Interpretation ABG results: PT/INR, D-dimer PT 14.0 Seconds (9.4-12.1) H 11/17/16 11:03 Consult Discharge Plan - Plan Referrals: Gopal Remy MD [Partnered Physician] - 12/22/16 2:05 pm Cardoza,Antonella Rainey CNP [Primary Care Provider] - 12/02/16 9:00 am (SENT REQUEST ON @ 1016)
[2016-12-01] MEDS: Clinimix E 5%-15% SOLUTION 2,000 ML with MVI, adult with vitamin K 10 ML IVC SCH ×2 (16:30→16:37)
[2016-12-01] MEDS ORDERED: *HR* LORazepam 2 MG/ML VIAL IVP PRN (20:54)
[2016-12-02] MEDS: *HR* HYDROmorphone (PF) 1 MG/ML SYRINGE IVP PRN ×5 (00:13→21:26)
[2016-12-02] MEDS: Piperacillin/Tazobactam 3.375 GM in D5% in Water (Mini-Bag+) 100 ML IVPB SCH ×3 (00:14→17:09)
[2016-12-02 05:13] LABS: Basophils % 0.4 %; Eosinophils # 0.4 K/mcL (0.0-0.6); Hematocrit 23.7 % (37.5-50.1); Hemoglobin 7.5 g/dL (12.9-16.9); Immature Granulocytes % 1.3 % (0-4); Lymphocytes # 0.4 K/mcL (0.6-4.6); Lymphocytes % 3.2 %; Mean Corpuscular HGB Conc 31.6 g/dL (31.6-35.5); Mean Corpuscular Hemoglobin 27.6 pg (28.0-33.3); Mean Corpuscular Volume 87.1 fL (83.0-100.0); Mean Platelet Volume 10.9 fL (9.4-12.4); Monocytes # 0.5 K/mcL (0.0-1.3); Monocytes % 4.5 %; Neutrophils # 9.4 K/mcL (1.6-8.9); Platelet Count 165 K/mcL (140-400); Red Blood Count 2.72 M/mcL (4.19-5.50); Red Cell Distribution Width 17.4 % (11.5-14.5); Segmented Neutrophils % 86.6 %
[2016-12-02] MEDS: Pantoprazole 40 MG VIAL IVP SCH (05:48)
[2016-12-02 06:28] LABS: BUN/Creatinine Ratio 33 (6-26); Blood Urea Nitrogen 24 mg/dL (8-26); Calcium 7.2 mg/dL (8.6-10.8); Carbon Dioxide 25 mEq/L (19-29); Chloride 101 mEq/L (98-109); Glucose 226 mg/dL (70-99); Osmolality,Calculated 283 (280-300); eGFR For African Americans > 60 (> 60); eGFR For Non-African Americans > 60 (> 60)
[2016-12-02 06:30] LABS: Potassium 4.4 mEq/L (3.5-4.5); Sodium 131 mEq/L (136-145)
[2016-12-02 06:46] LABS: Magnesium 1.8 mg/dL (1.6-2.6); Phosphorous 4.5 mg/dL (2.3-4.7)
[2016-12-02] MEDS: Levothyroxine Sodium 100 MCG VIAL IVP SCH (08:18)
[2016-12-02] MEDS: Miconazole w/zinc oxide&karaya 92 APPL/92 GM TUBE TP SCH ×3 (08:34→23:01)
--- NOTE | 2016-12-02 09:59 | General Surgery Progress Note ---
<Omaira Mccarthy Juan Ramon - Last Filed: 12/02/16 10:17> Date of Encounter: 12/02/16 Time of Encounter: 09:30 - Assessment and Plan (1) Adenocarcinoma of sigmoid colon Current Visit: Yes Status: Acute POD #15 POD Exploratory celiotomy; Sigmoid colectomy with colostomy; Primary repair of left inguinal hernia; Repair of left external/internal iliac vein injury with Dr. Remy Continue NPO while awaiting return of bowel function NG tube to LIWS Continue TPN- 83ml/hour IV antibiotics- Zosyn and diflucan Continue REG drain to bulb suction Wound vac change every MWF Colostomy care and change with wound vac changes every MWF Supportive care/pain control Repeat am labs PT/OT as tolerated Palliative care and oncology following. Per oncology note, consideration for possible hospice is being discussed. Noted code status change to DNRCC-A (2) Left inguinal hernia Current Visit: Yes Status: Acute POD #15 primary repair of left inguinal hernia post-operative seroma noted and stable (3) Anemia Current Visit: Yes Status: Acute Hgb 8.1>7.5 Continue to monitor Hemodynamically stable Qualifiers: Anemia type: other cause Other causes of anemia: other cause, not classified Qualified Code(s): D64.89 - Other specified anemias (4) Counseling regarding advanced care planning and goals of care Current Visit: Yes Status: Acute Palliative care and oncology following. Per oncology note, consideration for possible hospice is being discussed. Noted code status change to DNRCC-A (5) DVT of lower extremity (deep venous thrombosis) Current Visit: Yes Status: Acute Heparin gtt to be d/c and start therapeutic lovenox dosing (to decrease fluid intake) Qualifiers: Affected thrombotic vein of extremity: iliac Chronicity: acute Laterality : left Qualified Code(s): I82.422 - Acute embolism and thrombosis of left iliac vein (6) DVT of upper extremity (deep vein thrombosis) Current Visit: Yes Status: Acute Heparin gtt to be d/c and start therapeutic lovenox dosing (to decrease fluid intake) Qualifiers: Affected thrombotic vein of extremity: axillary Chronicity: acute Laterality: right Qualified Code(s): I82.A11 - Acute embolism and thrombosis of right axillary vein (7) Delirium Current Visit: Yes Status: Acute Consider adding amitryptiline for delirium and insomnia (8) Electrolyte abnormality Current Visit: Yes Status: Acute follow electrolyte protocol per orders (9) Failure to thrive Current Visit: Yes Status: Acute Continue TPN therapy while awaiting return of bowel function- goal 83ml/hour PT/OT as tolerated Qualifiers: Failure to thrive age range: in adult Qualified Code(s): R62.7 - Adult failure to thrive (10) Severe protein-calorie malnutrition Current Visit: Yes Status: Chronic Continue TPN therapy while awaiting return of bowel function- goal 83ml/hour Ad Clerk following for recommendations Subjective Patient reports: no new complaints, bowel movement (via colostomy), afebrile, other (Patient pleasantly confused this morning. states that the patient is not resting. Benadryl and Ativan have had opposite effects on him.) Objective Vital Signs - Last 8 Hours Temp Pulse Resp BP Pulse Ox 12/02/16 07:16 98.6 F 73 18 103/65 98 12/02/16 04:10 82 12/02/16 03:14 98.3 F 83 18 129/44 95 Intake and Output 12/01/16 12/02/16 12/02/16 23:59 07:59 15:59 Intake Total 4600 / 4600 350 / 350 456 / 456 Output Total 540 / 540 300 / 300 Balance 4060 / 4060 50 / 50 456 / 456 Intake: IV Fluids 4600 / 4600 350 / 350 456 / 456 Heparin 25,000 UNIT/500 500 / 500 456 / 456 ML D5W 25,000 unit In 500 ml @ 14 UNIT/KG/HR 24. 108 mls/hr IVC .[id number] [facility] Rx#:[id number] Clinimix E 5%-15% 1999 / 1999 SOLUTION 2,000 ML @ 83.3 mls/hr IVC .Q24H [facility] with M.v.i. Adult 10 ml Rx#: [id number] Intralipid 20% 250 ML @ 250 / 250 21 mls/hr IVPB DAILY@1700 [facility] Rx#:[id number] Zosyn 3.375 GM In 100 / 100 100 / 100 Dextrose 5% (Minibag+) 100 ML 100 ML @ 25 mls/hr IVPB Q8H [facility] Rx#: [id number] Oral 0 / 0 Output: Gastric Tube Lavage 50 / 50 300 / 300 Amount Right Nare 50 / 50 300 / 300 Catheter 280 / 280 Gastric Drainage 200 / 200 Wound Drainage Left Lower Abdomen Other: Meal Breakfast Percent of Meal Consumed 0% Stool Size Small Stool Characteristics Foamy Stool Color Brown Weight 92.8 kg Blood Glucose* 109 134 Patient Weight 12/02/16 23:59 Weight 92.8 kg - General physical appearance no distress, cachectic, chronically ill, other (Pleasantly confused) - Eyes PERRL, normal ocular movement - ENT dry mucosa, atraumatic, normocephalic - Neck Neck exam: trachea midline - Respiratory normal respiratory effort, clear to auscultation, other (diminished bibasilar bases) - Cardiovascular Cardiovascular exam: Present: RRR - Abdomen Abdomen: Present: bowel sounds present, soft, tender (minimal, expected post- operative tenderness), wound (Colostomy pink and moist (edematous) with soft brown stool noted, minimal flatus; Midline with wound vac intact with Serous drainage noted (change every MWF); REG drain to bulb suction with purulent drainage noted (10ml total yesterday); NG tube to LIWS with bilious drainage noted (100ml since midnight)) - Incision Incision: Present: serous, open (Wound vac intact) - Genitourinary other (jeff catheter to SD with clear, yellow urine (2450ml since midnight)) - Neurologic CN 2-12 grossly intact - Musculoskeletal other (severe deconditioning noted) - Psychiatric oriented to person, oriented to place, speech is normal - Labs 12/02/16 04:25 12/02/16 04:25 Diabetes panel 12/02/16 Range/Units 04:25 Sodium 131 L (136-145) mEq/L Potassium 4.4 (3.5-4.5) mEq/L Chloride 101 (98-109) mEq/L Carbon Dioxide 25 (19-29) mEq/L BUN 24 (8-26) mg/dL Creatinine 0.73 (0.72-1.25) mg/dL Glucose 226 H (70-99) mg/dL Calcium 7.2 L (8.6-10.8) mg/dL Calcium panel 12/02/16 Range/Units 04:25 Calcium 7.2 L (8.6-10.8) mg/dL Phosphorus 4.5 (2.3-4.7) mg/dL Pituitary panel 12/02/16 Range/Units 04:25 Sodium 131 L (136-145) mEq/L Potassium 4.4 (3.5-4.5) mEq/L Chloride 101 (98-109) mEq/L Carbon Dioxide 25 (19-29) mEq/L BUN 24 (8-26) mg/dL Creatinine 0.73 (0.72-1.25) mg/dL Glucose 226 H (70-99) mg/dL Calcium 7.2 L (8.6-10.8) mg/dL Adrenal panel 12/02/16 Range/Units 04:25 Sodium 131 L (136-145) mEq/L Potassium 4.4 (3.5-4.5) mEq/L Chloride 101 (98-109) mEq/L Carbon Dioxide 25 (19-29) mEq/L BUN 24 (8-26) mg/dL Creatinine 0.73 (0.72-1.25) mg/dL Glucose 226 H (70-99) mg/dL Calcium 7.2 L (8.6-10.8) mg/dL - VTE Documentation of Mechanical Device: Graduated compression elastic hosiery Consult Discharge Plan - Plan Referrals: Gopal Remy MD [Partnered Physician] - 12/22/16 2:05 pm Cardoza,Antonella Rainey CNP [Primary Care Provider] - (pt will go to rehab on discharge no PCP appointment needed) - Attending Attestation I examined this patient and my medical decision-making was reviewed with the REAL ESTATE INSPECTOR/PA/Advanced Practice Nurse/Resident Physician. I agree with the documented findings, disposition and treatment plan as described except to the extent set forth below. <Kaia Quiles - Last Filed: 12/02/16 13:01> Date of Encounter: 12/02/16 - Assessment and Plan (1) Abdominal pain Current Visit: Yes Status: Acute prn pain control Qualifiers: Abdominal location: generalized Qualified Code(s): R10.84 - Generalized abdominal pain (2) Adenocarcinoma of sigmoid colon Current Visit: Yes Status: Acute REG drain with purulent drainage wound vac change MWF continue PT/OT as pt tolerates TPN for malnutrition and until patient able to take in and tolerate po intake continue Abx per ID (3) Left inguinal hernia Current Visit: Yes Status: Acute (4) Lower extremity edema Current Visit: Yes Status: Acute (5) PVD (peripheral vascular disease) Current Visit: Yes Status: Chronic will start aspirin when tolerating po (6) Edema of upper extremity Current Visit: Yes Status: Acute (7) DVT of lower extremity (deep venous thrombosis) Current Visit: Yes Status: Acute Qualifiers: Affected thrombotic vein of extremity: iliac Chronicity: acute Laterality : left Qualified Code(s): I82.422 - Acute embolism and thrombosis of left iliac vein (8) DVT of upper extremity (deep vein thrombosis) Current Visit: Yes Status: Acute Qualifiers: Affected thrombotic vein of extremity: axillary Chronicity: acute Laterality: right Qualified Code(s): I82.A11 - Acute embolism and thrombosis of right axillary vein (9) Physical deconditioning Current Visit: Yes Status: Chronic PT/OT as pt tolerates (10) Severe protein-calorie malnutrition Current Visit: Yes Status: Chronic (11) Hypothyroid Current Visit: No Status: Chronic continue home synthroid Qualifiers: Hypothyroidism type: unspecified Qualified Code(s): E03.9 - Hypothyroidism , unspecified (12) S/P colectomy Current Visit: Yes Status: Acute (13) Anemia Current Visit: Yes Status: Acute Hb levels are fluxing, no precipitous drops, continue to monitor Qualifiers: Anemia type: other cause Other causes of anemia: other cause, not classified Qualified Code(s): D64.89 - Other specified anemias Subjective Patient reports: no new complaints, feels better, bowel movement Objective Vital Signs - Last 8 Hours Temp Pulse Resp BP Pulse Ox 12/02/16 12:04 81 98 12/02/16 11:38 99.1 F 79 16 118/66 97 12/02/16 07:16 98.6 F 73 18 103/65 98 Intake and Output 12/01/16 12/02/16 12/02/16 23:59 07:59 15:59 Intake Total 4704 / 4704 350 / 350 506 / 506 Output Total 540 / 540 300 / 300 2552 / 2552 Balance 4164 / 4164 50 / 50 -2045 / -2045 Intake: IV Fluids 4704 / 4704 350 / 350 506 / 506 Heparin 25,000 UNIT/500 500 / 500 456 / 456 ML D5W 25,000 unit In 500 ml @ 14 UNIT/KG/HR 24. 108 mls/hr IVC .[id number] [facility] Rx#:[id number] Clinimix E 5%-15% 1999 / 1999 SOLUTION 2,000 ML @ 83.3 mls/hr IVC .Q24H [facility] with M.v.i. Adult 10 ml Rx#: [id number] Intralipid 20% 250 ML @ 250 / 250 21 mls/hr IVPB DAILY@1700 [facility] Rx#:[id number] Diflucan 100 MG/50 ML 100 50 / 50 mg In 50 ml @ 50 mls/hr IVPB DAILY [facility] Rx#: [id number] Magnesium Sulfate 2 GM In 104 / 104 Dextrose 5% 100 ML @ 50 mls/hr IVPB Q6H [facility] Rx#: [id number] Zosyn 3.375 GM In 100 / 100 100 / 100 Dextrose 5% (Minibag+) 100 ML 100 ML @ 25 mls/hr IVPB Q8H [facility] Rx#: [id number] Oral 0 / 0 Output: Urine 2450 / 2450 2-way Urethral 2450 / 2450 Gastric Tube Lavage 50 / 50 300 / 300 Amount Right Nare 50 / 50 300 / 300 Catheter 280 / 280 Gastric Drainage 200 / 200 100 / 100 Wound Drainage 2 / 2 Abdomen 2 / Left Lower Abdomen Other: Meal Breakfast Percent of Meal Consumed 0% Stool Size Small Stool Characteristics Foamy Stool Color Brown Weight 92.8 kg Blood Glucose* 109 134 116 Patient Weight 12/02/16 23:59 Weight 92.8 kg - General physical appearance no distress, cachectic, chronically ill - Eyes PERRL - ENT dry mucosa, atraumatic - Neck Neck exam: trachea midline - Respiratory normal respiratory effort, clear to auscultation - Cardiovascular Cardiovascular exam: Present: RRR - Abdomen Abdomen: Present: bowel sounds present, soft, tender - Incision Incision: Present: serous, open - Integumentary no growths - Neurologic CN 2-12 grossly intact - Musculoskeletal other - Psychiatric oriented to person, oriented to place - Labs 12/02/16 04:25 12/02/16 04:25 Diabetes panel 12/02/16 Range/Units 04:25 Sodium 131 L (136-145) mEq/L Potassium 4.4 (3.5-4.5) mEq/L Chloride 101 (98-109) mEq/L Carbon Dioxide 25 (19-29) mEq/L BUN 24 (8-26) mg/dL Creatinine 0.73 (0.72-1.25) mg/dL Glucose 226 H (70-99) mg/dL Calcium 7.2 L (8.6-10.8) mg/dL Calcium panel 12/02/16 Range/Units 04:25 Calcium 7.2 L (8.6-10.8) mg/dL Phosphorus 4.5 (2.3-4.7) mg/dL Pituitary panel 12/02/16 Range/Units 04:25 Sodium 131 L (136-145) mEq/L Potassium 4.4 (3.5-4.5) mEq/L Chloride 101 (98-109) mEq/L Carbon Dioxide 25 (19-29) mEq/L BUN 24 (8-26) mg/dL Creatinine 0.73 (0.72-1.25) mg/dL Glucose 226 H (70-99) mg/dL Calcium 7.2 L (8.6-10.8) mg/dL Adrenal panel 12/02/16 Range/Units 04:25 Sodium 131 L (136-145) mEq/L Potassium 4.4 (3.5-4.5) mEq/L Chloride 101 (98-109) mEq/L Carbon Dioxide 25 (19-29) mEq/L BUN 24 (8-26) mg/dL Creatinine 0.73 (0.72-1.25) mg/dL Glucose 226 H (70-99) mg/dL Calcium 7.2 L (8.6-10.8) mg/dL - Attending Attestation I examined this patient and my medical decision-making was reviewed with the REAL ESTATE INSPECTOR/PA/Advanced Practice Nurse/Resident Physician. I agree with the documented findings, disposition and treatment plan as described except to the extent set forth below.
[2016-12-02] MEDS ORDERED: *HR* Enoxaparin 100 MG/ML SYRINGE SQ SCH (10:35)
[2016-12-02] MEDS: Magnesium Sulfate 2 GM in D5% in Water 100 ML IVPB PRN ×2 (10:36→21:30)
[2016-12-02] MEDS: Fluconazole 100 MG/50 ML 100 MG/50 ML BAG IVPB SCH (10:36)
[2016-12-02] MEDS ORDERED: D10% in Water 500 ML IVC PRN (11:25)
--- NOTE | 2016-12-02 11:30 | Infectious Disease Progress No ---
Date of Encounter: 12/02/16 Time of Encounter: 11:28 - Assessment and Plan (1) Severe sepsis with acute organ dysfunction Current Visit: Yes Status: Acute Patient had 3 SIRS criteria with Leukocytosis, tachycardia and tachypnea with ALFIE. Likely secondary to perforated colon mass and intra-abdominal abscess. Improved. Leukocytosis and tachycardia have resolved. The patient continues to have some intermittent tachypnea. ALFIE has resolved as well. No blood cultures were obtained. (2) Leukocytosis Current Visit: Yes Status: Resolved Qualifiers: Leukocytosis type: other Qualified Code(s): D72.828 - Other elevated white blood cell count (3) Perforated bowel Current Visit: Yes Status: Acute CT scan 11/17/16 showed pneumoperitoneum compatible with perforated viscus with a small amount of free intraperitoneal fluid. There was also a large colonic mass with probable transmural extension and pelvic and abdominal adenopathy re- demostrated and not significantly changed from prior exam. Additionally, there was also a left inguinal hernia containing sigmoid colon proximal to the mass. Patient is s/p Ex lap, sigmoid colectomy and colostomy 11/17/16. Operative notes reviewed. Intra-operative cultures obtained grew E. coli and K. pneumoniae. The patient continued to have leukocytosis. Repeat CT scan 11/28/16 showed two formed fluid collections within the lower abdomen/pelvis with a few foci of gas concerning for abscess. Per surgery, no additional surgical intervention required for the fluid collections due to their small size. Clinically, the patient has improved. Continue Zosyn 3.375grams IV Q8H. Continue fluconazole 100mg IV daily. Duration of treatment depends on the clinical picture. Monitor renal function and dose-adjust antibiotics. Recommend checking LFTs periodically to monitor for liver toxicity associated with prolonged use of systemic antifungals. (4) Urinary tract infection Current Visit: Yes Status: Resolved Urine culture positive for Acinetobacter and E. coli. Likely contaminated specimen. Also current antibiotics adequate for bacteria that grew from urine culture. Qualifiers: Urinary tract infection type: site unspecified Hematuria presence: without hematuria Qualified Code(s): N39.0 - Urinary tract infection, site not specified (5) Adenocarcinoma of sigmoid colon Current Visit: Yes Status: Acute Tumor had invaded through the muscularis propria and into the pericolic area. Additionally there was nakul involvement. Management per Oncology and primary team. He likely has a poor prognosis given that he has metastatic disease/nakul involement, advanced age, medical comorbidities, and malnutrition. Palliative care team has been consulted and hospice has been discussed. Awaiting decision from the family. (6) Delirium Current Visit: Yes Status: Acute Patient is still having confusion. However appears to be somewhat less today. I am unsure of his baseline. Continue treating underlying medical causes of his delerium. (7) DVT (deep venous thrombosis) Current Visit: Yes Status: Acute Acute partially occlusive DVT noted in the right subclavian vein. Acute DVT noted from the left distal iliac through popliteal veins. Anticoagulation per the primary team. Qualifiers: Affected thrombotic vein of extremity: unspecified vein of extremity Qualified Code(s): I82.621 - Acute embolism and thrombosis of deep veins of right upper extremity (8) Failure to thrive Current Visit: Yes Status: Acute Patient has physical signs of malnutrition. Currently on TPN. Management per the surgery team. Qualifiers: Failure to thrive age range: in adult Qualified Code(s): R62.7 - Adult failure to thrive (9) Ileus Current Visit: Yes Status: Acute Management per surgery. (10) PVD (peripheral vascular disease) Current Visit: Yes Status: Chronic Severe. No signs of acute occlusion at this time. Management per Vascular Surgery. - Subjective Interval history: Patient seen and examined. No acute events noted overnight. Patient resting in bed with family at the bedside. Since that overall he feels okay and is requesting to get up. He denies any fevers or chills. He denies any chest pain, but does report a mild cough. He denies any nausea or vomiting. He does report some abdominal pain. He denies pain or any visits extremities. Infect Dis PN-Objective Data - Labs CBC & Chem 7: 12/02/16 04:25 12/02/16 04:25 Labs: Laboratory Results - last 24 hr 12/01/16 12/01/16 12/01/16 12:18 14:30 18:42 WBC RBC Hgb Hct MCV MCH MCHC RDW Plt Count MPV Immature Gran % Seg Neutrophils % Lymphocytes % Monocytes % Eosinophils % Basophils % Neutrophils # Lymphocytes # Monocytes # Eosinophils # Basophils # APTT Sodium Potassium Chloride Carbon Dioxide BUN Creatinine Est GFR ( Amer) Est GFR (Non-Af Amer) BUN/Creatinine Ratio Glucose POC Glucose 138 H 124 H Calculated Osmolality Calcium Ionized Calcium Phosphorus Magnesium 1.9 Specimen Rejected 12/01/16 12/02/16 12/02/16 23:25 03:35 04:16 WBC RBC Hgb Hct MCV MCH MCHC RDW Plt Count MPV Immature Gran % Seg Neutrophils % Lymphocytes % Monocytes % Eosinophils % Basophils % Neutrophils # Lymphocytes # Monocytes # Eosinophils # Basophils # APTT Sodium Potassium Chloride Carbon Dioxide BUN Creatinine Est GFR ( Amer) Est GFR (Non-Af Amer) BUN/Creatinine Ratio Glucose POC Glucose 109 H Calculated Osmolality Calcium Ionized Calcium Phosphorus Magnesium Specimen Rejected MCV Delta Contaminated 12/02/16 12/02/16 12/02/16 04:16 04:25 04:25 WBC 10.8 RBC 2.72 L Hgb 7.5 L Hct 23.7 L MCV 87.1 MCH 27.6 L MCHC 31.6 RDW 17.4 H Plt Count 165 MPV 10.9 Immature Gran % 1.3 Seg Neutrophils % 86.6 Lymphocytes % 3.2 Monocytes % 4.5 Eosinophils % 4.0 Basophils % 0.4 Neutrophils # 9.4 H Lymphocytes # 0.4 L Monocytes # 0.5 Eosinophils # 0.4 Basophils # 0.0 APTT Sodium 131 L Potassium 4.4 Chloride 101 Carbon Dioxide 25 BUN 24 Creatinine 0.73 Est GFR ( Amer) > 60 Est GFR (Non-Af Amer) > 60 BUN/Creatinine Ratio 33 H Glucose 226 H POC Glucose Calculated Osmolality 283 Calcium 7.2 L Ionized Calcium Phosphorus 4.5 Magnesium 1.8 Specimen Rejected Contaminated 12/02/16 12/02/16 12/02/16 05:34 06:19 06:20 WBC RBC Hgb Hct MCV MCH MCHC RDW Plt Count MPV Immature Gran % Seg Neutrophils % Lymphocytes % Monocytes % Eosinophils % Basophils % Neutrophils # Lymphocytes # Monocytes # Eosinophils # Basophils # APTT 57.5 H Sodium Potassium Chloride Carbon Dioxide BUN Creatinine Est GFR ( Amer) Est GFR (Non-Af Amer) BUN/Creatinine Ratio Glucose POC Glucose 134 H Calculated Osmolality Calcium Ionized Calcium 1.11 L Phosphorus Magnesium Specimen Rejected Cultures: Cultures 11/24/16 10:26 Blood Fungal Culture - Preliminary Peripheral Central Cath, Picc No growth. Serology 11/29/16 11/20/16 Range/Units 13:30 03:52 Urine Color Yellow (Yellow) Urine Clarity Turbid A (Clear) Urine pH 5.0 (5.0-8.0) pH Units Ur Specific [place] 1.027 H (1.010-1.025) Urine Protein 30 H (Neg-Trace) mg/dL Urine Glucose (UA) Normal (Normal) mg/dL Urine Ketones Negative (Negative) mg/dL Urine Blood Small H (Negative) Urine Nitrite Negative (Negative) Urine Bilirubin Negative (Negative) Urine Urobilinogen Normal (Normal) mg/dL Ur Leukocyte Esterase Negative (Negative) Urine Microscopic RBC 5-15 H (0-3) per hpf Urine Microscopic WBC 5-15 H (0-3) per hpf Ur Squamous Epith Cells Many H (None-Few) per lpf Amorphous Sediment Few (Few) Urine Bacteria Few (None-Few) per hpf Hyaline Casts None Seen (None-Few) per lpf Urine Yeast Test Not Performed Urine Osmolality 608 (300-1090) mOsm/kg Exam - Constitutional Vitals: Temp Pulse Resp BP Pulse Ox 98.6 F 73 18 103/65 98 12/02/16 07:16 12/02/16 07:16 12/02/16 07:16 12/02/16 07:16 12/02/16 07:16 General appearance: average body habitus, cooperative, no acute distress - Head Head exam: Present: atraumatic, normal inspection, normocephalic - Eye Eye exam: Present: EOMI, normal appearance, PERRL Pupils: Present: normal accommodation - ENT ENT exam: Present: mucous membranes moist - Neck Neck exam: Present: normal inspection - Respiratory Respiratory exam: Present: CTAB. Absent: rales, respiratory distress, rhonchi, wheezes - Cardiovascular Cardiovascular exam: Present: irregular rhythm. Absent: tachycardia - GI/Abdominal GI/Abdominal exam: Present: normal bowel sounds, soft, tenderness (Generalized) . Absent: distended Additional comments: Midline abdominal incision with wound VAC intact. REG drain noted to the right lower quadrant with a moderate amount of serosanguineous drainage noted. Colostomy noted to the left lower quadrant with a small amount of dark brown liquid stool in the collection appliance. Bolden catheter noted to be draining clear yellow urine at this time. NG tube to low intermittent wall suction. - Extremities Exam Extremities exam: Present: pedal edema (2+ left lower extremity), tenderness ( Bilateral lower extremities). Absent: joint swelling - Neurological Exam Neurological exam: Present: alert, oriented X3, no focal deficits - Psychiatric Psychiatric exam: Present: normal affect, normal mood - Skin Skin exam: Present: dry, intact, normal color, warm - VTE Documentation of Mechanical Device: Graduated compression elastic hosiery Consult Discharge Plan - Plan Referrals: Gopal Remy MD [Partnered Physician] - 12/22/16 2:05 pm Cardoza,Antonella Rainey CNP [Primary Care Provider] - (pt will go to rehab on discharge no PCP appointment needed)
--- NOTE | 2016-12-02 13:21 | Palliative Progress Note ---
Date of Encounter: 12/02/16 Time of Encounter: 10:30 - Assessment and plan (1) Generalized pain Current Visit: Yes Status: Acute Assessment and plan: Mr. Craig currently denies pain, but does demonstrate wincing with movement. He has hydromorphone 1mg every 2 hours as needed. Mr. Craig has used 7 doses in the past 24 hours. (2) Adenocarcinoma of sigmoid colon Current Visit: Yes Status: Acute (3) Severe protein-calorie malnutrition Current Visit: Yes Status: Chronic Assessment and plan: Mr. Craig continues on TPN with dietary following. Ostomy with small amount of liquid green output. (4) Counseling regarding advanced care planning and goals of care Current Visit: Yes Status: Acute Assessment and plan: Discharge plan of care in progress. Continue course and postoperative care per surgical services. Patient will likely need rehab upon discharge. Will consider hospice upon discharge home (either from hospital or rehab). Palliative care team will continue to follow. - Time Spent With Patient Total time spent is greater than 50% in coordination of care (as documented) at patient's floor/unit and/or counseling patient: - Subjective Interval history: Mr. Craig is lying in bed, spouse is at bedside. He is hard of hearing, but answers questions appropriately. He denies pain, but does wince occasionally with movement. NG tube intact to intermittent suction. Spouse reports restless nights with minimal sleep. - Constitutional Vitals: Abnormal lab results RBC 2.72 M/mcL (4.19-5.50) L 12/02/16 04:25 Hgb 7.5 g/dL (12.9-16.9) L 12/02/16 04:25 Hct 23.7 % (37.5-50.1) L 12/02/16 04:25 MCH 27.6 pg (28.0-33.3) L 12/02/16 04:25 RDW 17.4 % (11.5-14.5) H 12/02/16 04:25 Neutrophils # 9.4 K/mcL (1.6-8.9) H 12/02/16 04:25 Lymphocytes # 0.4 K/mcL (0.6-4.6) L 12/02/16 04:25 Reactive Lymphocytes Present (Not Present) A 12/01/16 08:10 Platelet Estimate Slight Decrease (Normal) L 12/01/16 08:10 Anisocytosis 1+ (Not Present) A 11/18/16 00:33 PT 14.0 Seconds (9.4-12.1) H 11/17/16 11:03 APTT 57.5 Seconds (26.0-36.0) H 12/02/16 06:19 Sodium 131 mEq/L (136-145) L 12/02/16 04:25 BUN/Creatinine Ratio 33 (6-26) H 12/02/16 04:25 Glucose 226 mg/dL (70-99) H 12/02/16 04:25 POC Glucose 134 (58-89) H 12/02/16 05:34 Calcium 7.2 mg/dL (8.6-10.8) L 12/02/16 04:25 Ionized Calcium 1.11 mmol/L (1.15-1.35) L 12/02/16 06:20 Iron 11 mcg/dL (65-175) L 11/24/16 10:26 % Saturation 8 % (20-55) L 11/24/16 10:26 Transferrin 101 mg/dL (174-364) L 11/24/16 10:26 Total Bilirubin 1.3 mg/dL (0.2-1.2) H 11/17/16 11:03 Direct Bilirubin 0.7 mg/dL (0.0-0.5) H 11/17/16 11:03 Creatine Kinase 404 Units/L (30-200) H 11/19/16 12:44 C-Reactive Protein 249 mg/L (Less than 5) H 11/17/16 11:03 B-Natriuretic Peptide 186 pg/mL (0-100) H 11/17/16 11:03 Serum Total Protein 5.2 g/dL (6.0-8.3) L 11/17/16 11:03 Albumin 2.2 g/dL (3.5-5.0) L 11/17/16 11:03 Albumin/Globulin Ratio 0.7 (1.1-2.2) L 11/17/16 11:03 Carcinoembryonic Ag 5.8 ng/mL (0-5.0) H 11/17/16 11:03 Urine Clarity Turbid (Clear) A 11/20/16 03:52 Ur Specific [place] 1.027 (1.010-1.025) H 11/20/16 03:52 Urine Protein 30 mg/dL (Neg-Trace) H 11/20/16 03:52 Urine Blood Small (Negative) H 11/20/16 03:52 Urine Microscopic RBC 5-15 per hpf (0-3) H 11/20/16 03:52 Urine Microscopic WBC 5-15 per hpf (0-3) H 11/20/16 03:52 Ur Squamous Epith Cells Many per lpf (None-Few) H 11/20/16 03:52 Ur Culture Indicated? YES (NO) A 11/17/16 16:26 Palliative Quality Palliative Quality: Screen for Code Status: Yes, Screen for Goals of Care: Yes, Screen for Pain: Yes, If Pain Regimen Started, Initiate Bowel Regimen: NA, Screen for Nausea/Vomitting: Yes Code Status: 11/30/16 10:17 DNR [Resuscitation Status: Active] [RES] Routine Comment: Resuscitation Status: DNR-Comfort Care-Arrest - Labs CBC & Chem 7: 12/02/16 04:25 12/02/16 04:25 Labs: Laboratory Results - last 24 hr 12/01/16 12/01/16 12/01/16 12:18 14:30 18:42 WBC RBC Hgb Hct MCV MCH MCHC RDW Plt Count MPV Immature Gran % Seg Neutrophils % Lymphocytes % Monocytes % Eosinophils % Basophils % Neutrophils # Lymphocytes # Monocytes # Eosinophils # Basophils # APTT Sodium Potassium Chloride Carbon Dioxide BUN Creatinine Est GFR ( Amer) Est GFR (Non-Af Amer) BUN/Creatinine Ratio Glucose POC Glucose 138 H 124 H Calculated Osmolality Calcium Ionized Calcium Phosphorus Magnesium 1.9 Specimen Rejected 12/01/16 12/02/16 12/02/16 23:25 03:35 04:16 WBC RBC Hgb Hct MCV MCH MCHC RDW Plt Count MPV Immature Gran % Seg Neutrophils % Lymphocytes % Monocytes % Eosinophils % Basophils % Neutrophils # Lymphocytes # Monocytes # Eosinophils # Basophils # APTT Sodium Potassium Chloride Carbon Dioxide BUN Creatinine Est GFR ( Amer) Est GFR (Non-Af Amer) BUN/Creatinine Ratio Glucose POC Glucose 109 H Calculated Osmolality Calcium Ionized Calcium Phosphorus Magnesium Specimen Rejected MCV Delta Contaminated 12/02/16 12/02/16 12/02/16 04:16 04:25 04:25 WBC 10.8 RBC 2.72 L Hgb 7.5 L Hct 23.7 L MCV 87.1 MCH 27.6 L MCHC 31.6 RDW 17.4 H Plt Count 165 MPV 10.9 Immature Gran % 1.3 Seg Neutrophils % 86.6 Lymphocytes % 3.2 Monocytes % 4.5 Eosinophils % 4.0 Basophils % 0.4 Neutrophils # 9.4 H Lymphocytes # 0.4 L Monocytes # 0.5 Eosinophils # 0.4 Basophils # 0.0 APTT Sodium 131 L Potassium 4.4 Chloride 101 Carbon Dioxide 25 BUN 24 Creatinine 0.73 Est GFR ( Amer) > 60 Est GFR (Non-Af Amer) > 60 BUN/Creatinine Ratio 33 H Glucose 226 H POC Glucose Calculated Osmolality 283 Calcium 7.2 L Ionized Calcium Phosphorus 4.5 Magnesium 1.8 Specimen Rejected Contaminated 12/02/16 12/02/16 12/02/16 05:34 06:19 06:20 WBC RBC Hgb Hct MCV MCH MCHC RDW Plt Count MPV Immature Gran % Seg Neutrophils % Lymphocytes % Monocytes % Eosinophils % Basophils % Neutrophils # Lymphocytes # Monocytes # Eosinophils # Basophils # APTT 57.5 H Sodium Potassium Chloride Carbon Dioxide BUN Creatinine Est GFR ( Amer) Est GFR (Non-Af Amer) BUN/Creatinine Ratio Glucose POC Glucose 134 H Calculated Osmolality Calcium Ionized Calcium 1.11 L Phosphorus Magnesium Specimen Rejected - ABG Interpretation ABG results: PT/INR, D-dimer PT 14.0 Seconds (9.4-12.1) H 11/17/16 11:03 Consult Discharge Plan - Plan Referrals: Gopal Remy MD [Partnered Physician] - 12/22/16 2:05 pm Sony,Antonella Rainey CNP [Primary Care Provider] - (pt will go to rehab on discharge no PCP appointment needed)
[2016-12-02] MEDS ORDERED: Clinimix E 5%-15% SOLUTION 2,000 ML with MVI, adult with vitamin K 10 ML IVC SCH (17:00)
[2016-12-02] MEDS: Clinimix E 5%-15% SOLUTION 2,000 ML with MVI, adult with vitamin K 10 ML IVC SCH (17:08)
[2016-12-02] MEDS: *HR* Enoxaparin 100 MG/ML SYRINGE SQ SCH (21:28)
[2016-12-03] MEDS: Piperacillin/Tazobactam 3.375 GM in D5% in Water (Mini-Bag+) 100 ML IVPB SCH ×3 (01:01→16:34)
[2016-12-03 04:09] LABS: Basophils % 0.3 %; Eosinophils # 0.3 K/mcL (0.0-0.6); Eosinophils % 2.9 %; Hematocrit 24.8 % (37.5-50.1); Immature Granulocytes % 1.1 % (0-4); Lymphocytes # 0.3 K/mcL (0.6-4.6); Lymphocytes % 3.2 %; Mean Corpuscular HGB Conc 32.3 g/dL (31.6-35.5); Mean Corpuscular Hemoglobin 28.1 pg (28.0-33.3); Mean Platelet Volume 10.7 fL (9.4-12.4); Monocytes # 0.5 K/mcL (0.0-1.3); Monocytes % 4.7 %; Neutrophils # 9.4 K/mcL (1.6-8.9); Platelet Count 122 K/mcL (140-400); Red Blood Count 2.85 M/mcL (4.19-5.50); Red Cell Distribution Width 17.2 % (11.5-14.5); Segmented Neutrophils % 87.8 %
[2016-12-03 04:22] LABS: BUN/Creatinine Ratio 37 (6-26); Blood Urea Nitrogen 23 mg/dL (8-26); Calcium 7.4 mg/dL (8.6-10.8); Carbon Dioxide 27 mEq/L (19-29); Chloride 106 mEq/L (98-109); Glucose 104 mg/dL (70-99); Magnesium 1.9 mg/dL (1.6-2.6); Osmolality,Calculated 282 (280-300); Phosphorous 2.6 mg/dL (2.3-4.7); Sodium 134 mEq/L (136-145); eGFR For African Americans > 60 (> 60); eGFR For Non-African Americans > 60 (> 60)
[2016-12-03] MEDS: *HR* Enoxaparin 100 MG/ML SYRINGE SQ SCH ×2 (05:40→17:48)
[2016-12-03] MEDS: Pantoprazole 40 MG VIAL IVP SCH (05:40)
--- NOTE | 2016-12-03 08:11 | General Surgery Progress Note ---
Date of Encounter: 12/03/16 Time of Encounter: 08:09 - Assessment and Plan (1) Perforated sigmoid colon Current Visit: Yes Status: Acute POD # 16 Exploratory celiotomy with sigmoid colectomy and colostomy. Primary repair of left inguinal hernia and repair of left external/internal iliac vein. VSS Supportive care management TPN - 83ml/hr IVF NPO, will monitor for bowel function: - BS present, flatus in colostomy without stool production. Continue colostomy care. NGT to gravity, no output REG drain to bulb suction Wound vac care M, W, F. ABD binder at all times. PT/OT as tolerated Repeat am labs Noted code status change to [id number] Supportive care/pain control Infectious Disease is following - Agree to continue IV abx - Zosyn and Diflucan Per oncology note, consideration for possible hospice is being discussed. Palliative care team evaluated yesterday and started the discharge plan of care. Son and are on board with possible discharge Monday or Monday to home with hospice. All questions/concerns were answered. Discharge planning - Wean off NGT and TPN prior to discharge. (2) Left inguinal hernia Current Visit: Yes Status: Acute POD # 16 Exploratory celiotomy with sigmoid colectomy and colostomy. Primary repair of left inguinal hernia and repair of left external/internal iliac vein. Pain is well controlled at this time. Continue OT and PT as tolerated. PT unable to work with patient d/t deconditioning. (3) Delirium Current Visit: Yes Status: Acute Ativan and Benadryl worsened symptoms. Patient was started on Elavil yesterday. No sleep overnight. Confused. D/c ativan. Ordered Haldol 1mg IVP q6hrs PRN delirum/insomnia. (4) PAD (peripheral artery disease) Current Visit: Yes Status: Chronic Vascular surgery following. No intervention recommended at this time. - Lovenox - Javan Hose for RLE (5) ALFIE (acute kidney injury) Current Visit: Yes Status: Acute Cr 0.62 this morning. Appears to be stable. Will continue IVF and monitor. (6) Counseling regarding advanced care planning and goals of care Current Visit: Yes Status: Acute (7) Electrolyte abnormality Current Visit: Yes Status: Acute Electrolyte protocol Repeat am labs (8) DVT of lower extremity (deep venous thrombosis) Current Visit: Yes Status: Acute Qualifiers: Affected thrombotic vein of extremity: iliac Chronicity: acute Laterality : left Qualified Code(s): I82.422 - Acute embolism and thrombosis of left iliac vein (9) DVT of upper extremity (deep vein thrombosis) Current Visit: Yes Status: Acute Qualifiers: Affected thrombotic vein of extremity: axillary Chronicity: acute Laterality: right Qualified Code(s): I82.A11 - Acute embolism and thrombosis of right axillary vein (10) Severe protein-calorie malnutrition Current Visit: Yes Status: Chronic TPN therapy with max 83ml/hr (11) Anemia Current Visit: Yes Status: Acute Appears to be stable at this time. Hgb 8.0 today. will continue to trend Qualifiers: Anemia type: other cause Other causes of anemia: other cause, not classified Qualified Code(s): D64.89 - Other specified anemias Subjective Narrative: Patient is lying in bed with at bedside. He is agitated and did not sleep well overnight. Per nursing - Ativan and Benadryl worsened his agitation. Good urine output. Flatus noted in his colostomy bag Objective Vital Signs - Last 8 Hours Temp Pulse Resp BP Pulse Ox 12/03/16 03:21 99.0 F 82 17 112/59 100 12/03/16 00:24 98.0 F 87 16 116/65 97 Intake and Output 12/02/16 12/03/16 12/03/16 23:59 07:59 15:59 Intake Total 2222 / 2222 Output Total 650 / 650 950 / 950 Balance 1572 / 1572 -950 / -950 Intake: IV Fluids 2201 / 2201 Clinimix E 5%-15% 2001 SOLUTION 2,000 ML @ 83.3 mls/hr IVC .Q24H SELENA with M.v.i. Adult 10 ml Rx#: [id number] Magnesium Sulfate 2 GM In 100 / 100 Dextrose 5% 100 ML @ 50 mls/hr IVPB Q6H PRN Rx#: [id number] Zosyn 3.375 GM In 100 / 100 Dextrose 5% (Minibag+) 100 ML 100 ML @ 25 mls/hr IVPB Q8H SELENA Rx#: [id number] Oral 0 / 0 Other 20 / 20 Output: Catheter 650 / 650 950 / 950 Other: Meal Dinner Percent of Meal Consumed 0% Weight 91.9 kg Blood Glucose* 112 108 Patient Weight 12/03/16 23:59 Weight 91.9 kg - General physical appearance no distress, other (mildly agitated) - ENT normal mucosa - Neck Neck exam: trachea midline - Respiratory normal expansion, normal respiratory effort, clear to auscultation - Cardiovascular Cardiovascular exam: Present: RRR - Abdomen Abdomen: Present: bowel sounds present, soft, non tender, wound (wound vac in place along midline incision. minmal output overnight. Colostomy bad intact in LLQ with flatus present. No stool. ABD Binder present) - Psychiatric other (conversive but confused. agitated.) - Labs 12/03/16 03:51 12/03/16 03:51 Short CBC 12/03/16 Range/Units 03:51 WBC 10.7 (4.3-11.1) K/mcL Hgb 8.0 L (12.9-16.9) g/dL Hct 24.8 L (37.5-50.1) % Plt Count 122 L (140-400) K/mcL Neutrophils # 9.4 H (1.6-8.9) K/mcL BMP 12/03/16 Range/Units 03:51 Sodium 134 L (136-145) mEq/L Potassium 4.0 (3.5-4.5) mEq/L Chloride 106 (98-109) mEq/L Carbon Dioxide 27 (19-29) mEq/L BUN 23 (8-26) mg/dL Creatinine 0.62 L (0.72-1.25) mg/dL Glucose 104 H (70-99) mg/dL Calcium 7.4 L (8.6-10.8) mg/dL Vital Signs Temp Pulse Resp BP Pulse Ox 12/03/16 07:49 98.9 F 71 16 124/75 99 12/03/16 03:21 99.0 F 82 17 112/59 100 12/03/16 00:24 98.0 F 87 16 116/65 97 12/02/16 20:48 99.7 F H 83 16 115/57 99 12/02/16 18:00 86 99 12/02/16 17:31 87 98 12/02/16 16:23 98.3 F 84 16 114/55 98 12/02/16 15:09 85 98 12/02/16 12:04 81 98 12/02/16 11:38 99.1 F 79 16 118/66 97 Intake and Output 12/02/16 12/03/16 12/03/16 23:59 07:59 15:59 Intake Total 2221 / 2 Output Total 650 / 650 950 / 950 Balance 1572 / 1572 -950 / -950 Intake: IV Fluids 2201 Clinimix E 5%-15% 2001 SOLUTION 2,000 ML @ 83.3 mls/hr IVC .Q24H SELENA with M.v.i. Adult 10 ml Rx#: [id number] Magnesium Sulfate 2 GM In 100 / 100 Dextrose 5% 100 ML @ 50 mls/hr IVPB Q6H PRN Rx#: [id number] Zosyn 3.375 GM In 100 / 100 Dextrose 5% (Minibag+) 100 ML 100 ML @ 25 mls/hr IVPB Q8H SELENA Rx#: [id number] Oral 0 / 0 Other 20 / 20 Output: Catheter 650 / 650 950 / 950 Other: Meal Dinner Percent of Meal Consumed 0% Weight 91.9 kg Blood Glucose* 112 108 Patient Weight 12/03/16 23:59 Weight 91.9 kg - VTE Documentation of Mechanical Device: Graduated compression elastic hosiery Consult Discharge Plan - Plan Referrals: Gopal Remy MD [Partnered Physician] - 12/22/16 2:05 pm Sony,Antonella Rainey CNP [Primary Care Provider] - (pt will go to rehab on discharge no PCP appointment needed)
[2016-12-03] MEDS ORDERED: Haloperidol Lactate 5 MG/ML VIAL IVP PRN (08:34)
[2016-12-03] MEDS: Levothyroxine Sodium 100 MCG VIAL IVP SCH (09:59)
[2016-12-03] MEDS: *HR* HYDROmorphone (PF) 1 MG/ML SYRINGE IVP PRN ×3 (09:59→21:54)
[2016-12-03] MEDS: Magnesium Sulfate 2 GM in D5% in Water 100 ML IVPB PRN (10:00)
[2016-12-03] MEDS: Fluconazole 100 MG/50 ML 100 MG/50 ML BAG IVPB SCH (10:01)
[2016-12-03] MEDS: Potassium Phosphate 44 MEQ in 0.9 % Sodium Chloride 250 ML IVPB PRN (10:22)
[2016-12-03] MEDS: Miconazole w/zinc oxide&karaya 92 APPL/92 GM TUBE TP SCH ×3 (10:53→21:30)
--- NOTE | 2016-12-03 11:55 | Palliative Progress Note ---
Date of Encounter: 12/03/16 Time of Encounter: 10:30 - Assessment and plan (1) Abdominal pain Current Visit: Yes Status: Acute Assessment and plan: Patient is POD #16 colectomy with colostomy. Patient confused but able to verbalize that belly hurts. Unable to provide specifics to location. Dilaudid given per nursing staff and patient more comfortable. Will add low dose fentanyl patch for comfort as patient is still on TPN and colon is beginning to function. Qualifiers: Abdominal location: generalized Qualified Code(s): R10.84 - Generalized abdominal pain (2) Delirium Current Visit: Yes Status: Acute Assessment and plan: Patient with general confusion and disorientation. Patient is POD #16. Family and nursing staff report that patient is not sleeping. Plan to add fentanyl patch to assist with comfort and add Ambien for sleep. Patient is on Elavil also. Reorient X 3. Lights on in room, curtains open for light of day and continue participation in PT. (3) Insomnia Current Visit: Yes Status: Acute Assessment and plan: Will add Ambien and this will not impact heavy sedation. Will monitor. (4) Counseling regarding advanced care planning and goals of care Current Visit: Yes Status: Acute Assessment and plan: Conducted long meeting with Son Marcelo and . Goals is take patient home with Hospice care. I discussed overall poor condition and desires with family. Marcelo is the only child and will assist mother with care of patient. I explained Hospice care and need for additional care. Marcelo agrees to assist with caring for his father. Family knows that patient prognosis is poor and desires to get patient home with comfort care so he can spend time with family and pets. Case discussed with Dr. Charlton. Goals are to transition home with Hospice early part of next week. Patient vitals are stable, colostomy with gas and liquid green stool. NG to gravity drain and no drainage out. Bolden cath with moderate clear yellow urine. Wound vac to abdomen with abdominal binder. Will work with family to transition care to home. Reviewed current plan of care with Marcelo and reviewed medications and purpose. Will follow surgeries lead with nutrition transition. - Time Spent With Patient Total time spent is greater than 50% in coordination of care (as documented) at patient's floor/unit and/or counseling patient: 25 - 35 minutes - Subjective Interval history: Patient with general confusion. POD #16, son and at bedside. Chart reviewed. - Constitutional Vitals: Abnormal lab results RBC 2.85 M/mcL (4.19-5.50) L 12/03/16 03:51 Hgb 8.0 g/dL (12.9-16.9) L 12/03/16 03:51 Hct 24.8 % (37.5-50.1) L 12/03/16 03:51 RDW 17.2 % (11.5-14.5) H 12/03/16 03:51 Plt Count 122 K/mcL (140-400) L 12/03/16 03:51 Neutrophils # 9.4 K/mcL (1.6-8.9) H 12/03/16 03:51 Lymphocytes # 0.3 K/mcL (0.6-4.6) L 12/03/16 03:51 Reactive Lymphocytes Present (Not Present) A 12/01/16 08:10 Platelet Estimate Slight Decrease (Normal) L 12/01/16 08:10 Anisocytosis 1+ (Not Present) A 11/18/16 00:33 PT 14.0 Seconds (9.4-12.1) H 11/17/16 11:03 APTT 57.5 Seconds (26.0-36.0) H 12/02/16 06:19 Sodium 134 mEq/L (136-145) L 12/03/16 03:51 Creatinine 0.62 mg/dL (0.72-1.25) L 12/03/16 03:51 BUN/Creatinine Ratio 37 (6-26) H 12/03/16 03:51 Glucose 104 mg/dL (70-99) H 12/03/16 03:51 POC Glucose 108 (58-89) H 12/03/16 05:31 Calcium 7.4 mg/dL (8.6-10.8) L 12/03/16 03:51 Ionized Calcium 1.11 mmol/L (1.15-1.35) L 12/02/16 06:20 Iron 11 mcg/dL (65-175) L 11/24/16 10:26 % Saturation 8 % (20-55) L 11/24/16 10:26 Transferrin 101 mg/dL (174-364) L 11/24/16 10:26 Total Bilirubin 1.3 mg/dL (0.2-1.2) H 11/17/16 11:03 Direct Bilirubin 0.7 mg/dL (0.0-0.5) H 11/17/16 11:03 Creatine Kinase 404 Units/L (30-200) H 11/19/16 12:44 C-Reactive Protein 249 mg/L (Less than 5) H 11/17/16 11:03 B-Natriuretic Peptide 186 pg/mL (0-100) H 11/17/16 11:03 Serum Total Protein 5.2 g/dL (6.0-8.3) L 11/17/16 11:03 Albumin 2.2 g/dL (3.5-5.0) L 11/17/16 11:03 Albumin/Globulin Ratio 0.7 (1.1-2.2) L 11/17/16 11:03 Carcinoembryonic Ag 5.8 ng/mL (0-5.0) H 11/17/16 11:03 Urine Clarity Turbid (Clear) A 11/20/16 03:52 Ur Specific [place] 1.027 (1.010-1.025) H 11/20/16 03:52 Urine Protein 30 mg/dL (Neg-Trace) H 11/20/16 03:52 Urine Blood Small (Negative) H 11/20/16 03:52 Urine Microscopic RBC 5-15 per hpf (0-3) H 11/20/16 03:52 Urine Microscopic WBC 5-15 per hpf (0-3) H 11/20/16 03:52 Ur Squamous Epith Cells Many per lpf (None-Few) H 11/20/16 03:52 Ur Culture Indicated? YES (NO) A 11/17/16 16:26 - Head Head exam: Present: atraumatic, normal inspection, normocephalic - Eye Eye exam: Present: PERRL Pupils: Present: PERRL - ENT ENT exam: Present: mucous membranes moist - Neck Neck exam: Present: full ROM - Respiratory Respiratory exam: Present: decreased breath sounds - Expanded Respiratory Exam Location: decreased breath sounds: Left, Right, Lower - Cardiovascular Cardiovascular exam: Present: RRR, +S1, +S2 - GI/Abdominal GI/Abdominal exam: Present: hypoactive bowel sounds (Colostomy with liquid stool , greenish brown, flatus to bag) - Rectal Rectal exam: Present: deferred - Extremities Exam Extremities exam: Present: full ROM - Back Exam Back exam: Present: full ROM - Neurological Exam Neurological exam: Present: altered (confused x 3. Reports belly pain) - Psychiatric Psychiatric exam: Present: normal affect - Skin Skin exam: Present: pallor, warm Palliative Quality Palliative Quality: Screen for Code Status: Yes, Screen for Goals of Care: Yes, Screen for Pain: Yes, If Pain Regimen Started, Initiate Bowel Regimen: NA, Screen for Nausea/Vomitting: Yes Code Status: 11/30/16 10:17 DNR [Resuscitation Status: Active] [RES] Routine Comment: Resuscitation Status: DNR-Comfort Care-Arrest - Labs CBC & Chem 7: 12/03/16 03:51 12/03/16 03:51 Labs: Laboratory Results - last 24 hr 11/30/16 12/02/16 12/02/16 17:31 11:41 17:30 WBC RBC Hgb Hct MCV MCH MCHC RDW Plt Count MPV Immature Gran % Seg Neutrophils % Lymphocytes % Monocytes % Eosinophils % Basophils % Neutrophils # Lymphocytes # Monocytes # Eosinophils # Basophils # Sodium Potassium Chloride Carbon Dioxide BUN Creatinine Est GFR ( Amer) Est GFR (Non-Af Amer) BUN/Creatinine Ratio Glucose POC Glucose 116 H Calculated Osmolality Calcium Ionized Calcium 1.11 L Phosphorus Magnesium 1.7 1.7 12/02/16 12/03/16 12/03/16 18:00 00:28 03:51 WBC 10.7 RBC 2.85 L Hgb 8.0 L Hct 24.8 L MCV 87.0 MCH 28.1 MCHC 32.3 RDW 17.2 H Plt Count 122 L MPV 10.7 Immature Gran % 1.1 Seg Neutrophils % 87.8 Lymphocytes % 3.2 Monocytes % 4.7 Eosinophils % 2.9 Basophils % 0.3 Neutrophils # 9.4 H Lymphocytes # 0.3 L Monocytes # 0.5 Eosinophils # 0.3 Basophils # 0.0 Sodium Potassium Chloride Carbon Dioxide BUN Creatinine Est GFR ( Amer) Est GFR (Non-Af Amer) BUN/Creatinine Ratio Glucose POC Glucose 112 H 114 H Calculated Osmolality Calcium Ionized Calcium Phosphorus Magnesium 12/03/16 12/03/16 03:51 05:31 WBC RBC Hgb Hct MCV MCH MCHC RDW Plt Count MPV Immature Gran % Seg Neutrophils % Lymphocytes % Monocytes % Eosinophils % Basophils % Neutrophils # Lymphocytes # Monocytes # Eosinophils # Basophils # Sodium 134 L Potassium 4.0 Chloride 106 Carbon Dioxide 27 BUN 23 Creatinine 0.62 L Est GFR ( Amer) > 60 Est GFR (Non-Af Amer) > 60 BUN/Creatinine Ratio 37 H Glucose 104 H POC Glucose 108 H Calculated Osmolality 282 Calcium 7.4 L Ionized Calcium Phosphorus 2.6 Magnesium 1.9 - ABG Interpretation ABG results: PT/INR, D-dimer PT 14.0 Seconds (9.4-12.1) H 11/17/16 11:03 Consult Discharge Plan - Plan Referrals: Gopal Remy MD [Partnered Physician] - 12/22/16 2:05 pm Cardoza,Antonella Rainey CNP [Primary Care Provider] - (pt will go to rehab on discharge no PCP appointment needed)
[2016-12-03] MEDS ORDERED: *HR* FentaNYL PATCH 12 MCG PATCH TD SCH (12:30)
[2016-12-03] MEDS ORDERED: Clinimix E 5%-15% SOLUTION 2,000 ML with MVI, adult with vitamin K 10 ML IVC SCH (17:00)
[2016-12-03 21:41] LABS: Ionized Calcium 1.1 mmol/L (1.15-1.35)
[2016-12-03 21:44] LABS: Magnesium 1.5 mg/dL (1.6-2.6); Phosphorous 3.2 mg/dL (2.3-4.7); Potassium 4.3 mEq/L (3.5-4.5)
[2016-12-04] MEDS: Piperacillin/Tazobactam 3.375 GM in D5% in Water (Mini-Bag+) 100 ML IVPB SCH ×3 (01:14→20:17)
[2016-12-04] MEDS: *HR* HYDROmorphone (PF) 1 MG/ML SYRINGE IVP PRN ×2 (01:17→09:28)
[2016-12-04 04:27] LABS: BUN/Creatinine Ratio 40 (6-26); Blood Urea Nitrogen 25 mg/dL (8-26); Calcium 7.3 mg/dL (8.6-10.8); Carbon Dioxide 23 mEq/L (19-29); Chloride 107 mEq/L (98-109); Glucose 112 mg/dL (70-99); Osmolality,Calculated 283 (280-300); Potassium 4.2 mEq/L (3.5-4.5); Sodium 134 mEq/L (136-145); eGFR For African Americans > 60 (> 60); eGFR For Non-African Americans > 60 (> 60)
[2016-12-04 04:58] LABS: Magnesium 1.7 mg/dL (1.6-2.6)
[2016-12-04] MEDS: Magnesium Sulfate 2 GM in D5% in Water 100 ML IVPB PRN ×2 (05:43→16:02)
[2016-12-04] MEDS: Pantoprazole 40 MG VIAL IVP SCH (05:43)
[2016-12-04] MEDS: *HR* Enoxaparin 100 MG/ML SYRINGE SQ SCH ×2 (05:44→17:00)
--- NOTE | 2016-12-04 06:53 | General Surgery Progress Note ---
Date of Encounter: 12/04/16 Time of Encounter: 06:51 - Assessment and Plan (1) Perforated sigmoid colon Current Visit: Yes Status: Acute POD # 17 Exploratory celiotomy with sigmoid colectomy and colostomy. Primary repair of left inguinal hernia and repair of left external/internal iliac vein. Discontinued his NG tube to gravity Appetite is still absent but we will transition him to clear liquid diet, he is requesting hot tea Continue supportive care and management - TPN, IV, REG drain, wound VAC, pain control BS present, flatus in colostomy without stool production. Continue colostomy care. Continue IV antibiotics - Diflucan - day #9, Zosyn - day #5 - Afebrile, no leukocytosis, likely transition off these upon transfer. PT/OT as tolerated. DNRCC-A CODE STATUS Repeat am labs (2) Left inguinal hernia Current Visit: Yes Status: Acute POD # 17 Exploratory celiotomy with sigmoid colectomy and colostomy. Primary repair of left inguinal hernia and repair of left external/internal iliac vein. Pain is well controlled at this time. Continue OT and PT as tolerated. (3) Counseling regarding advanced care planning and goals of care Current Visit: Yes Status: Acute After discussion with the , son and the palliative care team, we will transition Mr. Craig to inpatient hospice care with rehabilitation tomorrow or Monday. has expressed her goals as far as Mr. Arenas expectations of independence at home. The family is in agreement that they need additional time to prepare for his transition to home. (4) Delirium Current Visit: Yes Status: Acute Improved since yesterday. Patient slept well. Currently taking Elavil with PRN Haldol (5) PAD (peripheral artery disease) Current Visit: Yes Status: Chronic Vascular surgery following. No intervention recommended at this time. - Lovenox - Javan Hose for RLE (6) ALFIE (acute kidney injury) Current Visit: Yes Status: Acute Cr 0.63 this morning. Appears to be stable. Will continue IVF and monitor. (7) Electrolyte abnormality Current Visit: Yes Status: Acute Electrolyte protocol Repeat am labs (8) DVT of lower extremity (deep venous thrombosis) Current Visit: Yes Status: Acute Qualifiers: Affected thrombotic vein of extremity: iliac Chronicity: acute Laterality : left Qualified Code(s): I82.422 - Acute embolism and thrombosis of left iliac vein (9) DVT of upper extremity (deep vein thrombosis) Current Visit: Yes Status: Acute Qualifiers: Affected thrombotic vein of extremity: axillary Chronicity: acute Laterality: right Qualified Code(s): I82.A11 - Acute embolism and thrombosis of right axillary vein (10) Severe protein-calorie malnutrition Current Visit: Yes Status: Chronic TPN therapy with max 83ml/hr (11) Anemia Current Visit: Yes Status: Acute Appears to be stable at this time. Hgb 8.0 today. will continue to trend Qualifiers: Anemia type: other cause Other causes of anemia: other cause, not classified Qualified Code(s): D64.89 - Other specified anemias Subjective Patient reports: feels better, flatus, no bowel movement, afebrile Narrative: Patient is lying controlling bed with at bedside. Patient reports he slept better last night. Patient is speaking more clearly this morning states he is comfortable and without pain. "I want to go home" Objective Vital Signs - Last 8 Hours Temp Pulse Resp BP Pulse Ox 12/04/16 03:56 99.6 F 82 24 103/62 98 12/03/16 23:59 99.7 F H 85 21 115/62 97 Intake and Output 12/03/16 12/03/16 12/04/16 15:59 23:59 07:59 Intake Total 504 / 504 2365 / 2365 350 / 350 Output Total 1326 / 1326 460 / 460 555 / 555 Balance -822 / -822 1905 / 1905 -205 / -205 Intake: IV Fluids 504 / 504 2295 / 2295 350 / 350 Clinimix E 5%-15% 1935 / 1935 SOLUTION 2,000 ML @ 83.3 mls/hr IVC .Q24H [facility] with M.v.i. Adult 10 ml Rx#: [id number] Intralipid 20% 250 ML @ 250 / 250 250 / 250 21 mls/hr IVPB DAILY@1700 [facility] Rx#:[id number] Diflucan 100 MG/50 ML 100 50 / 50 mg In 50 ml @ 50 mls/hr IVPB DAILY [facility] Rx#: [id number] Magnesium Sulfate 2 GM In 104 / 104 Dextrose 5% 100 ML @ 50 mls/hr IVPB Q6H PRN Rx#: [id number] Zosyn 3.375 GM In 100 / 100 100 / 100 100 / 100 Dextrose 5% (Minibag+) 100 ML 100 ML @ 25 mls/hr IVPB Q8H [facility] Rx#: [id number] Potassium Phosphate 44 260 / 260 MEQ In 0.9 % Sodium Chloride 250 ML @ 40 mls/ hr IVPB Q10H PRN Rx#: [id number] Oral 0 / 0 0 / 0 Other 70 / 70 Output: Urine 800 / 800 2-way Urethral 800 / 800 Catheter 450 / 450 460 / 460 555 / 555 Wound Drainage 76 / 76 0 / 0 0 / 0 Abdomen 76 / 76 0 / 0 0 / 0 Other: Weight 86.8 kg Blood Glucose* 124 113 123 Patient Weight 12/04/16 23:59 Weight 86.8 kg - General physical appearance well developed, no distress - Eyes normal ocular movement - ENT normal mucosa (NGT present) - Neck Neck exam: trachea midline - Respiratory normal expansion, normal respiratory effort, clear to auscultation - Cardiovascular Cardiovascular exam: Present: RRR - Abdomen Abdomen: Present: bowel sounds present, soft, non tender, wound (Colostomy left lower quadrant with gas present. Midline incision with wound VAC intact.) - Psychiatric other (confused) - Labs 12/03/16 03:51 12/04/16 03:50 BMP 12/04/16 12/03/16 Range/Units 03:50 21:25 Sodium 134 L (136-145) mEq/L Potassium 4.2 4.3 (3.5-4.5) mEq/L Chloride 107 (98-109) mEq/L Carbon Dioxide 23 (19-29) mEq/L BUN 25 (8-26) mg/dL Creatinine 0.63 L (0.72-1.25) mg/dL Glucose 112 H (70-99) mg/dL Calcium 7.3 L (8.6-10.8) mg/dL Vital Signs Temp Pulse Resp BP Pulse Ox 12/04/16 03:56 99.6 F 82 24 103/62 98 12/03/16 23:59 99.7 F H 85 21 115/62 97 12/03/16 19:26 98.9 F 71 20 106/56 98 12/03/16 15:50 98.0 F 67 16 98/59 99 12/03/16 15:48 64 98 12/03/16 13:40 64 100 12/03/16 12:08 64 99 12/03/16 11:38 97.0 F L 62 16 101/54 98 12/03/16 08:32 79 99 12/03/16 07:49 98.9 F 71 16 124/75 99 Intake and Output 12/03/16 12/03/16 12/04/16 15:59 23:59 07:59 Intake Total 504 / 504 2365 / 2365 350 / 350 Output Total 1326 / 1326 460 / 460 555 / 555 Balance -822 / -822 1905 / 190 - / - Intake: IV Fluids 504 / 504 2295 / 2295 350 / 350 Clinimix E 5%-15% 1934 / 1934 SOLUTION 2,000 ML @ 83.3 mls/hr IVC .Q24H [facility] with M.v.i. Adult 10 ml Rx#: [id number] Intralipid 20% 250 ML @ 250 / 250 250 / 250 21 mls/hr IVPB DAILY@1700 [facility] Rx#:[id number] Diflucan 100 MG/50 ML 100 50 / 50 mg In 50 ml @ 50 mls/hr IVPB DAILY [facility] Rx#: [id number] Magnesium Sulfate 2 GM In 104 / 104 Dextrose 5% 100 ML @ 50 mls/hr IVPB Q6H PRN Rx#: [id number] Zosyn 3.375 GM In 100 / 100 100 / 100 100 / 100 Dextrose 5% (Minibag+) 100 ML 100 ML @ 25 mls/hr IVPB Q8H [facility] Rx#: [id number] Potassium Phosphate 44 260 / 260 MEQ In 0.9 % Sodium Chloride 250 ML @ 40 mls/ hr IVPB Q10H PRN Rx#: [id number] Oral 0 / 0 0 / 0 Other 70 / 70 Output: Urine 800 / 800 2-way Urethral 800 / 800 Catheter 450 / 450 460 / 460 555 / 555 Wound Drainage 76 / 76 0 / 0 0 / 0 Abdomen 76 / 76 0 / 0 0 / 0 Other: Weight 86.8 kg Blood Glucose* 124 113 123 Patient Weight 12/04/16 23:59 Weight 86.8 kg - VTE Documentation of Mechanical Device: Graduated compression elastic hosiery Consult Discharge Plan - Plan Referrals: Gopal Remy MD [Partnered Physician] - 12/22/16 2:05 pm Cardoza,Antonella Rainey CNP [Primary Care Provider] - (pt will go to rehab on discharge no PCP appointment needed)
[2016-12-04] MEDS: Levothyroxine Sodium 100 MCG VIAL IVP SCH (09:14)
[2016-12-04] MEDS: Fluconazole 100 MG/50 ML 100 MG/50 ML BAG IVPB SCH (09:20)
[2016-12-04] MEDS: Miconazole w/zinc oxide&karaya 92 APPL/92 GM TUBE TP SCH ×3 (10:49→20:13)
--- NOTE | 2016-12-04 11:38 | Palliative Progress Note ---
Date of Encounter: 12/04/16 Time of Encounter: 10:30 - Assessment and plan (1) Abdominal pain Current Visit: Yes Status: Acute Assessment and plan: Patient is POD #17 colectomy with colostomy. Patient alert and reports being more comfortable. Current regimen Fentanyl patch, BTP Dilaudid had 5 BTP doses. Will monitor. Qualifiers: Abdominal location: generalized Qualified Code(s): R10.84 - Generalized abdominal pain (2) Delirium Current Visit: Yes Status: Acute Assessment and plan: Patient is POD #17. Patient is alert and oriented to place and person. Contniue to reorient X 3. Lights on in room, curtains open for light of day and continue participation in PT. (3) Insomnia Current Visit: No Status: Acute Assessment and plan: Will add Ambien and this will not impact heavy sedation. Will monitor. Patient started on Fentanyl patch and Ambien PRN. Patient slept most of the day and night as reported by nursing staff. (4) Counseling regarding advanced care planning and goals of care Current Visit: Yes Status: Acute Assessment and plan: Conducted long meeting again with Son Marcelo and . Goals is take patient home with Hospice care. I discussed overall poor condition and desires with family. Marcelo is the only child and will assist mother with care of patient. I explained Hospice care and need for additional care. Marcelo agrees to assist with caring for his father. Family knows that patient prognosis is poor and desires to get patient home with comfort care so he can spend time with family and pets. Case discussed with Dr. Charlton. Goals are to transition home with Hospice early part of next week. Patient vitals are stable, colostomy with gas and liquid green stool. NG DCd today. Bolden cath with moderate clear yellow urine. Wound vac to abdomen with abdominal binder. Will work with family to transition care to home. It is likely that patient will be transitioned to [facility] inpatient Hospice care unit then DC'd later in the week once family is ready and patient is stable. Reviewed current plan of care with Marcelo and and reviewed medications and purpose. Will follow surgeries lead with nutrition transition. - Time Spent With Patient Total time spent is greater than 50% in coordination of care (as documented) at patient's floor/unit and/or counseling patient: 25 - 35 minutes - Subjective Interval history: Patient is more alert today. Able to verbalize place and person. Nursing and family report that the patient slept well last night. Vital signs stable. - Constitutional Vitals: Abnormal lab results RBC 2.85 M/mcL (4.19-5.50) L 12/03/16 03:51 Hgb 8.0 g/dL (12.9-16.9) L 12/03/16 03:51 Hct 24.8 % (37.5-50.1) L 12/03/16 03:51 RDW 17.2 % (11.5-14.5) H 12/03/16 03:51 Plt Count 122 K/mcL (140-400) L 12/03/16 03:51 Neutrophils # 9.4 K/mcL (1.6-8.9) H 12/03/16 03:51 Lymphocytes # 0.3 K/mcL (0.6-4.6) L 12/03/16 03:51 Reactive Lymphocytes Present (Not Present) A 12/01/16 08:10 Platelet Estimate Slight Decrease (Normal) L 12/01/16 08:10 Anisocytosis 1+ (Not Present) A 11/18/16 00:33 PT 14.0 Seconds (9.4-12.1) H 11/17/16 11:03 APTT 57.5 Seconds (26.0-36.0) H 12/02/16 06:19 Sodium 134 mEq/L (136-145) L 12/04/16 03:50 Creatinine 0.63 mg/dL (0.72-1.25) L 12/04/16 03:50 BUN/Creatinine Ratio 40 (6-26) H 12/04/16 03:50 Glucose 112 mg/dL (70-99) H 12/04/16 03:50 POC Glucose 113 (58-89) H 12/04/16 00:06 Calcium 7.3 mg/dL (8.6-10.8) L 12/04/16 03:50 Ionized Calcium 1.10 mmol/L (1.15-1.35) L 12/03/16 21:25 Iron 11 mcg/dL (65-175) L 11/24/16 10:26 % Saturation 8 % (20-55) L 11/24/16 10:26 Transferrin 101 mg/dL (174-364) L 11/24/16 10:26 Total Bilirubin 1.3 mg/dL (0.2-1.2) H 11/17/16 11:03 Direct Bilirubin 0.7 mg/dL (0.0-0.5) H 11/17/16 11:03 Creatine Kinase 404 Units/L (30-200) H 11/19/16 12:44 C-Reactive Protein 249 mg/L (Less than 5) H 11/17/16 11:03 B-Natriuretic Peptide 186 pg/mL (0-100) H 11/17/16 11:03 Serum Total Protein 5.2 g/dL (6.0-8.3) L 11/17/16 11:03 Albumin 2.2 g/dL (3.5-5.0) L 11/17/16 11:03 Albumin/Globulin Ratio 0.7 (1.1-2.2) L 11/17/16 11:03 Carcinoembryonic Ag 5.8 ng/mL (0-5.0) H 11/17/16 11:03 Urine Clarity Turbid (Clear) A 11/20/16 03:52 Ur Specific [place] 1.027 (1.010-1.025) H 11/20/16 03:52 Urine Protein 30 mg/dL (Neg-Trace) H 11/20/16 03:52 Urine Blood Small (Negative) H 11/20/16 03:52 Urine Microscopic RBC 5-15 per hpf (0-3) H 11/20/16 03:52 Urine Microscopic WBC 5-15 per hpf (0-3) H 11/20/16 03:52 Ur Squamous Epith Cells Many per lpf (None-Few) H 11/20/16 03:52 Ur Culture Indicated? YES (NO) A 11/17/16 16:26 - Head Head exam: Present: atraumatic, normal inspection, normocephalic - Eye Eye exam: Present: PERRL Pupils: Present: PERRL - ENT ENT exam: Present: mucous membranes moist - Neck Neck exam: Present: full ROM - Respiratory Respiratory exam: Present: CTAB - Expanded Respiratory Exam Location: decreased breath sounds: Left, Right, Lower - Cardiovascular Cardiovascular exam: Present: RRR, +S1, +S2 - Expanded Cardiovascular Exam Peripheral pulses: 1+: Femoral (L) PM, Femoral (R) PM, Posterior Tibialis (L), Posterior Tibialis (R), Dorsalis Pedis (L) PM (doppler), 2+: Carotid (L) PM, Carotid (R) PM, Radial (L), Radial (R), Dorsalis Pedis (R) PM - GI/Abdominal GI/Abdominal exam: Present: normal bowel sounds, soft (colostomy draining clear liquid stool) - Rectal Rectal exam: Present: deferred - Extremities Exam Extremities exam: Present: full ROM - Back Exam Back exam: Present: full ROM - Neurological Exam Neurological exam: Present: alert - Psychiatric Psychiatric exam: Present: normal affect - Skin Skin exam: Present: pallor, warm Palliative Quality Palliative Quality: Screen for Code Status: Yes, Screen for Goals of Care: Yes, Screen for Pain: Yes, If Pain Regimen Started, Initiate Bowel Regimen: NA, Screen for Nausea/Vomitting: Yes Code Status: 11/30/16 10:17 DNR [Resuscitation Status: Active] [RES] Routine Comment: Resuscitation Status: DNR-Comfort Care-Arrest 12/03/16 13:03 DNR [Resuscitation Status: Active] [RES] Routine Comment: Resuscitation Status: [id number] - Labs CBC & Chem 7: 12/03/16 03:51 12/04/16 03:50 Labs: Laboratory Results - last 24 hr 12/03/16 12/03/16 12/03/16 11:43 18:04 21:25 Sodium Potassium 4.3 Chloride Carbon Dioxide BUN Creatinine Est GFR ( Amer) Est GFR (Non-Af Amer) BUN/Creatinine Ratio Glucose POC Glucose 124 H 105 H Calculated Osmolality Calcium Ionized Calcium 1.10 L Phosphorus 3.2 Magnesium 1.5 L 12/04/16 12/04/16 12/04/16 00:06 03:50 03:50 Sodium 134 L Potassium 4.2 Chloride 107 Carbon Dioxide 23 BUN 25 Creatinine 0.63 L Est GFR ( Amer) > 60 Est GFR (Non-Af Amer) > 60 BUN/Creatinine Ratio 40 H Glucose 112 H POC Glucose 113 H Calculated Osmolality 283 Calcium 7.3 L Ionized Calcium Phosphorus 3.0 Magnesium 1.7 - ABG Interpretation ABG results: PT/INR, D-dimer PT 14.0 Seconds (9.4-12.1) H 11/17/16 11:03 Consult Discharge Plan - Plan Referrals: Gopal Remy MD [Partnered Physician] - 12/22/16 2:05 pm Cardoza,Antonella Rainey CNP [Primary Care Provider] - (pt will go to rehab on discharge no PCP appointment needed)
[2016-12-04] MEDS ORDERED: Clinimix E 5%-15% SOLUTION 2,000 ML with MVI, adult with vitamin K 10 ML IVC SCH (17:00)
[2016-12-05] MEDS: *HR* HYDROmorphone (PF) 1 MG/ML SYRINGE IVP PRN ×3 (00:30→19:43)
[2016-12-05] MEDS: Piperacillin/Tazobactam 3.375 GM in D5% in Water (Mini-Bag+) 100 ML IVPB SCH ×3 (00:31→17:11)
[2016-12-05] MEDS: *HR* Enoxaparin 100 MG/ML SYRINGE SQ SCH ×2 (04:59→17:18)
[2016-12-05] MEDS: Pantoprazole 40 MG VIAL IVP SCH (04:59)
[2016-12-05 06:12] LABS: BUN/Creatinine Ratio 37 (6-26); Blood Urea Nitrogen 22 mg/dL (8-26); Calcium 7.1 mg/dL (8.6-10.8); Carbon Dioxide 27 mEq/L (19-29); Chloride 108 mEq/L (98-109); Glucose 103 mg/dL (70-99); Osmolality,Calculated 282 (280-300); Potassium 4.1 mEq/L (3.5-4.5); Sodium 134 mEq/L (136-145); eGFR For African Americans > 60 (> 60); eGFR For Non-African Americans > 60 (> 60)
--- NOTE | 2016-12-05 06:15 | Electrocardiograph Report ---
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
[2016-12-05] MEDS: Fluconazole 100 MG/50 ML 100 MG/50 ML BAG IVPB SCH (10:07)
[2016-12-05] MEDS: Levothyroxine Sodium 100 MCG VIAL IVP SCH (10:07)
--- NOTE | 2016-12-05 11:42 | Palliative Progress Note ---
Date of Encounter: 12/05/16 Time of Encounter: 10:30 - Assessment and plan (1) Generalized pain Current Visit: Yes Status: Acute Assessment and plan: Mr. Craig currently denies pain. Fentanyl patch was started over the weekend and he is tolerating well. He has hydromorphone 1mg every 2 hours as needed. Mr. Craig has used 2 doses in the past 24 hours. (2) Adenocarcinoma of sigmoid colon Current Visit: Yes Status: Acute (3) Severe protein-calorie malnutrition Current Visit: Yes Status: Chronic Assessment and plan: Mr. Craig continues on TPN with dietary following. Prior to transition to hospice care, TPN will need to be weaned off. (4) Counseling regarding advanced care planning and goals of care Current Visit: Yes Status: Acute Assessment and plan: Discharge plan of care in progress. Discussed transition to inpatient hospice care for symptom management, and then home hospice. Wean TPN over the next 24 hours. Discontinue wound VAC tomorrow. Will enroll under [facility] hospice services tomorrow for symptom management of delirium with plans to discharge home in the next 2-3 days. (5) Delirium Current Visit: Yes Status: Acute Assessment and plan: Spouse reports Mr. Craig slept "all day" yesterday, and was awake throughout the night again. He did respond well to the Ambien. Encourage patient to stay awake during daytime hours to regulate the sleep/wake cycle. - Time Spent With Patient Total time spent is greater than 50% in coordination of care (as documented) at patient's floor/unit and/or counseling patient: - Subjective Interval history: Mr. Craig is lying in bed, spouse is at bedside. Answers questions appropriately. He denies pain, but does wince occasionally with movement. Fentanyl patch was added over the weekend. Mr. Craig has used 2 doses of hydromorphone for breakthrough pain in the past 24 hours. Spouse reports restless nights with minimal sleep. Mr. Craig was started on amitriptyline and Ambien over the weekend. - Constitutional Vitals: Abnormal lab results RBC 2.85 M/mcL (4.19-5.50) L 12/03/16 03:51 Hgb 8.0 g/dL (12.9-16.9) L 12/03/16 03:51 Hct 24.8 % (37.5-50.1) L 12/03/16 03:51 RDW 17.2 % (11.5-14.5) H 12/03/16 03:51 Plt Count 122 K/mcL (140-400) L 12/03/16 03:51 Neutrophils # 9.4 K/mcL (1.6-8.9) H 12/03/16 03:51 Lymphocytes # 0.3 K/mcL (0.6-4.6) L 12/03/16 03:51 Reactive Lymphocytes Present (Not Present) A 12/01/16 08:10 Platelet Estimate Slight Decrease (Normal) L 12/01/16 08:10 Anisocytosis 1+ (Not Present) A 11/18/16 00:33 PT 14.0 Seconds (9.4-12.1) H 11/17/16 11:03 APTT 57.5 Seconds (26.0-36.0) H 12/02/16 06:19 Sodium 134 mEq/L (136-145) L 12/05/16 04:55 Creatinine 0.60 mg/dL (0.72-1.25) L 12/05/16 04:55 BUN/Creatinine Ratio 37 (6-26) H 12/05/16 04:55 Glucose 103 mg/dL (70-99) H 12/05/16 04:55 POC Glucose 105 (58-89) H 12/05/16 00:32 Calcium 7.1 mg/dL (8.6-10.8) L 12/05/16 04:55 Ionized Calcium 1.10 mmol/L (1.15-1.35) L 12/03/16 21:25 Iron 11 mcg/dL (65-175) L 11/24/16 10:26 % Saturation 8 % (20-55) L 11/24/16 10:26 Transferrin 101 mg/dL (174-364) L 11/24/16 10:26 Total Bilirubin 1.3 mg/dL (0.2-1.2) H 11/17/16 11:03 Direct Bilirubin 0.7 mg/dL (0.0-0.5) H 11/17/16 11:03 Creatine Kinase 404 Units/L (30-200) H 11/19/16 12:44 C-Reactive Protein 249 mg/L (Less than 5) H 11/17/16 11:03 B-Natriuretic Peptide 186 pg/mL (0-100) H 11/17/16 11:03 Serum Total Protein 5.2 g/dL (6.0-8.3) L 11/17/16 11:03 Albumin 2.2 g/dL (3.5-5.0) L 11/17/16 11:03 Albumin/Globulin Ratio 0.7 (1.1-2.2) L 11/17/16 11:03 Carcinoembryonic Ag 5.8 ng/mL (0-5.0) H 11/17/16 11:03 Urine Clarity Turbid (Clear) A 11/20/16 03:52 Ur Specific [place] 1.027 (1.010-1.025) H 11/20/16 03:52 Urine Protein 30 mg/dL (Neg-Trace) H 11/20/16 03:52 Urine Blood Small (Negative) H 11/20/16 03:52 Urine Microscopic RBC 5-15 per hpf (0-3) H 11/20/16 03:52 Urine Microscopic WBC 5-15 per hpf (0-3) H 11/20/16 03:52 Ur Squamous Epith Cells Many per lpf (None-Few) H 11/20/16 03:52 Ur Culture Indicated? YES (NO) A 11/17/16 16:26 General appearance: Present: cooperative, no acute distress Exam: 86 year old male appearing chronically ill. Oriented to person, pleasant and cooperative. - Eye Eye exam: Present: EOMI - ENT ENT exam: Present: mucous membranes dry - Respiratory Respiratory exam: Present: decreased breath sounds. Absent: accessory muscle use, respiratory distress, tachypnea - Cardiovascular Cardiovascular exam: Present: RRR, systolic murmur - GI/Abdominal GI/Abdominal exam: Present: normal bowel sounds, soft. Absent: tenderness Additional comments: abdomen non-tender to palpation with active bowel sounds x4. Ostomy with flatus. REG drain intact. Mid abdominal incision with wound vac. - Extremities Exam Extremities exam: Present: pedal edema - Neurological Exam Neurological exam: Present: alert (oriented to person), strengths equal and symetr throughout (global weakness) - Psychiatric Psychiatric exam: Absent: agitated, anxious - Skin Additional comments: left lower extremity cool with faint discoloration. Palliative Quality Palliative Quality: Screen for Code Status: Yes, Screen for Goals of Care: Yes, Screen for Pain: Yes, If Pain Regimen Started, Initiate Bowel Regimen: NA, Screen for Nausea/Vomitting: Yes Code Status: 11/30/16 10:17 DNR [Resuscitation Status: Active] [RES] Routine Comment: Resuscitation Status: DNR-Comfort Care-Arrest 12/03/16 13:03 DNR [Resuscitation Status: Active] [RES] Routine Comment: Resuscitation Status: [id number] - Labs CBC & Chem 7: 12/03/16 03:51 12/05/16 04:55 Labs: Laboratory Results - last 24 hr 12/04/16 12/04/16 12/04/16 05:50 11:51 12:30 Sodium Potassium Chloride Carbon Dioxide BUN Creatinine Est GFR ( Amer) Est GFR (Non-Af Amer) BUN/Creatinine Ratio Glucose POC Glucose 123 H 115 H Calculated Osmolality Calcium Magnesium 1.7 12/04/16 12/05/16 12/05/16 17:20 00:32 04:55 Sodium 134 L Potassium 4.1 Chloride 108 Carbon Dioxide 27 BUN 22 Creatinine 0.60 L Est GFR ( Amer) > 60 Est GFR (Non-Af Amer) > 60 BUN/Creatinine Ratio 37 H Glucose 103 H POC Glucose 84 105 H Calculated Osmolality 282 Calcium 7.1 L Magnesium - ABG Interpretation ABG results: PT/INR, D-dimer PT 14.0 Seconds (9.4-12.1) H 11/17/16 11:03 Consult Discharge Plan - Plan Referrals: Gopal Remy MD [Partnered Physician] - 12/22/16 2:05 pm Cardoza,Antonella Rainey CNP [Primary Care Provider] - (pt will go to rehab on discharge no PCP appointment needed)
[2016-12-05] MEDS: Miconazole w/zinc oxide&karaya 92 APPL/92 GM TUBE TP SCH ×3 (14:05→19:49)
--- NOTE | 2016-12-05 15:31 | General Surgery Progress Note ---
<Bong Hirsch - Last Filed: 12/05/16 15:29> Date of Encounter: 12/05/16 Time of Encounter: 08:45 - Assessment and Plan (1) Perforated sigmoid colon Current Visit: Yes Status: Acute POD # 18 Exploratory celiotomy with sigmoid colectomy and colostomy. Primary repair of left inguinal hernia and repair of left external/internal iliac vein. Per palliative care team - patient will be transferred to [facility] hospice tomorrow afternoon - We will be weaning off TPN tomorrow morning - Removal of wound VAC tomorrow Diet to clear liquids, patient was able to sip some hot tea yesterday. Appetite is minimal. Continue supportive care and management - IVF, REG drain, pain control BS present, flatus in colostomy without stool production. Continue colostomy care. Continue IV antibiotics - Diflucan - day #10, Zosyn - day #6 - Afebrile, no leukocytosis, likely transition off these upon transfer. PT/OT as tolerated. DNRCC-A code status (2) Left inguinal hernia Current Visit: Yes Status: Acute POD # 18 Exploratory celiotomy with sigmoid colectomy and colostomy. Primary repair of left inguinal hernia and repair of left external/internal iliac vein. Pain is well controlled at this time. Continue OT and PT as tolerated. (3) Counseling regarding advanced care planning and goals of care Current Visit: Yes Status: Acute After discussion with the , son and the palliative care team, we will transition Mr. Craig to inpatient hospice care with rehabilitation tomorrow afternoon has expressed her goals as far as Mr. Arenas expectations of independence at home. The family is in agreement that they need additional time to prepare for his transition to home. (4) Delirium Current Visit: Yes Status: Acute Improved. Patient sleeping well (5) PAD (peripheral artery disease) Current Visit: Yes Status: Chronic - Lovenox - Javan Hose for RLE (6) ALFIE (acute kidney injury) Current Visit: Yes Status: Acute Cr 0.60 this morning. Appears to be stable. Will continue IVF and monitor. (7) Electrolyte abnormality Current Visit: Yes Status: Acute Electrolyte protocol Repeat am labs (8) DVT of lower extremity (deep venous thrombosis) Current Visit: Yes Status: Acute Qualifiers: Affected thrombotic vein of extremity: iliac Chronicity: acute Laterality : left Qualified Code(s): I82.422 - Acute embolism and thrombosis of left iliac vein (9) DVT of upper extremity (deep vein thrombosis) Current Visit: Yes Status: Acute Qualifiers: Affected thrombotic vein of extremity: axillary Chronicity: acute Laterality: right Qualified Code(s): I82.A11 - Acute embolism and thrombosis of right axillary vein (10) Severe protein-calorie malnutrition Current Visit: Yes Status: Chronic Currently on TPN therapy with max 83ml/hr. We will be weaning off TPN tomorrow morning. (11) Anemia Current Visit: Yes Status: Acute Appears to be stable at this time. Hgb 8.0 on 12/03/16. Qualifiers: Anemia type: other cause Other causes of anemia: other cause, not classified Qualified Code(s): D64.89 - Other specified anemias Subjective Patient reports: no new complaints, feels better, pain is less ( ), flatus, no bowel movement, afebrile Narrative: Patient is lying in bed comfortable with son and at bedside. Nursing reports he tried to sips of hot tea with toleration but did not have an appetite for anything else. Patient did sleep most of the day yesterday and was up throughout the night. Objective Vital Signs - Last 8 Hours Temp Pulse Resp BP Pulse Ox 12/05/16 13:00 98.2 F 81 20 110/61 98 12/05/16 07:56 98.3 F 84 18 112/60 98 Intake and Output 12/04/16 12/05/16 12/05/16 23:59 07:59 15:59 Intake Total 120 / 120 200 / 200 70 / 70 Output Total 700 / 700 1250 / 1250 1330 / 1330 Balance -580 / -580 -1050 / -1050 -1260 / -1260 Intake: IV Fluids 200 / 200 50 / 50 Diflucan 100 MG/50 ML 100 50 / 50 mg In 50 ml @ 50 mls/hr IVPB DAILY [facility] Rx#: [id number] Zosyn 3.375 GM In 200 / 200 Dextrose 5% (Minibag+) 100 ML 100 ML @ 25 mls/hr IVPB Q8H [facility] Rx#: [id number] Oral 120 / 120 0 / 0 20 / 20 Output: Urine 0 / 0 Catheter 700 / 700 1250 / 1250 1300 / 1300 Wound Drainage 0 / 0 0 / 0 30 / 30 Abdomen 0 / 0 0 / 0 Other: Meal Lunch Percent of Meal Consumed 0% Weight 87.4 kg Blood Glucose* 84 115 141 Patient Weight 12/05/16 23:59 Weight 87.4 kg - General physical appearance well developed, well nourished, no distress - Eyes normal ocular movement - ENT normal mucosa - Neck Neck exam: trachea midline - Respiratory normal expansion, normal respiratory effort (Weak), clear to auscultation wheezing: bilateral - Cardiovascular Cardiovascular exam: Present: RRR - Abdomen Abdomen: Present: bowel sounds present, soft, non tender, wound (Colostomy left lower quadrant with gas present. Midline incision with wound VAC intact.) - Neurologic disoriented - Psychiatric other (Patient is not oriented to place) - Labs 12/03/16 03:51 12/05/16 04:55 BMP 12/05/16 Range/Units 04:55 Sodium 134 L (136-145) mEq/L Potassium 4.1 (3.5-4.5) mEq/L Chloride 108 (98-109) mEq/L Carbon Dioxide 27 (19-29) mEq/L BUN 22 (8-26) mg/dL Creatinine 0.60 L (0.72-1.25) mg/dL Glucose 103 H (70-99) mg/dL Calcium 7.1 L (8.6-10.8) mg/dL Vital Signs Temp Pulse Resp BP Pulse Ox 12/05/16 13:00 98.2 F 81 20 110/61 98 12/05/16 07:56 98.3 F 84 18 112/60 98 12/05/16 03:14 99.5 F 78 21 106/73 98 12/05/16 01:00 86 12/05/16 00:25 98.8 F 77 22 112/73 95 12/04/16 21:00 76 12/04/16 19:17 98.0 F 76 22 106/60 96 12/04/16 15:42 98.7 F 68 20 106/69 97 Intake and Output 12/04/16 12/05/16 12/05/16 23:59 07:59 15:59 Intake Total 120 / 120 200 / 200 70 / 70 Output Total 700 / 700 1250 / 1250 1330 / 1330 Balance -580 / -580 -1050 / -1050 -1260 / -1260 Intake: IV Fluids 200 / 200 50 / 50 Diflucan 100 MG/50 ML 100 50 / 50 mg In 50 ml @ 50 mls/hr IVPB DAILY [facility] Rx#: [id number] Zosyn 3.375 GM In 200 / 200 Dextrose 5% (Minibag+) 100 ML 100 ML @ 25 mls/hr IVPB Q8H [facility] Rx#: [id number] Oral 120 / 120 0 / 0 20 / 20 Output: Urine 0 / 0 Catheter 700 / 700 1250 / 1250 1300 / 1300 Wound Drainage 0 / 0 0 / 0 30 / 30 Abdomen 0 / 0 0 / 0 30 / 30 Other: Meal Lunch Percent of Meal Consumed 0% Weight 87.4 kg Blood Glucose* 84 115 141 Patient Weight 12/05/16 23:59 Weight 87.4 kg - VTE Documentation of Mechanical Device: Graduated compression elastic hosiery Consult Discharge Plan - Plan Referrals: Gopal Remy MD [Partnered Physician] - 12/22/16 2:05 pm Cardoza,Antonella Rainey CNP [Primary Care Provider] - (pt will go to rehab on discharge no PCP appointment needed) <Gopal Remy - Last Filed: 12/05/16 17:12> Date of Encounter: 12/05/16 - Assessment and Plan (1) Anemia Current Visit: Yes Status: Acute Qualifiers: Anemia type: other cause Other causes of anemia: acute posthemorrhagic Qualified Code(s): D62 - Acute posthemorrhagic anemia (2) Colonic mass Current Visit: Yes Status: Acute (3) Leukocytosis Current Visit: Yes Status: Resolved Qualifiers: Leukocytosis type: other Qualified Code(s): D72.828 - Other elevated white blood cell count (4) DVT prophylaxis Current Visit: No Status: Acute (5) PAD (peripheral artery disease) Current Visit: Yes Status: Chronic (6) Delirium Current Visit: Yes Status: Acute (7) Hypokalemia Current Visit: Yes Status: Acute Objective Vital Signs - Last 8 Hours Temp Pulse Resp BP Pulse Ox 12/05/16 15:30 98.2 F 73 18 104/57 98 12/05/16 13:00 98.2 F 81 20 110/61 98 Intake and Output 12/05/16 12/05/16 12/05/16 07:59 15:59 23:59 Intake Total 200 / 200 70 / 70 Output Total 1250 / 1250 1330 / 1330 Balance -1050 / -1050 -1260 / -1260 Intake: IV Fluids 200 / 200 50 / 50 Diflucan 100 MG/50 ML 100 50 / 50 mg In 50 ml @ 50 mls/hr IVPB DAILY [facility] Rx#: [id number] Zosyn 3.375 GM In 200 / 200 Dextrose 5% (Minibag+) 100 ML 100 ML @ 25 mls/hr IVPB Q8H [facility] Rx#: [id number] Oral 0 / 0 20 / 20 Output: Catheter 1250 / 1250 1300 / 1300 Wound Drainage 0 / 0 30 / 30 Abdomen 0 / 0 30 / 30 Other: Meal Lunch Percent of Meal Consumed 0% Weight 87.4 kg Blood Glucose* 115 141 Patient Weight 12/05/16 23:59 Weight 87.4 kg - Labs 12/03/16 03:51 12/05/16 04:55 Diabetes panel 12/05/16 Range/Units 04:55 Sodium 134 L (136-145) mEq/L Potassium 4.1 (3.5-4.5) mEq/L Chloride 108 (98-109) mEq/L Carbon Dioxide 27 (19-29) mEq/L BUN 22 (8-26) mg/dL Creatinine 0.60 L (0.72-1.25) mg/dL Glucose 103 H (70-99) mg/dL Calcium 7.1 L (8.6-10.8) mg/dL Calcium panel 12/05/16 Range/Units 04:55 Calcium 7.1 L (8.6-10.8) mg/dL Pituitary panel 12/05/16 Range/Units 04:55 Sodium 134 L (136-145) mEq/L Potassium 4.1 (3.5-4.5) mEq/L Chloride 108 (98-109) mEq/L Carbon Dioxide 27 (19-29) mEq/L BUN 22 (8-26) mg/dL Creatinine 0.60 L (0.72-1.25) mg/dL Glucose 103 H (70-99) mg/dL Calcium 7.1 L (8.6-10.8) mg/dL Adrenal panel 12/05/16 Range/Units 04:55 Sodium 134 L (136-145) mEq/L Potassium 4.1 (3.5-4.5) mEq/L Chloride 108 (98-109) mEq/L Carbon Dioxide 27 (19-29) mEq/L BUN 22 (8-26) mg/dL Creatinine 0.60 L (0.72-1.25) mg/dL Glucose 103 H (70-99) mg/dL Calcium 7.1 L (8.6-10.8) mg/dL - Attending Attestation I personally reviewed the above evaluation and assessment and agree with the above assessment and plan. Patient likely transfer to inpatient hospice tomorrow. We will continue to advance by mouth diet and DC TPN. Also will convert to daily dressing changes and DC wound VAC starting tomorrow.
[2016-12-05] MEDS ORDERED: Clinimix E 5%-15% SOLUTION 2,000 ML with MVI, adult with vitamin K 10 ML IVC SCH (17:00)
--- NOTE | 2016-12-05 17:52 | Infectious Disease Progress No ---
Date of Encounter: 12/05/16 Time of Encounter: 10:50 - Assessment and Plan (1) Perforated bowel Status: Acute CT scan 11/17/16 showed pneumoperitoneum compatible with perforated viscus with a small amount of free intraperitoneal fluid. There was also a large colonic mass with probable transmural extension and pelvic and abdominal adenopathy re- demostrated and not significantly changed from prior exam. Additionally, there was also a left inguinal hernia containing sigmoid colon proximal to the mass. Patient is s/p Ex lap, sigmoid colectomy and colostomy 11/17/16. Operative notes reviewed. Intra-operative cultures obtained grew E. coli and K. pneumoniae. The patient continued to have leukocytosis. Repeat CT scan 11/28/16 showed two formed fluid collections within the lower abdomen/pelvis with a few foci of gas concerning for abscess. Per surgery, no additional surgical intervention required for the fluid collections due to their small size. Clinically, the patient has improved. Goals of care have changed and patient will be transferred to hospice. Recommend switching from Zosyn to PO Augment for 14 more days. can discontinue fluconazole. Continue to monitor for drug toxicities. (2) Severe sepsis with acute organ dysfunction Status: Acute Patient had 3 SIRS criteria with Leukocytosis, tachycardia and tachypnea with ALFIE. Likely secondary to perforated colon mass and intra-abdominal abscess. Improved. Leukocytosis and tachycardia have resolved. . ALFIE has resolved as well. No blood cultures were obtained. (3) Adenocarcinoma of sigmoid colon Status: Acute Tumor had invaded through the muscularis propria and into the pericolic area. Additionally there was nakul involvement. 05/02 nodes positive. Management per Oncology and primary team. patient is being transitioned to hospice. (4) Urinary tract infection Status: Resolved Urine culture positive for Acinetobacter and E. coli. Likely contaminated specimen. Also current antibiotics adequate for bacteria that grew from urine culture. Qualifiers: Urinary tract infection type: site unspecified Hematuria presence: without hematuria Qualified Code(s): N39.0 - Urinary tract infection, site not specified (5) Failure to thrive Status: Acute Patient has physical signs of malnutrition. Currently on TPN. Management per the surgery team. Qualifiers: Failure to thrive age range: in adult Qualified Code(s): R62.7 - Adult failure to thrive (6) Ileus Status: Resolved resolved (7) PVD (peripheral vascular disease) Status: Chronic Severe. No signs of acute occlusion at this time. Management per Vascular Surgery. (8) DVT of upper extremity (deep vein thrombosis) Status: Acute on heparin gtt. Currently therapeutic. per primary team. Qualifiers: Affected thrombotic vein of extremity: axillary Chronicity: acute Laterality: right Qualified Code(s): I82.A11 - Acute embolism and thrombosis of right axillary vein - Subjective Interval history: No major events overnight. Patient is now having bowel movements and no longer has an EGD. He states that he is feeling better. He states that his pain is well controlled. He states he still dose not have an appetite. He denies dyspnea , and cough. He has no further complaints at this time. His is also at the bedside this AM and has no concerns this AM. Infect Dis PN-Objective Data - Labs CBC & Chem 7: 12/03/16 03:51 12/06/16 06:45 Labs: Laboratory Results - last 24 hr 12/04/16 12/05/16 12/05/16 17:20 00:32 04:55 Sodium 134 L Potassium 4.1 Chloride 108 Carbon Dioxide 27 BUN 22 Creatinine 0.60 L Est GFR ( Amer) > 60 Est GFR (Non-Af Amer) > 60 BUN/Creatinine Ratio 37 H Glucose 103 H POC Glucose 84 105 H Calculated Osmolality 282 Calcium 7.1 L 12/05/16 12/05/16 05:48 11:48 Sodium Potassium Chloride Carbon Dioxide BUN Creatinine Est GFR ( Amer) Est GFR (Non-Af Amer) BUN/Creatinine Ratio Glucose POC Glucose 115 H 141 H Calculated Osmolality Calcium Cultures: Cultures 11/24/16 10:26 Blood Fungal Culture - Final Peripheral Central Cath, Picc No growth. Serology 11/29/16 11/20/16 Range/Units 13:30 03:52 Urine Color Yellow (Yellow) Urine Clarity Turbid A (Clear) Urine pH 5.0 (5.0-8.0) pH Units Ur Specific [place] 1.027 H (1.010-1.025) Urine Protein 30 H (Neg-Trace) mg/dL Urine Glucose (UA) Normal (Normal) mg/dL Urine Ketones Negative (Negative) mg/dL Urine Blood Small H (Negative) Urine Nitrite Negative (Negative) Urine Bilirubin Negative (Negative) Urine Urobilinogen Normal (Normal) mg/dL Ur Leukocyte Esterase Negative (Negative) Urine Microscopic RBC 5-15 H (0-3) per hpf Urine Microscopic WBC 5-15 H (0-3) per hpf Ur Squamous Epith Cells Many H (None-Few) per lpf Amorphous Sediment Few (Few) Urine Bacteria Few (None-Few) per hpf Hyaline Casts None Seen (None-Few) per lpf Urine Yeast Test Not Performed Urine Osmolality 608 (300-1090) mOsm/kg Exam - Constitutional Vitals: Temp Pulse Resp BP Pulse Ox 98.2 F 73 18 104/57 98 12/05/16 15:30 12/05/16 15:30 12/05/16 15:30 12/05/16 15:30 12/05/16 15:30 General appearance: no acute distress, thin Exam: still has some mild confusion but improving. - Head Head exam: Present: atraumatic, normal inspection, normocephalic - Eye Eye exam: Present: conjuntiva pink, sclera anicteric - ENT ENT exam: Present: mucous membranes moist - Neck Neck exam: Present: normal inspection. Absent: lymphadenopathy, tenderness, thyromegaly - Respiratory Respiratory exam: Present: CTAB - Cardiovascular Cardiovascular exam: Present: RRR, +S1, +S2. Absent: diastolic murmur, JVD, systolic murmur - GI/Abdominal Additional comments: He has an ostomy in p[lace filled with gas and no stoool at this time. HE has a REG drain with serosanguinous fluid. Wound vac in place. - Extremities Exam Additional comments: 2+ pitting edema to the thigh bilaterally. - Skin Additional comments: No rashes or lesions noted. - VTE Documentation of Mechanical Device: Graduated compression elastic hosiery Consult Discharge Plan - Plan Referrals: Gopal Remy MD [Partnered Physician] - 12/22/16 2:05 pm Cardoza,Antonella Rainey CNP [Primary Care Provider] - (pt will go to rehab on discharge no PCP appointment needed) - Attending Attestation I examined this patient and my medical decision-making was reviewed with the Resident Physician. I agree with the documented findings, disposition and treatment plan as described except to the extent set forth below.
[2016-12-06] MEDS: Piperacillin/Tazobactam 3.375 GM in D5% in Water (Mini-Bag+) 100 ML IVPB SCH (01:38)
[2016-12-06] MEDS: *HR* HYDROmorphone (PF) 1 MG/ML SYRINGE IVP PRN ×2 (03:53→09:18)
[2016-12-06] MEDS: *HR* Enoxaparin 100 MG/ML SYRINGE SQ SCH (06:11)
[2016-12-06] MEDS: Pantoprazole 40 MG VIAL IVP SCH (06:11)
[2016-12-06 07:00] LABS: BUN/Creatinine Ratio 35 (6-26); Blood Urea Nitrogen 22 mg/dL (8-26); Calcium 7.4 mg/dL (8.6-10.8); Carbon Dioxide 26 mEq/L (19-29); Chloride 105 mEq/L (98-109); Glucose 122 mg/dL (70-99); Osmolality,Calculated 277 (280-300); Sodium 131 mEq/L (136-145); Triglycerides 46 mg/dL (< 150); eGFR For African Americans > 60 (> 60); eGFR For Non-African Americans > 60 (> 60)
[2016-12-06 07:01] LABS: Potassium 4.2 mEq/L (3.5-4.5)
[2016-12-06 07:23] VITALS: BP 101/56
[2016-12-06] MEDS: Levothyroxine Sodium 100 MCG VIAL IVP SCH (08:13)
[2016-12-06] MEDS: Miconazole w/zinc oxide&karaya 92 APPL/92 GM TUBE TP SCH (08:16)
--- NOTE | 2016-12-06 09:18 | Event Note ---
Date of Encounter: 12/06/16 Time of Encounter: 09:17 Mr. Craig will transition to general in-patient hospice care for management of delirium, pain and nausea. Advance diet as tolerated and wean TPN. The palliative care team will continue to follow.
--- NOTE | 2016-12-06 11:19 | Discharge Summary ---
Date of Encounter: 12/06/16 Time of Encounter: 10:00 - Discharge Diagnosis (1) Adenocarcinoma of sigmoid colon Priority: Primary Status: Acute (2) Left inguinal hernia Priority: Secondary Status: Resolved (3) Anemia Priority: Secondary Status: Acute Qualifiers: Anemia type: other cause Other causes of anemia: other cause, not classified Qualified Code(s): D64.89 - Other specified anemias (4) Counseling regarding advanced care planning and goals of care Priority: Secondary Status: Acute (5) DVT of lower extremity (deep venous thrombosis) Priority: Secondary Status: Acute Qualifiers: Affected thrombotic vein of extremity: iliac Chronicity: acute Laterality : left Qualified Code(s): I82.422 - Acute embolism and thrombosis of left iliac vein (6) DVT of upper extremity (deep vein thrombosis) Priority: Secondary Status: Acute Qualifiers: Affected thrombotic vein of extremity: axillary Chronicity: acute Laterality: right Qualified Code(s): I82.A11 - Acute embolism and thrombosis of right axillary vein (7) Delirium Priority: Secondary Status: Acute (8) Electrolyte abnormality Priority: Secondary Status: Acute (9) Failure to thrive Priority: Secondary Status: Acute Qualifiers: Failure to thrive age range: in adult Qualified Code(s): R62.7 - Adult failure to thrive (10) Severe protein-calorie malnutrition Priority: Secondary Status: Chronic - Discharge Medications Home Medications: Cyanocobalamin (Vitamin B-12) [Vitamin B12] 1,000 mcg PO DAILY 01/20/16 [History ] Cyclosporine [Restasis] 1 drop OP BID 01/20/16 [History] Levothyroxine [Synthroid] 50 mcg PO QAM 01/20/16 [History] Multivitamin [Multi-Day Vitamins] 1 tab PO DAILY 01/20/16 [History] Nabumetone 750 mg PO BID 01/20/16 [History] Omeprazole [PriLOSEC] 20 mg PO DAILY 01/20/16 [History] Polyvinyl Alcohol [Artificial Tears] 1 drop OP BID PRN 01/20/16 [History] Fluticasone Propionate Nasal [Flonase] 1 spray NS DAILY 04/21/16 [History] Ipratropium [place] 1 spray NS BID 04/21/16 [History] Aspirin 81 mg PO DAILY 30 Days 04/23/16 [Rx] Ascorbate Calcium [Vitamin C] 500 mg PO DAILY 11/17/16 [History] Diltiazem [Cardizem] 30 mg PO TID 11/17/16 [History] Ferrous Sulfate [Iron] 325 mg PO DAILY 11/17/16 [History] Sennosides [Senna] 17.2 mg PO HS PRN 11/17/16 [History] Allergies/Adverse Reactions: Allergies celecoxib [From Celebrex] Adverse Reaction (Verified 11/17/16 15:29) See Comments patient unsure of reaction prednisone Adverse Reaction (Verified 11/17/16 15:29) Rash patient wasnt sure of reaction to this Sulfa (Sulfonamide Antibiotics) Adverse Reaction (Verified 11/17/16 15:29) Rash patient wasnt sure of reaction General Surgery Exam Initial Vital Signs Temp Pulse Resp BP Pulse Ox 97.8 F 75 16 117/67 99 11/17/16 10:07 11/17/16 10:07 11/17/16 10:07 11/17/16 10:07 11/17/16 10:07 - General physical appearance no distress, no pain, other (pleasantly confused) - Eyes normal ocular movement - ENT normal mucosa, atraumatic, normocephalic - Neck trachea midline - Respiratory normal respiratory effort, clear to auscultation, other (diminished bibasilar bases) - Cardiovascular Cardiovascular exam: Present: RRR, 15, 16 - Abdomen Abdomen general surgery: Present: bowel sounds present, soft, tender (mildly tender), wound (Ostomy pink and moist; Midline with serous drainage noted ( small amount), 60% granulation tissue, 40% fibrin; REG drain to bulb suction with serous drainage noted (removed)) - Incision Incision: Present: serous, open - Genitourinary Present: other (jeff catheter to SD with clear, yellow urine noted) - Integumentary Integumentary general surgery: Present: warm and dry - Neurologic Present: CN 2-12 grossly intact - Musculoskeletal Present: other (severe deconditioning) - Psychiatric Psychiatric general surgery: Present: oriented to person, oriented to place Date of admission: 11/18/16 09:58 Primary care physician: Antonella Cardoza CNP Consults: 11/21/16 11:12 Consult to Invasive Line Access Team [CONS] Routine Reason for Consult: PICC line placement Line Type: PICC PICC line indications: Parental nutrition Time Notified: 11:13 Call Completed: Yes consult to plumber cub [Consult to Nutrition] [CONS] Routine Comment: Consulting Provider: NUTRITION Reason for Dietary Consult: TPN Start and Manage 11/21/16 12:19 Consult to Invasive Line Access Team [CONS] Routine Reason for Consult: Picc Line Insertion Line Type: PICC 11/21/16 12:42 Consult to Physical Therapy [CONS] Routine Comment: Evaluate, develop and implement POC Reason for Consult: Post-surgical OT [Consult to Occupational Therapy] [CONS] Routine Comment: Evaluate, develop and implement POC Reason for Consult: Post-surgical 11/24/16 16:57 Consult to Wound Care [CONS] Routine Reason for Consult: New colostomy Call Completed: Yes 11/25/16 10:10 Consult to Infectious Diseases [CONS] Routine Consulting Provider: [facility] [place] Reason for Consult: Antibiotic recommendations s/p colon resection Time Notified: 10:11 Call Completed: Yes 11/25/16 13:30 Consult to Vascular Surgery [CONS] Routine Consulting Provider: V[facility] [place] Reason for Consult: LLE with decreased pulses, temperature difference, and abnormal NEVILLE (0.32) RLE NEVILLE normal Time Notified: 13:40 Call Completed: Yes 11/29/16 18:30 Consult to Palliative Care [CONS] Routine Comment: Consulting Provider: [facility] [place] Reason for Consult: severe deconditioning, recent perforated sigmoid cancer with possible metastatic disease Time Notified: 18:31 Call Completed: No 11/29/16 18:32 Consult to Oncology Hematology [CONS] Routine Consulting Provider: Mary Patten Reason for Consult: perforated sigmoid cancer, possible metastatic, need realistic goals of care Call Completed: No Discharging clinician: Gopal Remy ([facility]) Anticipated date of discharge: 12/06/16 - Patient Status Disposition: Hospice - Medical Facility Condition: Fair Functional capacity at discharge: bed bound Overall status at discharge: patient is not back to baseline - Discharge Instructions Follow Up With: Gopal Remy MD [Partnered Physician] - 12/22/16 2:05 pm Sony,Antonella Rainey CNP [Primary Care Provider] - (pt will go to rehab on discharge no PCP appointment needed) Additional Instructions: Midline- cleansed with soap and water, pack wound with 0.9 normal saline wet-to- dry Kerlix gauze, covered with dry 4 x 4's, tape to secure daily Ostomy care- empty bag 2-3 times per day and as needed if full. Change appliance every 5-7 days and as needed if leaking - Diet and Activity Diet: advance to your usual diet, other (Ensure TID with meals) - Hospital Course Hospital course: Mr. Craig is a 86 year old male presented to the hospital with abdominal pain. He was found to have a perforated colon secondary to a colon cancer. The patient was taken to the operating room for exploratory celiotomy, Dai's procedure, primary repair of left inguinal hernia, repair of left iliac vein. The patient has had a difficult postoperative course. His bowel function has been very slow to return and he was maintained on TPN therapy for nutritional support. With return of bowel function, his NG tube was removed and he has been started on a liquid diet and advanced as tolerated. TPN therapy was discontinued when transitioned to hospice care. He has also developed a lower extremity and upper extremity DVT for which she was started on a heparin drip for while inpatient. He was transitioned to Lovenox (1mg/kg) in an attempt to reduce his fluid intake He is extremely frail and has had difficulty working with PT and OT during his inpatient stay due to severe deconditioning. He did develop a postoperative infection for which infectious disease was consulted and made recommendations for IV antibiotics. His drain has transitioned from purulent to serous drainage with treatment of antibiotics. He was also treated for a UTI (acenitobacter) He did have a wound VAC placed to his midline during his postoperative course as well. This was changed every Monday and Monday but has now been transitioned to a wet-to-dry when transferred to hospice care. Oncology did see the patient while he was inpatient. He is not a candidate for chemotherapy at this time due to his severe deconditioning. Palliative care was consulted during the patient's inpatient stay. The patient' s family has made the decision to transfer him to hospice care. We will discharge him at this time to the inpatient hospice unit and then transition to outpatient hospice care at home. - Time Spent with Patient Total time spent providing and/or coordinating discharge services: Greater than 30 minutes Labs on day of discharge: Labs from last 24 hours 12/06/16 12/05/16 12/05/16 06:45 23:01 17:52 Sodium 131 L Potassium 4.2 Chloride 105 Carbon Dioxide 26 BUN 22 Creatinine 0.62 L Est GFR ( Amer) > 60 Est GFR (Non-Af Amer) > 60 BUN/Creatinine Ratio 35 H Glucose 122 H POC Glucose 119 H 111 H Calculated Osmolality 277 L Calcium 7.4 L Triglycerides 46 12/05/16 12/05/16 11:48 05:48 Sodium Potassium Chloride Carbon Dioxide BUN Creatinine Est GFR ( Amer) Est GFR (Non-Af Amer) BUN/Creatinine Ratio Glucose POC Glucose 141 H 115 H Calculated Osmolality Calcium Triglycerides - Impressions ITS Impressions Retroperitoneum Ultrasound 11/19/16 12:11 IMPRESSION: Left nephrolithiasis. No hydronephrosis. Increased echogenicity of the renal parenchyma bilaterally, nonspecific finding suggesting medical renal disease. D/ / Karina Weller Cha, MD / Karina Weller Cha, MD Interpreting Provider: Karina Weller Cha, MD Chest X-Ray 11/20/16 08:56 IMPRESSION: Left lower lobe atelectasis or pneumonia. Hyper lucency inferior to the right hemidiaphragm can reflect air-filled bowel or sequela of diaphragmatic eventration ; pneumoperitoneum cannot be entirely excluded. If patient has abdominal symptoms, dedicated flat and upright abdominal radiographic series would be suggested for further evaluation. Results were called by the radiology call center. D/ / Brennan Ellington MD / Brennan Ellington MD Interpreting Provider: Brennan Ellington MD Chest X-Ray 11/24/16 09:18 IMPRESSION: 1. Small layering pleural effusions bilaterally and bibasilar atelectasis. D/ / Luis Summers MD / Lusi Summers MD Interpreting Provider: Luis Summers MD Abdomen/Pelvis CT 11/28/16 17:10 IMPRESSION: 1. Postsurgical changes from recent sigmoid mass resection with end colostomy in place. 2. The study is limited without the use of IV contrast. There are two formed fluid collections identified within the lower abdomen/pelvis, one measuring 3.5 x 3.5 cm within the lower abdominal mesentery (image 96), and a second more posterior collection measuring 3.2 x 2.1 cm with a few foci of gas, immediately anterior to the S1 vertebral body (image 99). These are nonspecific, but could represent abscess in the appropriate clinical setting, especially the collection with a foci of gas. There is a right anterior abdominal approach surgical drain in place, with tip terminating near but not definitely within the more posterior collection. 3. There is a 2.2 cm lymph node in the right lower quadrant mesentery, suspicious for a metastatic lesion. Additional small subcentimeter lymph nodes are scattered throughout the mesentery and retroperitoneum, which are nonspecific. 4. Stable small hypodense liver lesions measuring up to 1.5 cm. Additional stable 4.2 cm hypodense lesion in area of the abbey hepatis, possibly within the left hepatic lobe. 5. Hydropic gallbladder with gallstones. 6. Diffuse anasarca. 7. Large left inguinal hernia containing free fluid. 8. Small right inguinal hernia, now containing a loop of small bowel without evidence of small bowel obstruction. 9. Fusiform ectasia of the distal abdominal aorta to 2.9 cm. Additional ectasia of bilateral common iliac arteries to 2.2 cm on the right. See below for follow-up. RECOMMENDATIONS: Managing Abdominal Aortic Aneurysms 2.6-2.9 cm: 5 year follow up. 3.0-3.4 cm: 3 year follow up 3.5-3.9 cm: 1 year follow up. 4.0-4.4 cm: 1 year follow up. Recommend vascular consultation. 4.5-5.4 cm: 6 month follow up. Recommend vascular consultation. Greater than or equal to 5.5 cm: Referral to vascular surgeon. Reference: Ke et al. The care of patients with an abdominal aortic aneurysm: The Society of Vascular Surgery practice guidelines. Journal of Vascular Surgery. Vol 50, Number 85. Jamal et al. Managing Incidental Findings on Abdominal and Pelvic CT and MRI, Part 2: White Paper of the ACR Incidental Findings Committee II on Vascular Findings. J Am Sharon Radiol 2013;10:789-794 D/ / 11/28/2016 22:56:24 Kayden Taylor MD / [email or web address] Interpreting Provider: Kayden Taylor MD X-Ray 11/28/16 17:51 IMPRESSION: Nasogastric tube in appropriate position. D/ / 11/28/2016 19:07:23 Jelani Smith MD / bcarter Interpreting Provider: Jelani Smith MD
== END 2016-12-06 10:24 | disposition hospice, inpatient (51) | DRG 329 ==
LOC: EMEROO 10:03 → 3ANU 10:03 → 2NNU 15:42
PROVIDERS: ADMIT Nurse Practitioner Family; ATTEND Surgery

== ENCOUNTER 2016-12-06 09:05 | Inpatient (IN) ==
[2016-12-06] MEDS ORDERED: Haloperidol Lactate 5 MG/ML VIAL IVP PRN (09:43)
[2016-12-06] MEDS ORDERED: Atropine Sulfate 1% 40 DROP/2 ML BOTTLE SL PRN (09:43)
--- NOTE | 2016-12-06 10:29 | Palliative - Consult Note ---
Date of Encounter: 12/06/16 Time of Encounter: 10:24 - Assessment and Plan (1) Adenocarcinoma of sigmoid colon Current Visit: No Status: Acute Assessment and plan: Patient family have had prior discussions with both surgery and oncology regarding long-term prognosis and availability of treatments. At this time, they have elected to pursue hospice care. We will continue with general inpatient hospice for management of acute delirium, poor appetite, nausea. Upon resolution of symptoms, the patient will be transferred home under home hospice care. His spouse-Janiya, will be his primary care provider. Referral to [place] [facility] per family request. (2) Delirium Current Visit: No Status: Acute Assessment and plan: Encourage correction of sleep-wake cycle. Elavil at at bedtime and Ambien when necessary at at bedtime. May utilize haloperidol for uncontrolled symptoms. Discussed plan of care with spouse. (3) Failure to thrive Current Visit: No Status: Acute Assessment and plan: Encourage by mouth intake as tolerated, TPN weaned throughout the day. Qualifiers: Failure to thrive age range: in adult Qualified Code(s): R62.7 - Adult failure to thrive (4) Generalized pain Current Visit: No Status: Acute Assessment and plan: Fentanyl patch started Monday and patient appears to be tolerating well. Hydromorphone PRN for breakthrough pain. Palliative-CN HPI - Data of Consult Patient: known to practice within the last 3 years Consult date: 12/06/16 Requesting Physician: Pierre Santana MD - Consult Narrative Palliative Care/Comfort Measures: Palliative care Reason for consult: Symptom management History of present illness: Mr. Craig is a 86 year old male patient initially admitted to [facility] with abdominal pain. He had had a 35 pound weight loss in the months leading up to his admission. Evaluation of the abdominal pain revealed perforation and he was taken to surgery for exploratory celiotomy, sigmoid colectomy with colostomy, repair of an inguinal hernia, and repair of left iliac vein injury. Pathology reports revealed adenocarcinoma of the sigmoid colon. He had a complicated postoperative course with DVT to right upper and lower extremities, delayed output from colostomy, and delirium. Mr. Craig required nutritional support with TPN and a wound VAC to his incision. After extensive family meetings and goals of care discussions with surgery, oncology, palliative care team, the decision was made to transition to comfort care. Mr. Craig has transition to general inpatient hospice care under [facility] for management of symptoms including pain, poor appetite, nausea, acute delirium. Medications will be titrated based on symptoms. Plan for discharge to the home environment under the care of his , Janiya, and son, Marcelo. CC: Pierre Santana MD Past Med Surg Social Fam HX - Past Medical History Source: old records reviewed, obtained from family Medical history: arthritis, cancer (Adenocarcinoma of the sigmoid colon), GERD, hyperlipidemia, hypertension, thyroid disease, valvular heart disease, other ( Peripheral vascular disease) Psychiatric history: no psych history - Past Surgical History Surgical History: colectomy (Exploratory celiotomy, the point colectomy, colostomy, left inguinal hernia repair, ), other - Social History Smoking Status: Never smoker Smokeless Tobacco Status: No Alcohol use: none Drug use: none Occupational status: retired (Retired at the age of 81) Current living situation: Home, With Family Activity Level: Bed bound - Family History Father Living Status: Hx Family Cancer: Yes (colon cancer) Mother Living Status: Hx Family Cardiac Disorders: Yes Hx Family Endocrine Disorder: Yes (Diabetes Mellitus) Brother Living Status: Still Living Hx Family Cardiac Disorders: Yes Hx Family Endocrine Disorder: Yes (diabetes mellitus) Medications and Allergies Cyanocobalamin (Vitamin B-12) [Vitamin B12] 1,000 mcg PO DAILY 01/20/16 [History ] Cyclosporine [Restasis] 1 drop OP BID 01/20/16 [History] Levothyroxine [Synthroid] 50 mcg PO QAM 01/20/16 [History] Multivitamin [Multi-Day Vitamins] 1 tab PO DAILY 01/20/16 [History] Nabumetone 750 mg PO BID 01/20/16 [History] Omeprazole [PriLOSEC] 20 mg PO DAILY 01/20/16 [History] Polyvinyl Alcohol [Artificial Tears] 1 drop OP BID PRN 01/20/16 [History] Fluticasone Propionate Nasal [Flonase] 1 spray NS DAILY 04/21/16 [History] Ipratropium [place] 1 spray NS BID 04/21/16 [History] Aspirin 81 mg PO DAILY 30 Days 04/23/16 [Rx] Ascorbate Calcium [Vitamin C] 500 mg PO DAILY 11/17/16 [History] Diltiazem [Cardizem] 30 mg PO TID 11/17/16 [History] Ferrous Sulfate [Iron] 325 mg PO DAILY 11/17/16 [History] Sennosides [Senna] 17.2 mg PO HS PRN 11/17/16 [History] Allergies celecoxib [From Celebrex] Adverse Reaction (Verified 11/17/16 15:29) See Comments patient unsure of reaction prednisone Adverse Reaction (Verified 11/17/16 15:29) Rash patient wasnt sure of reaction to this Sulfa (Sulfonamide Antibiotics) Adverse Reaction (Verified 11/17/16 15:29) Rash patient wasnt sure of reaction - Constitutional Constitutional ROS PAL: decreased appetite, weight loss, no fever(s) - EENT Eyes: no change in vision Ears: decreased hearing Ears, nose, mouth, throat: dry mouth - Cardiovascular Cardiovascular ROS: irregular heart rhythm, no chest pain, no chest pain at rest - Respiratory Respiratory: no cough, no dyspnea, no hemoptysis, no dyspnea on exertion - Gastrointestinal Gastrointestinal: abdominal pain, constipation, nausea, no diarrhea, no vomiting - Genitourinary Genitourinary ROS male: no difficulty urinating - Musculoskeletal Musculoskeletal ROS IM: muscle weakness - Integumentary ROS Integumentary: wounds (Mid abdominal incision) - Neurological Neurological ROS: confusion, weakness (Global) - Psychiatric Psychiatric general PM: confusion, irritability Palliative Care-Exam - Constitutional Exam: Alert, oriented to person and place, cooperative with exam. Cachectic, appearing chronically ill. - Eye Eye exam: Present: EOMI Pupils: Present: PERRL - ENT ENT exam: Present: mucous membranes dry - Respiratory Respiratory exam: Present: decreased breath sounds. Absent: accessory muscle use, respiratory distress - Cardiovascular Cardiovascular exam: Present: RRR, systolic murmur. Absent: tachycardia - Expanded Cardiovascular Exam Peripheral pulses: 1+: Dorsalis Pedis (L) PM, Dorsalis Pedis (R) PM - GI/Abdominal Exam GI/Abdominal exam: Present: normal bowel sounds, soft. Absent: tenderness additional comments: Midabdominal incision with wound VAC in place, colostomy with flatus, but no output. - Rectal Rectal Exam: Present: deferred - exam: Present: scrotal swelling Genitourinary: Scrotal edema Catheter Type: Urethral ([place]) - Extremities Exam Additional comments: Generalized edema, right upper extremity greater than left. Left lower extremity with purplish discoloration to the dorsal aspect of the foot - Neurological Exam Neurological exam: Present: alert (oriented to person and place) - Psychiatric Psychiatric exam: Absent: agitated, anxious - Skin Skin exam: Present: dry, warm Palliative Quality Palliative Quality: Screen for Code Status: Yes, Screen for Goals of Care: Yes, Screen for Pain: Yes, If Pain Regimen Started, Initiate Bowel Regimen: Yes, Screen for Nausea/Vomitting: Yes Code Status: 12/06/16 09:43 Resuscitation Status: Active [RES] Routine Comment: Resuscitation Status: DNR-Comfort Care
[2016-12-06] MEDS: *HR* FentaNYL PATCH 12 MCG PATCH TD SCH (12:52)
--- NOTE | 2016-12-06 14:40 | Pallative History & Physical ---
Date of Encounter: 12/06/16 Time of Encounter: 11:00 Assessment and Plan (1) Frail elderly Current visit: No Status: Acute Will encourage by mouth intake. Patient has opted for him for care hospice care. (2) Delirium Current visit: No Status: Acute Encourage correction of sleep-wake cycle. Elavil at bedtime and Ambien when necessary at bedtime. May use Haldol for uncontrolled symptoms. (3) Severe protein-calorie malnutrition Current visit: No Status: Chronic We will encourage by mouth intake, change diet to full liquid and encourage supplementation. (4) Counseling regarding advanced care planning and goals of care Current visit: No Status: Acute DNR comfort care, goal of care will be for the patient to go home with hospice. Debility to go home with large part be due to how much she is able to take nothing by mouth. We will continue to watch (5) Generalized pain Current visit: No Status: Acute Patient is on a fentanyl patch with hydromorphone available when necessary. Continue to watch (6) Colonic mass Current visit: No Status: Acute Pathology reveals that this is adenocarcinoma, and is in all likelihood has metastasized. As there are questionable lesions in the liver as well as multiple node. Patient does not wish to have any further aggressive care, and oncology has confirmed that the patient's overall debilitated condition would not allow for chemotherapy anyway. Patient has now opted for hospice and this is the hospice diagnosis. Internal Medicine - H&P: HPI Admitted From: Intrahospital Transfer Plans for Post Hospital Care: Hospice - Home History of present illness: Mr. Craig is a 86 year old male Patient is an 86-year-old man that was originally mated to [facility] with abdominal pain. He had a 35 pound weight loss and anorexia prior to the admission is actually scheduled to have a colonoscopy the th of this month, as there was a strong family history of colon cancer and he never had a colonoscopy. He began experiencing abdominal pain and was brought to the hospital. During the evaluation it was noted that he had a sigmoid mass with a perforation which required emergency surgery. Her injury he had a sigmoid colectomy with a colostomy repair of an inguinal hernia and repair of an incidental left vein injury. 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 Since postop course was very complicated with a DVT to the right upper arm and lower extremities [place] delayed output from his colostomy and delirium. The patient has required support with TPN and a wound VAC to the incision. The patient has done very poorly and after extensive family meetings and goals of care discussions with surgery oncology and palliative care the decision was made to transition to comfort care and hospice. She will undergo change to general inpatient hospice for management of pain, poor appetite and nausea with delirium. We titrated based on symptoms. William for the patient to go home with care provided by his and son. At this time the patient's very poorly responsive and has no complaints. Past Med Surg Social Fam HX - Past Medical History Medical history: arthritis, cancer (Adenocarcinoma of the sigmoid colon), GERD, hyperlipidemia, hypertension, thyroid disease, valvular heart disease, other ( Peripheral vascular disease) Psychiatric history: no psych history - Past Surgical History Surgical History: colectomy (Exploratory celiotomy, the point colectomy, colostomy, left inguinal hernia repair, ), other - Social History Smoking Status: Never smoker Smokeless Tobacco Status: No Alcohol use: none Drug use: none - Family History Father Living Status: Hx Family Cancer: Yes (colon cancer) Mother Living Status: Hx Family Cardiac Disorders: Yes Hx Family Endocrine Disorder: Yes (Diabetes Mellitus) Brother Living Status: Still Living Hx Family Cardiac Disorders: Yes Hx Family Endocrine Disorder: Yes (diabetes mellitus) Internal Medicine - H&P: Meds Cyanocobalamin (Vitamin B-12) [Vitamin B12] 1,000 mcg PO DAILY 01/20/16 [History ] Cyclosporine [Restasis] 1 drop OP BID 01/20/16 [History] Levothyroxine [Synthroid] 50 mcg PO QAM 01/20/16 [History] Multivitamin [Multi-Day Vitamins] 1 tab PO DAILY 01/20/16 [History] Nabumetone 750 mg PO BID 01/20/16 [History] Omeprazole [PriLOSEC] 20 mg PO DAILY 01/20/16 [History] Polyvinyl Alcohol [Artificial Tears] 1 drop OP BID PRN 01/20/16 [History] Fluticasone Propionate Nasal [Flonase] 1 spray NS DAILY 04/21/16 [History] Ipratropium [place] 1 spray NS BID 04/21/16 [History] Aspirin 81 mg PO DAILY 30 Days 04/23/16 [Rx] Ascorbate Calcium [Vitamin C] 500 mg PO DAILY 11/17/16 [History] Diltiazem [Cardizem] 30 mg PO TID 11/17/16 [History] Ferrous Sulfate [Iron] 325 mg PO DAILY 11/17/16 [History] Sennosides [Senna] 17.2 mg PO HS PRN 11/17/16 [History] Allergies celecoxib [From Celebrex] Adverse Reaction (Verified 11/17/16 15:29) See Comments patient unsure of reaction prednisone Adverse Reaction (Verified 11/17/16 15:29) Rash patient wasnt sure of reaction to this Sulfa (Sulfonamide Antibiotics) Adverse Reaction (Verified 11/17/16 15:29) Rash patient wasnt sure of reaction ROS unobtainable: due to mental status Palliative Care-Exam - Constitutional Vitals: Temp Pulse Resp BP Pulse Ox 98.7 F 74 16 127/78 97 12/06/16 11:50 12/06/16 11:50 12/06/16 11:50 12/06/16 11:50 12/06/16 11:50 General appearance: Present: no acute distress, thin - Head Head Exam: Present: atraumatic, normal inspection - Eye Eye exam: Absent: normal appearance (Kel sunken) - ENT ENT exam: Present: mucous membranes dry - Respiratory Respiratory exam: Present: decreased breath sounds - Cardiovascular Cardiovascular exam: Present: RRR, systolic murmur - GI/Abdominal Exam GI/Abdominal exam: Present: normal bowel sounds, soft. Absent: tenderness - Catheter Type: Urethral (Bolden) - Extremities Exam Extremities exam: Present: pedal edema. Absent: normal inspection - Expanded Upper Extremities Exam Neuro motor exam: Present: thumb opposition intact - Psychiatric Psychiatric exam: Absent: agitated, anxious (Low he has had this at times) - Skin Skin exam: Present: dry, warm Palliative Quality Palliative Quality: Screen for Code Status: Yes, Screen for Goals of Care: Yes, Screen for Pain: Yes, If Pain Regimen Started, Initiate Bowel Regimen: Yes, Screen for Nausea/Vomitting: Yes Code Status: 12/06/16 09:43 Resuscitation Status: Active [RES] Routine Comment: Resuscitation Status: DNR-Comfort Care
--- NOTE | 2016-12-06 14:49 | Event Note ---
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 Start: 12/06/2016 Hospice benefit. In: +90 days Palliative performance scale: 20-30% History: Patient with new diagnosis of adenocarcinoma of the sigmoid colon. Does appear to be metastatic and there is no further treatment available to the patient after having had onycho-resection and an extremely complicated and poor postop course. The patient is not able to take in adequate nutrition to properly heal , nor is he able to avail himself of any further cancer therapy. Therefore I believe that These findings support a life expectancy of 6 months or less. I attest that I have compose the above narrative based on my review of the patient's medical records, and or on my examination of the patient. Pierre Santana M.D. Associate medical billing service. [facility]
[2016-12-06] MEDS: *HR* HYDROmorphone 2 MG/ML SYRINGE IVP PRN ×3 (15:29→23:36)
[2016-12-06] MEDS: Lactulose Oral Soln 20 GM/30 ML UDC PO SCH (21:04)
[2016-12-06] MEDS: Clotrimazole 1% CRM 15 GM TUBE TP SCH (21:10)
[2016-12-07] MEDS: Levothyroxine 25 MCG TABLET PO SCH (06:43)
[2016-12-07] MEDS: *HR* HYDROmorphone 2 MG/ML SYRINGE IVP PRN ×2 (07:44→19:20)
[2016-12-07] MEDS: Lactulose Oral Soln 20 GM/30 ML UDC PO SCH ×2 (08:25→21:47)
--- NOTE | 2016-12-07 09:21 | Palliative - Consult Note ---
Date of Encounter: 12/07/16 Time of Encounter: 08:30 - Assessment and Plan (1) Generalized pain Current Visit: No Status: Acute Assessment and plan: Patient receiving Fentany patch and Dilaudid IV for BTP. Will transition to PO liquid morphine for comfort. Denies pain just abdominal tenderness. Only requested 4 doses IV Dilaudid. (2) Delirium Current Visit: No Status: Acute Assessment and plan: Patient slept all night and had ambien and [place]. This morning he is alert and oriented to place and person. He reports feeling overall better as he has rested. Continue POC and monitor. (3) Counseling regarding advanced care planning and goals of care Current Visit: No Status: Acute Assessment and plan: Patient is inpatient Hospice care with the DC plan to DC home by the end of the week. Family setting up home with DME and education to be given to family in regards to abdominal wound and colostomy care. Will plab for education today and have family return demo. Will follow. Palliative-CN HPI - Data of Consult Patient: known to practice within the last 3 years Consult date: 12/07/16 Requesting Physician: Pierre Santana MD Primary Care Provider: Antonella Cardoza CNP - Consult Narrative Palliative Care/Comfort Measures: Hospice care Reason for consult: Symptom management History of present illness: Mr. Craig is a 86 year old male admitted to inpatient hospice care for adenocarinoma of the colon. The patient was POD #20 from having a bowel perforation, colectomy and colostomy. He has declined in overall post-operative recovery. His poor overall performance status and poor nutritional intake has delayed wound healing to his midline abdominal incision and he has experienced post-op complications to his wound which required a wound vac being placed. After discussion with his and son and discussion of his status the decision was made to transition the patient to inpatient hospice care with the hope of transitioning the patient home with hospice care by the end of the week. This palliative care consult is for symptom management. CC: Pierre Santana MD Past Med Surg Social Fam HX - Past Medical History Medical history: arthritis, cancer (Adenocarcinoma of the sigmoid colon), GERD, hyperlipidemia, hypertension, thyroid disease, valvular heart disease, other ( Peripheral vascular disease) Psychiatric history: no psych history - Past Surgical History Surgical History: colectomy (Exploratory celiotomy, the point colectomy, colostomy, left inguinal hernia repair, ), other - Social History Smoking Status: Never smoker Smokeless Tobacco Status: No Alcohol use: none Drug use: none - Family History Father Living Status: Hx Family Cancer: Yes (colon cancer) Mother Living Status: Hx Family Cardiac Disorders: Yes Hx Family Endocrine Disorder: Yes (Diabetes Mellitus) Brother Living Status: Still Living Hx Family Cardiac Disorders: Yes Hx Family Endocrine Disorder: Yes (diabetes mellitus) Medications and Allergies Cyanocobalamin (Vitamin B-12) [Vitamin B12] 1,000 mcg PO DAILY 01/20/16 [History ] Cyclosporine [Restasis] 1 drop OP BID 01/20/16 [History] Levothyroxine [Synthroid] 50 mcg PO QAM 01/20/16 [History] Multivitamin [Multi-Day Vitamins] 1 tab PO DAILY 01/20/16 [History] Nabumetone 750 mg PO BID 01/20/16 [History] Omeprazole [PriLOSEC] 20 mg PO DAILY 01/20/16 [History] Polyvinyl Alcohol [Artificial Tears] 1 drop OP BID PRN 01/20/16 [History] Fluticasone Propionate Nasal [Flonase] 1 spray NS DAILY 04/21/16 [History] Ipratropium [place] 1 spray NS BID 04/21/16 [History] Aspirin 81 mg PO DAILY 30 Days 04/23/16 [Rx] Ascorbate Calcium [Vitamin C] 500 mg PO DAILY 11/17/16 [History] Diltiazem [Cardizem] 30 mg PO TID 11/17/16 [History] Ferrous Sulfate [Iron] 325 mg PO DAILY 11/17/16 [History] Sennosides [Senna] 17.2 mg PO HS PRN 11/17/16 [History] Allergies celecoxib [From Celebrex] Adverse Reaction (Verified 11/17/16 15:29) See Comments patient unsure of reaction prednisone Adverse Reaction (Verified 11/17/16 15:29) Rash patient wasnt sure of reaction to this Sulfa (Sulfonamide Antibiotics) Adverse Reaction (Verified 11/17/16 15:29) Rash patient wasnt sure of reaction ROS unobtainable: due to mental status All systems: reviewed and no additional remarkable complaints except as stated ( abdominal tenderness) - Constitutional Constitutional ROS PAL: decreased appetite, weight loss - EENT Eyes: requires corrective lenses Ears: decreased hearing - Cardiovascular Cardiovascular ROS: pedal edema - Gastrointestinal Gastrointestinal: change in bowel habits (patient with adenocarcinoma of colon, colostomy) - Genitourinary Genitourinary ROS male: genital pain (swelling of the testicles) - Musculoskeletal Musculoskeletal ROS IM: muscle weakness - Integumentary ROS Integumentary: wounds (abdominal) - Neurological Neurological ROS: weakness - Psychiatric Psychiatric general PM: change in appetite Palliative Care-Exam - Constitutional Vitals: Temp Pulse Resp BP Pulse Ox 97.6 F 85 22 100/50 95 12/07/16 07:26 12/07/16 07:26 12/07/16 07:26 12/07/16 07:26 12/07/16 07:26 General appearance: Present: no acute distress, thin - Head Head Exam: Present: atraumatic, normal inspection, normocephalic - Eye Eye exam: Present: PERRL Pupils: Present: PERRL - ENT ENT exam: Present: mucous membranes dry - Expanded ENT Exam Mouth Exam: Present: dry mucosa Teeth exam: Present: edentulous - Neck Neck exam: Present: full ROM - Respiratory Respiratory exam: Present: decreased breath sounds, CTAB - Expanded Respiratory Exam Location: decreased breath sounds: Left, Right, Lower - Cardiovascular Cardiovascular exam: Present: +S1, +S2 - Expanded Cardiovascular Exam Peripheral pulses: 1+: Femoral (L) PM, Femoral (R) PM, Posterior Tibialis (L), Posterior Tibialis (R), Dorsalis Pedis (L) PM (doppler), Dorsalis Pedis (R) PM, 2+: Carotid (L) PM, Carotid (R) PM, Radial (L), Radial (R) - GI/Abdominal Exam GI/Abdominal exam: Present: normal bowel sounds (colostomy with slight amount of clear brown liquid), soft, tenderness - Catheter Type: Urethral (Bolden) (clear yellow urine) - Expanded Upper Extremities Exam Shoulder exam: Present: full ROM Upper Arm exam: Present: full ROM - Neurological Exam Neurological exam: Present: alert (oriented x 2) - Expanded Neurological Exam Patient oriented to: Present: person, place Coma Scale Eye Opening: Spontaneous Coma Scale Motor Response: Obeys Commands Coma Scale Verbal Response: Inappropriate Coma Scale Total: 13 - Psychiatric Psychiatric exam: Present: normal affect - Skin Skin exam: Present: pallor, warm Consult Discharge Plan - Plan Referrals: Antonella Cardoza CNP [Primary Care Provider] - Palliative Quality Palliative Quality: Screen for Code Status: Yes, Screen for Goals of Care: Yes, Screen for Pain: Yes, If Pain Regimen Started, Initiate Bowel Regimen: Yes, Screen for Nausea/Vomitting: Yes Code Status: 12/06/16 09:43 Resuscitation Status: Active [RES] Routine Comment: Resuscitation Status: DNR-Comfort Care
[2016-12-07] MEDS: Ondansetron 4 MG/2 ML VIAL IVP PRN (11:54)
[2016-12-07] MEDS: Clotrimazole 1% CRM 15 GM TUBE TP SCH ×2 (11:58→21:52)
[2016-12-08] MEDS: *HR* HYDROmorphone 2 MG/ML SYRINGE IVP PRN (02:06)
[2016-12-08] MEDS: Lactulose Oral Soln 20 GM/30 ML UDC PO SCH ×2 (08:58→20:57)
[2016-12-08] MEDS: Levothyroxine 25 MCG TABLET PO SCH (09:02)
[2016-12-08] MEDS ORDERED: *HR* LORazepam Oral Conc 2 MG/ML SL PRN (09:07)
--- NOTE | 2016-12-08 09:14 | Palliative Progress Note ---
Date of Encounter: 12/08/16 Time of Encounter: 09:00 - Assessment and plan (1) Generalized pain Current Visit: No Status: Acute Assessment and plan: Patient denies pain or discomfort. Will transition to PO pain medication for comfort PRN. Will add Roxanol for comfort PRN. Patient only requested 2 doses IV Dilaudid in past 24 hrs. (2) Delirium Current Visit: No Status: Acute Assessment and plan: Patient rested well last night. Ambien effective. Patient alert, calm. (3) Counseling regarding advanced care planning and goals of care Current Visit: Yes Status: Acute Assessment and plan: at bedside, discussed home transition tomorrow with Hospice care. reports that DME will be delivered today after 4pm. F/U on dressing and colostomy education that nursing provided yesterday. needs reinforcement education on emptying Colostomy bag. Nursing to reinforce education today. Transitioned to PO pain medication for BTP. Will follow and plan for home transition in tomorrow. - Time Spent With Patient Total time spent is greater than 50% in coordination of care (as documented) at patient's floor/unit and/or counseling patient: 25 - 35 minutes - Subjective Interval history: Patient up in bed. Calm, reports sleeping better last night. Patient tolerating Ambien. Wendy at bedside. F/U discussion on home transition. - Constitutional General appearance: Present: cooperative, no acute distress - Head Head exam: Present: atraumatic, normal inspection, normocephalic - Eye Eye exam: Present: PERRL Pupils: Present: PERRL - ENT ENT exam: Present: mucous membranes moist - Neck Neck exam: Present: full ROM - Respiratory Respiratory exam: Present: CTAB - Cardiovascular Cardiovascular exam: Present: RRR, +S1, +S2 - GI/Abdominal GI/Abdominal exam: Present: normal bowel sounds, soft (Colostomy and midline abdominal dressing intact) - Rectal Rectal exam: Present: deferred - exam: Present: scrotal swelling (Bolden draining dark yellow urine) - Extremities Exam Extremities exam: Present: full ROM - Back Exam Back exam: Present: full ROM - Neurological Exam Neurological exam: Present: alert ([place]. wear corrective glasses), oriented X3 - Psychiatric Psychiatric exam: Present: normal affect - Skin Skin exam: Present: pallor, warm Palliative Quality Palliative Quality: Screen for Code Status: Yes, Screen for Goals of Care: Yes, Screen for Pain: Yes, If Pain Regimen Started, Initiate Bowel Regimen: Yes, Screen for Nausea/Vomitting: Yes Code Status: 12/06/16 09:43 Resuscitation Status: Active [RES] Routine Comment: Resuscitation Status: DNR-Comfort Care Consult Discharge Plan - Plan Referrals: Antonella Cardoza CNP [Primary Care Provider] - (palli)
[2016-12-08] MEDS: Clotrimazole 1% CRM 15 GM TUBE TP SCH ×2 (09:24→21:08)
[2016-12-08] MEDS: Morphine Oral CONC 5 MG/0.25 ML ORAL.SYG PO PRN ×3 (12:57→21:19)
[2016-12-08] MEDS: Ondansetron 4 MG/2 ML VIAL IVP PRN ×2 (17:38→20:57)
[2016-12-09] MEDS: Levothyroxine 25 MCG TABLET PO SCH (06:11)
[2016-12-09 07:37] VITALS: BP 116/62
[2016-12-09] MEDS: Lactulose Oral Soln 20 GM/30 ML UDC PO SCH (10:04)
[2016-12-09] MEDS: Clotrimazole 1% CRM 15 GM TUBE TP SCH (10:05)
--- NOTE | 2016-12-09 10:52 | Palliative Progress Note ---
Date of Encounter: 12/09/16 Time of Encounter: 09:30 - Assessment and plan (1) Adenocarcinoma of sigmoid colon Current Visit: No Status: Chronic Assessment and plan: Patient whenever general inpatient hospice care for management of acute delirium. Patient will be discharged home today to return to the services of [facility] care. Spouse-Janiya will remain as primary critical care registered nurse. (2) Delirium Current Visit: No Status: Acute Assessment and plan: Resolving (3) Failure to thrive Current Visit: No Status: Chronic Qualifiers: Failure to thrive age range: in adult Qualified Code(s): R62.7 - Adult failure to thrive (4) Generalized pain Current Visit: No Status: Chronic - Time Spent With Patient Total time spent is greater than 50% in coordination of care (as documented) at patient's floor/unit and/or counseling patient: - Subjective Interval history: Mr. Jacobson is alert and oriented to person and place. He is eager to return home today, as is family. He reports some nausea this morning. - Constitutional General appearance: Present: cooperative, no acute distress Exam: 86 year old male appearing chronically ill, alert to name and place - Eye Eye exam: Present: EOMI - ENT ENT exam: Present: mucous membranes dry - Respiratory Respiratory exam: Present: decreased breath sounds. Absent: accessory muscle use, respiratory distress, tachypnea - Cardiovascular Cardiovascular exam: Present: irregular rhythm, systolic murmur. Absent: tachycardia - GI/Abdominal GI/Abdominal exam: Present: normal bowel sounds, soft. Absent: tenderness Additional comments: midline abdominal incision with dressing intact, - exam: Present: scrotal swelling Additional comments: jeff intact - Extremities Exam Additional comments: lower extremity edema R > L - Neurological Exam Neurological exam: Present: alert (oriented to person and place) - Psychiatric Psychiatric exam: Absent: agitated, anxious - Skin Skin exam: Present: dry, warm Additional comments: mid abdominal incision with dressing intact Palliative Quality Palliative Quality: Screen for Code Status: Yes, Screen for Goals of Care: Yes, Screen for Pain: Yes, If Pain Regimen Started, Initiate Bowel Regimen: Yes, Screen for Nausea/Vomitting: Yes Code Status: 12/06/16 09:43 Resuscitation Status: Active [RES] Routine Comment: Resuscitation Status: DNR-Comfort Care Consult Discharge Plan - Plan Additional Instructions: PICC line to remain in place Referrals: Antonella Cardoza SPICE FUMIGATOR [Primary Care Provider] - (palli) Prescriptions: Prochlorperazine Maleate [Compazine] 10 mg PO Q6HR #5 tablet ALPRAZolam [Xanax 0.5 MG Tablet] 0.5 mg PO Q6H PRN #10 tablet PRN Reason: anxiety/agitation Amitriptyline [Elavil] 50 mg PO HS #5 tab Amoxicillin/Clavulanate [Augmentin] 875 mg PO BIDWM #20 tab FentaNYL PATCH [Duragesic] 12 mcg TD Q72H #1 Haloperidol Oral Conc [Haldol] 2 mg PO TID PRN #30 mls PRN Reason: Agitation Lactulose 20 gm PO BID #120 ml Morphine Oral CONC [Roxanol] 0.25 - 1 ml PO Q1H PRN #30 ml PRN Reason: pain or dyspnea Omeprazole [PriLOSEC] 40 mg PO DAILY@0730 #5 Zolpidem [Ambien] 5 mg PO HS #5 tab
--- NOTE | 2016-12-09 10:55 | Physician Discharge Referral ---
Home Health/Hosp Referral Info Transfer to: Hospice Attending Provider: Esther Provider in Charge Post Discharge: Chrome Polisher - Diagnosis (1) Adenocarcinoma of sigmoid colon Priority: Primary Status: Chronic (2) Delirium Priority: Secondary Status: Acute (3) Failure to thrive Priority: Secondary Status: Chronic (4) Generalized pain Priority: Secondary Status: Chronic - Respiratory Orders Oxygen / L per min (2 L per nasal Cannula PRN) Smoking Cessation: Smoking cessation has been advised. For more information, call the [place] Tobacco Quit Line at 9-887-LJSX-NOW. - Dressing/Wound Care Site: Mid Abdominal incision, wet to dry, change daily and PRN - Diet/Nutrition Diet/Nutrition Orders: Mechanical Soft - Activity Activity Orders: Bedrest - Services Needed Following services are medically necessary services: Nursing, Home Health Aide, Med Social Work - Transfer Medications Prescriptions: Prochlorperazine Maleate [Compazine] 10 mg PO Q6HR #5 tablet ALPRAZolam [Xanax 0.5 MG Tablet] 0.5 mg PO Q6H PRN #10 tablet PRN Reason: anxiety/agitation Amitriptyline [Elavil] 50 mg PO HS #5 tab Amoxicillin/Clavulanate [Augmentin] 875 mg PO BIDWM #20 tab FentaNYL PATCH [Duragesic] 12 mcg TD Q72H #1 Haloperidol Oral Conc [Haldol] 2 mg PO TID PRN #30 mls PRN Reason: Agitation Lactulose 20 gm PO BID #120 ml Morphine Oral CONC [Roxanol] 0.25 - 1 ml PO Q1H PRN #30 ml PRN Reason: pain or dyspnea Omeprazole [PriLOSEC] 40 mg PO DAILY@0730 #5 Zolpidem [Ambien] 5 mg PO HS #5 tab Home Medications: Cyclosporine [Restasis] 1 drop OP BID 01/20/16 [History] Levothyroxine [Synthroid] 50 mcg PO QAM 01/20/16 [History] Polyvinyl Alcohol [Artificial Tears] 1 drop OP BID PRN 01/20/16 [History] Fluticasone Propionate Nasal [Flonase] 1 spray NS DAILY 04/21/16 [History] Ipratropium [place] 1 spray NS BID 04/21/16 [History] Aspirin 81 mg PO DAILY 30 Days 04/23/16 [Rx] ALPRAZolam [Xanax 0.5 MG Tablet] 0.5 mg PO Q6H PRN #10 tablet 12/09/16 [Rx] Amitriptyline [Elavil] 50 mg PO HS #5 tab 12/09/16 [Rx] Amoxicillin/Clavulanate [Augmentin] 875 mg PO BIDWM #20 tab 12/09/16 [Rx] FentaNYL PATCH [Duragesic] 12 mcg TD Q72H #1 12/09/16 [Rx] Haloperidol Oral Conc [Haldol] 2 mg PO TID PRN #30 mls 12/09/16 [Rx] Lactulose 20 gm PO BID #120 ml 12/09/16 [Rx] Morphine Oral CONC [Roxanol] 0.25 - 1 ml PO Q1H PRN #30 ml 12/09/16 [Rx] Omeprazole [PriLOSEC] 40 mg PO DAILY@0730 #5 12/09/16 [Rx] Prochlorperazine Maleate [Compazine] 10 mg PO Q6HR #5 tablet 12/09/16 [Rx] Zolpidem [Ambien] 5 mg PO HS #5 tab 12/09/16 [Rx] Allergies/Adverse Reactions: Allergies celecoxib [From Celebrex] Adverse Reaction (Verified 11/17/16 15:29) See Comments patient unsure of reaction prednisone Adverse Reaction (Verified 11/17/16 15:29) Rash patient wasnt sure of reaction to this Sulfa (Sulfonamide Antibiotics) Adverse Reaction (Verified 11/17/16 15:29) Rash patient wasnt sure of reaction Certification: Further, I certify that my clinical findings support that this patient is homebound (i.e. absences from home require considerable and taxing effort and are for medical reasons or oriental orthodox services or infrequently or short duration when for other reasons) because: Homebound Reason: Patient requires assistance of a person or device to safely leave home, Leaving home requires considerable and taxing effort due to condition Attestation: My signature below is to certify that this patient is under my care and that I, or nurse practitioner, or a physician's resident programs assistant working with me, has a face-to -face encounter with this patient.
--- NOTE | 2016-12-09 11:05 | Discharge Summary ---
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 (2) Delirium Priority: Secondary Status: Acute (3) Failure to thrive Priority: Secondary Status: Chronic Qualifiers: Failure to thrive age range: in adult Qualified Code(s): R62.7 - Adult failure to thrive (4) Generalized pain Priority: Secondary Status: Chronic - Discharge Medications Prescriptions: Prochlorperazine Maleate [Compazine] 10 mg PO Q6HR #5 tablet ALPRAZolam [Xanax 0.5 MG Tablet] 0.5 mg PO Q6H PRN #10 tablet PRN Reason: anxiety/agitation Amitriptyline [Elavil] 50 mg PO HS #5 tab Amoxicillin/Clavulanate [Augmentin] 875 mg PO BIDWM #20 tab FentaNYL PATCH [Duragesic] 12 mcg TD Q72H #1 Haloperidol Oral Conc [Haldol] 2 mg PO TID PRN #30 mls PRN Reason: Agitation Lactulose 20 gm PO BID #120 ml Morphine Oral CONC [Roxanol] 0.25 - 1 ml PO Q1H PRN #30 ml PRN Reason: pain or dyspnea Omeprazole [PriLOSEC] 40 mg PO DAILY@0730 #5 Zolpidem [Ambien] 5 mg PO HS #5 tab Home Medications: Cyclosporine [Restasis] 1 drop OP BID 01/20/16 [History] Levothyroxine [Synthroid] 50 mcg PO QAM 01/20/16 [History] Polyvinyl Alcohol [Artificial Tears] 1 drop OP BID PRN 01/20/16 [History] Fluticasone Propionate Nasal [Flonase] 1 spray NS DAILY 04/21/16 [History] Ipratropium [place] 1 spray NS BID 04/21/16 [History] Aspirin 81 mg PO DAILY 30 Days 04/23/16 [Rx] ALPRAZolam [Xanax 0.5 MG Tablet] 0.5 mg PO Q6H PRN #10 tablet 12/09/16 [Rx] Amitriptyline [Elavil] 50 mg PO HS #5 tab 12/09/16 [Rx] Amoxicillin/Clavulanate [Augmentin] 875 mg PO BIDWM #20 tab 12/09/16 [Rx] FentaNYL PATCH [Duragesic] 12 mcg TD Q72H #1 12/09/16 [Rx] Haloperidol Oral Conc [Haldol] 2 mg PO TID PRN #30 mls 12/09/16 [Rx] Lactulose 20 gm PO BID #120 ml 12/09/16 [Rx] Morphine Oral CONC [Roxanol] 0.25 - 1 ml PO Q1H PRN #30 ml 12/09/16 [Rx] Omeprazole [PriLOSEC] 40 mg PO DAILY@0730 #5 12/09/16 [Rx] Prochlorperazine Maleate [Compazine] 10 mg PO Q6HR #5 tablet 12/09/16 [Rx] Zolpidem [Ambien] 5 mg PO HS #5 tab 12/09/16 [Rx] Allergies/Adverse Reactions: Allergies celecoxib [From Celebrex] Adverse Reaction (Verified 11/17/16 15:29) See Comments patient unsure of reaction prednisone Adverse Reaction (Verified 11/17/16 15:29) Rash patient wasnt sure of reaction to this Sulfa (Sulfonamide Antibiotics) Adverse Reaction (Verified 11/17/16 15:29) Rash patient wasnt sure of reaction Internal Medicine - DS: Prov Date of admission: 12/06/16 10:49 Primary care physician: Antonella Cardoza CNP Admitting clinician: Pierre Santana Attending physician on admission: Pierre Santana Consults: 12/06/16 09:46 Consult to Palliative Care [CONS] Routine Comment: Consulting Provider: Palliative Care [place] Reason for Consult: symptom management Call Completed: Yes Attending physician on discharge: Pierre Santana Discharging clinician: Alberta Edmondson Anticipated date of discharge: 12/09/16 - Patient Status Disposition: Hospice - Home Functional capacity at discharge: bed bound Overall status at discharge: patient is not back to baseline - Discharge Instructions Follow Up With: Antonella Cardoza CNP [Primary Care Provider] - (palli) Additional Instructions: PICC line to remain in place - Diet and Activity Activity: other (Activity as tolerated) Diet: other (Full liquid diet, advance as tolerated) - Hospital Course Hospital course: Mr. Craig is a 86 year old male patient with a recent admission for abdominal pain caused by a mass in the sigmoid colon that led to a bowel perforation. Mr. Craig underwent surgical intervention and had a complicated postoperative course. The decision was made to transition to hospice care, and Mr. Craig was kept in the hospital under general inpatient hospice for management of his acute delirium and pain. Throughout his stay under general inpatient hospice, his sleep wake cycle was regulated, and medications were altered as needed. Wound care was completed, and patient's family was educated on management of wound and ostomy care. The patient will be discharged home today under the care of of [facility]. His spouse-Janiya, will be his primary caregiver. His son-Marcelo will serve as a backup. Reviewed discharge medications with the patient's spouse and son along with the [place] hospice nurse. The patient will have prescriptions filled prior to discharge. Encourage oral intake has tolerated. - Time Spent with Patient Total time spent providing and/or coordinating discharge services: Greater than 30 minutes Specific discharge activities: Wound care: Midline abdominal incision-cleanse with soap and water, pack with 0.9 normal saline wet-to-dry Kerlix gauze, cover with dry 4 x 4, tape securely, change daily Internal Medicine - DS: Exam - Constitutional Vitals: Vital Signs Temp Pulse Resp BP Pulse Ox 12/09/16 07:35 97.4 F L 87 16 116/62 97 12/08/16 20:16 98.0 F 81 17 105/62 97 12/08/16 11:31 97.5 F L 76 19 115/58 96 Intake and Output 12/08/16 12/09/16 12/09/16 23:59 07:59 15:59 Intake Total 50 / 50 Output Total 750 / 750 300 / 300 Balance -700 / -700 -300 / -300 Intake: Oral 50 / 50 Output: Catheter 750 / 750 300 / 300 Other: Meal Dinner Percent of Meal Consumed 5% General appearance: cooperative, no acute distress Additional comments: 86-year-old male patient, alert to person and place, cachectic, appears chronically ill - Eye Eye exam: Present: EOMI - ENT ENT exam: Present: mucous membranes dry - Respiratory Respiratory exam: Present: decreased breath sounds. Absent: accessory muscle use, respiratory distress, tachypnea - Cardiovascular Cardiovascular exam: Present: irregular rhythm, systolic murmur. Absent: tachycardia - GI/Abdominal GI/Abdominal exam: Present: normal bowel sounds, soft. Absent: tenderness Additional comments: Midline abdominal incision with dressing clean dry and intact, ostomy with red stoma and liquid brown output. - exam: Present: scrotal swelling Additional comments: Bolden catheter intact - Extremities Exam Additional comments: Lower extremity edema left greater than right - Neurological Exam Neurological exam: Present: alert (Oriented to person and place), strengths equal and symetr throughout (Global weakness) - Psychiatric Psychiatric exam: Present: agitated. Absent: anxious - Skin Additional comments: Mid abdominal incision with dressing clean dry and intact, ostomy in place, dressings to buttock and right heel place. - VTE Documentation of Mechanical Device: Graduated compression elastic hosiery
[2016-12-09] MEDS: *HR* FentaNYL PATCH 12 MCG PATCH TD SCH (12:08)
[2016-12-09] MEDS: Ondansetron 4 MG/2 ML VIAL IVP PRN (12:08)
== END 2016-12-09 15:20 | disposition hospice, home (50) | DRG 374 ==
LOC: 2ANU 10:49
PROVIDERS: ADMIT Family Medicine Hospice and Palliative Medicine; ATTEND Family Medicine Hospice and Palliative Medicine